=== PATIENT | male | born 1940 | race Caucasian/White ===

== ENCOUNTER 2019-11-23 11:36 | Outpatient (CLI) | payer MEDICARE, SELFPAY ==
--- NOTE | ~2019-11-23 | XR_ITS ---
EXAMINATION: XR shoulder RT min 2V DATE: 11/23/2019 11:51 INDICATION: Right shoulder pain. TECHNIQUE: 4 views of right shoulder were obtained. COMPARISON: Right shoulder radiographs 10/10/2017 FINDINGS: Bone alignment is normal. No fracture. There is mild osteoarthritis of glenohumeral joint a nd severe osteoarthritis of acromioclavicular joint. IMPRESSION: 1. Polyarticular osteoarthritis. Reviewed, dictated and finalized at location A.
--- NOTE | ~2019-11-23 | XR_ITS ---
EXAMINATION: XR shoulder LT min 2V DATE: 11/23/2019 11:51 INDICATION: Left shoulder pain. TECHNIQUE: 4 views of left shoulder were obtained. COMPARISON: Left shoulder radiographs 04/22/2015 FINDINGS: Bone alignment is normal. No fracture. Again seen is a benign bone island in humeral diaphy sis. There is mild osteoarthritis of glenohumeral joint and severe osteoarthritis of acromioclavicula r joint. IMPRESSION: 1. Polyarticular osteoarthritis. Reviewed, dictated and finalized at location A.
== END 2019-11-23 11:37 | disposition home or self-care (01) ==
LOC: ANHIMG 11:44
PROVIDERS: PCP Family Medicine; Referring Provider Orthopaedic Surgery; Visit Provider Family Medicine
DX: M25.519 Pain in unspecified shoulder (principal); M15.9 Polyosteoarthritis, unspecified
CPT/HCPCS: 73030

== ENCOUNTER → 2020-05-29 12:45 | Outpatient (CLI) | payer MEDICARE, SELFPAY ==
--- NOTE | ~2020-05-29 | XR_ITS ---
EXAMINATION: XR foot LT min 3V DATE: 05/29/2020 13:22 INDICATION: Left foot pain at the fourth and fifth toes radiating into the lateral ankle TECHNIQUE: Dorsoplantar, two oblique and lateral views of the left foot were obtained. COMPARISON: None. FINDINGS: Alignment is normal. No fracture. Moderate osteoarthritis at the first metatarsophalangeal joint. Min imal to mild osteoarthritis at many of the remaining joints in the mid and forefoot. No periosteal reaction or cortical erosions. Moderate-sized plantar calcaneal spur with multiple smal l heterotopic ossicles in the proximal to mid plantar aponeurosis suggesting chronic plantar fasciiti s. IMPRESSION: 1. Polyarticular osteoarthritis in the mid and forefoot, moderate severity at the first metatarsophal angeal joint and otherwise minimal to mild . 2. Moderate-sized plantar calcaneal spur with multiple small heterotopic ossicles along the plantar a poneurosis suggestive of chronic plantar fasciitis. Reviewed, dictated and finalized at location B. IMPRESSION: 1. Polyarticular osteoarthritis in the mid and forefoot, moderate severity at t he first metatarsophalangeal joint and otherwise minimal to mild . 2. Moderate-sized plantar calcaneal spur with multiple small heterotopic ossicl es along the plantar aponeurosis suggestive of chronic plantar fasciitis.
== END ==
PROVIDERS: PCP Family Medicine; Visit Provider Physician Assistant
DX: M19.072 Primary osteoarthritis, left ankle and foot (principal); M77.32 Calcaneal spur, left foot
CPT/HCPCS: 73630

== ENCOUNTER 2020-06-28 13:20 | Observation (INO) | payer MEDICARE, SELFPAY ==
[2020-06-28] VITALS (9 sets, daily range): BP systolic 116–152; BP diastolic 50–86; PULSE 52–75; RESP 16–19; TEMP 35.9–36.6; O2SAT 94–99; BMI 35.8
--- NOTE | ~2020-06-28 | CT_ITS ---
EXAMINATION: CTA chest PE protocol DATE: 06/28/2020 14:39 INDICATION: Chest and back pain. TECHNIQUE: Computed tomography angiography (CTA) of the chest was performed with 100 mL Omnipaque-350 intravenous contrast timed to evaluate the pulmonary arteries. Coronal maximum intensity projection 3D-reconstructions were created by the technologist. Automated exposure control and iterative reconst ruction technique were employed. The dose-length product was 914.39 mGy-cm. COMPARISON: Chest CT 09/20/2018 FINDINGS: The lungs demonstrate mild atelectasis. There is chronic mild elevation of left hemidiaphra gm. No pleural effusion. The heart size is normal. There are coronary artery calcifications. No peric ardial effusion. There is no pulmonary embolus. There is mild aortic atherosclerosis. There is cortic al thinning of the kidneys. There is a 2.0 cm cyst in left kidney. There is a 12 mm subcutaneous mass in left posterior superior chest wall, likely a sebaceous cyst. There is 13 mm and 15 mm subcutaneou s masses in right lower posterior chest wall, likely sebaceous cysts. There are bridging endplate ost eophytes at multiple levels in the spine, consistent with diffuse idiopathic skeletal hyperostosis (D LUIS). There are chronic compression fractures of T12 and L1. IMPRESSION: 1. No pulmonary embolus. Reviewed, dictated and finalized at location A. IMPRESSION: 1. No pulmonary embolus.
--- NOTE | 2020-06-28 13:42 | ECG_ITS ---
Measurements Intervals [place] Rate: 66 P: 33 [place]: 187 QRS: 17 QRSD: 150 T: -7 QT: 432 QTc: 455 Interpretive Statements SINUS RHYTHM RIGHT BUNDLE BRANCH BLOCK BASELINE ARTIFACT- II, III, V1 ABNORMAL ECG Electronically Signed On 06-28-2020 14:03:48 CDT by Camden Umaña D.O.
--- NOTE | 2020-06-28 13:48 | ED.CHESTPAIN ---
HPI - Chest Pain General Chief Complaint: Chest Pain Stated Complaint: CHEST PAIN AND BACK PAIN Time Seen by Provider: 06/28/20 13:25 Source: patient, family and RN notes reviewed Mode of arrival: ambulatory Limitations: no limitations History of Present Illness HPI narrative: Patient is 79 years old white male presents to the ED with his daughter from home complaining of sharp stabbing pain between shoulder blades radiating to the front of the chest for the last 4 to 5 days. The pain usually last for few seconds, gets worse with certain position, get better if he sit down and rest. The pain started 1 day after planting a lot of bustos in the garden. Patient is telling me that he have history of lower back pain and arthritis, and usually have trouble to get off the ground without museum assistant. But after planting the floor patient was trying to get up using different muscles in his body to get off the ground. Patient is telling me that he looks like Act[employer] to try to get up. Patient denies any fever, chills, nausea, vomiting, shortness of breath, any complaint at this time. History of hypertension, COPD, deep vein thrombosis and pulmonary embolism on Xarelto for the last 3 years. Patient does not smoke and drinks alcohol daily. Related Data Home Medications Medication Instructions Recorded Confirmed ascorbic acid (vitamin C) 1,000 mg 1 gm PO DAILY 05/08/19 05/29/20 tablet crisaborole 2 % topical ointment 1 applic TOPICAL BID 05/08/19 05/29/20 mecobalamin (vitamin B12) 1,000 1,000 mcg PO DAILY 05/08/19 05/29/20 mcg chewable tablet ycibtfer-hor-jxtok acid 300 1 tablet PO DAILY 05/08/19 05/29/20 mcg-lycopene 600 mcg-lutein 300 mcg tablet omega-3 360 mg-dha 144 mg-epa 216 cap PO 05/08/19 05/29/20 mg-fish oil 1,200 mg capsule,del rel garlic 500 mg tablet 2,000 mg PO DAILY tablet 06/06/19 05/29/20 vitamin E (dl, acetate) 400 unit 400 unit PO DAILY 06/06/19 05/29/20 capsule Allergies Allergy/AdvReac Type Severity Reaction Status Date / Time No Known Allergies Allergy Verified 06/28/20 13:26 Review of Systems Review of Systems: Narrative: CONSTITUTIONAL: Denies fever, chills, or sweats. EYES: Denies visual changes, redness, or discharge. ENT: Denies rhinorrhea, congestion, sore throat, or otalgia. CARDIOVASCULAR: Denies chest pain, palpitations, or edema. RESPIRATORY: Denies cough or dyspnea. GASTROINTESTINAL: Denies abdominal pain, nausea, vomiting, or diarrhea. GENITOURINARY: Denies dysuria or hematuria. SKIN: Denies rash or itching. MUSCULOSKELETAL: Denies back pain, joint pain, or myalgia. NEUROLOGIC: Denies headache, numbness, or weakness. PSYCHIATRIC: Denies anxiety or depression. [facility] Past Medical History Medical History BMI 36.0-36.9,adult Cataract surgery, 2009, Dr. Mukherjee H/O blood clots Hypertension Surgical History Surgical History H/O knee surgery Right, Dr. Resendez 2019 History of prostate surgery 2000, Dr. Victor Family History Family History Mother Family history of congestive heart failure Father Family history of Hodgkin's lymphoma Social History Social History Alcohol intake: current Gender identity (if verbalized by the patient): Male Exam Narrative: Exam Narrative: General appearance: Well-developed, well-nourished Skin: Normal color Head: Normocephalic, nontraumatic Eyes: Clear conjunctiva ENT: Oropharynx normal, ears normal, nose normal Neck: Supple, nontender Chest and respiratory: Airway patent, no respiratory distress, no accessory muscle use Heart: Regular rate/rhythm Abdomen: Soft, nontender, no organomegaly, quiet bowel sounds Vascular: Normal peripheral pulses, normal capillary refill. Musculoskeletal: Normal range of motion, nontender back Neurolog
[2020-06-28 13:50] LABS: Basophils Percent Auto 0.2 % (0.2-1.2); Eosinophils Percent Auto 0.2 % (0-4.4); Hematocrit 46.8 % (42.0-52.0); Hemoglobin 15.8 g/dL (14.0-18.0); Immature Granulocyte Absolute 0.02 K/mm3 (0.00-0.031); Immature Granulocyte Percent A 0.4 % (0-0.5); Lymphocytes Absolute Auto 1.04 K/mm3 (0.9-3.2); Lymphocytes Percent Auto 18.5 % (18.3-44.2); Mean Corpuscular HGB Conc 33.8 g/dl (32-36); Mean Corpuscular Hemoglobin 32.9 pg (26-34); Mean Corpuscular Volume 97.5 fl (80-100); Mean Platelet Volume 10.1 fl (7.4-10.4); Monocytes Percent Auto 16.9 % (2.6-8.5); Neutrophils Absolute Auto 3.6 K/mm3 (1.3-6.7); Neutrophils Percent Auto 63.8 % (45.5-73.1); Platelet Count Result 170 k/mm3 (150-375); White Blood Count 5.6 K/mm3 (4.5-10.0)
[2020-06-28 14:01] LABS: Anion Gap 6 mmol/L (8-16); Blood Urea Nitrogen 15 mg/dL (9-20); Calcium 10.1 mg/dL (8.4-10.2); Carbon Dioxide 31 mmol/L (22-30); Chloride 102 mmol/L (98-107); Estimated CRCL calculation 59 ml/min; Estimated Glomerular Filt Rate > 60; Glucose 98 mg/dL (75-110); Potassium 4.6 mmol/L (3.4-5.0); Sodium 139 mmol/L (137-145)
[2020-06-28 14:16] LABS: Troponin I < 0.012 ng/mL (0.000-0.034)
[2020-06-28 14:29] LABS: Alanine Aminotransferase 51 U/L (4-50); Albumin Level 4.5 g/dL (3.5-5.1); Alkaline Phosphatase 104 U/L (38-126); Aspartate Amino Transferase 60 U/L (17-59); Bilirubin,Total 0.6 mg/dL (0.2-1.3)
[2020-06-28 14:35] LABS: INR 1.5; Prothrombin Time 18.6 Seconds (11.1-14.7)
[2020-06-28 14:36] LABS: Partial Thromboplastin Time 36.7 SECONDS (22.3-36.8)
[2020-06-28] MEDS: ASPIRIN 81 MG CHEWABLE TABLET 324 MG PO (16:10)
--- NOTE | 2020-06-28 17:28 | ADMGEN ---
This patient, Jarrod Padron, was admitted to IMU Room 204-01. Patient/family oriented to hospital policies and general routines including ID bracelet, bed and alarms, visiting hours, pain management, procedures, bathroom and other care routines, personal items, smoking policy, room service/diet, and visiting hours. Information on how to activate the Rapid Response Team has been discussed. Patient/Family are encouraged to report perceived risks to care and to ask questions if they do not understand what they are told or what they should do.
[2020-06-28 17:43] LABS: Troponin I < 0.012 ng/mL (0.000-0.034)
[2020-06-28 20:20] LABS: Troponin I < 0.012 ng/mL (0.000-0.034)
[2020-06-28] MEDS: GABAPENTIN 300 MG CAPSULE PO (21:52)
[2020-06-29] VITALS (7 sets, daily range): BP systolic 121–144; BP diastolic 67–72; PULSE 46–60; RESP 18; TEMP 36.2–36.4; O2SAT 97–98
--- NOTE | 2020-06-29 08:36 | PM.IMHP ---
H&P: HPI History of Present Illness Date/Time: 06/29/20 08:36 CHIEF COMPLAINT IS CHEST PAIN 79 years old gentleman with history of PE DVT, history of hypertension, came to hospital because of chest pain started initially back pain between the shoulder blade and start radiation to the front part of the chest. Start yesterday afternoon was mostly nonexertional. With that he had mild shortness of breath, but no palpitation or dizziness no dizziness or lightheadedness pain improved subsequently cardiac enzymes are negative and his EKG showed stable right bundle branch block but no new changes. Currently he feels well cardiac enzymes so far are negative and EKG showed no acute ST-T changes. He had history of PE in the past and history of DVT SLE was the 1st time when he was on Xarelto for 6 months subsequently had recurrence of that and he is on Xarelto permanently. CT of the chest was done yesterday showed no evidence of PE Chief Complaint: Chest pain Review of Systems Constitutional: Constitutional: Reports difficulty sleeping Cardiovascular: Cardiovascular: Reports as per HPI Respiratory: Respiratory: Reports dyspnea PMFSH Past Medical History Medical History (Updated 06/29/20 @ 08:44 by Abhilash Lui MD) BMI 36.0-36.9,adult Cataract surgery, 2009, Dr. Mukherjee H/O blood clots Hypertension Surgical History Surgical History H/O knee surgery Right, Dr. Resendez 2019 History of prostate surgery 2000, Dr. Victor Family History Family History Mother Family history of congestive heart failure Father Family history of Hodgkin's lymphoma Social History Social History Smoking packs per day: 1.5 Smoking cigarettes per day: 30.0 Years smoked: 60 Smoking pack-years: 90.00 Smoking status: Former smoker Tobacco type: cigarettes Alcohol intake: current Gender identity (if verbalized by the patient): Male Meds Home Medications and Allergies Home Medications Medication Instructions Recorded Confirmed Type ascorbic acid (vitamin C) 1,000 mg 1 gm PO DAILY 05/08/19 06/28/20 History tablet mecobalamin (vitamin B12) 1,000 1,000 mcg PO DAILY 05/08/19 06/28/20 History mcg chewable tablet iimlbfcz-uoc-utoag acid 300 1 tablet PO DAILY 05/08/19 06/28/20 History mcg-lycopene 600 mcg-lutein 300 mcg tablet tramadol 50 mg tablet 50 mg PO Q6H PRN #60 tablet 06/06/19 06/28/20 Rx lisinopril 40 mg tablet 40 mg PO DAILY #90 tablet 10/04/19 06/28/20 Rx metoprolol succinate 100 mg 100 mg PO DAILY #90 tablet 01/09/20 06/28/20 Rx tablet,extended release 24 hr prednisone 5 mg tablet 5 mg PO DAILY #90 tablet 03/18/20 06/28/20 Rx pantoprazole 40 mg tablet,delayed 40 mg PO DAILY #90 tablet 04/28/20 06/28/20 Rx release gabapentin 300 mg capsule 300 mg PO QHS #90 cap 05/29/20 06/28/20 Rx Xarelto 20 mg PO DAILY 06/28/20 06/28/20 History alprazolam [Xanax] 0.5 mg PO BID PRN 06/28/20 06/28/20 History ppvpirmmimx-buabweuhu-lkztrxtn 100 inh INHALATION DAILY 06/28/20 06/28/20 History [Trelegy Ellipta] prednisone 1 mg PO DAILY 06/28/20 06/28/20 History sulfamethoxazole-trimethoprim 1 tablet PO Q12H 06/28/20 06/28/20 History Allergies Allergy/AdvReac Type Severity Reaction Status Date / Time No Known Allergies Allergy Verified 06/28/20 13:26 Vital Signs Vital Signs - 24 hr 06/28/20 13:24 06/28/20 14:14 06/28/20 15:46 Temperature 36.6 C Pulse Rate 66 75 58 L Respiratory Rate 19 18 Blood Pressure 128/50 L 132/86 Pulse Oximetry 99 98 06/28/20 16:53 06/28/20 17:37 06/28/20 19:52 Temperature 35.9 C L 36.3 C L Pulse Rate 53 L 56 L 60 Respiratory Rate 17 18 18 Blood Pressure 138/64 152/77 H 116/64 Pulse Oximetry 97 99 94 06/28/20 20:00 06/28/20 22:00 06/28/20 23:31 Temperature 36.4 C L Pulse Rate 60 53 L 52 L Respiratory
[2020-06-29] MEDS: ASPIRIN 81 MG CHEWABLE TABLET PO (08:52)
--- NOTE | 2020-06-29 09:08 | PM.DS ---
DS: Admitting Diagnosis Admitting Diagnosis Admitting Diagnosis: Atypical chest pain DS: Discharge Diagnosis Discharge Diagnosis (1) Chest pain: Qualifiers: Chest pain type: unspecified Qualified Code(s): R07.9 - Chest pain, unspecified Code(s): R07.9 - Chest pain, unspecified Status: Acute Assessment and Plan: Has atypical chest pain but has significant risk factors for coronary artery disease. Currently cardiac enzymes are negative, EKG showed right bundle branch block but no ischemic changes otherwise. He would need to have a stress test with treadmill or Lexiscan, this could be done as an outpatient. He is stable from cardiac standpoint to be discharged home, he is to follow up in 1 week for outpatient stress test (2) Alcohol dependence: Qualifiers: Substance use status: uncomplicated Qualified Code(s): F10.20 - Alcohol dependence, uncomplicated Code(s): F10.20 - Alcohol dependence, uncomplicated Status: Acute (3) Benign essential HTN: Code(s): I10 - Essential (primary) hypertension Status: Acute (4) PMR (polymyalgia rheumatica): Code(s): M35.3 - Polymyalgia rheumatica Status: Acute (5) Chronic obstructive pulmonary disease, unspecified: Code(s): J44.9 - Chronic obstructive pulmonary disease, unspecified Status: Acute (6) History of pulmonary artery thrombosis: Code(s): Z86.711 - Personal history of pulmonary embolism Status: Acute Assessment and Plan: He is currently is on Xarelto, will continue with that DS: Summary Hospital Course Hospital Course: He was admitted to the hospital for observation, cardiac enzymes are negative, no new EKG changes, he will be discharged home to have an outpatient stress test Time Spent with Patient Time attestation: Total time spent providing and/or coordinating discharge services: Exam Narrative: Exam Narrative: Awake alert oriented x3 not in acute distress Neck is supple no obvious JVD, no carotid bruit Chest: Good air entry bilaterally, lungs are clear to auscultation and percussion bilaterally Cardiovascular: Regular rate and rhythm, 2/6 systolic murmur noted left sternal border Abdomen: Soft nontender bowel sounds positive Extremities: No edema has good pulses distally bilaterally DS: Data Data Completed and Pending Labs on day of discharge: Labs from last 24 hours 06/28/20 06/28/20 06/28/20 19:47 17:15 14:17 WBC RBC Hgb Hct MCV MCH MCHC RDW Plt Count MPV Immature Gran % (Auto) Neut % (Auto) Lymph % (Auto) [place] % (Auto) Eos % (Auto) Baso % (Auto) Lymph # (Auto) [place] # (Auto) Eos # (Auto) Baso # (Auto) Abs Immat Gran (auto) Absolute Neuts (auto) Absolute Nucleated RBC Nucleated RBC % PT 18.6 H INR 1.5 APTT 36.7 Sodium Potassium Chloride Carbon Dioxide Anion Gap BUN Creatinine Estim Creat Clear Calc Estimated GFR Glucose Calcium Total Bilirubin Direct Bilirubin AST ALT Alkaline Phosphatase Troponin I < 0.012 < 0.012 Total Protein Albumin 06/28/20 06/28/20 06/28/20 13:44 13:44 13:44 WBC 5.6 RBC 4.80 Hgb 15.8 Hct 46.8 MCV 97.5 MCH 32.9 MCHC 33.8 RDW 12.0 Plt Count 170 MPV 10.1 Immature Gran % (Auto) 0.4 Neut % (Auto) 63.8 Lymph % (Auto) 18.5 [place] % (Auto) 16.9 H Eos % (Auto) 0.2 Baso % (Auto) 0.2 Lymph # (Auto) 1.04 [place] # (Auto) 1.0 H Eos # (Auto) 0.0 Baso # (Auto) 0.0 Abs Immat Gran (auto) 0.02 Absolute Neuts (auto) 3.6 Absolute Nucleated RBC 0.0 Nucleated RBC % 0.0 PT INR APTT Sodium 139 Potassium 4.6 Chloride 102 Carbon Dioxide 31 H Anion Gap 6 L BUN 15 Creatinine 1.10 Estim Creat Clear Calc 59 Estimated GFR > 60 Glucose 98 Calcium 10.1 Total Bili
== END 2020-06-29 10:45 | disposition home or self-care (01) ==
LOC: ANHED 16:33 → ANHIMU 16:45
PROVIDERS: Admitting Provider Specialist; Emergency Provider Emergency Medicine; PCP Family Medicine; Visit Provider Specialist
DX: R07.89 Other chest pain (principal); F10.20 Alcohol dependence, uncomplicated; I10 Essential (primary) hypertension; M35.3 Polymyalgia rheumatica; J44.9 Chronic obstructive pulmonary disease, unspecified; Z87.891 Personal history of nicotine dependence; Z86.711 Personal history of pulmonary embolism
CPT/HCPCS: 36415; 71275; 80048; 80076; 84484; 85025; 85610; 85730; 93005; 99285; A9270; G0378; Q9967

== ENCOUNTER 2020-10-03 11:42 | Inpatient (IN) | payer MEDICARE, SELFPAY ==
[2020-10-03] VITALS (39 sets, daily range): BP systolic 108–152; BP diastolic 60–93; PULSE 69–88; RESP 16–34; TEMP 36.6–37.9; O2SAT 85–100; BMI 34.6; BMI 35.0
--- NOTE | ~2020-10-03 | XR_ITS ---
XR chest 1V portable DATE: 10/08/2020 16:59 INDICATION: Worsening hypoxia. Covid infection. TECHNIQUE: Portable AP chest on 10/08/2020 at 1622 hours COMPARISON: 10/03/2020 CT pulmonary scan 10/03/2020 portable AP chest FINDINGS: There are patchy bilateral pulmonary infiltrates involving particularly the mid and lower l pieter zones, increased in severity since 10/03/2020. No pleural effusion or pneumothorax is evident. Heart size appears within normal range. Aortic arch calcification, descending thoracic aortic calcification, mild aortic unfolding. Diffuse osteopenia. IMPRESSION: Increased bilateral pulmonary infiltrates since 10/03/2020 Reviewed, dictated and finalized at location A.
--- NOTE | ~2020-10-03 | XR_ITS ---
XR chest 1V portable DATE: 10/03/2020 13:27 INDICATION: Cough, shortness of breath TECHNIQUE: Portable supine AP view on 10/03/2020 at 1321 hours COMPARISON: 06/28/2020 CT pulmonary scan 10/24/2017 two-view chest FINDINGS: Heart size is within normal range. Is aortic calcification and unfolding. There are scattered patchy bilateral pulmonary infiltrates suggesting multifocal bilateral pneumonia. No pleural effusion or pneumothorax. There is mild elevation left leaf of diaphragm, unchanged since 10/24/2017. Degenerative spurring of the thoracic spine. IMPRESSION: Scattered patchy bilateral pulmonary infiltrates suggesting multifocal bilateral pneumoni a Reviewed, dictated and finalized at location A. IMPRESSION: Scattered patchy bilateral pulmonary infiltrates suggesting multifo joe bilateral pneumonia
--- NOTE | ~2020-10-03 | CT_ITS ---
EXAMINATION: CTA chest PE protocol DATE: 10/03/2020 15:16 INDICATION: Elevated d-dimer. Covid-positive. TECHNIQUE: Computed tomography angiography (CTA) of the chest was performed with 100 mL Omnipaque-350 intravenous contrast timed to evaluate the pulmonary arteries. Coronal maximum intensity projection 3D-reconstructions were created by the technologist. Automated exposure control and iterative reconst ruction technique were employed. Exam dose: 833.57 mGy-cm total exam DLP. COMPARISON: 10/03/2020 portable AP chest / CT pulmonary scan. FINDINGS: There is no evidence of pulmonary embolism. No thoracic aortic aneurysm or dissection. Mild hilar and mediastinal lymph node prominence is likely reactive. Heart size is within normal range. Coronary artery calcifications. No pericardial or pleural effusion . There are are extensive bilateral patchy groundglass pulmonary infiltrates consistent with Covid pneu monia. No pleural effusion or pneumothorax. There are chronic anterior wedge compression fracture deformities of T12 and to a greater extent L1. Diffuse osteopenia. Degenerative changes of the thoracic and lumbar spine. IMPRESSION: Extensive bilateral pulmonary infiltrates consistent with Covid pneumonia No evidence of pulmonary embolism Reviewed, dictated and finalized at Location A. Reviewed, dictated and finalized at location A. IMPRESSION: Extensive bilateral pulmonary infiltrates consistent with Covid pn eumonia No evidence of pulmonary embolism
[2020-10-03 13:03] LABS: Alveolar/Arterial O2 Gradient 104.3 mmHg; Base Excess ABG 2.3 mEq/l (+/-2.0); Fractional Inspired Oxygen 28 %; HCO3 ABG 25.2 mEq/l (22.0-26.0); Oxygen Content ABG 18.4 %vol (16.0-22.0); Oxyhemoglobin 88.5 % THb (90.0-100.0); PCO2 ABG 34.2 mmHg (35.0-45.0); PO2 FiO2 Ratio Arterial Blood 1.96 %; Total Hemoglobin 14.8 g/dL (12.0-18.0); pH ABG 7.485 (7.350-7.450)
[2020-10-03 13:04] LABS: Device NASAL CANNULA; Modified Allen's Test Pass; Site Drawn LEFT RADIAL
[2020-10-03 13:42] LABS: Hematocrit 41.8 % (42.0-52.0); Hemoglobin 14.5 g/dL (14.0-18.0); Immature Granulocyte Absolute 0.01 K/mm3 (0.00-0.031); Immature Granulocyte Percent A 0.2 % (0-0.5); Immature Platelet Fraction Pct 5.3 % (0.9-11.2); Lymphocytes Absolute Auto 0.41 K/mm3 (0.9-3.2); Lymphocytes Percent Auto 8.3 % (18.3-44.2); Mean Corpuscular HGB Conc 34.7 g/dl (32-36); Mean Corpuscular Hemoglobin 32.2 pg (26-34); Mean Corpuscular Volume 92.7 fl (80-100); Mean Platelet Volume 10.2 fl (7.4-10.4); Monocytes Absolute Auto 0.2 K/mm3 (0.1-0.6); Neutrophils Absolute Auto 4.3 K/mm3 (1.3-6.7); Neutrophils Percent Auto 87.5 % (45.5-73.1); Platelet Count Result 131 k/mm3 (150-375); Red Blood Count 4.51 M/mm3 (4.6-6.20); White Blood Count 4.9 K/mm3 (4.5-10.0)
[2020-10-03 13:54] LABS: Anion Gap 5 mmol/L (8-16); Blood Urea Nitrogen 12 mg/dL (9-20); Calcium 8.9 mg/dL (8.4-10.2); Carbon Dioxide 29 mmol/L (22-30); Chloride 95 mmol/L (98-107); Estimated CRCL calculation 86 ml/min; Estimated Glomerular Filt Rate > 60; Glucose 114 mg/dL (65-110); Lactate Dehydrogenase 1015 U/L (313-618); Potassium 4.1 mmol/L (3.4-5.0); Sodium 129 mmol/L (137-145)
[2020-10-03 13:57] LABS: D Dimer 0.77 ug/mL (<0.48)
--- NOTE | 2020-10-03 14:13 | ED.SOB ---
HPI - SOB/Dyspnea General Chief Complaint: Shortness of Breath/Dyspnea Stated Complaint: Covid with shortness of breath Time Seen by Provider: 10/03/20 12:26 Source: patient Mode of arrival: ambulatory Limitations: no limitations History of Present Illness HPI Narrative: 80-year-old male History of COPD and hypertension Distant history of a PE Reports he is fully vaccinated with the Pfizer vaccine but does not remember exactly when he got it He started getting sick about a week ago with mild upper respiratory symptoms and on September 27 was tested elsewhere and was positive for Covid Now he has a 2-day history of increased shortness of breath and worsening constitutional symptoms fatigue body aches etc. Related Data Home Medications Medication Instructions Recorded Confirmed ascorbic acid (vitamin C) 1,000 mg 1 gm PO DAILY 05/08/19 09/09/20 tablet mecobalamin (vitamin B12) 1,000 1,000 mcg PO DAILY 05/08/19 09/09/20 mcg chewable tablet jlomlnlm-wdh-jwdak acid 300 1 tablet PO DAILY 05/08/19 09/09/20 mcg-lycopene 600 mcg-lutein 300 mcg tablet Trelegy Ellipta 100 inh INHALATION DAILY 06/28/20 09/09/20 alprazolam [Xanax] 0.5 mg PO BID PRN 06/28/20 09/09/20 sulfamethoxazole-trimethoprim 1 tablet PO Q12H 06/28/20 09/09/20 Allergies Allergy/AdvReac Type Severity Reaction Status Date / Time No Known Allergies Allergy Verified 10/03/20 11:55 Review of Systems Review of Systems: All systems reviewed & are unremarkable except as noted in HPI and below Constitutional: Constitutional: Reports no additional constitutional complaints, Reports chills, Reports fatigue, Reports fever(s), Denies headache(s) and Reports weakness Eyes: Eyes: Reports no additional eye complaints and Denies change in vision ENT: Denies headache(s), Reports nasal congestion and Denies sore throat Cardiovascular: Cardiovascular: Denies chest pain and Denies dyspnea Respiratory: Respiratory: Reports cough and Reports dyspnea Gastrointestinal: Gastrointestinal: Denies abdominal pain, Denies diarrhea and Denies vomiting Genitourinary: Genitourinary: Denies dysuria and Denies urinary frequency Musculoskeletal: Musculoskeletal: Reports myalgias, Denies deformity, Denies arthralgias, Denies joint swelling and Denies numbness Integumentary/Breasts: Skin/Breast: Denies rash and Denies wounds Neurologic: Denies headache(s), Denies focal weakness and Denies numbness Psychiatric: Psychiatric: Reports no additional psychiatric complaints Endocrine: Endocrine: Reports no additional endocrine complaints Hematologic/Lymphatic: Hematologic/Lymphatic: Reports no additional hematologic/lymphatic complaints Allergic/Immunologic: Allergic/Immunologic: Reports no additional allergic/immunologic complaints PMFSH Past Medical History Medical History BMI 36.0-36.9,adult Cataract surgery, 2009, Dr. Mukherjee H/O blood clots Hypertension Surgical History Surgical History H/O knee surgery Right, Dr. Resendez 2019 History of prostate surgery 2000, Dr. Victor Family History Family History Mother Family history of congestive heart failure Father Family history of Hodgkin's lymphoma Social History Social History Smoking packs per day: 1.5 Smoking cigarettes per day: 30.0 Years smoked: 60 Smoking pack-years: 90.00 Tobacco type: cigarettes Alcohol intake: current Gender identity (if verbalized by the patient): Male Exam Const: General: cooperative, no acute distress and alert Nutritional Appearance: obese Orientation/consciousness: patient oriented x3 (alert) HENMT: Head: normal to inspection, normocephalic and atraumatic Ears: external ears normal General nose exam: no epistaxis Eyes: Conjunctivae: conjunc
[2020-10-03] MEDS: ALBUTEROL SULFATE (*SP) AEROSOL 1 PUFF 4 PUFF INHALATION (14:18)
--- NOTE | 2020-10-03 15:14 | PC.NURSE ---
called down to lab to add a hepatic at 14:17 and again at 15:11
[2020-10-03] MEDS: ENOXAPARIN 100 MG/ML SYRINGE SUB-Q (15:55)
--- NOTE | 2020-10-03 16:06 | PC.NURSE ---
Hospitalist at bedside
[2020-10-03 17:15] LABS: Alanine Aminotransferase 36 U/L (4-50); Albumin Level 3.7 g/dL (3.5-5.1); Alkaline Phosphatase 141 U/L (38-126); Aspartate Amino Transferase 84 U/L (17-59); Bilirubin,Total 0.9 mg/dL (0.2-1.3)
--- NOTE | 2020-10-03 18:10 | PM.IMHP ---
H&P: HPI History of Present Illness Date/Time: 10/03/20 16:00 Chief Complaint: Shortness of breath, COVID positive Narrative: 80-year-old male with past medical history of COPD, hypertension, and prostatectomy who presented to the ER due to persistent shortness of breath with worsening weakness in the setting of recent COVID diagnosis. The patient reports that he was exposed to his daughter it was COVID positive on the week of September. He initially started with symptoms of rhinorrhea and fatigue. He started having symptoms on September 27 and had a COVID test that was positive. He was evaluated at urgent care and they sent him home with a prescription for azithromycin. He reports that he has had a variable temperature ranging between 99-103 degrees. He was febrile on presentation to the ER with a temperature of 100.3?. He reports that he started having shortness of breath within a couple of days of symptom onset but his shortness of breath has remained stable since that time. He has had a dry nonproductive cough. He denies any chest pain. He has been using his home Trelegy inhaler and he has a rescue inhaler with albuterol. He has not tried his albuterol to see if it would relieve his symptoms. He reports generalized malaise and myalgias. He has had decreased appetite. He has had a couple of days of 2 or 3 loose stools a day. He denies any abdominal pain. He has not had any loss of sense of taste or smell. He received the [employer] COVID vaccine at least a couple of months ago. He reports that over the last week he has noticed increased urinary urgency and leaking of urine. He denies any dysuria. He has not noticed any hematuria. He has also noticed that he had his thinking has not been is clear since his COVID diagnosis. He does not use oxygen at home. He reports that he suspects he has obstructive sleep apnea. He reports that his used to tell him that he snored. He has a 4 lb dog at home. He reports that his daughter is hospitalized in all found in they have told her that she will be in the hospital for quite some time with COVID. He has a family friend that may be able to help him take care of his dog but he is uncertain. Review of Systems Review of Systems: 12 systems were reviewed with pertinent positives and negatives per HPI. Except as documented in the HPI, all other systems were reviewed and are negative. 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 Resendez Status post cataract extraction of both eyes with insertion of intraocular lens (~2009) Status post prostatectomy (~2000) Dr. Victor Family History Family History (Updated 10/03/20 @ 22:09 by Reyna Moore DO) Mother CHF (congestive heart failure) Father , At 58 years old Hodgkins lymphoma Social History Social History (Updated 10/03/20 @ 22:13 by Reyna Moore DO) Social History: Primary care physician: Dr. Abelardo Torres Code status: Full code Surrogate decision maker: Josefina Payne (daughter) Smoking packs per day: 2 Smoking cigarettes per day: 40.0 Years smoked: 60 Smoking pack-years: 120.00 Smoking status: Former smoker Tobacco type: cigarettes Second hand tobacco smoke exposure: Yes Alcohol intake: current Drinks per week: 21 Al
--- NOTE | 2020-10-03 18:30 | PC.NURSE ---
Pt had taken off nasal cannula. Oxygen reapplied, saturations improving
--- NOTE | 2020-10-03 21:31 | PCDIET ---
This patient, Jarrod Padron, was admitted to [facility] Surg Room 315-01. Patient/family oriented to hospital policies and general routines including ID bracelet, bed and alarms, visiting hours, pain management, procedures, bathroom and other care routines, personal items, smoking policy, room service/diet, and visiting hours. Information on how to activate the Rapid Response Team has been discussed. Patient/Family are encouraged to report perceived risks to care and to ask questions if they do not understand what they are told or what they should do.
[2020-10-03 21:56] LABS: INR 1.9; Prothrombin Time 21.4 Seconds (11.1-14.7)
[2020-10-03] MEDS: GABAPENTIN 300 MG CAPSULE PO (23:41)
[2020-10-04] VITALS (11 sets, daily range): BP systolic 114–146; BP diastolic 60–76; PULSE 67–72; RESP 16–20; TEMP 36.2–37.1; O2SAT 85–96
[2020-10-04 00:08] LABS: Anion Gap 9 mmol/L (8-16); Blood Urea Nitrogen 13 mg/dL (9-20); Calcium 8.5 mg/dL (8.4-10.2); Carbon Dioxide 25 mmol/L (22-30); Chloride 93 mmol/L (98-107); Estimated CRCL calculation 101 ml/min; Estimated Glomerular Filt Rate > 60; Glucose 171 mg/dL (65-110); Sodium 127 mmol/L (137-145)
[2020-10-04] MEDS: REMDESIVIR 200 MG/NS 250 ML 200 MG/250 ML BAG 250 MG IVPB (00:18)
[2020-10-04] MEDS: SODIUM CHLORIDE 0.9% IV 1,000 ML 125 ML IV CONT ×2 (04:05→16:27)
[2020-10-04] MEDS: ENOXAPARIN 100 MG/ML SYRINGE SUB-Q ×2 (05:27→17:51)
[2020-10-04 06:31] LABS: Hematocrit 42.6 % (42.0-52.0); Hemoglobin 14.2 g/dL (14.0-18.0); Mean Corpuscular HGB Conc 33.3 g/dl (32-36); Mean Corpuscular Hemoglobin 32.4 pg (26-34); Mean Corpuscular Volume 97.3 fl (80-100); Mean Platelet Volume 10.8 fl (7.4-10.4); Platelet Count Result 128 k/mm3 (150-375); Red Blood Count 4.38 M/mm3 (4.6-6.20); Red Cell Distribution Width 12.1 % (11.5-14.5); White Blood Count 3.1 K/mm3 (4.5-10.0)
[2020-10-04 06:52] LABS: INR 1.4; Prothrombin Time 16.5 Seconds (11.1-14.7)
[2020-10-04 06:54] LABS: Alanine Aminotransferase 46 U/L (4-50); Albumin Level 3.7 g/dL (3.5-5.1); Alkaline Phosphatase 143 U/L (38-126); Anion Gap 4 mmol/L (8-16); Aspartate Amino Transferase 90 U/L (17-59); Bilirubin,Total 0.6 mg/dL (0.2-1.3); Blood Urea Nitrogen 13 mg/dL (9-20); Calcium 8.8 mg/dL (8.4-10.2); Carbon Dioxide 28 mmol/L (22-30); Chloride 97 mmol/L (98-107); Estimated CRCL calculation 101 ml/min; Estimated Glomerular Filt Rate > 60; Glucose 159 mg/dL (65-110); Potassium 4.2 mmol/L (3.4-5.0); Sodium 129 mmol/L (137-145)
--- NOTE | 2020-10-04 07:07 | PCRCNOTE ---
Window of time for administration has passed. See next scheduled administration.
[2020-10-04] MEDS: CYANOCOBALAMIN 1,000 MCG TABLET 1000 MCG PO (09:40)
[2020-10-04] MEDS: METOPROLOL SUCCINATE EXT REL 100 MG TABCR PO (09:40)
[2020-10-04] MEDS: lisinopriL 20 MG TABLET 40 MG PO (09:40)
[2020-10-04 09:41] LABS: CRP 36.5 mg/dL (<1.0)
[2020-10-04] MEDS: FLUTICASONE/UMECLIDIN/VILANTER 100-62.5-25 MCG ELLIPTA 1 PUFF INHALATION (09:41)
[2020-10-04] MEDS: ALBUTEROL SULFATE (*SP) AEROSOL 1 PUFF 4 PUFF INHALATION ×3 (09:43→21:40)
[2020-10-04] MEDS: PANTOPRAZOLE 40 MG TABLET PO (09:43)
--- NOTE | 2020-10-04 16:58 | P.PNIM_ITS ---
Progress Note: A&P Assessment and Plan (1) Pneumonia due to 2019 novel coronavirus: Code(s): U07.1 - COVID-19; J12.82 - Pneumonia due to coronavirus disease 2019 Status: Acute Assessment and Plan: * acute hypoxic respiratory failure due to COVID-19 pneumonia. * Remdesivir and decadron started (Day 2) * Supplemental oxygen wean to maintain a saturation 90% * Albuterol inhaler scheduled * inflammatory markers elevated ferritin 11 10, alk phos 143, LDH 10 15, AST 90 ALT 46 * incentive spirometer / pep therapy * supportive care * trend labs * could be causing leukocytopenia (2) Hyponatremia: Code(s): E87.1 - Hypo-osmolality and hyponatremia Status: Acute Assessment and Plan: * sodium is 129 today * trend labs * normal saline at 125 an hour (3) COPD (chronic obstructive pulmonary disease): Qualifiers: COPD type: COPD with acute lower respiratory infection Qualified Code(s): J44.0 - Chronic obstructive pulmonary disease with (acute) lower respiratory infection Code(s): J44.9 - Chronic obstructive pulmonary disease, unspecified Status: Acute Assessment and Plan: * continue Trelegy inhaler 1 inhalation per day * Decadron 6 mg IV daily * prednisone 5 mg p.o. after the Decadron is completed * supportive care * supplemental oxygen maintain saturations above 90% (4) Acute respiratory failure with hypoxia: Code(s): J96.01 - Acute respiratory failure with hypoxia Status: Acute Assessment and Plan: * see above (5) Urgency-frequency syndrome: Code(s): N32.81 - Overactive bladder Status: Acute Assessment and Plan: * complaints of new onset urgency and frequency of urine * UA ordered and pending * could possibly be UTI versus BPH * post residual void ordered * strict I&Os * trend output (6) Hypertension: Code(s): I10 - Essential (primary) hypertension Status: Acute Assessment and Plan: * blood pressure 114/60 * continue home metoprolol 100 mg Q day, lisinopril 40 mg q.day * trend blood pressure * adjust medications as needed Subjective Date/time seen: 10/04/20 09:30 Interval history: 80-year-old male with past medical history of COPD, hypertension, and prostatectomy who presented to the ER due to persistent shortness of breath with worsening weakness in the setting of recent COVID diagnosis. Patient is very short of breath this am. Upon examination patient was on 4LNC while I was examining the patient he was in need of a titration up to 6LNC which was successful in bring the patient up to 90%. It was then noted that the patient does have a repaired septum and was changed to a venturi mask at 40%. He did state that he is at baseline driving and mowing the grass. He also stated that he is on Eliquis for DVTs and PEs. He stated that his major symptom is that he keeps getting weaker and weaker. he denies chest pain, sweats, fevers, chills, and abdominal pain. He did admit to still having a taste and smell. Review of Systems Review of Systems: All systems reviewed & are unremarkable except as noted in HPI and below Exam Const: General: cooperative, healthy appearing, no acute distress, well developed, alert and awake Nutritional Appearance: well nourished Orientation/consciousness: patient oriented x3 Limitations: no limitations KOREY
--- NOTE | 2020-10-04 16:58 | PM.IMPN ---
Progress Note: A&P Assessment and Plan (1) Pneumonia due to 2019 novel coronavirus: Code(s): U07.1 - COVID-19; J12.82 - Pneumonia due to coronavirus disease 2019 Status: Acute Assessment and Plan: acute hypoxic respiratory failure due to COVID-19 pneumonia. Remdesivir and decadron started (Day 2) Supplemental oxygen wean to maintain a saturation 90% Albuterol inhaler scheduled inflammatory markers elevated ferritin 11 10, alk phos 143, LDH 10 15, AST 90 ALT 46 incentive spirometer / pep therapy supportive care trend labs could be causing leukocytopenia (2) Hyponatremia: Code(s): E87.1 - Hypo-osmolality and hyponatremia Status: Acute Assessment and Plan: sodium is 129 today trend labs normal saline at 125 an hour (3) COPD (chronic obstructive pulmonary disease): Qualifiers: COPD type: COPD with acute lower respiratory infection Qualified Code(s): J44.0 - Chronic obstructive pulmonary disease with (acute) lower respiratory infection Code(s): J44.9 - Chronic obstructive pulmonary disease, unspecified Status: Acute Assessment and Plan: continue Trelegy inhaler 1 inhalation per day Decadron 6 mg IV daily prednisone 5 mg p.o. after the Decadron is completed supportive care supplemental oxygen maintain saturations above 90% (4) Acute respiratory failure with hypoxia: Code(s): J96.01 - Acute respiratory failure with hypoxia Status: Acute Assessment and Plan: see above (5) Urgency-frequency syndrome: Code(s): N32.81 - Overactive bladder Status: Acute Assessment and Plan: complaints of new onset urgency and frequency of urine UA ordered and pending could possibly be UTI versus BPH post residual void ordered strict I&Os trend output (6) Hypertension: Code(s): I10 - Essential (primary) hypertension Status: Acute Assessment and Plan: blood pressure 114/60 continue home metoprolol 100 mg Q day, lisinopril 40 mg q.day trend blood pressure adjust medications as needed Subjective Date/time seen: 10/04/20 09:30 Interval history: 80-year-old male with past medical history of COPD, hypertension, and prostatectomy who presented to the ER due to persistent shortness of breath with worsening weakness in the setting of recent COVID diagnosis. Patient is very short of breath this am. Upon examination patient was on 4LNC while I was examining the patient he was in need of a titration up to 6LNC which was successful in bring the patient up to 90%. It was then noted that the patient does have a repaired septum and was changed to a venturi mask at 40%. He did state that he is at baseline driving and mowing the grass. He also stated that he is on Eliquis for DVTs and PEs. He stated that his major symptom is that he keeps getting weaker and weaker. he denies chest pain, sweats, fevers, chills, and abdominal pain. He did admit to still having a taste and smell. Review of Systems Review of Systems: All systems reviewed & are unremarkable except as noted in HPI and below Exam Const: General: cooperative, healthy appearing, no acute distress, well developed, alert and awake Nutritional Appearance: well nourished Orientation/consciousness: patient oriented x3 Limitations: no limitations HENMT: Head: normal to inspection Ears: hearing grossly normal bilaterally General nose exam: Normal external nose present Mouth: Yes Normal oral and palatal mucosa present, Yes lip normal and Yes tongue normal Teeth and gingiva: abnormal tooth and associated gingiva and poor dentition Eyes: General: appearance normal, both eyes and all related structures Neck: Neck: normal visual inspection, full ROM, trachea midline and supple Chest: Chest palpation & inspection: normal inspection of the chest Resp: Effort & Inspection
[2020-10-04] MEDS: GABAPENTIN 300 MG CAPSULE PO (20:02)
[2020-10-04] MEDS: REMDESIVIR 100 MG/NS 250 ML 100 MG/250 ML BAG 250 MG IVPB (22:24)
[2020-10-05] VITALS (13 sets, daily range): BP systolic 145–156; BP diastolic 65–82; PULSE 58–76; RESP 12–20; TEMP 36.4–36.9; O2SAT 90–97
[2020-10-05] MEDS: ENOXAPARIN 100 MG/ML SYRINGE SUB-Q ×2 (06:28→17:06)
[2020-10-05 07:42] LABS: Hemoglobin 13.4 g/dL (14.0-18.0); Immature Granulocyte Absolute 0.01 K/mm3 (0.00-0.031); Immature Granulocyte Percent A 0.4 % (0-0.5); Lymphocytes Absolute Auto 0.39 K/mm3 (0.9-3.2); Lymphocytes Percent Auto 14.6 % (18.3-44.2); Mean Corpuscular HGB Conc 33.5 g/dl (32-36); Mean Corpuscular Hemoglobin 32.1 pg (26-34); Mean Corpuscular Volume 95.9 fl (80-100); Monocytes Absolute Auto 0.4 K/mm3 (0.1-0.6); Monocytes Percent Auto 13.4 % (2.6-8.5); Neutrophils Absolute Auto 1.9 K/mm3 (1.3-6.7); Neutrophils Percent Auto 71.6 % (45.5-73.1); Platelet Count Result 160 k/mm3 (150-375); Red Blood Count 4.17 M/mm3 (4.6-6.20); Red Cell Distribution Width 12.1 % (11.5-14.5); White Blood Count 2.7 K/mm3 (4.5-10.0)
[2020-10-05 07:52] LABS: INR 1.1; Prothrombin Time 14.3 Seconds (11.1-14.7)
[2020-10-05 08:22] LABS: Alanine Aminotransferase 72 U/L (4-50); Albumin Level 2.9 g/dL (3.5-5.1); Alkaline Phosphatase 130 U/L (38-126); Anion Gap 3 mmol/L (8-16); Aspartate Amino Transferase 108 U/L (17-59); Bilirubin,Total 0.4 mg/dL (0.2-1.3); Blood Urea Nitrogen 16 mg/dL (9-20); Calcium 8.2 mg/dL (8.4-10.2); Carbon Dioxide 27 mmol/L (22-30); Chloride 101 mmol/L (98-107); Estimated CRCL calculation 101 ml/min; Estimated Glomerular Filt Rate > 60; Glucose 136 mg/dL (65-110); Magnesium 2.1 mg/dL (1.6-2.3); Potassium 3.9 mmol/L (3.4-5.0); Sodium 131 mmol/L (137-145)
[2020-10-05] MEDS: METOPROLOL SUCCINATE EXT REL 100 MG TABCR PO (09:16)
[2020-10-05] MEDS: CYANOCOBALAMIN 1,000 MCG TABLET 1000 MCG PO (09:16)
[2020-10-05] MEDS: PANTOPRAZOLE 40 MG TABLET PO (09:16)
[2020-10-05] MEDS: lisinopriL 20 MG TABLET 40 MG PO (09:18)
--- NOTE | 2020-10-05 09:28 | P.PNIM_ITS ---
Progress Note: A&P Assessment and Plan (1) Pneumonia due to 2019 novel coronavirus: Code(s): U07.1 - COVID-19; J12.82 - Pneumonia due to coronavirus disease 2019 Status: Acute Assessment and Plan: * acute hypoxic respiratory failure due to COVID-19 pneumonia. * Remdesivir and decadron started (Day 2) * Supplemental oxygen wean to maintain a saturation 90% * Albuterol inhaler scheduled * inflammatory markers elevated ferritin 1110, alk phos 143, LDH 10 15, AST 90 ALT 46 * incentive spirometer / pep therapy * supportive care * trend labs * could be causing leukocytopenia (2) Hyponatremia: Code(s): E87.1 - Hypo-osmolality and hyponatremia Status: Acute Assessment and Plan: * sodium is 131 today * trend labs * normal saline at 125 an hour DC at this time since patient is showing signs of overload with 1-2+ pitting edema (3) COPD (chronic obstructive pulmonary disease): Qualifiers: COPD type: COPD with acute lower respiratory infection Qualified Code(s): J44.0 - Chronic obstructive pulmonary disease with (acute) lower respiratory infection Code(s): J44.9 - Chronic obstructive pulmonary disease, unspecified Status: Acute Assessment and Plan: * continue Trelegy inhaler 1 inhalation per day * Decadron 6 mg IV daily * prednisone 5 mg p.o. after the Decadron is completed * supportive care * supplemental oxygen maintain saturations above 90% (4) Acute respiratory failure with hypoxia: Code(s): J96.01 - Acute respiratory failure with hypoxia Status: Acute Assessment and Plan: * see above (5) Urgency-frequency syndrome: Code(s): N32.81 - Overactive bladder Status: Acute Assessment and Plan: * complaints of new onset urgency and frequency of urine * UA ordered and pending * could possibly be UTI versus BPH * post residual void ordered * strict I&Os * trend output (6) Hypertension: Code(s): I10 - Essential (primary) hypertension Status: Acute Assessment and Plan: * blood pressure 114/60 * continue home metoprolol 100 mg Q day, lisinopril 40 mg q.day * trend blood pressure * adjust medications as needed (7) Urinary retention with incomplete bladder emptying: Code(s): R33.9 - Retention of urine, unspecified Status: Acute Assessment and Plan: * Retention noted Post residual void of 326 after voiding 400 * Urology consult * Patient sees Dr. Hopkins/Chely Wilson * Consider urinary catheter * Strict I&Os * Urine culture ordered Subjective Date/time seen: 10/05/20 09:08 Interval history: Mr. Austin is a 80-year-old male who is here for COVID-19. Today patient is doing a lot better he said he has no real symptoms including chest pain, nausea, vomiting, diarrhea, constipation, headache. Patient does get short of breath with walking and he stated that he was 78% on room air whenever they took him to the bathroom this morning. However currently he is on 2 L nasal cannula satting about 90% even when talking. Patient is very concerned and worried his daughter is in the hospital at [facility] he expressed to me concerned that he is not going to make it. At this time I feel like patient is doing well. I also talked to the patient about getting Neurology involved because the patient had quite considerable post residual void.
--- NOTE | 2020-10-05 09:28 | PM.IMPN ---
Progress Note: A&P Assessment and Plan (1) Pneumonia due to 2019 novel coronavirus: Code(s): U07.1 - COVID-19; J12.82 - Pneumonia due to coronavirus disease 2019 Status: Acute Assessment and Plan: acute hypoxic respiratory failure due to COVID-19 pneumonia. Remdesivir and decadron started (Day 2) Supplemental oxygen wean to maintain a saturation 90% Albuterol inhaler scheduled inflammatory markers elevated ferritin 1110, alk phos 143, LDH 10 15, AST 90 ALT 46 incentive spirometer / pep therapy supportive care trend labs could be causing leukocytopenia (2) Hyponatremia: Code(s): E87.1 - Hypo-osmolality and hyponatremia Status: Acute Assessment and Plan: sodium is 131 today trend labs normal saline at 125 an hour DC at this time since patient is showing signs of overload with 1-2+ pitting edema (3) COPD (chronic obstructive pulmonary disease): Qualifiers: COPD type: COPD with acute lower respiratory infection Qualified Code(s): J44.0 - Chronic obstructive pulmonary disease with (acute) lower respiratory infection Code(s): J44.9 - Chronic obstructive pulmonary disease, unspecified Status: Acute Assessment and Plan: continue Trelegy inhaler 1 inhalation per day Decadron 6 mg IV daily prednisone 5 mg p.o. after the Decadron is completed supportive care supplemental oxygen maintain saturations above 90% (4) Acute respiratory failure with hypoxia: Code(s): J96.01 - Acute respiratory failure with hypoxia Status: Acute Assessment and Plan: see above (5) Urgency-frequency syndrome: Code(s): N32.81 - Overactive bladder Status: Acute Assessment and Plan: complaints of new onset urgency and frequency of urine UA ordered and pending could possibly be UTI versus BPH post residual void ordered strict I&Os trend output (6) Hypertension: Code(s): I10 - Essential (primary) hypertension Status: Acute Assessment and Plan: blood pressure 114/60 continue home metoprolol 100 mg Q day, lisinopril 40 mg q.day trend blood pressure adjust medications as needed (7) Urinary retention with incomplete bladder emptying: Code(s): R33.9 - Retention of urine, unspecified Status: Acute Assessment and Plan: Retention noted Post residual void of 326 after voiding 400 U[address] consult Patient sees Dr. Hopkins/Chely Wilson Consider urinary catheter Strict I&Os Urine culture ordered Subjective Date/time seen: 10/05/20 09:08 Interval history: Mr. Austin is a 80-year-old male who is here for COVID-19. Today patient is doing a lot better he said he has no real symptoms including chest pain, nausea, vomiting, diarrhea, constipation, headache. Patient does get short of breath with walking and he stated that he was 78% on room air whenever they took him to the bathroom this morning. However currently he is on 2 L nasal cannula satting about 90% even when talking. Patient is very concerned and worried his daughter is in the hospital at [facility] he expressed to me concerned that he is not going to make it. At this time I feel like patient is doing well. I also talked to the patient about getting Neurology involved because the patient had quite considerable post residual void. I am still trying to get a UA done on him for a possible infection. I also explained to the patient that he could possibly need a Fung which he is not interested at this time. He was also asking about the medications that he is currently on. I reassured him that he is on the medication that he needs to be on at this point. He also stated that he was vaccinated Review of Systems Review of Systems: All systems reviewed & are unremarkable except as noted in HPI and below Exam Const: General: cooperative, h
[2020-10-05] MEDS: SODIUM CHLORIDE 0.9% IV 1,000 ML 125 ML IV CONT ×2 (10:15→18:15)
[2020-10-05] MEDS: FLUTICASONE/UMECLIDIN/VILANTER 100-62.5-25 MCG ELLIPTA 1 PUFF INHALATION (10:45)
[2020-10-05] MEDS: ALBUTEROL SULFATE (*SP) AEROSOL 1 PUFF 4 PUFF INHALATION ×3 (10:45→21:42)
--- NOTE | 2020-10-05 12:06 | WPDURCON ---
Assessment and Plan Assessment and plan (1) Urgency-frequency syndrome: Code(s): N32.81 - Overactive bladder Status: Acute Assessment and Plan: Urine culture has been obtained. Initiated on Flomax even though it does not have a prostate may help with relaxation of bladder neck area. Will recheck residuals. LS residuals continue to increase may simply follow conservatively. If residuals to increase more uncomfortable he may require a straight cath. (2) Urinary retention with incomplete bladder emptying: Code(s): R33.9 - Retention of urine, unspecified Status: Acute Assessment and Plan: See above Urology Consult Note HPI Date Seen: 10/05/20 Requesting Physician: Reyna Moore DO Primary Care Provider: Jamey Torres MD Consult Narrative Reason for consult: Urinary frequency and urgency Narrative: Jarrod Padron is a 80 year old male who has a history of open radical prostatectomy by Dr. Victor back in 2000 and most recently has been seeing Dr Hopkins. Patient is known COVID positive despite having the vaccine recently. He was admitted with some shortness of breath. During his stay he mentioned that he was having increase in her frequency and urgency. Patient states that he normally has nocturia times 2-3. Does have some mild stress incontinence which is not unexpected. Initially a residual revealed a volume of 2-300 cc. Patient is not uncomfortable at all. 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 Resendez Status post cataract extraction of both eyes with insertion of intraocular lens (~2009) Status post prostatectomy (~2000) Dr. Victor Family History Family History Mother CHF (congestive heart failure) Father , At 58 years old Hodgkins lymphoma Social History Social History Social History: Primary care physician: Dr. Abelardo Torres Code status: Full code Surrogate decision maker: Josefina Payne (daughter) Smoking packs per day: 2 Smoking cigarettes per day: 40.0 Years smoked: 60 Smoking pack-years: 120.00 Smoking status: Former smoker Tobacco type: cigarettes Second hand tobacco smoke exposure: Yes Alcohol intake: current Drinks per week: 21 Alcohol use details: He drinks 2-3 beers a day. Substance use: never Additional living arrangements comments: He lives alone. He has been since 2013. He is independent in activities of daily living. He has a toy Yorkie at home that weighs 4 lb. 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 Gender identity (if verbalized by the patient): Male Spiritual care concerns: Yes Meds Home Medications and Allergies Home Medications Medication Instructions Recorded Confirmed Type ascorbic acid (vitamin C) 1,000 mg 1 gm PO DAILY 05/08/19 10/03/20 History tablet mecobalamin (vitamin B12) 1,000 1,000 mcg PO DAILY 05/08/19 10/03/20 History mcg chewable tablet tramadol 50 mg tablet 50 mg PO Q6H PRN #60 tablet 06/05
[2020-10-05] MEDS: TAMSULOSIN HCL 0.4 MG CAPSULE PO (13:00)
[2020-10-05 13:16] LABS: Add Urine Microscopic? YES; Appearance Urine Clear (Clear); Bilirubin Urine Negative (Negative); Blood Urine Negative (Negative); Color Urine Yellow (Yellow); Glucose Urine UA 3+ mg/dL (Negative); Ketones Urine Negative (Negative); Leukocyte Esterase Ur Negative LEU/UL (Negative); Nitrate Urine Negative (Negative); Protein Urine 1+ mg/dL (Negative); Specific Grav Ur 1.017 (1.001-1.035); Urobilinogen Urine Negative mg/dL (<2.0)
[2020-10-05] MEDS: ALBUTEROL SULFATE (*SP) INHALER 1 PUFF (13:33)
[2020-10-05] MEDS: GABAPENTIN 300 MG CAPSULE PO (20:44)
[2020-10-05] MEDS: ALPRAZolam (*CRX) 0.5 MG TABLET PO (20:44)
[2020-10-05] MEDS: REMDESIVIR 100 MG/NS 250 ML 100 MG/250 ML BAG 250 MG IVPB (21:20)
[2020-10-06] VITALS (11 sets, daily range): BP systolic 130–170; BP diastolic 77–84; PULSE 64–78; RESP 14–20; TEMP 36.4–36.7; O2SAT 90–94
[2020-10-06] MEDS: SODIUM CHLORIDE 0.9% IV 1,000 ML 125 ML IV CONT ×2 (03:31→11:39)
[2020-10-06] MEDS: ENOXAPARIN 100 MG/ML SYRINGE SUB-Q (07:41)
[2020-10-06 07:43] LABS: Hematocrit 37.4 % (42.0-52.0); Hemoglobin 12.5 g/dL (14.0-18.0); Immature Granulocyte Absolute 0.03 K/mm3 (0.00-0.031); Immature Granulocyte Percent A 0.7 % (0-0.5); Lymphocytes Absolute Auto 0.47 K/mm3 (0.9-3.2); Lymphocytes Percent Auto 10.2 % (18.3-44.2); Mean Corpuscular HGB Conc 33.4 g/dl (32-36); Mean Corpuscular Hemoglobin 31.8 pg (26-34); Mean Corpuscular Volume 95.2 fl (80-100); Mean Platelet Volume 10.3 fl (7.4-10.4); Monocytes Absolute Auto 0.4 K/mm3 (0.1-0.6); Monocytes Percent Auto 8.3 % (2.6-8.5); Neutrophils Absolute Auto 3.7 K/mm3 (1.3-6.7); Neutrophils Percent Auto 80.8 % (45.5-73.1); Platelet Count Result 171 k/mm3 (150-375); Red Blood Count 3.93 M/mm3 (4.6-6.20); Red Cell Distribution Width 11.9 % (11.5-14.5); White Blood Count 4.6 K/mm3 (4.5-10.0)
[2020-10-06 07:50] LABS: Prothrombin Time 13.5 Seconds (11.1-14.7)
[2020-10-06] MEDS: ALPRAZolam (*CRX) 0.5 MG TABLET PO (08:27)
[2020-10-06] MEDS: METOPROLOL SUCCINATE EXT REL 100 MG TABCR PO (08:28)
[2020-10-06] MEDS: CYANOCOBALAMIN 1,000 MCG TABLET 1000 MCG PO (08:28)
[2020-10-06] MEDS: lisinopriL 20 MG TABLET 40 MG PO (08:28)
[2020-10-06] MEDS: TAMSULOSIN HCL 0.4 MG CAPSULE PO (08:29)
[2020-10-06] MEDS: PANTOPRAZOLE 40 MG TABLET PO (08:29)
[2020-10-06 08:31] LABS: Alanine Aminotransferase 64 U/L (4-50); Albumin Level 2.8 g/dL (3.5-5.1); Alkaline Phosphatase 114 U/L (38-126); Anion Gap 3 mmol/L (8-16); Aspartate Amino Transferase 73 U/L (17-59); Bilirubin,Total 0.6 mg/dL (0.2-1.3); Blood Urea Nitrogen 15 mg/dL (9-20); Calcium 8.2 mg/dL (8.4-10.2); Carbon Dioxide 24 mmol/L (22-30); Chloride 105 mmol/L (98-107); Estimated CRCL calculation 101 ml/min; Estimated Glomerular Filt Rate > 60; Glucose 103 mg/dL (65-110); Magnesium 1.9 mg/dL (1.6-2.3); Potassium 3.6 mmol/L (3.4-5.0); Sodium 132 mmol/L (137-145)
--- NOTE | 2020-10-06 09:28 | WPDUROPN2 ---
Progress Note: A&P Assessment and Plan (1) Urinary retention with incomplete bladder emptying: Code(s): R33.9 - Retention of urine, unspecified Status: Acute Assessment and Plan: Potentially d/t a stricture, his PVR's are considerablly normal even though slightly elevated, he is asymptomatic of this. Improved stream with Flomax. Continue Flomax and follow up in the office for a cystoscope after discharge, when COVID pneumonia resolves. If PVR worsens, will need to consider self catheterization vs. bynum catheter. Otherwise no changes at this time, no further recommendations. Continue to bladder scan q shift. Subjective Subjective Date/Time Seen: 10/06/20 09:28 Patient had previous PVR's upon admission of 200-300cc. He is asymptomatic and not bothered by his frequency, which he reports as q1-2 hours. Nocturia x 2-3. He was started on Flomax yesterday and notes improvement in his stream, although he is s/p prostatectomy in 2000. He has no complaints at this time urologically. Review of Systems Cardiovascular: Cardiovascular: Reports no additional cardiovascular complaints Respiratory: Respiratory: Reports dyspnea on exertion Gastrointestinal: Gastrointestinal: Denies abdominal pain Genitourinary: Genitourinary: Denies genital pain, Denies dysuria, Denies flank pain, Reports nocturia, Reports urinary frequency, Denies urinary hesitancy, Denies urinary incontinence and Denies urinary urgency Exam Resp: Effort & Inspection: normal respiratory effort (on nasal canula 02) Cardio: Rate: regular rate GI: GI Palp: Yes Soft to palpation and No Tenderness to palpation present (GI) : General: Yes no CVA tenderness Extrem: General: no edema Objective Data Vital Signs Vital Signs: Vital Signs - 24 hr 10/05/20 10:07 10/05/20 13:39 10/05/20 14:00 Temperature 98.4 F 98.0 F Pulse Rate 64 71 Respiratory Rate 12 14 Blood Pressure 152/71 H 145/65 H Pulse Oximetry 96 94 90 10/05/20 15:00 10/05/20 18:51 10/05/20 20:00 Temperature 98.2 F 97.6 F Pulse Rate 74 67 Respiratory Rate 12 20 Blood Pressure 147/74 H 156/82 H Pulse Oximetry 93 94 93 10/05/20 21:42 10/05/20 23:33 10/06/20 04:00 Temperature 98.0 F 97.8 F Pulse Rate 76 65 66 Respiratory Rate 20 20 20 Blood Pressure 149/79 H 151/80 H Pulse Oximetry 93 91 91 10/06/20 08:28 10/06/20 09:00 Temperature 97.9 F Pulse Rate 64 71 Respiratory Rate 14 Blood Pressure 166/80 H Pulse Oximetry 90 Intake/Output Intake/Output: Intake & Output 10/03/20 10/04/20 10/05/20 10/06/20 23:59 23:59 23:59 23:59 Intake Total 100 2350 4080 1500 Output Total 1450 1550 300 Balance 692 053 9604 1200 Meds/Results Medications: Active Medications Generic Name Dose Route Start Last Admin Trade Name Freq PRN Reason Stop Dose Admin Acetaminophen 650 mg 10/03/20 16:17 Acetaminophen 325 Mg Tablet PO Q4H PRN Mild Pain (1-3) or Fever Albuterol 4 puff 10/03/20 20:00 10/06/20 07:44 Albuterol Sulfate (*Sp) Aerosol 1 Puff INHALATION Not Given Q6HRT CHUN Alprazolam 0.5 mg 10/03/20 21:50 10/06/20 08:27 Alprazolam (*Crx) 0.5 Mg Tablet PO 0.5 mg BID PRN Administration Anxiety Cyanocobalamin 1,000 mcg 10/04/20 09:00 10/06/20 08:28 Cyanocobalamin 1,000 Mcg Tablet PO 1,000 mcg DAILY CHUN Administration Dexamethasone Sodium Phosphate 6 mg 10/04/20 09:00 10/06/20 08:27 Dexamethasone Sod Phos Inj 10 Mg/Ml 1 Ml Vial IV PUSH 6 mg QAM CHUN Administration Enoxaparin Sodium 100 mg 10/04/20 06:00 10/06/20 07:41 Enoxaparin 100 Mg/Ml Syringe SUB-Q 100 mg Q12H CHUN Administration Fluticasone/Umeclidinium/Vilanterol 1 puff 10/04/20 09:00 10/05/20 10:45 Fluticasone/Umeclidin/Vilanter 100-62.5-25 Mcg Ellipta INHALATION 1 puff DAILY CHUN Administration Gabapentin 300 mg 10/03/20 22:00 10/05/20 20:44 Gabapentin 300 Mg Capsule PO 300 mg HS CHUN Administration Sodium Chlo
--- NOTE | 2020-10-06 12:48 | P.PNIM_ITS ---
Progress Note: A&P Assessment and Plan (1) Pneumonia due to 2019 novel coronavirus: Code(s): U07.1 - COVID-19; J12.82 - Pneumonia due to coronavirus disease 2019 Status: Acute Assessment and Plan: * acute hypoxic respiratory failure due to COVID-19 pneumonia. * Remdesivir and decadron started (Day 2) * Supplemental oxygen wean to maintain a saturation 90% * Albuterol inhaler scheduled * inflammatory markers elevated ferritin 1110, alk phos 143, LDH 10 15, AST 90 ALT 46 * incentive spirometer / pep therapy * supportive care * trend labs * could be causing leukocytopenia * BNP ordered * Lasix 40mg once (2) Hyponatremia: Code(s): E87.1 - Hypo-osmolality and hyponatremia Status: Acute Assessment and Plan: * sodium is 132 today * trend labs * normal saline at 125 an hour DC at this time since patient is showing signs of overload with 1-2+ pitting edema (3) COPD (chronic obstructive pulmonary disease): Qualifiers: COPD type: COPD with acute lower respiratory infection Qualified Code(s): J44.0 - Chronic obstructive pulmonary disease with (acute) lower respiratory infection Code(s): J44.9 - Chronic obstructive pulmonary disease, unspecified Status: Acute Assessment and Plan: * continue Trelegy inhaler 1 inhalation per day * Decadron 6 mg IV daily * prednisone 5 mg p.o. after the Decadron is completed * supportive care * supplemental oxygen maintain saturations above 90% (4) Acute respiratory failure with hypoxia: Code(s): J96.01 - Acute respiratory failure with hypoxia Status: Acute Assessment and Plan: * see above (5) Urgency-frequency syndrome: Code(s): N32.81 - Overactive bladder Status: Acute Assessment and Plan: * complaints of new onset urgency and frequency of urine * UA unremarkable * post residual void 326 * strict I&Os * trend output (6) Hypertension: Code(s): I10 - Essential (primary) hypertension Status: Acute Assessment and Plan: * blood pressure 170/84, one 20mg dose of hydralazine IV * continue home metoprolol 100 mg Q day, lisinopril 40 mg q.day * trend blood pressure * adjust medications as needed (7) Urinary retention with incomplete bladder emptying: Code(s): R33.9 - Retention of urine, unspecified Status: Acute Assessment and Plan: * Patient underwent prostatectomy 2000 * Retention noted Post residual void of 326 after voiding 400, continue bladder scanning q shift * Urology consult * Patient sees Dr. Hopkins/Chely Wilson * Was advised to put patient on tamsulosin 0.4mg PO * patient will need to follow up with urology after discharge Time Spent With Patient Time with patient: Greater than 35 minutes Subjective Date/time seen: 10/06/20 07:45 Interval history: Jarrod is a 80-year-old male who is here for COVID pneumonia. Patient stated that he feels a little worse today. He did complain of productive cough that is brown little blood in it. Was concerned that may be getting another blood clot. However I told him if he found bright red blood that that would be more of a concern. He also had a bowel movement that was regular informed an hour prior to me coming in. He also said that he is just getting weaker and weaker. He does admit to having a taste and smell and good appetite. He d
--- NOTE | 2020-10-06 12:48 | PM.IMPN ---
Progress Note: A&P Assessment and Plan (1) Pneumonia due to 2019 novel coronavirus: Code(s): U07.1 - COVID-19; J12.82 - Pneumonia due to coronavirus disease 2019 Status: Acute Assessment and Plan: acute hypoxic respiratory failure due to COVID-19 pneumonia. Remdesivir and decadron started (Day 2) Supplemental oxygen wean to maintain a saturation 90% Albuterol inhaler scheduled inflammatory markers elevated ferritin 1110, alk phos 143, LDH 10 15, AST 90 ALT 46 incentive spirometer / pep therapy supportive care trend labs could be causing leukocytopenia BNP ordered Lasix 40mg once (2) Hyponatremia: Code(s): E87.1 - Hypo-osmolality and hyponatremia Status: Acute Assessment and Plan: sodium is 132 today trend labs normal saline at 125 an hour DC at this time since patient is showing signs of overload with 1-2+ pitting edema (3) COPD (chronic obstructive pulmonary disease): Qualifiers: COPD type: COPD with acute lower respiratory infection Qualified Code(s): J44.0 - Chronic obstructive pulmonary disease with (acute) lower respiratory infection Code(s): J44.9 - Chronic obstructive pulmonary disease, unspecified Status: Acute Assessment and Plan: continue Trelegy inhaler 1 inhalation per day Decadron 6 mg IV daily prednisone 5 mg p.o. after the Decadron is completed supportive care supplemental oxygen maintain saturations above 90% (4) Acute respiratory failure with hypoxia: Code(s): J96.01 - Acute respiratory failure with hypoxia Status: Acute Assessment and Plan: see above (5) Urgency-frequency syndrome: Code(s): N32.81 - Overactive bladder Status: Acute Assessment and Plan: complaints of new onset urgency and frequency of urine UA unremarkable post residual void 326 strict I&Os trend output (6) Hypertension: Code(s): I10 - Essential (primary) hypertension Status: Acute Assessment and Plan: blood pressure 170/84, one 20mg dose of hydralazine IV continue home metoprolol 100 mg Q day, lisinopril 40 mg q.day trend blood pressure adjust medications as needed (7) Urinary retention with incomplete bladder emptying: Code(s): R33.9 - Retention of urine, unspecified Status: Acute Assessment and Plan: Patient underwent prostatectomy 2000 Retention noted Post residual void of 326 after voiding 400, continue bladder scanning q shift Urology consult Patient sees Dr. Hopkins/Chely Wilson Was advised to put patient on tamsulosin 0.4mg PO patient will need to follow up with urology after discharge Time Spent With Patient Time with patient: Greater than 35 minutes Subjective Date/time seen: 10/06/20 07:45 Interval history: Jarrod is a 80-year-old male who is here for COVID pneumonia. Patient stated that he feels a little worse today. He did complain of productive cough that is brown little blood in it. Was concerned that may be getting another blood clot. However I told him if he found bright red blood that that would be more of a concern. He also had a bowel movement that was regular informed an hour prior to me coming in. He also said that he is just getting weaker and weaker. He does admit to having a taste and smell and good appetite. He denies abdominal pain chest pain, nausea, vomiting, diarrhea, constipation, headaches. Patient did night sweats and chills however he does look like he has been sweating. He is also very anxious and wanted to know when he would be able to get out here. I did let him know that the short course would be 5 days which would be the 19 and long course would be 10 days which would be the 24th however I did let him know that these are alternative they are not guaranteed. I also let him know that he needs to not worry so much sitting
[2020-10-06] MEDS: hydrALAZINE HCL 20 MG/ML VIAL IV PUSH (14:02)
[2020-10-06] MEDS: FUROSEMIDE INJ 40 MG/4 ML VIAL IV PUSH (14:02)
[2020-10-06 15:22] LABS: NT Pro B Type Natriuretic Pept 1250 pg/mL (5-100)
[2020-10-06] MEDS: ALBUTEROL SULFATE (*SP) AEROSOL 1 PUFF 4 PUFF INHALATION ×2 (16:02→20:47)
[2020-10-06] MEDS: ENOXAPARIN 40 MG/0.4 ML SYRINGE SUB-Q (18:17)
[2020-10-06] MEDS: GABAPENTIN 300 MG CAPSULE PO (22:27)
[2020-10-06] MEDS: REMDESIVIR 100 MG/NS 250 ML 100 MG/250 ML BAG 250 MG IVPB (22:28)
[2020-10-07] VITALS (11 sets, daily range): BP systolic 145–185; BP diastolic 79–94; PULSE 65–92; RESP 18–22; TEMP 36.6–37.4; O2SAT 90–94
[2020-10-07] MEDS: ENOXAPARIN 40 MG/0.4 ML SYRINGE SUB-Q ×2 (06:51→17:32)
[2020-10-07 07:07] LABS: Hematocrit 39.7 % (42.0-52.0); Hemoglobin 13.3 g/dL (14.0-18.0); Mean Corpuscular HGB Conc 33.5 g/dl (32-36); Mean Corpuscular Volume 95.4 fl (80-100); Mean Platelet Volume 10.4 fl (7.4-10.4); Platelet Count Result 197 k/mm3 (150-375); Red Blood Count 4.16 M/mm3 (4.6-6.20); Red Cell Distribution Width 11.9 % (11.5-14.5); White Blood Count 4.3 K/mm3 (4.5-10.0)
[2020-10-07 07:25] LABS: Alanine Aminotransferase 60 U/L (4-50); Alkaline Phosphatase 124 U/L (38-126); Anion Gap 6 mmol/L (8-16); Aspartate Amino Transferase 51 U/L (17-59); Bilirubin,Total 0.8 mg/dL (0.2-1.3); Blood Urea Nitrogen 18 mg/dL (9-20); Calcium 8.6 mg/dL (8.4-10.2); Carbon Dioxide 28 mmol/L (22-30); Chloride 102 mmol/L (98-107); Estimated CRCL calculation 101 ml/min; Estimated Glomerular Filt Rate > 60; Glucose 95 mg/dL (65-110); Potassium 3.5 mmol/L (3.4-5.0); Sodium 136 mmol/L (137-145)
[2020-10-07 07:40] LABS: INR 1.1; Prothrombin Time 13.6 Seconds (11.1-14.7)
[2020-10-07] MEDS: ALBUTEROL SULFATE (*SP) AEROSOL 1 PUFF 4 PUFF INHALATION ×3 (09:06→20:27)
[2020-10-07] MEDS: FLUTICASONE/UMECLIDIN/VILANTER 100-62.5-25 MCG ELLIPTA 1 PUFF INHALATION (09:06)
[2020-10-07 09:58] LABS: Lactate Dehydrogenase 905 U/L (313-618)
[2020-10-07 10:10] LABS: CRP 7.9 mg/dL (<1.0)
[2020-10-07] MEDS: METOPROLOL SUCCINATE EXT REL 100 MG TABCR PO (10:21)
[2020-10-07] MEDS: lisinopriL 20 MG TABLET 40 MG PO (10:21)
[2020-10-07] MEDS: CYANOCOBALAMIN 1,000 MCG TABLET 1000 MCG PO (10:22)
[2020-10-07] MEDS: PANTOPRAZOLE 40 MG TABLET PO (10:22)
[2020-10-07] MEDS: TAMSULOSIN HCL 0.4 MG CAPSULE PO (10:22)
[2020-10-07] MEDS: traMADol HCL (*CRX) 50 MG TABLET PO (10:37)
[2020-10-07] MEDS: ALPRAZolam (*CRX) 0.5 MG TABLET PO (10:37)
--- NOTE | 2020-10-07 16:39 | P.PNIM_ITS ---
Progress Note: A&P Assessment and Plan (1) Pneumonia due to 2019 novel coronavirus: Code(s): U07.1 - COVID-19; J12.82 - Pneumonia due to coronavirus disease 2019 Status: Acute Assessment and Plan: * acute hypoxic respiratory failure due to COVID-19 pneumonia. * Remdesivir and decadron started (Day #3) * Supplemental oxygen wean to maintain a saturation 90% * Albuterol inhaler scheduled * inflammatory markers elevated and trending down. * incentive spirometer / pep therapy * supportive care * trend labs (2) Hyponatremia: Code(s): E87.1 - Hypo-osmolality and hyponatremia Status: Acute Assessment and Plan: * sodium is 136 today * trend labs * Fluids were discontinued yesterday and he was given IV Lasix for diuresis. He appears to be euvolemic at this time. No need for more diuresis at this time. (3) COPD (chronic obstructive pulmonary disease): Qualifiers: COPD type: COPD with acute lower respiratory infection Qualified Code (s): J44.0 - Chronic obstructive pulmonary disease with (acute) lower respiratory infection Code(s): J44.9 - Chronic obstructive pulmonary disease, unspecified Status: Acute Assessment and Plan: * continue Trelegy inhaler 1 inhalation per day * Decadron 6 mg IV daily * prednisone 5 mg p.o. (chronically on at home) after the Decadron is completed * supportive care * supplemental oxygen maintain saturations above 90% (4) Acute respiratory failure with hypoxia: Code(s): J96.01 - Acute respiratory failure with hypoxia Status: Acute Assessment and Plan: * see above (5) Urgency-frequency syndrome: Code(s): N32.81 - Overactive bladder Status: Acute Assessment and Plan: * complaints of new onset urgency and frequency of urine * UA unremarkable * post residual void was low today. * strict I&Os * trend output (6) Hypertension: Code(s): I10 - Essential (primary) hypertension Status: Acute Assessment and Plan: * blood pressure 170/84, Will order PRN hydralazine IV * continue home metoprolol 100 mg Q day, lisinopril 40 mg q.day * trend blood pressure * adjust medications as needed (7) Urinary retention with incomplete bladder emptying: Code(s): R33.9 - Retention of urine, unspecified Status: Acute Assessment and Plan: * Patient underwent prostatectomy 2000 * Retention noted Post residual void of 326 after voiding 400, continue bladder scanning q shift * Urology consult * Patient sees Dr. Hopkins/Chely Wilson * Was advised to put patient on tamsulosin 0.4mg PO * patient will need to follow up with urology after discharge Additional Plan Time Spent With Patient Time with patient: 25 - 35 minutes Subjective Date/time seen: 10/07/20 16:39 Interval history: Jarrod is a 80-year-old male who is here for COVID pneumonia. Date of Service 10/07/20: Patient reports feeling very weak and fatigued. He does not have very much energy to even sit up in bed or eat. He does not much of an appetite this time. He does report having poor breathing, currently on 5 L via nasal cannula. Denies any fevers or chills at this time. Having a slight cough, mostly dry. He denies any chest pain, nausea, vomiting, abdominal pain, leg swelling, calf pain, or any other symptoms at this time. Review o
--- NOTE | 2020-10-07 16:39 | PM.IMPN ---
Progress Note: A&P Assessment and Plan (1) Pneumonia due to 2019 novel coronavirus: Code(s): U07.1 - COVID-19; J12.82 - Pneumonia due to coronavirus disease 2019 Status: Acute Assessment and Plan: acute hypoxic respiratory failure due to COVID-19 pneumonia. Remdesivir and decadron started (Day #3) Supplemental oxygen wean to maintain a saturation 90% Albuterol inhaler scheduled inflammatory markers elevated and trending down. incentive spirometer / pep therapy supportive care trend labs (2) Hyponatremia: Code(s): E87.1 - Hypo-osmolality and hyponatremia Status: Acute Assessment and Plan: sodium is 136 today trend labs Fluids were discontinued yesterday and he was given IV Lasix for diuresis. He appears to be euvolemic at this time. No need for more diuresis at this time. (3) COPD (chronic obstructive pulmonary disease): Qualifiers: COPD type: COPD with acute lower respiratory infection Qualified Code(s): J44.0 - Chronic obstructive pulmonary disease with (acute) lower respiratory infection Code(s): J44.9 - Chronic obstructive pulmonary disease, unspecified Status: Acute Assessment and Plan: continue Trelegy inhaler 1 inhalation per day Decadron 6 mg IV daily prednisone 5 mg p.o. (chronically on at home) after the Decadron is completed supportive care supplemental oxygen maintain saturations above 90% (4) Acute respiratory failure with hypoxia: Code(s): J96.01 - Acute respiratory failure with hypoxia Status: Acute Assessment and Plan: see above (5) Urgency-frequency syndrome: Code(s): N32.81 - Overactive bladder Status: Acute Assessment and Plan: complaints of new onset urgency and frequency of urine UA unremarkable post residual void was low today. strict I&Os trend output (6) Hypertension: Code(s): I10 - Essential (primary) hypertension Status: Acute Assessment and Plan: blood pressure 170/84, Will order PRN hydralazine IV continue home metoprolol 100 mg Q day, lisinopril 40 mg q.day trend blood pressure adjust medications as needed (7) Urinary retention with incomplete bladder emptying: Code(s): R33.9 - Retention of urine, unspecified Status: Acute Assessment and Plan: Patient underwent prostatectomy 2000 Retention noted Post residual void of 326 after voiding 400, continue bladder scanning q shift Urology consult Patient sees Dr. Hopkins/Chely Wilson Was advised to put patient on tamsulosin 0.4mg PO patient will need to follow up with urology after discharge Additional Plan Time Spent With Patient Time with patient: 25 - 35 minutes Subjective Date/time seen: 10/07/20 16:39 Interval history: Jarrod is a 80-year-old male who is here for COVID pneumonia. Date of Service 10/07/20: Patient reports feeling very weak and fatigued. He does not have very much energy to even sit up in bed or eat. He does not much of an appetite this time. He does report having poor breathing, currently on 5 L via nasal cannula. Denies any fevers or chills at this time. Having a slight cough, mostly dry. He denies any chest pain, nausea, vomiting, abdominal pain, leg swelling, calf pain, or any other symptoms at this time. Review of Systems Review of Systems: All systems reviewed & are unremarkable except as noted in HPI and below Exam Narrative: General: 80-year-old man laying on his left side in bed. Appears comfortable on 5L via NC. In no acute distress. During my examination, he was able to pull himself up in bed to sit on the side of the bed to eat dinner. Skin: No jaundice or cyanosis. Good skin turgor. Neck: Full range of motion. Supple. Respiratory: Lungs are clear to auscultation bilaterally. No wheezing, rales or rhonchi. No bony ches
[2020-10-07] MEDS: SALINE 0.65% NAS SOLN 44 ML BTL 1 SPRAY NASAL (18:23)
[2020-10-07] MEDS: BENZOCAINE/MENTHOL (*BKC) 18 EA LOZENGE 1 LOZENGE PO (18:23)
[2020-10-07] MEDS: hydrALAZINE HCL 20 MG/ML VIAL 10 MG IV PUSH (18:23)
[2020-10-07] MEDS: ENOXAPARIN 80 MG/0.8 ML SYRINGE 65 MG SUB-Q (18:24)
[2020-10-07] MEDS: REMDESIVIR 100 MG/NS 250 ML 100 MG/250 ML BAG 250 MG IVPB (21:00)
[2020-10-08] VITALS (12 sets, daily range): BP systolic 119–150; BP diastolic 60–89; PULSE 65–85; RESP 18–20; TEMP 36.2–37.8; O2SAT 90–93
[2020-10-08] MEDS: ALBUTEROL SULFATE (*SP) AEROSOL 1 PUFF 4 PUFF INHALATION ×4 (03:31→21:04)
[2020-10-08] MEDS: SODIUM CHLORIDE NASAL GEL 14.1 GM 1 APPLIC NASAL ×2 (06:43→21:30)
[2020-10-08] MEDS: GABAPENTIN 300 MG CAPSULE PO ×2 (06:43→21:31)
[2020-10-08] MEDS: SALINE 0.65% NAS SOLN 44 ML BTL 1 SPRAY NASAL (10:01)
[2020-10-08] MEDS: CYANOCOBALAMIN 1,000 MCG TABLET 1000 MCG PO (10:02)
[2020-10-08] MEDS: PANTOPRAZOLE 40 MG TABLET PO (10:02)
[2020-10-08] MEDS: METOPROLOL SUCCINATE EXT REL 100 MG TABCR PO (10:02)
[2020-10-08] MEDS: lisinopriL 20 MG TABLET 40 MG PO (10:02)
[2020-10-08] MEDS: TAMSULOSIN HCL 0.4 MG CAPSULE PO (10:03)
[2020-10-08] MEDS: RIVAROXABAN 20 MG TABLET PO (10:03)
[2020-10-08] MEDS: FLUTICASONE/UMECLIDIN/VILANTER 100-62.5-25 MCG ELLIPTA 1 PUFF INHALATION (10:28)
--- NOTE | 2020-10-08 15:32 | P.PNIM_ITS ---
Progress Note: A&P Assessment and Plan (1) Pneumonia due to 2019 novel coronavirus: Code(s): U07.1 - COVID-19; J12.82 - Pneumonia due to coronavirus disease 2019 Status: Acute Assessment and Plan: Acute hypoxic respiratory failure due to COVID-19 pneumonia. * Remdesivir and decadron started (Day #5) * Supplemental oxygen wean to maintain a saturation 90% * Albuterol inhaler scheduled * Inflammatory markers elevated and trending down. * Incentive spirometer / pep therapy * supportive care * trend labs (2) Acute respiratory failure with hypoxia: Code(s): J96.01 - Acute respiratory failure with hypoxia Status: Acute Assessment and Plan: See above (3) COPD (chronic obstructive pulmonary disease): Qualifiers: COPD type: COPD with acute lower respiratory infection Qualified Code(s): J44.0 - Chronic obstructive pulmonary disease with (acute) lower respiratory infection Code(s): J44.9 - Chronic obstructive pulmonary disease, unspecified Status: Acute Assessment and Plan: * continue Trelegy inhaler 1 inhalation per day * Decadron 6 mg IV daily * prednisone 5 mg p.o. (chronically on at home) after the Decadron is completed * supportive care * supplemental oxygen maintain saturations above 90% (4) Hyponatremia: Code(s): E87.1 - Hypo-osmolality and hyponatremia Status: Acute Assessment and Plan: * sodium is 136 today * trend labs * Fluids were discontinued yesterday and he was given IV Lasix for diuresis. He appears to be euvolemic at this time. No need for more diuresis at this time. (5) Urgency-frequency syndrome: Code(s): N32.81 - Overactive bladder Status: Acute Assessment and Plan: * complaints of new onset urgency and frequency of urine * UA unremarkable * post residual void was low today. * strict I&Os * trend output (6) Hypertension: Code(s): I10 - Essential (primary) hypertension Status: Acute Assessment and Plan: * blood pressure 150/68, Will order PRN hydralazine IV * continue home metoprolol 100 mg Q day, lisinopril 40 mg q.day * trend blood pressure * adjust medications as needed (7) Urinary retention with incomplete bladder emptying: Code(s): R33.9 - Retention of urine, unspecified Status: Acute Assessment and Plan: * Patient underwent prostatectomy 2000 * Retention noted Post residual void of 326 after voiding 400, continue bladder scanning q shift * Urology consult * Patient sees Dr. Hopkins/Chely Wilson * Was advised to put patient on tamsulosin 0.4mg PO * patient will need to follow up with urology after discharge Additional Plan Time Spent With Patient Time with patient: 25 - 35 minutes Subjective Date/time seen: 10/08/20 15:32 Interval history: Jarrod is a 80-year-old male who is here for COVID pneumonia. Date of Service 10/08/20: Patient reports feeling about the same today. He is having a yellow productive sputum cough. Denies any worsening shortness of breath. Denies chest pain, fever, chills. Continues to feel weak and fatigued. He does not have much of an appetite this time. Currently on 5 L via nasal cannula. He denies any chest pain, nausea, vomiting, abdominal pain, leg swelling, calf pain, or any other symptoms at this time. Review of Systems Review of Systems: All
--- NOTE | 2020-10-08 15:32 | PM.IMPN ---
Progress Note: A&P Assessment and Plan (1) Pneumonia due to 2019 novel coronavirus: Code(s): U07.1 - COVID-19; J12.82 - Pneumonia due to coronavirus disease 2019 Status: Acute Assessment and Plan: Acute hypoxic respiratory failure due to COVID-19 pneumonia. Remdesivir and decadron started (Day #5) Supplemental oxygen wean to maintain a saturation 90% Albuterol inhaler scheduled Inflammatory markers elevated and trending down. Incentive spirometer / pep therapy supportive care trend labs (2) Acute respiratory failure with hypoxia: Code(s): J96.01 - Acute respiratory failure with hypoxia Status: Acute Assessment and Plan: See above (3) COPD (chronic obstructive pulmonary disease): Qualifiers: COPD type: COPD with acute lower respiratory infection Qualified Code(s): J44.0 - Chronic obstructive pulmonary disease with (acute) lower respiratory infection Code(s): J44.9 - Chronic obstructive pulmonary disease, unspecified Status: Acute Assessment and Plan: continue Trelegy inhaler 1 inhalation per day Decadron 6 mg IV daily prednisone 5 mg p.o. (chronically on at home) after the Decadron is completed supportive care supplemental oxygen maintain saturations above 90% (4) Hyponatremia: Code(s): E87.1 - Hypo-osmolality and hyponatremia Status: Acute Assessment and Plan: sodium is 136 today trend labs Fluids were discontinued yesterday and he was given IV Lasix for diuresis. He appears to be euvolemic at this time. No need for more diuresis at this time. (5) Urgency-frequency syndrome: Code(s): N32.81 - Overactive bladder Status: Acute Assessment and Plan: complaints of new onset urgency and frequency of urine UA unremarkable post residual void was low today. strict I&Os trend output (6) Hypertension: Code(s): I10 - Essential (primary) hypertension Status: Acute Assessment and Plan: blood pressure 150/68, Will order PRN hydralazine IV continue home metoprolol 100 mg Q day, lisinopril 40 mg q.day trend blood pressure adjust medications as needed (7) Urinary retention with incomplete bladder emptying: Code(s): R33.9 - Retention of urine, unspecified Status: Acute Assessment and Plan: Patient underwent prostatectomy 2000 Retention noted Post residual void of 326 after voiding 400, continue bladder scanning q shift Urology consult Patient sees Dr. Hopkins/Chely Wilson Was advised to put patient on tamsulosin 0.4mg PO patient will need to follow up with urology after discharge Additional Plan Time Spent With Patient Time with patient: 25 - 35 minutes Subjective Date/time seen: 10/08/20 15:32 Interval history: Jarrod is a 80-year-old male who is here for COVID pneumonia. Date of Service 10/08/20: Patient reports feeling about the same today. He is having a yellow productive sputum cough. Denies any worsening shortness of breath. Denies chest pain, fever, chills. Continues to feel weak and fatigued. He does not have much of an appetite this time. Currently on 5 L via nasal cannula. He denies any chest pain, nausea, vomiting, abdominal pain, leg swelling, calf pain, or any other symptoms at this time. Review of Systems Review of Systems: All systems reviewed & are unremarkable except as noted in HPI and below Exam Narrative: General: 80-year-old man laying on his back with head elevated at 35 degrees. Appears comfortable on 5L via NC. In no acute distress. Skin: No jaundice or cyanosis. Good skin turgor. Neck: Full range of motion. Supple. Respiratory: May have some inspiratory crackles bilaterally. No wheezing. No bony chest wall tenderness. Cardiovascular: The heart has a regular rate and rhythm without murmur. Lower extremities: No lower extrem
[2020-10-08 16:58] LABS: Glucose Point of Care 156 mg/dl (65-105)
[2020-10-08 17:02] LABS: INR 3.3; Prothrombin Time 32.3 Seconds (11.1-14.7)
[2020-10-08 17:08] LABS: Alanine Aminotransferase 48 U/L (4-50); Estimated CRCL calculation 101 ml/min; Estimated Glomerular Filt Rate > 60
[2020-10-08] MEDS: FUROSEMIDE INJ 40 MG/4 ML VIAL IV PUSH (18:27)
[2020-10-08] MEDS: REMDESIVIR 100 MG/NS 250 ML 100 MG/250 ML BAG 250 MG IVPB (21:29)
[2020-10-08] MEDS: ALPRAZolam (*CRX) 0.5 MG TABLET PO (21:42)
[2020-10-09] VITALS (11 sets, daily range): BP systolic 108–141; BP diastolic 57–76; PULSE 60–84; RESP 16–20; TEMP 36.1–36.8; O2SAT 91–96
[2020-10-09] MEDS: ALBUTEROL SULFATE (*SP) AEROSOL 1 PUFF 4 PUFF INHALATION ×3 (03:03→13:47)
[2020-10-09 07:16] LABS: Eosinophils Percent Auto 0.7 % (0-4.4); Hematocrit 40.2 % (42.0-52.0); Hemoglobin 13.7 g/dL (14.0-18.0); Immature Granulocyte Absolute 0.06 K/mm3 (0.00-0.031); Immature Granulocyte Percent A 1.3 % (0-0.5); Lymphocytes Absolute Auto 0.39 K/mm3 (0.9-3.2); Lymphocytes Percent Auto 8.6 % (18.3-44.2); Mean Corpuscular HGB Conc 34.1 g/dl (32-36); Mean Corpuscular Hemoglobin 32.7 pg (26-34); Mean Corpuscular Volume 95.9 fl (80-100); Mean Platelet Volume 10.1 fl (7.4-10.4); Monocytes Absolute Auto 0.4 K/mm3 (0.1-0.6); Monocytes Percent Auto 8.8 % (2.6-8.5); Neutrophils Absolute Auto 3.7 K/mm3 (1.3-6.7); Neutrophils Percent Auto 80.6 % (45.5-73.1); Platelet Count Result 245 k/mm3 (150-375); Red Blood Count 4.19 M/mm3 (4.6-6.20); Red Cell Distribution Width 12.1 % (11.5-14.5); White Blood Count 4.6 K/mm3 (4.5-10.0)
[2020-10-09 07:25] LABS: INR 1.6; Prothrombin Time 19.1 Seconds (11.1-14.7)
[2020-10-09 07:49] LABS: Alanine Aminotransferase 46 U/L (4-50); Albumin Level 3.2 g/dL (3.5-5.1); Alkaline Phosphatase 118 U/L (38-126); Anion Gap 3 mmol/L (8-16); Aspartate Amino Transferase 36 U/L (17-59); Bilirubin,Total 0.7 mg/dL (0.2-1.3); Blood Urea Nitrogen 18 mg/dL (9-20); CRP 13.2 mg/dL (<1.0); Calcium 8.3 mg/dL (8.4-10.2); Carbon Dioxide 29 mmol/L (22-30); Chloride 100 mmol/L (98-107); Estimated CRCL calculation 101 ml/min; Estimated Glomerular Filt Rate > 60; Glucose 132 mg/dL (65-110); Potassium 3.7 mmol/L (3.4-5.0); Sodium 132 mmol/L (137-145)
--- NOTE | 2020-10-09 08:07 | PC.NURSE ---
Patient was loud and belligerent with nursing staff early in the shift. Modifications were made previously to his NC so that it didn't irritate his nose. Then a new canula was placed and he continued to complain and yell at staff that it was uncomfortable. He was more cooperative with his primary nurse and did accept his medications and treatments.
[2020-10-09] MEDS: TAMSULOSIN HCL 0.4 MG CAPSULE PO (09:58)
[2020-10-09] MEDS: RIVAROXABAN 20 MG TABLET PO (09:58)
[2020-10-09] MEDS: lisinopriL 20 MG TABLET 40 MG PO (09:58)
[2020-10-09] MEDS: METOPROLOL SUCCINATE EXT REL 100 MG TABCR PO (09:58)
[2020-10-09] MEDS: CYANOCOBALAMIN 1,000 MCG TABLET 1000 MCG PO (09:58)
[2020-10-09] MEDS: PANTOPRAZOLE 40 MG TABLET PO (09:58)
--- NOTE | 2020-10-09 14:58 | P.PNIM_ITS ---
Progress Note: A&P Assessment and Plan (1) Pneumonia due to 2019 novel coronavirus: Code(s): U07.1 - COVID-19; J12.82 - Pneumonia due to coronavirus disease 2019 Status: Acute Assessment and Plan: Acute hypoxic respiratory failure due to COVID-19 pneumonia. * Remdesivir and decadron started (Day #6) * Supplemental oxygen wean to maintain a saturation 90% * Albuterol inhaler scheduled * Inflammatory markers elevated and trending down. * Incentive spirometer / pep therapy * supportive care * CRP increased to 13.2. * I had given IV Lasix 40 mg 10/08/20, but patient denies much improvement of breathing or change to his urine output. Some crackles on auscultation will give another dose of IV Lasix tonight. * Due to the patients productive cough will start IV Antibiotics, Azithromycin and Rocephin #1. * trend labs (2) Acute respiratory failure with hypoxia: Code(s): J96.01 - Acute respiratory failure with hypoxia Status: Acute Assessment and Plan: See above (3) COPD (chronic obstructive pulmonary disease): Qualifiers: COPD type: COPD with acute lower respiratory infection Qualified Code(s): J44.0 - Chronic obstructive pulmonary disease with (acute) lower respiratory infection Code(s): J44.9 - Chronic obstructive pulmonary disease, unspecified Status: Acute Assessment and Plan: * Continue Trelegy inhaler 1 inhalation per day * Decadron 6 mg IV daily * Prednisone 5 mg p.o. (chronically on at home) after the Decadron is completed * supportive care * supplemental oxygen maintain saturations above 90% (4) Hyponatremia: Code(s): E87.1 - Hypo-osmolality and hyponatremia Status: Acute Assessment and Plan: * sodium is 132 today * trend labs * Fluids were discontinued yesterday and he was given IV Lasix for diuresis. He appears to be euvolemic at this time. No need for more diuresis at this time. (5) Urgency-frequency syndrome: Code(s): N32.81 - Overactive bladder Status: Acute Assessment and Plan: * complaints of new onset urgency and frequency of urine * UA unremarkable * post residual void was low today. * strict I&Os * trend output (6) Hypertension: Code(s): I10 - Essential (primary) hypertension Status: Acute Assessment and Plan: * blood pressure 141/72, Will order PRN hydralazine IV * continue home metoprolol 100 mg Q day, lisinopril 40 mg q.day * trend blood pressure * adjust medications as needed (7) Urinary retention with incomplete bladder emptying: Code(s): R33.9 - Retention of urine, unspecified Status: Acute Assessment and Plan: * Patient underwent prostatectomy 2000 * Retention noted Post residual void of 326 after voiding 400, continue bladder scanning q shift * Urology consult * Patient sees Dr. Hopkins/Chely Wilson * Was advised to put patient on tamsulosin 0.4mg PO * patient will need to follow up with urology after discharge Additional Plan Time Spent With Patient Time with patient: 25 - 35 minutes Subjective Date/time seen: 10/09/20 14:58 Interval history: Jarrod is a 80-year-old male who is here for COVID pneumonia. Date of Service 10/09/20: Patient reports feeling about the same today. But he did eat a big breakfast which is improved. Still feels weak and fatigued. Denies any wors
--- NOTE | 2020-10-09 14:58 | PM.IMPN ---
Progress Note: A&P Assessment and Plan (1) Pneumonia due to 2019 novel coronavirus: Code(s): U07.1 - COVID-19; J12.82 - Pneumonia due to coronavirus disease 2019 Status: Acute Assessment and Plan: Acute hypoxic respiratory failure due to COVID-19 pneumonia. Remdesivir and decadron started (Day #6) Supplemental oxygen wean to maintain a saturation 90% Albuterol inhaler scheduled Inflammatory markers elevated and trending down. Incentive spirometer / pep therapy supportive care CRP increased to 13.2. I had given IV Lasix 40 mg 10/08/20, but patient denies much improvement of breathing or change to his urine output. Some crackles on auscultation will give another dose of IV Lasix tonight. Due to the patients productive cough will start IV Antibiotics, Azithromycin and Rocephin #1. trend labs (2) Acute respiratory failure with hypoxia: Code(s): J96.01 - Acute respiratory failure with hypoxia Status: Acute Assessment and Plan: See above (3) COPD (chronic obstructive pulmonary disease): Qualifiers: COPD type: COPD with acute lower respiratory infection Qualified Code(s): J44.0 - Chronic obstructive pulmonary disease with (acute) lower respiratory infection Code(s): J44.9 - Chronic obstructive pulmonary disease, unspecified Status: Acute Assessment and Plan: Continue Trelegy inhaler 1 inhalation per day Decadron 6 mg IV daily Prednisone 5 mg p.o. (chronically on at home) after the Decadron is completed supportive care supplemental oxygen maintain saturations above 90% (4) Hyponatremia: Code(s): E87.1 - Hypo-osmolality and hyponatremia Status: Acute Assessment and Plan: sodium is 132 today trend labs Fluids were discontinued yesterday and he was given IV Lasix for diuresis. He appears to be euvolemic at this time. No need for more diuresis at this time. (5) Urgency-frequency syndrome: Code(s): N32.81 - Overactive bladder Status: Acute Assessment and Plan: complaints of new onset urgency and frequency of urine UA unremarkable post residual void was low today. strict I&Os trend output (6) Hypertension: Code(s): I10 - Essential (primary) hypertension Status: Acute Assessment and Plan: blood pressure 141/72, Will order PRN hydralazine IV continue home metoprolol 100 mg Q day, lisinopril 40 mg q.day trend blood pressure adjust medications as needed (7) Urinary retention with incomplete bladder emptying: Code(s): R33.9 - Retention of urine, unspecified Status: Acute Assessment and Plan: Patient underwent prostatectomy 2000 Retention noted Post residual void of 326 after voiding 400, continue bladder scanning q shift Urology consult Patient sees Dr. Hopkins/Chely Wilson Was advised to put patient on tamsulosin 0.4mg PO patient will need to follow up with urology after discharge Additional Plan Time Spent With Patient Time with patient: 25 - 35 minutes Subjective Date/time seen: 10/09/20 14:58 Interval history: Jarrod is a 80-year-old male who is here for COVID pneumonia. Date of Service 10/09/20: Patient reports feeling about the same today. But he did eat a big breakfast which is improved. Still feels weak and fatigued. Denies any worsening changes to his cough. States it is white and clear. Denies chest pain, fever, chills. Currently on 5 L via nasal cannula. He denies any chest pain, nausea, vomiting, abdominal pain, leg swelling, calf pain, or any other symptoms at this time. Review of Systems Review of Systems: All systems reviewed & are unremarkable except as noted in HPI and below Exam Narrative: General: 80-year-old man laying on his back with head elevated at 45 degrees. Appears comfortable on 5L via NC. In no acute distress. Skin: No
[2020-10-09] MEDS: FUROSEMIDE INJ 40 MG/4 ML VIAL IV PUSH (19:00)
[2020-10-09] MEDS: SODIUM CHLORIDE NASAL GEL 14.1 GM 1 APPLIC NASAL (20:13)
[2020-10-09] MEDS: GABAPENTIN 300 MG CAPSULE PO (20:13)
[2020-10-09] MEDS: ALPRAZolam (*CRX) 0.5 MG TABLET PO (20:13)
[2020-10-09] MEDS: REMDESIVIR 100 MG/NS 250 ML 100 MG/250 ML BAG 250 MG IVPB (22:16)
[2020-10-10] VITALS (14 sets, daily range): BP systolic 115–138; BP diastolic 54–77; PULSE 58–81; RESP 12–20; TEMP 36.4–36.7; O2SAT 89–94
[2020-10-10] MEDS: ALBUTEROL SULFATE (*SP) AEROSOL 1 PUFF 4 PUFF INHALATION ×3 (03:11→21:57)
[2020-10-10 07:08] LABS: INR 1.6; Prothrombin Time 18.9 Seconds (11.1-14.7)
[2020-10-10] MEDS: FLUTICASONE/UMECLIDIN/VILANTER 100-62.5-25 MCG ELLIPTA 1 PUFF INHALATION (09:06)
[2020-10-10] MEDS: lisinopriL 20 MG TABLET 40 MG PO (10:11)
[2020-10-10] MEDS: CYANOCOBALAMIN 1,000 MCG TABLET 1000 MCG PO (10:11)
[2020-10-10] MEDS: PANTOPRAZOLE 40 MG TABLET PO (10:12)
[2020-10-10] MEDS: TAMSULOSIN HCL 0.4 MG CAPSULE PO (10:12)
[2020-10-10] MEDS: METOPROLOL SUCCINATE EXT REL 100 MG TABCR PO (10:12)
[2020-10-10] MEDS: RIVAROXABAN 20 MG TABLET PO (10:12)
[2020-10-10 10:27] LABS: Alanine Aminotransferase 61 U/L (4-50); Estimated CRCL calculation 101 ml/min; Estimated Glomerular Filt Rate > 60
--- NOTE | 2020-10-10 11:18 | PCNWS ---
Weekly nutritional screen. Patient is tolerating current diet with adequate intake. No nutritional needs at this time.
--- NOTE | 2020-10-10 14:10 | P.PNIM_ITS ---
Progress Note: A&P Assessment and Plan (1) Pneumonia due to 2019 novel coronavirus: Code(s): U07.1 - COVID-19; J12.82 - Pneumonia due to coronavirus disease 2019 Status: Acute Assessment and Plan: Acute hypoxic respiratory failure due to COVID-19 pneumonia. * Supplemental oxygen wean to maintain a saturation 90% * Albuterol inhaler scheduled * Inflammatory markers elevated and trending down. * Incentive spirometer / pep therapy * supportive care * CRP to be checked tomorrow * Remdesivir and decadron started (Day #7) * I had given IV Lasix 40 mg 10/08/20 and 10/09/20, but patient denies much improvement of breathing or change to his urine output. Will not give further diuretics at this time. * Due to the patients productive cough will start IV Antibiotics, Azithromycin and Rocephin #2 * trend labs (2) Acute respiratory failure with hypoxia: Code(s): J96.01 - Acute respiratory failure with hypoxia Status: Acute Assessment and Plan: See above (3) COPD (chronic obstructive pulmonary disease): Qualifiers: COPD type: COPD with acute lower respiratory infection Qualified Code(s): J44.0 - Chronic obstructive pulmonary disease with (acute) lower respiratory infection Code(s): J44.9 - Chronic obstructive pulmonary disease, unspecified Status: Acute Assessment and Plan: * Continue Trelegy inhaler 1 inhalation per day * Decadron 6 mg IV daily * Prednisone 5 mg p.o. (chronically on at home) after the Decadron is completed * supportive care * supplemental oxygen maintain saturations above 90% (4) Hyponatremia: Code(s): E87.1 - Hypo-osmolality and hyponatremia Status: Acute Assessment and Plan: * sodium to be checked tomorrow * trend labs * Fluids were discontinued and he was given IV Lasix for diuresis. He appears to be euvolemic at this time. No need for more diuresis at this time. (5) Urgency-frequency syndrome: Code(s): N32.81 - Overactive bladder Status: Acute Assessment and Plan: * complaints of new onset urgency and frequency of urine * UA unremarkable * post residual void was low today. * strict I&Os * RESOLVED (6) Hypertension: Code(s): I10 - Essential (primary) hypertension Status: Acute Assessment and Plan: * blood pressure 130/77. Stable * Will order PRN hydralazine IV * continue home metoprolol 100 mg Q day, lisinopril 40 mg q.day * trend blood pressure * adjust medications as needed (7) Urinary retention with incomplete bladder emptying: Code(s): R33.9 - Retention of urine, unspecified Status: Acute Assessment and Plan: * Patient underwent prostatectomy 2000 * Retention noted Post residual void of 326 after voiding 400, continue bladder scanning q shift * Urology consult * Patient sees Dr. Hopkins/Chely Wilson * Was advised to put patient on tamsulosin 0.4mg PO * patient will need to follow up with urology after discharge Additional Plan Time Spent With Patient Time with patient: 25 - 35 minutes Subjective Date/time seen: 10/10/20 14:10 Interval history: Jarrod is a 80-year-old male who is here for COVID pneumonia. Date of Service 10/10/20: Patient reports feeling about the same today. His appetite is still improving. He did walk to the door of his room and back today with therapy tw
--- NOTE | 2020-10-10 14:10 | PM.IMPN ---
Progress Note: A&P Assessment and Plan (1) Pneumonia due to 2019 novel coronavirus: Code(s): U07.1 - COVID-19; J12.82 - Pneumonia due to coronavirus disease 2019 Status: Acute Assessment and Plan: Acute hypoxic respiratory failure due to COVID-19 pneumonia. Supplemental oxygen wean to maintain a saturation 90% Albuterol inhaler scheduled Inflammatory markers elevated and trending down. Incentive spirometer / pep therapy supportive care CRP to be checked tomorrow Remdesivir and decadron started (Day #7) I had given IV Lasix 40 mg 10/08/20 and 10/09/20, but patient denies much improvement of breathing or change to his urine output. Will not give further diuretics at this time. Due to the patients productive cough will start IV Antibiotics, Azithromycin and Rocephin #2 trend labs (2) Acute respiratory failure with hypoxia: Code(s): J96.01 - Acute respiratory failure with hypoxia Status: Acute Assessment and Plan: See above (3) COPD (chronic obstructive pulmonary disease): Qualifiers: COPD type: COPD with acute lower respiratory infection Qualified Code(s): J44.0 - Chronic obstructive pulmonary disease with (acute) lower respiratory infection Code(s): J44.9 - Chronic obstructive pulmonary disease, unspecified Status: Acute Assessment and Plan: Continue Trelegy inhaler 1 inhalation per day Decadron 6 mg IV daily Prednisone 5 mg p.o. (chronically on at home) after the Decadron is completed supportive care supplemental oxygen maintain saturations above 90% (4) Hyponatremia: Code(s): E87.1 - Hypo-osmolality and hyponatremia Status: Acute Assessment and Plan: sodium to be checked tomorrow trend labs Fluids were discontinued and he was given IV Lasix for diuresis. He appears to be euvolemic at this time. No need for more diuresis at this time. (5) Urgency-frequency syndrome: Code(s): N32.81 - Overactive bladder Status: Acute Assessment and Plan: complaints of new onset urgency and frequency of urine UA unremarkable post residual void was low today. strict I&Os RESOLVED (6) Hypertension: Code(s): I10 - Essential (primary) hypertension Status: Acute Assessment and Plan: blood pressure 130/77. Stable Will order PRN hydralazine IV continue home metoprolol 100 mg Q day, lisinopril 40 mg q.day trend blood pressure adjust medications as needed (7) Urinary retention with incomplete bladder emptying: Code(s): R33.9 - Retention of urine, unspecified Status: Acute Assessment and Plan: Patient underwent prostatectomy 2000 Retention noted Post residual void of 326 after voiding 400, continue bladder scanning q shift Urology consult Patient sees Dr. Hopkins/Chely Wilson Was advised to put patient on tamsulosin 0.4mg PO patient will need to follow up with urology after discharge Additional Plan Time Spent With Patient Time with patient: 25 - 35 minutes Subjective Date/time seen: 10/10/20 14:10 Interval history: Jarrod is a 80-year-old male who is here for COVID pneumonia. Date of Service 10/10/20: Patient reports feeling about the same today. His appetite is still improving. He did walk to the door of his room and back today with therapy twice, without much change to his breathing. Some improvement of his weakness and fatigue. Denies any worsening changes to his cough. States it is white and clear. Denies chest pain, fever, chills. Currently on 5 L via nasal cannula. He denies any chest pain, nausea, vomiting, abdominal pain, leg swelling, calf pain, or any other symptoms at this time. Review of Systems Review of Systems: All systems reviewed & are unremarkable except as noted in HPI and below Exam Narrative: General: 80-year-old man laying on his back w
--- NOTE | 2020-10-10 15:40 | HOMEO2EVAL ---
Evaluation was performed at [facility] Home Oxygen Evaluation RC: Home Oxygen (O2) Evaluation Start: 10/10/20 14:15 Freq: ONCE Status: Active Protocol: RPE Activity Type Activity Date Activity User E-Sign Co-Sign Detail Recorded Client Recorded Date Recorded By Document 10/10/20 15:10 TAJ [email or web address] 10/10/20 15:40 TAJ Document 10/10/20 15:15 TAJ [email or web address] 10/10/20 15:40 TAJ Document 10/10/20 15:25 TAJ [email or web address] 10/10/20 15:40 TAJ 10/10/20 10/10/20 10/10/20 15:10 15:15 15:25 Home O2 Evaluation Test Phase Resting Exercise Resting Oxygen Delivery Room Air Room Air Room Air Pulse Oximetry (90-100 %) 93 89 L 92 Pulse Rate (60-100 beats/min) 61 81 64 Activity Tolerance Good Treatment Charges O2 Evaluation - Inpatient
--- NOTE | 2020-10-10 15:41 | PCRCNOTE ---
HOME O2 EVAL COMPLETE, NO REQUIREMENTS
[2020-10-10] MEDS: GABAPENTIN 300 MG CAPSULE PO (21:15)
[2020-10-10] MEDS: ALPRAZolam (*CRX) 0.5 MG TABLET PO (21:15)
[2020-10-10] MEDS: REMDESIVIR 100 MG/NS 250 ML 100 MG/250 ML BAG 250 MG IVPB (21:16)
[2020-10-10] MEDS: SODIUM CHLORIDE NASAL GEL 14.1 GM 1 APPLIC NASAL (21:17)
[2020-10-11] MEDS: ALBUTEROL SULFATE (*SP) AEROSOL 1 PUFF 4 PUFF INHALATION ×3 (02:26→15:05)
[2020-10-11 02:27] VITALS: PULSE 67; RESP 14
[2020-10-11 05:46] VITALS: BP 134/75; PULSE 59; RESP 18; TEMP 36.8; O2SAT 93
[2020-10-11 06:58] LABS: Basophils Percent Auto 0.3 % (0.2-1.2); Eosinophils Percent Auto 0.3 % (0-4.4); Hematocrit 39.2 % (42.0-52.0); Hemoglobin 13.2 g/dL (14.0-18.0); Immature Granulocyte Absolute 0.05 K/mm3 (0.00-0.031); Immature Granulocyte Percent A 1.3 % (0-0.5); Lymphocytes Percent Auto 12.7 % (18.3-44.2); Mean Corpuscular HGB Conc 33.7 g/dl (32-36); Mean Corpuscular Hemoglobin 31.7 pg (26-34); Mean Platelet Volume 9.9 fl (7.4-10.4); Monocytes Absolute Auto 0.7 K/mm3 (0.1-0.6); Monocytes Percent Auto 18.6 % (2.6-8.5); Neutrophils Absolute Auto 2.6 K/mm3 (1.3-6.7); Neutrophils Percent Auto 66.8 % (45.5-73.1); Platelet Count Result 289 k/mm3 (150-375); Red Blood Count 4.17 M/mm3 (4.6-6.20); Red Cell Distribution Width 11.8 % (11.5-14.5); White Blood Count 3.9 K/mm3 (4.5-10.0)
[2020-10-11 07:19] LABS: Alanine Aminotransferase 63 U/L (4-50); Alkaline Phosphatase 99 U/L (38-126); Anion Gap 2 mmol/L (8-16); Aspartate Amino Transferase 41 U/L (17-59); Bilirubin,Total 0.7 mg/dL (0.2-1.3); Blood Urea Nitrogen 20 mg/dL (9-20); CRP 3.7 mg/dL (<1.0); Calcium 8.3 mg/dL (8.4-10.2); Carbon Dioxide 32 mmol/L (22-30); Chloride 101 mmol/L (98-107); Estimated CRCL calculation 88 ml/min; Estimated Glomerular Filt Rate > 60; Glucose 110 mg/dL (65-110); Potassium 3.8 mmol/L (3.4-5.0); Sodium 135 mmol/L (137-145)
[2020-10-11 07:40] LABS: INR 1.5; Prothrombin Time 18.2 Seconds (11.1-14.7)
[2020-10-11 08:00] VITALS: O2SAT 93
[2020-10-11] MEDS: TAMSULOSIN HCL 0.4 MG CAPSULE PO (09:52)
[2020-10-11] MEDS: lisinopriL 20 MG TABLET 40 MG PO (09:52)
[2020-10-11] MEDS: RIVAROXABAN 20 MG TABLET PO (09:52)
[2020-10-11] MEDS: CYANOCOBALAMIN 1,000 MCG TABLET 1000 MCG PO (09:52)
[2020-10-11 09:53] VITALS: PULSE 63
[2020-10-11] MEDS: METOPROLOL SUCCINATE EXT REL 100 MG TABCR PO (09:53)
[2020-10-11] MEDS: PANTOPRAZOLE 40 MG TABLET PO (09:53)
[2020-10-11 10:09] VITALS: O2SAT 93
[2020-10-11] MEDS: FLUTICASONE/UMECLIDIN/VILANTER 100-62.5-25 MCG ELLIPTA 1 PUFF INHALATION (10:16)
--- NOTE | 2020-10-11 11:24 | PM.DS ---
DS: Admitting Diagnosis Admitting Diagnosis SOB DS: Discharge Diagnosis Discharge Diagnosis (1) Pneumonia due to 2019 novel coronavirus: Code(s): U07.1 - COVID-19; J12.82 - Pneumonia due to coronavirus disease 2019 Status: Acute Assessment and Plan: Acute hypoxic respiratory failure due to COVID-19 pneumonia. Albuterol inhaler scheduled Inflammatory markers trending down. Remdesivir and decadron started (Day #8) Home Oxygen Evaluation showed the patient did not require any oxygen at discharge with rest or exertion. The patient will be discharged home on a few more days of PO Decadron and PO antibiotics for post covid pneumonia. Follow up with PCP. The patient understands and agrees with the plan. He feels comfortable going home at this time. All questions answered. (2) Pneumonia: Code(s): J18.9 - Pneumonia, unspecified organism Status: Acute Assessment and Plan: Due to the patients productive cough and possibility of post viral pneumonia, he was started on IV Antibiotics, Azithromycin and Rocephin #3. He did have improvement of his symptoms and productive cough prior to discharge. Will continue on PO abx at discharge. The patient understands and agrees with the plan. All questions answered. (3) Acute respiratory failure with hypoxia: Code(s): J96.01 - Acute respiratory failure with hypoxia Status: Acute Assessment and Plan: From COVID and Post Covid Pneumonia and Fluid overload from IV fluids that he was given upon arrival to the hosptial. Now not requiring any oxygen with rest or exertion. Improved with symptomatic care for COVID, IV antibiotics for post COVID pneumonia and some IV Lasix intermittently Patient doing well this time. (4) COPD (chronic obstructive pulmonary disease): Qualifiers: COPD type: COPD with acute lower respiratory infection Qualified Code(s): J44.0 - Chronic obstructive pulmonary disease with (acute) lower respiratory infection Code(s): J44.9 - Chronic obstructive pulmonary disease, unspecified Status: Acute Assessment and Plan: Continue Trelegy inhaler 1 inhalation per day Prednisone 5 mg p.o. (chronically on at home) after the Decadron is completed (5) Hyponatremia: Code(s): E87.1 - Hypo-osmolality and hyponatremia Status: Acute Assessment and Plan: Sodium stable at 135. Could have trended down due to the Lasix therapy intermittently. (6) Urgency-frequency syndrome: Code(s): N32.81 - Overactive bladder Status: Acute Assessment and Plan: complaints of new onset urgency and frequency of urine UA unremarkable post residual void was low today. Urology evaluated the patient on 10/05/2020 and recommended starting Flomax. He did have any more symptoms after starting this medication. He can follow-up in the urology office for further evaluation monitoring after discharge. (7) Hypertension: Code(s): I10 - Essential (primary) hypertension Status: Acute Assessment and Plan: blood pressure has been stable during hospitalization. Continue home medications. (8) Urinary retention with incomplete bladder emptying: Code(s): R33.9 - Retention of urine, unspecified Status: Acute Assessment and Plan: Patient underwent prostatectomy 2001 Continue Flomax. patient will need to follow up with urology after discharge DS: Summary Hospital Course Hospital Course: See above Status at Discharge Cognitive/behavioral status at discharge: Stable, improved. Time Spent with Patient Time attestation: Total time spent providing and/or coordinating discharge services: 43 Time spent: Greater than 30 minutes Exam Narrative: General: 80-year-old man laying on his back with head elevated at 45 degrees, talking with therapy. Appears comfortable on room air. In no acute distre
== END 2020-10-11 15:15 | disposition home health service (06) | DRG 177 ==
LOC: ANHED 16:30 → ANH3MEDSUR 10-04 13:09
PROVIDERS: Nurse Practitioner; Admitting Provider Internal Medicine; Emergency Provider Emergency Medicine; PCP Family Medicine; Visit Provider Physician Assistant
DX: U07.1 COVID-19 (principal); J12.82 Pneumonia due to coronavirus disease 2019; J96.01 Acute respiratory failure with hypoxia; J44.0 Chronic obstructive pulmonary disease with (acute) lower respiratory infection; E87.1 Hypo-osmolality and hyponatremia; I50.32 Chronic diastolic (congestive) heart failure; N32.81 Overactive bladder; R33.9 Retention of urine, unspecified; I10 Essential (primary) hypertension; K57.30 Diverticulosis of large intestine without perforation or abscess without bleeding; I11.0 Hypertensive heart disease with heart failure; F41.1 Generalized anxiety disorder; K44.9 Diaphragmatic hernia without obstruction or gangrene; E66.9 Obesity, unspecified; M35.3 Polymyalgia rheumatica; Z96.651 Presence of right artificial knee joint; Z68.35 Body mass index [BMI] 35.0-35.9, adult; Z98.42 Cataract extraction status, left eye; Z98.41 Cataract extraction status, right eye; Z86.711 Personal history of pulmonary embolism; Z87.891 Personal history of nicotine dependence
CPT/HCPCS: 36415; 36600; 71045; 71275; 80048; 80053; 80076; 81001; 82565; 82728; 82805; 82948; 83615; 83735; 83880; 84145; 84460; 85025; 85027; 85055; 85380; 85610; 86140; 87040; 94618; 94640; 94667; 96365; 96372; 96375; 97110; 97116; 97161; 97165; 99285; A9270; J0360; J0456; J0696; J1100; J1650; J1940; J7030; Q9967

== ENCOUNTER → 2020-10-29 11:55 | Outpatient (CLI) | payer MEDICARE, SELFPAY ==
--- NOTE | ~2020-10-29 | XR_ITS ---
EXAMINATION: XR chest 2V DATE: 10/29/2020 13:01 INDICATION: Pneumonia, unspecified organism TECHNIQUE: PA and lateral views of the chest are obtained. COMPARISON: 10/08/2020 FINDINGS: There are minimal airspace opacities of the lung bases. The previously described diffuse op acities have largely resolved. There is no pleural effusion or pneumothorax. The cardiomediastinal si lhouette is normal. There is moderate thoracic spondylosis. IMPRESSION: 1. Near complete resolution of previously described airspace opacities with likely sequela of COVID 1 9 pneumonia in the lung bases. Reviewed, dictated and finalized at location B. IMPRESSION: 1. Near complete resolution of previously described airspace opacities with lik phill sequela of COVID 19 pneumonia in the lung bases.
== END ==
PROVIDERS: PCP Family Medicine; Visit Provider Family Medicine
DX: J18.9 Pneumonia, unspecified organism (principal); M47.814 Spondylosis without myelopathy or radiculopathy, thoracic region
CPT/HCPCS: 71046

== ENCOUNTER → 2021-01-29 12:00 | Outpatient (CLI) | payer MEDICARE, SELFPAY ==
--- NOTE | ~2021-01-29 | XR_ITS ---
EXAMINATION: XR chest 2V DATE: 01/29/2021 13:58 INDICATION: Pleurisy TECHNIQUE: PA and lateral views of the chest are obtained. COMPARISON: 10/29/2020 FINDINGS: Bibasilar airspace opacities persist with continued improvement. There is no pleural effusi on or pneumothorax. The cardiomediastinal silhouette is normal. There is moderate thoracic spondylosi s. IMPRESSION: 1. Continued improvement of bibasilar airspace opacities, consistent with sequela of COVID 19 pneumon ia. No new or acute airspace opacity identified. Reviewed, dictated and finalized at location F. INED RAIL OPERATOR IMPRESSION: 1. Continued improvement of bibasilar airspace opacities, consistent with seque la of COVID 19 pneumonia. No new or acute airspace opacity identified.
--- NOTE | ~2021-01-29 | XR_ITS ---
EXAMINATION: XR thoracic spine 3V DATE: 01/29/2021 13:58 INDICATION: Dorsalgia, unspecified TECHNIQUE: AP, lateral and lateral swimmer's views of the thoracic spine were obtained. COMPARISON: CT, 10/03/2020 FINDINGS: There is mild anterior wedging in the lower thoracic spine, unchanged from the recent CT ex amination. An old compression fracture is present at L1. No acute fracture is identified. Bone alignm ent is normal. There is mild loss of intervertebral disc space height at multiple levels in the thora cic spine. IMPRESSION: 1. Chronic anterior wedging of the lower thoracic spine and mild thoracic spondylosis without acute f indings. Reviewed, dictated and finalized at location F. SERVICES DEVELOPER IMPRESSION: 1. Chronic anterior wedging of the lower thoracic spine and mild thoracic spond ylosis without acute findings.
--- NOTE | ~2021-01-29 | XR_ITS ---
EXAMINATION: XR lumbar spine 2-3V DATE: 01/29/2021 13:58 INDICATION: Dorsalgia unspecified TECHNIQUE: Anteroposterior and lateral views of the lumbar spine, and cone-down lateral view of the l umbosacral junction were obtained. COMPARISON: 09/20/2018 FINDINGS: There is a chronic and unchanged compression fracture of L1. The vertebral body heights are otherwise normal. Vertebral body alignment is maintained. There is severe loss of intervertebral dis c space height at L5-S1. There is moderate loss of intervertebral disc space height from L2-3 through L4-5. Degenerative osteophytes project from the anterior endplates of multiple vertebral bodies. Elijah cified atherosclerosis is noted. There is no acute fracture. Surgical clips are noted in the pelvis. There is mild osteoarthritis of the hips. IMPRESSION: 1. Chronic compression fracture of L1 without significant change. Moderate to severe lumbar spondylos is, stable. Reviewed, dictated and finalized at location F. EHOLD APPLIANCE INSTALLER IMPRESSION: 1. Chronic compression fracture of L1 without significant change. Moderate to s evere lumbar spondylosis, stable.
== END ==
PROVIDERS: PCP Family Medicine; Visit Provider Physician Assistant
DX: R09.1 Pleurisy (principal); S32.010A Wedge compression fracture of first lumbar vertebra, initial encounter for closed fracture; X58.XXXA Exposure to other specified factors, initial encounter; M47.896 Other spondylosis, lumbar region; M47.894 Other spondylosis, thoracic region
CPT/HCPCS: 71046; 72072; 72100

== ENCOUNTER → 2021-07-23 12:10 | Outpatient (CLI) | payer MEDICARE, SELFPAY ==
--- NOTE | ~2021-07-23 | XR_ITS ---
EXAMINATION: XR shoulder RT min 2V DATE: 07/23/2021 12:31 INDICATION: Right shoulder pain TECHNIQUE: AP internally and externally rotated, AP oblique externally rotated and axillary views of the right shoulder were obtained. COMPARISON: 11/23/2019 FINDINGS: Normal alignment. No fracture.Unchanged mild right glenohumeral osteoarthritis. Severe acromioclavic ular osteoarthritis. Visualized portion of the right lung is clear. Soft tissues are unremarkable. IMPRESSION: Mild right glenohumeral and severe acromioclavicular osteoarthritis. Reviewed, dictated and finalized at location B.
== END ==
PROVIDERS: PCP Family Medicine; Visit Provider Physician Assistant
DX: M19.011 Primary osteoarthritis, right shoulder (principal)
CPT/HCPCS: 73030

== ENCOUNTER 2021-10-23 12:25 | Outpatient (CLI) | payer MEDICARE, SELFPAY ==
--- NOTE | ~2021-10-23 | MR_ITS ---
EXAMINATION: MR lumbar spine wo con DATE: 10/23/2021 13:15 INDICATION: Back pain and weakness TECHNIQUE: Magnetic resonance imaging (MRI) of the lumbar spine was performed without intravenous con trast. Sequences included sagittal T2-weighted FSE, sagittal T2-weighted FS FSE, sagittal T1-weighted FSE, and axial T2-weighted FSE. COMPARISON: Lumbar spine MR dated 12/27/2011 FINDINGS: Transitional S1 segment with rudimentary S1-S2 disc space. 2 mm retrolisthesis L1 on L2 and L5 on S1. No interval change in chronic T12 and L1 compression fractures with 20% vertebral body height loss a t the former and 40% anterior vertebral body height at the latter. Remaining vertebral body heights a re normal. Severe disc height loss with posterior endplate osteophytes and fibrovascular degenerative endplate changes at L5-S1. Moderate disc height loss at T10-T11 and L4-L5 and mild disc height loss at T11-T12, L2-L3 and L3-L4. Additional fibrovascular degenerative endplate changes at L2-L3 through L4-L5 and at the anterior inferior endplate of T10. Marrow signal is otherwise unremarkable. Prominen t anterior endplate osteophytes throughout the lumbar and lower thoracic spine consistent with diffus e idiopathic skeletal hyperostosis (DISH). The conus medullaris terminates at L2. There is normal sig nal in the caudal spinal cord. Diffuse epidural lipomatosis. Partially visualized 1.8 cm T2 hyperinte nse left renal cyst. Paravertebral soft tissues are otherwise unremarkable. The following disc levels are specifically discussed: T12-L1: The disc does not extend beyond the endplate margin. There is mild bilateral facet joint oste oarthritis. There is no neural foraminal stenosis. There is mild central canal stenosis resulting fro m epidural lipomatosis at the lateral recesses. L1-L2: Disc is mildly bulging. Additional epidural lipomatosis at the left and right lateral recesses . There is moderate left and severe right facet joint osteoarthritis. There is mild bilateral neural foraminal stenosis. There is mild central canal stenosis. L2-L3: Disc is bulging. Epidural lipomatosis most prominent at the left lateral recess. There is hype rtrophy of the ligamentum flavum. There is moderate bilateral facet joint osteoarthritis. There is m ild bilateral neural foraminal stenosis. There is moderate central canal stenosis. L3-L4: Disc is bulging. There is hypertrophy of the ligamentum flavum. There is severe bilateral fac et joint osteoarthritis. There is moderate bilateral neural foraminal stenosis. There is moderate nina tral canal stenosis. L4-L5: Disc is bulging with annular fissure. There is hypertrophy of the ligamentum flavum. There is severe right and moderate left facet joint osteoarthritis. There is moderate bilateral neural foramin al stenosis. There is severe central canal stenosis. L5-S1: Posterior disc osteophyte complex. There is severe bilateral facet joint osteoarthritis. There is moderate to severe bilateral neural foraminal stenosis. There is mild central canal stenosis. IMPRESSION: 1. Minimal progression of severe lumbar spondylosis along with epidural lipomatosis. 4. Severe central canal stenosis at L4-L5. 2. Chronic T12 and L1 compression fractures. No acute osseous abnormalities. Reviewed, dictated and finalized at location A. IMPRESSION: 1. Minimal progression of severe lumbar spondylosis along with epidural lipomat osis. 4. Severe central canal stenosis at L4-L5. 2. Chronic T12 and L1 compression fractures. No acute osseous abnormalities.
== END 2021-10-23 12:26 | disposition home or self-care (01) ==
LOC: ANHIMG 12:31
PROVIDERS: PCP Family Medicine; Visit Provider Nurse Practitioner Family
DX: M47.896 Other spondylosis, lumbar region (principal); R29.898 Other symptoms and signs involving the musculoskeletal system
CPT/HCPCS: 72148

== ENCOUNTER → 2021-11-26 12:27 | Outpatient (CLI) | payer MEDICARE, SELFPAY ==
--- NOTE | ~2021-11-26 | MR_ITS ---
EXAMINATION: MR shoulder RT wo con DATE: 11/26/2021 13:21 INDICATION: Right shoulder arthritis and decreased range of motion TECHNIQUE: Magnetic resonance imaging (MRI) of the right shoulder was performed without intravenous c ontrast. Sequences included axial PD-weighted FS FSE, coronal oblique PD-weighted FS FSE, coronal obl ique T2-weighted FS FSE, sagittal PD-weighted FS FSE, and sagittal T1-weighted SE. COMPARISON: None. FINDINGS: Coracoacromial arch: The acromion undersurface is curved in morphology (type II). The coracoacromial ligament is normal. M oderate to severe acromioclavicular osteoarthritis. Rotator cuff: Moderate supraspinatus and mild infraspinatus tendinopathy without discrete tear. [Subscapularis tend inopathy with longitudinal split tear between the bursal portions of the tendon contiguous with the i ntact transverse humeral ligament and the more central fibers which are attached to the lesser tubero sity footplate. In addition there is a small partial-thickness tear involving approximately 5 x 7 mm region of the superolateral lesser tuberosity footplate. The teres minor tendon is normal. Normal rot ator cuff muscle bulk and signal. Biceps tendon, glenoid labrum and glenohumeral cartilage: There is mild tendinopathy without discrete tear at the junction of the intra-articular and extra art icular portions of the long head biceps tendon which is subluxed across the medial rim of the intertu bercular groove and the superolateral lesser tuberosity tear defect of the subscapularis tendon. The anterosuperior labrum appears normal extending across a normal sublabral foramen. There is diffuse de generative tearing of the remainder of the glenoid labrum. 10 x 8 x 4 mm para labral cyst arising fro m the 6:00 position of the glenoid labrum. Mild partial-thickness cartilage loss with smooth chondral surface along the anterior glenoid and inferomedial aspect of the humeral head. Remaining cartilage in the glenohumeral joint appears relatively preserved. Fluid: Physiologic amount fluid in the glenohumeral joint consistent with mild bicipital tenosynovitis. No l oose osteochondral bodies. Synovitis and small amount of fluid in the subacromial/subdeltoid bursa co nsistent with moderate bursitis. Bones: Normal marrow signal with no edema, fracture or abnormal marrow replacing process. Mild cystic change along the greater tuberosity likely related to chronic rotator cuff disease. IMPRESSION: 1. Moderate supraspinatus and mild subscapularis and infraspinatus tendinopathy with small partial-th ickness tear at the superolateral lesser tuberosity footplate of the subscapularis tendon. 2. Mild bicipital tenosynovitis with mild tendinopathy without discrete tear of the long head biceps tendon where it is subluxed across the rim of the intertubercular groove and subscapularis tear defec t at the lesser tuberosity. 3. Mild glenohumeral osteoarthritis with diffuse tearing of the glenoid labrum. 4. Moderate to severe acromioclavicular osteoarthritis. 5. Moderate subacromial/subdeltoid bursitis. Reviewed, dictated and finalized at location A. IMPRESSION: 1. Moderate supraspinatus and mild subscapularis and infraspinatus tendinopathy with small partial-thickness tear at the superolateral lesser tuberosity footp late of the subscapularis tendon. 2. Mild bicipital tenosynovitis with mild tendinopathy without discrete tear of the long head biceps tendon where it is subluxed across the rim of the intertu bercular groove and subscapularis tear defect at the lesser tuberosity. 3. Mild glenohumeral osteoarthritis with diffuse tearing of the glenoid labrum. 4. Moderate to severe acromioclavicular osteoarthritis. 5. Moderate subacromial/subdeltoid bursiti
== END ==
PROVIDERS: PCP Family Medicine; Visit Provider Family Medicine
DX: M19.011 Primary osteoarthritis, right shoulder (principal); M75.51 Bursitis of right shoulder; M75.21 Bicipital tendinitis, right shoulder
CPT/HCPCS: 73221

== ENCOUNTER 2021-12-10 09:28 | Outpatient (CLI) | payer MEDICARE, SELFPAY ==
--- NOTE | 2021-12-10 11:30 | NEURO_ITS ---
Impression: # Complains of low back pain. # Normal nerve conduction except sensory nerve responses absent. # Normal needle/EMG exam. # Clinical correlation recommended # Possibility of higher involvement cannot be ruled out. Nerve Conduction Studies Anti Sensory Summary Table Stim Site NR Peak (ms) P-T Amp (?V) Site1 Site2 Delta-P (ms) Dist (cm) Enzo (m/s) Left Sup Fibular Anti Sensory (Ant Lat Mall) NO RESPONSE 14 cm NR 14 cm Ant Lat Mall 16.0 Right Sup Fibular Anti Sensory (Ant Lat Mall) NO RESPONSE 14 cm NR 14 cm Ant Lat Mall 16.0 Left Sural Anti Sensory (Lat Mall) NO RESPONSE Calf NR Calf Lat Mall 16.0 Right Sural Anti Sensory (Lat Mall) Calf 4.3 10.1 Calf Lat Mall 4.3 16.0 37 Motor Summary Table Stim Site NR Onset (ms) O-P Amp (mV) Site1 Site2 Delta-0 (ms) Dist (cm) Enzo (m/s) Left Peroneal Motor (Vastus Med) Ankle 4.3 0.9 Popit Ankle 9.5 41.0 43 Popit 13.8 0.7 Right Peroneal Motor (Vastus Med) Ankle 4.5 1.5 Popit Ankle 8.6 38.0 44 Popit 13.1 1.1 Left Tibial Motor (Abd Zaman Brev) Ankle 4.5 1.9 Knee Ankle 9.6 41.0 43 Knee 14.1 1.5 Right Tibial Motor (Abd Zaman Brev) Ankle 4.5 1.2 Knee Ankle 10.0 43.0 43 Knee 14.5 2.0 F Wave Studies NR F-Lat (ms) L-R F-Lat (ms) Left Peroneal (Mrkrs) (EDB) 54.03 0.09 Right Peroneal (Mrkrs) (EDB) 54.12 0.09 Left Tibial (Mrkrs) (Abd Hallucis) 55.32 0.20 Right Tibial (Mrkrs) (Abd Hallucis) 55.12 0.20 EMG Side Muscle Nerve Root Ins Act Fibs Amp Dur Recrt Comment Right AntTibialis Dp Br Fibular L4-5 Nml Nml Nml Nml Nml Right Gastroc Tibial S1-2 Nml Nml Nml Nml Nml Right Fibularis Long Sup Br Fibular L5-S1 Nml Nml Nml Nml Nml Right Flex Dig Long Tibial L5-S2 Nml Nml Nml Nml Nml Right Ext Dig Brev Dp Br Fibular L5, S1 Nml Nml Nml Nml Nml Left AntTibialis Dp Br Fibular L4-5 Nml Nml Nml Nml Nml Left Gastroc Tibial S1-2 Nml Nml Nml Nml Nml Left Fibularis Long Sup Br Fibular L5-S1 Nml Nml Nml Nml Nml Left Flex Dig Long Tibial L5-S2 Nml Nml Nml Nml Nml Left Ext Dig Brev Dp Br Fibular L5, S1 Nml Nml Nml Nml Nml MTDD
== END 2021-12-10 09:29 | disposition home or self-care (01) ==
PROVIDERS: PCP Family Medicine; Visit Provider Nurse Practitioner Family
DX: M54.9 Dorsalgia, unspecified (principal)
CPT/HCPCS: 95886; 95910

== ENCOUNTER 2022-03-09 14:13 | Emergency (ER) | payer MEDICARE, SELFPAY ==
--- NOTE | ~2022-03-09 | XR_ITS ---
EXAMINATION: XR chest 2V DATE: 03/09/2022 15:09 INDICATION: Left chest pain. TECHNIQUE: Frontal and lateral views of the chest were obtained. COMPARISON: Chest 2 views 01/29/2021, chest CT 10/03/2020 FINDINGS: There is mild elevation of left hemidiaphragm. There is no pneumonia, pleural effusion, or pneumothorax. The heart size is normal. There is chronic anterior wedging of 2 lower thoracic vertebr al bodies. IMPRESSION: 1. No acute cardiopulmonary disease. Reviewed, dictated and finalized at location A. PENDENT PRODUCER
--- NOTE | ~2022-03-09 | US_ITS ---
EXAMINATION: US arterial duplex LE DATE: 03/09/2022 17:16 INDICATION: Peripheral arterial disease. TECHNIQUE: Multiple grayscale and Doppler ultrasound images of the bilateral lower limb arteries were obtained. COMPARISON: None FINDINGS: Peak systolic velocity is 105 cm/s in right common femoral artery, 109 cm/s in superficial femoral artery, 38 cm/s in profunda femoral artery, 48 cm/s in popliteal artery, 46 cm/s in posterior tibial artery, and 52 cm/s in peroneal artery. Peak systolic velocity is 61 cm/s in left common femoral artery, 103 cm/s in superficial femoral chencho ry, 71 cm/s in profunda femoral artery, 40 cm/s popliteal artery, 70 cm/s in posterior tibial artery, and 40 cm/s in peroneal artery. IMPRESSION: 1. Increased velocity gradients in proximal right profunda femoral artery and between right superfici al femoral artery and popliteal artery, consistent with at least moderate stenosis. 2. Increased velocity gradient between left superficial femoral artery and popliteal artery, consiste nt with at least moderate stenosis. Reviewed, dictated and finalized at location A. ETING BUSINESS ANALYST IMPRESSION: 1. Increased velocity gradients in proximal right profunda femoral artery and b etween right superficial femoral artery and popliteal artery, consistent with a t least moderate stenosis. 2. Increased velocity gradient between left superficial femoral artery and popl iteal artery, consistent with at least moderate stenosis.
--- NOTE | ~2022-03-09 | XR_ITS ---
EXAMINATION: XR shoulder LT min 2V DATE: 03/09/2022 17:41 INDICATION: Left shoulder pain. TECHNIQUE: 4 views of left shoulder were obtained. COMPARISON: Left shoulder radiographs 11/23/2019 FINDINGS: Bone alignment is normal. No fracture. There is mild osteoarthritis of glenohumeral joint a nd moderate osteoarthritis of acromioclavicular joint. IMPRESSION: 1. Polyarticular osteoarthritis. Reviewed, dictated and finalized at location A. AVER
--- NOTE | ~2022-03-09 | US_ITS ---
US venous doppler [facility] DATE: 03/09/2022 16:32 INDICATION: Pain and swelling of the lower extremities. Patient is on blood thinners. TECHNIQUE: Real-time and color flow imaging and Doppler analysis of the veins of both lower extremiti es COMPARISON: 06/24/2018 venous duplex examination of the lower extremities FINDINGS: The greater saphenous veins are patent. There is spontaneous and phasic flow and normal aug mentation and color flow signal and normal compression of the deep veins of both lower extremities. Small left popliteal cyst again noted. IMPRESSION: No evidence of deep venous thrombosis of the lower extremities Small left popliteal cyst Reviewed, dictated and finalized at Location A. Reviewed, dictated and finalized at location L. SERVICE SUPERVISOR
--- NOTE | 2022-03-09 14:15 | ECG_ITS ---
Measurements Intervals [place] Rate: 63 P: 24 NE: 186 QRS: 32 QRSD: 163 T: -5 QT: 433 QTc: 443 Interpretive Statements SINUS RHYTHM RIGHT BUNDLE BRANCH BLOCK BASELINE ARTIFACT- I, III, AVL ABNORMAL ECG COMPARED TO ECG 06/28/2020 13:29:17 NO SIGNIFICANT CHANGES Electronically Signed On 03-09-2022 14:22:50 FIRE TECHNOLOGY INSTRUCTOR by Camden Umaña D.O.
[2022-03-09 14:25] VITALS: BP 186/94; PULSE 66; RESP 14; TEMP 36.3; O2SAT 96
[2022-03-09 14:30] LABS: Basophils Percent Auto 0.4 % (0.2-1.2); Hematocrit 44.8 % (42.0-52.0); Hemoglobin 14.9 g/dL (14.0-18.0); Immature Granulocyte Absolute 0.03 K/mm3 (0.00-0.031); Immature Granulocyte Percent A 0.6 % (0-0.5); Lymphocytes Absolute Auto 0.57 K/mm3 (0.9-3.2); Lymphocytes Percent Auto 10.6 % (18.3-44.2); Mean Corpuscular HGB Conc 33.3 g/dl (32-36); Mean Corpuscular Volume 96.3 fl (80-100); Mean Platelet Volume 9.9 fl (7.4-10.4); Monocytes Absolute Auto 0.4 K/mm3 (0.1-0.6); Monocytes Percent Auto 8.2 % (2.6-8.5); Neutrophils Absolute Auto 4.3 K/mm3 (1.3-6.7); Neutrophils Percent Auto 80.2 % (45.5-73.1); Platelet Count Result 162 k/mm3 (150-375); Red Blood Count 4.65 M/mm3 (4.6-6.20); Red Cell Distribution Width 13.1 % (11.5-14.5); White Blood Count 5.4 K/mm3 (4.5-10.0)
--- NOTE | 2022-03-09 14:41 | ED.CHESTPAIN ---
HPI - Chest Pain General Chief Complaint: Chest Pain Stated Complaint: left chest pain radiating to left arm Time Seen by Provider: 03/09/22 14:39 Source: patient Mode of arrival: ambulatory Limitations: no limitations History of Present Illness HPI narrative: This is a 81 year old male that presents to the ER for chest pain ongoing today. Reports an intermittent shooting left sided chest pain. He did take a Tramadol this morning for some left shoulder pain he has been having over the last couple of weeks. Denies fever, cough, vomiting, or shortness of breath. Related Data Home Medications Medication Instructions Recorded Confirmed ascorbic acid (vitamin C) 1,000 mg 1 gm PO DAILY 05/08/19 03/07/22 tablet mecobalamin (vitamin B12) 1,000 1,000 mcg PO DAILY 05/08/19 03/07/22 mcg chewable tablet clobetasol 0.05 % topical cream See Rx Instructions .Route 10/03/20 03/07/22 .COMPLEX PRN Rash rivaroxaban 20 mg tablet (Xarelto) 20 mg PO 1700 10/05/20 03/07/22 acetaminophen 325 mg capsule 325 mg PO Q6H PRN Pain 06/09/21 03/07/22 (Tylenol) atorvastatin 10 mg tablet 10 mg PO DAILY 06/09/21 03/07/22 cholecalciferol (vitamin D3) 25 25 mcg PO DAILY 06/09/21 03/07/22 mcg (1,000 unit) capsule xnglryag-rfx-monxv acid 0.4 1 tablet PO DAILY 06/09/21 03/07/22 mg-lycopene 300 mcg-lutein 250 mcg tablet (Centrum Silver) vitamin E (dl, acetate) 180 mg 180 mg PO DAILY 06/09/21 03/07/22 (400 unit) capsule metoprolol succinate 200 mg 100 mg PO QAM 11/20/21 03/07/22 tablet,extended release 24 hr cyanocobalamin (vitamin B-12) 1,000 mcg PO DAILY 12/10/21 03/07/22 1,000 mcg tablet Allergies Allergy/AdvReac Type Severity Reaction Status Date / Time amoxicillin AdvReac Severe Diarrhea Verified 03/09/22 14:14 Review of Systems Review of Systems: CONSTITUTIONAL: Denies fever CARDIOVASCULAR: Reports chest pain. Denies edema. RESPIRATORY: Denies cough or dyspnea. GASTROINTESTINAL: Denies abdominal pain, nausea, vomiting MUSCULOSKELETAL: Reports joint pain, and myalgia. 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 Basal cell carcinoma of neck Bloody diarrhea BMI 34.0-34.9,adult BMI over 35 Capillary refill time greater than 2 seconds Chronic back pain COPD (chronic obstructive pulmonary disease) COPD exacerbation Diastolic heart failure, NYHA class 1 Diverticulosis of large intestine without hemorrhage Epiploic appendagitis Essential hypertension Generalized anxiety disorder Hiatal hernia with GERD without esophagitis Hypertension Ichthyosis Neurogenic claudication Nocturia Obesity (BMI 30.0-34.9) Pleurisy PMR (polymyalgia rheumatica) Pneumonia due to 2019 novel coronavirus Polymyalgia rheumatica Primary osteoarthritis, right hand Pulmonary embolism Poorly documented Sebaceous cyst Shoulder impingement Skin nodule Tinea corporis Surgical History Surgical History History of colonoscopy History of esophagogastroduodenoscopy (EGD) (~2017) History of total right knee replacement (~2018) Dr. Resendez Status post cataract extraction of both eyes with insertion of intraocular lens (~2009) Status post prostatectomy (~2000) Dr. Victor Family History Family History Mother CHF (congestive heart failure) Hypoglycemia Father , At 58 years old Hodgkins lymphoma Sibling No problems noted. Social History Social History Social History: Primary care physician: Dr. Abelardo Torres Code status: Full code Surrogat
[2022-03-09 14:42] LABS: Prothrombin Time 22.2 Seconds (11.1-14.7)
[2022-03-09 14:43] LABS: Alanine Aminotransferase 67 U/L (6-50); Albumin Level 4.5 g/dL (3.5-5.1); Alkaline Phosphatase 97 U/L (38-126); Anion Gap 4 mmol/L (8-16); Aspartate Amino Transferase 82 U/L (17-59); Bilirubin,Total 1.1 mg/dL (0.2-1.3); Blood Urea Nitrogen 15 mg/dL (9-20); Calcium 9.3 mg/dL (8.4-10.2); Carbon Dioxide 32 mmol/L (22-30); Chloride 98 mmol/L (98-107); Estimated CRCL calculation 78 ml/min; Estimated Glomerular Filt Rate > 60; Glucose 117 mg/dL (65-110); Lipase 43 U/L (23-300); Partial Thromboplastin Time 50.6 SECONDS (22.3-36.8); Potassium 4.1 mmol/L (3.4-5.0); Sodium 134 mmol/L (137-145)
[2022-03-09 15:01] LABS: Troponin I < 0.012 ng/mL (0.000-0.034)
[2022-03-09 16:24] LABS: NT Pro B Type Natriuretic Pept 1060 pg/mL (19.9-100)
[2022-03-09 17:04] LABS: D Dimer 0.36 ug/mL (<0.48)
[2022-03-09 17:24] VITALS: PULSE 64; RESP 16; O2SAT 98
[2022-03-09 17:41] VITALS: BP 189/82; PULSE 60; RESP 18; O2SAT 99
[2022-03-09 17:58] LABS: Troponin I < 0.012 ng/mL (0.000-0.034)
[2022-03-09] MEDS: diazePAM INJ (*CRX) 10 MG/2 ML SYRINGE 2.5 MG IV PUSH (18:04)
[2022-03-09] MEDS: ACETAMINOPHEN 500 MG TABLET 1000 MG PO (18:05)
[2022-03-09] MEDS: hydrALAZINE HCL 20 MG/ML VIAL 10 MG IV PUSH (18:31)
[2022-03-09 18:38] VITALS: BP 187/92; PULSE 61; RESP 18; O2SAT 97
[2022-03-09 19:00] VITALS: BP 161/75; PULSE 63; RESP 16; O2SAT 98
== END 2022-03-09 19:54 | disposition home or self-care (01) ==
PROVIDERS: Emergency Medicine; Emergency Provider Physician Assistant; PCP Family Medicine
DX: I73.9 Peripheral vascular disease, unspecified (principal); R07.89 Other chest pain; I11.0 Hypertensive heart disease with heart failure; J44.9 Chronic obstructive pulmonary disease, unspecified; I77.9 Disorder of arteries and arterioles, unspecified; I50.30 Unspecified diastolic (congestive) heart failure; E66.9 Obesity, unspecified; Z68.36 Body mass index [BMI] 36.0-36.9, adult; M35.3 Polymyalgia rheumatica; M17.12 Unilateral primary osteoarthritis, left knee; M19.041 Primary osteoarthritis, right hand; Z85.828 Personal history of other malignant neoplasm of skin; Z87.01 Personal history of pneumonia (recurrent); Z86.16 Personal history of COVID-19; Z86.711 Personal history of pulmonary embolism; Z79.01 Long term (current) use of anticoagulants; Z96.651 Presence of right artificial knee joint; Z98.42 Cataract extraction status, left eye; Z98.41 Cataract extraction status, right eye; Z96.1 Presence of intraocular lens; Z90.79 Acquired absence of other genital organ(s); Z87.891 Personal history of nicotine dependence; M71.22 Synovial cyst of popliteal space [Baker], left knee; I45.10 Unspecified right bundle-branch block; M19.012 Primary osteoarthritis, left shoulder
CPT/HCPCS: 36415; 71046; 73030; 80053; 83690; 83880; 84484; 85025; 85380; 85610; 85730; 93005; 93925; 93970; 96374; 96375; 99284; A9270; J0360; J3360

== ENCOUNTER → 2022-03-11 17:14 | Outpatient (CLI) | payer MEDICARE, SELFPAY ==
--- NOTE | ~2022-03-11 | XR_ITS ---
EXAMINATION: XR cervical spine min 6V DATE: 03/11/2022 17:39 INDICATION: Neck pain. TECHNIQUE: 9 views of cervical spine including flexion and extension views were obtained. COMPARISON: CTA neck 03/26/2017 FINDINGS: There is 2 mm retrolisthesis of C3 on C4 that reduces with flexion. There is 16 degrees lev oscoliosis of cervicothoracic spine. Vertebral body heights are normal. There is severely decreased d isc height at C3-C4 and C5-C6. There is mildly decreased disc height at C6-C7. There is multilevel mi ld to moderate facet joint osteoarthritis. On the right, there is mild neural foraminal stenosis at C 3-C4, C4-C5, and C5-C6. On the left, there is mild neural foraminal stenosis at C3-C4 and C5-C6. Ther e is mild central canal stenosis at C3-C4 and C5-C6. IMPRESSION: 1. Severe cervical spondylosis. 2. Cervicothoracic levoscoliosis. Reviewed, dictated and finalized at location A. L ELECTRIFICATION ENGINEER
== END ==
PROVIDERS: PCP Family Medicine; Visit Provider Nurse Practitioner Family
DX: M47.892 Other spondylosis, cervical region (principal)
CPT/HCPCS: 72052

== ENCOUNTER 2022-03-27 09:29 | Outpatient (CLI) | payer MEDICARE, SELFPAY ==
--- NOTE | ~2022-03-27 | MR_ITS ---
MRI of the cervical spine Clinical History: Pain Technique: Axial T2-weighted and gradient images, and sagittal T1-weighted, T2-weighted, and STIR sami ges were acquired. Findings: No fracture identified. Minimal grade 1 retrolisthesis of C5 over C6 noted. No suspicious b one marrow signal reality seen. At C2-C3, there is no disc bulge or herniation. No spinal canal stenosis, cord compression, or neural foraminal narrowing. At C3-C4, there is no significant disc bulge or herniation. No spinal canal stenosis or cord compress ion. There is bilateral neural foraminal narrowing with degenerative disc narrowing as well. At C4-C5, there is minimal disc osteophyte complex which minimally flattens the ventral spinal cord, especially on the left side. Neural foramina are probably mildly narrowed. At C5-C6, there is no significant disc bulge or herniation. There is probable minimal canal stenosis but no kodi cord compression. There is mild bilateral neural foraminal narrowing. At C6-C7, there is minimal disc osteophyte complex. No spinal canal stenosis or cord compression. The re is left neural foraminal narrowing. Right neural foramen preserved. No abnormal signal seen in the spinal cord. Paravertebral soft tissues are unremarkable. Impression: Mild degenerative spondylosis, as detailed above. Reviewed, dictated and finalized at location . ECHNICAL INTERN Impression: Mild degenerative spondylosis, as detailed above.
== END 2022-03-27 09:30 | disposition home or self-care (01) ==
PROVIDERS: PCP Family Medicine; Visit Provider Nurse Practitioner Family
DX: M75.40 Impingement syndrome of unspecified shoulder (principal); M50.30 Other cervical disc degeneration, unspecified cervical region
CPT/HCPCS: 72141

== ENCOUNTER 2022-04-10 13:23 | Outpatient (CLI) | payer MEDICARE, SELFPAY ==
--- NOTE | ~2022-04-10 | MR_ITS ---
MRI of the left shoulder Technique: Axial proton-density fat-sat images, coronal proton density fat-sat and T2 fat-sat images, and sagittal T1-weighted and T2 fat-sat images were acquired. Clinical History: Pain Findings: There is moderate AC joint degenerative change, with bony productive change at the distal c lavicle. Coracoclavicular, coracoacromial, and coracohumeral ligaments appear intact. Supraspinatus and infraspinatus tendons are intact, without partial or full-thickness tear. There is mild tendinosis. Subscapularis tendon demonstrates moderate tendinosis with possible partial-thicknes s articular surface tearing distally. Tendon of the long head of the biceps is intact. There is probable degenerative tearing/attenuation of the anterosuperior labrum and anterior labrum a t the greater. Inferior glenohumeral ligament is intact. Minimal spurring noted at the inferomedial humeral head. No significant joint effusion. No fluid distention of the subacromial/subdeltoid bursa. No muscle atrop hy or edema. Impression: Probable degenerative tearing/attenuation of the anterior and anterosuperior portions of the labrum. Moderate subscapularis tendinosis with possible partial-thickness articular surface tearing distally. Moderate AC joint degenerative change. Reviewed, dictated and finalized at location . [employer] Impression: Probable degenerative tearing/attenuation of the anterior and anterosuperior po rtions of the labrum. Moderate subscapularis tendinosis with possible partial-thickness articular jason face tearing distally. Moderate AC joint degenerative change.
== END 2022-04-10 13:24 | disposition home or self-care (01) ==
PROVIDERS: PCP Family Medicine; Visit Provider Nurse Practitioner Family
DX: M35.3 Polymyalgia rheumatica (principal); M19.012 Primary osteoarthritis, left shoulder
CPT/HCPCS: 73221

== ENCOUNTER → 2022-07-12 13:19 | Outpatient (CLI) | payer MEDICARE, SELFPAY ==
--- NOTE | ~2022-07-12 | XR_ITS ---
EXAMINATION: XR hip LT 2V w AP pelvis DATE: 07/12/2022 13:57 INDICATION: Left hip pain. TECHNIQUE: An anteroposterior view of the pelvis and 2 views of left hip on a total of 4 radiographs were obtained. COMPARISON: None. FINDINGS: Bone alignment is normal. No fracture. There is severe lumbar spondylosis. There is mild os teoarthritis of the hips. Surgical clips overlie the pelvis. IMPRESSION: 1. Mild osteoarthritis of the hips. Reviewed, dictated and finalized at location A.
--- NOTE | ~2022-07-12 | XR_ITS ---
EXAMINATION: XR lumbar spine 2-3V DATE: 07/12/2022 13:57 INDICATION: Left hip pain. TECHNIQUE: 3 views of lumbar spine were obtained. COMPARISON: Lumbar spine MRI 10/23/2021 FINDINGS: Bone alignment is normal. There is chronic anterior wedging of T12 and L1 vertebral bodies. S1 is a transitional segment. There are endplate osteophytes at all levels. There is mildly decrease d disc height at L2-L3, moderately decreased disc height at L3-L4, and severely decreased disc height at L4-L5 and L5-S1. There is multilevel severe facet joint osteoarthritis. IMPRESSION: 1. Severe lumbar spondylosis. Reviewed, dictated and finalized at location A.
== END ==
PROVIDERS: PCP Family Medicine; Visit Provider Physician Assistant Medical
DX: M47.896 Other spondylosis, lumbar region (principal); M16.12 Unilateral primary osteoarthritis, left hip
CPT/HCPCS: 72100; 73502

== ENCOUNTER 2022-07-30 14:30 | Outpatient (CLI) | payer MEDICARE, SELFPAY ==
--- NOTE | ~2022-07-30 | MR_ITS ---
. EXAMINATION: MR lumbar spine wo con DATE: 07/30/2022 15:28 INDICATION: Lumbar spondylosis. Back pain. TECHNIQUE: Magnetic resonance imaging (MRI) of the lumbar spine was performed without intravenous con trast. Sequences included sagittal T2-weighted FSE, sagittal T2-weighted FS FSE, sagittal T1-weighted FSE, and axial T2-weighted FSE. COMPARISON: Lumbar spine radiographs 07/12/2022, MRI 10/23/2021 FINDINGS: There are chronic compression fractures of T12 and L1. S1 is a transitional segment. There is mildly decreased disc height at L2-L3, moderately decreased disc height at L3-L4, and severely dec reased disc height at L4-L5 and L5-S1. The distal spinal cord signal intensity is normal. The conus m edullaris is at L2. The following disc levels are specifically discussed: L1-L2: The disc is bulging. There is severe bilateral facet joint osteoarthritis. There is mild bilat eral neural foraminal stenosis. There is no central canal stenosis. L2-L3: The disc is bulging. There is moderate bilateral facet joint osteoarthritis. There is mild karon ateral neural foraminal stenosis. There is mild central canal stenosis. L3-L4: The disc is bulging. There is severe bilateral facet joint osteoarthritis. There is mild bilat eral neural foraminal stenosis. There is mild central canal stenosis. L4-L5: The disc is bulging and has an annular fissure. There is severe bilateral facet joint osteoart hritis. There is moderate bilateral neural foraminal stenosis. There is moderate central canal stenos is. L5-S1: The disc is bulging and has an annular fissure. There is severe bilateral facet joint osteoart hritis. There is moderate bilateral neural foraminal stenosis. There is mild central canal stenosis. IMPRESSION: 1. Severe lumbar spondylosis, stable from 10/23/2021. Reviewed, dictated and finalized at location A.
--- NOTE | ~2022-07-30 | CT_ITS ---
EXAMINATION: CT abdomen pelvis w con DATE: 07/30/2022 15:50 INDICATION: Left lower quadrant abdominal pain TECHNIQUE: Computed tomography (CT) of the abdomen and pelvis was performed with 100 CC Omnipaque 350 intravenous contrast. Automated exposure control and iterative reconstruction technique were employe d. Exam dose: 1425.82 mGy-cm total exam DLP. COMPARISON: 09/06/2017 CT abdomen pelvis FINDINGS: There is mild atelectasis at the lung bases. There are prominent coronary artery calcificat ion. Heart size is within normal range. No pericardial or pleural effusion. Diffuse hepatic steatosis. No hepatic space-occupying mass lesion is evident. The gallbladder appears unremarkable. No bile duct or pancreatic duct dilatation. No pancreatic mass lesion or calcification . Normal splenic size. Possible small adenoma right adrenal gland. 3 cm exophytic lower pole right renal cyst. There is several left renal cysts, the largest 3 cm, with minimal wall calcification. Status post prostatectomy. The urinary bladder appears unremarkable. There is calcification but normal caliber of the abdominal aorta. There is prominent calcification at the origin the celiac trunk and prominent calcification of the origin and proximal stomach as well a s more distal superior mesenteric artery. Prominent bilateral proximal renal artery calcified plaques . Prominent calcification of the iliac and femoral arteries. No intraperitoneal or retroperitoneal or pelvic mass lesion or adenopathy or ascites. There are innumerable diverticula of the sigmoid and descending colon and to a lesser extent right co josefina; no CT evidence of diverticulitis. No evidence of appendicitis. No bowel obstruction or intraperi toneal free air. Chronic mild to moderate anterior wedge compression fracture deformity of T12 and L1 and extensive de generative change of the thoracic and lumbar spine. IMPRESSION: Diverticulosis of left and right colon; no CT evidence of diverticulitis Hepatic steatosis Bilateral renal cysts Small right adrenal adenoma Status post prostatectomy Extensive atherosclerosis including coronary arteries, abdominal aorta, superior mesenteric artery, r enal arteries Reviewed, dictated and finalized at Location A. Reviewed, dictated and finalized at location [] IMPRESSION: Diverticulosis of left and right colon; no CT evidence of divertic ulitis Hepatic steatosis Bilateral renal cysts Small right adrenal adenoma Status post prostatectomy Extensive atherosclerosis including coronary arteries, abdominal aorta, superio r mesenteric artery, renal arteries
[2022-07-30 15:21] LABS: Estimated Glomerular Filt Rate > 60
== END 2022-07-30 14:31 | disposition home or self-care (01) ==
PROVIDERS: PCP Family Medicine; Visit Provider Nurse Practitioner Family
DX: K76.0 Fatty (change of) liver, not elsewhere classified (principal); K57.30 Diverticulosis of large intestine without perforation or abscess without bleeding; D35.01 Benign neoplasm of right adrenal gland; N28.1 Cyst of kidney, acquired; I25.10 Atherosclerotic heart disease of native coronary artery without angina pectoris; M47.896 Other spondylosis, lumbar region
CPT/HCPCS: 72148; 74177; Q9967

== ENCOUNTER 2023-01-15 15:43 | Emergency (ER) | payer MEDICARE, SELFPAY ==
--- NOTE | 2023-01-15 15:50 | ED.SKABFB ---
HPI - Skin/Abscess/Foreign Bdy General Chief complaint: Skin/Abscess/Foreign Body Stated complaint: skin prob Time Seen by Provider: 01/15/23 15:57 Source: patient, RN notes reviewed and old records reviewed Mode of arrival: ambulatory Limitations: no limitations History of Present Illness HPI narrative: 82-year-old male presents to the [facility] with complaints of a lesion that is not healing to the right upper back. States that he had a skin biopsy done a couple months ago, A skin scraping done about 10 days ago. States he has been applying Vaseline and keeping it covered. Was concerned because it is still uncomfortable Treatments prior to arrival: bandages and other (Vaseline) Related Data Home Medications Medication Instructions Recorded Confirmed ascorbic acid (vitamin C) 1,000 mg 1 gm PO DAILY 05/08/19 01/15/23 tablet rivaroxaban 20 mg tablet (Xarelto) 20 mg PO 1700 10/05/20 01/15/23 atorvastatin 10 mg tablet 10 mg PO DAILY 06/09/21 01/15/23 cholecalciferol (vitamin D3) 25 25 mcg PO DAILY 06/09/21 01/15/23 mcg (1,000 unit) capsule pjhrzigm-npu-shrqv acid 0.4 1 tablet PO DAILY 06/09/21 01/15/23 mg-lycopene 300 mcg-lutein 250 mcg tablet (Centrum Silver) vitamin E (dl, acetate) 180 mg 180 mg PO DAILY 06/09/21 01/15/23 (400 unit) capsule metoprolol succinate 200 mg 100 mg PO QAM 11/20/21 01/15/23 tablet,extended release 24 hr cyanocobalamin (vitamin B-12) 1,000 mcg PO DAILY 12/10/21 01/15/23 1,000 mcg tablet acetaminophen 650 mg/20.3 mL oral 650 mg PO Q6H 01/10/23 01/15/23 solution Allergies Allergy/AdvReac Type Severity Reaction Status Date / Time azithromycin AdvReac Severe Diarrhea Verified 01/10/23 10:06 hydrochlorothiazide AdvReac Intermediate throat Verified 01/10/23 10:06 irritation Review of Systems Review of Systems: All systems reviewed & are unremarkable except as noted in HPI and below Constitutional: Constitutional: Reports no additional constitutional complaints Eyes: Eyes: Reports no additional eye complaints ENT: Reports system reviewed and no additional complaints, except as documented Cardiovascular: Cardiovascular: Reports no additional cardiovascular complaints, Denies chest pain and Denies dyspnea Respiratory: Respiratory: Reports no additional respiratory complaints, Denies chest congestion, Denies cough and Denies dyspnea Gastrointestinal: Gastrointestinal: Reports no additional gastrointestinal complaints, Denies abdominal pain, Denies nausea and Denies vomiting Musculoskeletal: Musculoskeletal: Reports no additional musculoskeletal complaints Integumentary/Breasts: Skin/Breast: Reports as per HPI Neurologic: Reports system reviewed and no additional complaints, except as documented Psychiatric: Psychiatric: Reports no additional psychiatric complaints Allergic/Immunologic: Allergic/Immunologic: Reports no additional allergic/immunologic complaints [facility] Past Medical History Medical History Abdominal bloating Acute respiratory failure with hypoxia ANDRES positive Anticoagulated by anticoagulation treatment Arterial disease Arthritis of left knee 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 Basal cell carcinoma of neck Bloody diarrhea BMI 34.0-34.9,adult BMI over 35 Calcification of artery Capillary refill time greater than 2 seconds Cervical spondylosis with radiculopathy Chronic back pain COPD (chronic obstructive pulmonary disease) COPD exacerbation Diastolic heart failure, NYHA class 1 Diverticulosis of large intestine without hemorrhage Epiploic appendagitis Essential hypertension Generalized anxiety disorder Hiatal hernia with GERD without esophagitis Hypertension Ichthyosis Leg muscle spasm Lumbar spondylosis Neurogenic claudication Nocturia Obesity (BMI 30.0-34.9) Pleurisy PMR (polymyalgia rheumatica) Pneumonia due to 2019 novel coronavirus Polymyalgia rheumatica Primary osteoart
[2023-01-15 15:52] VITALS: BP 133/74; PULSE 80; RESP 16; TEMP 37.2; O2SAT 98
== END 2023-01-15 16:13 | disposition home or self-care (01) ==
PROVIDERS: Emergency Provider Nurse Practitioner; PCP Family Medicine
DX: L98.9 Disorder of the skin and subcutaneous tissue, unspecified (principal); I11.0 Hypertensive heart disease with heart failure; I50.30 Unspecified diastolic (congestive) heart failure; J44.9 Chronic obstructive pulmonary disease, unspecified; Z87.891 Personal history of nicotine dependence; Z79.899 Other long term (current) drug therapy; Z79.01 Long term (current) use of anticoagulants
CPT/HCPCS: 99213; G0463

== ENCOUNTER 2023-03-30 11:53 | Outpatient (CLI) | payer MEDICARE, SELFPAY ==
--- NOTE | 2023-03-30 13:03 | ECG_ITS ---
Measurements Intervals [place] Rate: 60 P: 70 VT: 197 QRS: -10 QRSD: 145 T: -9 QT: 452 QTc: 452 Interpretive Statements SINUS RHYTHM RIGHT BUNDLE BRANCH BLOCK [120+ ms QRS DURATION, UPRIGHT V1, 40+ ms S IN I/aVL/V4/V5/V6] COMPARED TO ECG 03/09/2022 14:20:18 NO SIGNIFICANT CHANGES Electronically Signed On 03-30-2023 15:38:38 [employer] by Levi Palma M.D.
[2023-03-30 14:07] LABS: Basophils Percent Auto 0.3 % (0.2-1.2); Eosinophils Percent Auto 0.3 % (0-4.4); Immature Granulocyte Absolute 0.05 K/mm3 (0.00-0.031); Immature Granulocyte Percent A 0.8 % (0-0.5); Lymphocytes Absolute Auto 0.76 K/mm3 (0.9-3.2); Lymphocytes Percent Auto 11.5 % (18.3-44.2); Mean Corpuscular HGB Conc 34.1 g/dl (32-36); Mean Corpuscular Hemoglobin 31.8 pg (26-34); Mean Corpuscular Volume 93.2 fl (80-100); Monocytes Absolute Auto 0.9 K/mm3 (0.1-0.6); Monocytes Percent Auto 13.5 % (2.6-8.5); Neutrophils Absolute Auto 4.9 K/mm3 (1.3-6.7); Neutrophils Percent Auto 73.6 % (45.5-73.1); Platelet Count Result 166 k/mm3 (150-375); Red Blood Count 4.72 M/mm3 (4.6-6.20); Red Cell Distribution Width 12.5 % (11.5-14.5); White Blood Count 6.6 K/mm3 (4.5-10.0)
[2023-03-30 14:15] LABS: Albumin Level 3.9 g/dL (3.5-5.1); Estimated Glomerular Filt Rate > 60; Glucose 92 mg/dL (65-110)
[2023-03-30 14:23] LABS: Urine Cotinine NEGATIVE
[2023-03-30 15:15] LABS: MRSA (PCR) NOT DETECTED (NOT DETECTE)
== END 2023-03-30 11:54 | disposition home or self-care (01) ==
LOC: ANHSURGERY 11:58
PROVIDERS: PCP Family Medicine; Visit Provider Orthopaedic Surgery
DX: M17.12 Unilateral primary osteoarthritis, left knee (principal); Z01.818 Encounter for other preprocedural examination; I45.10 Unspecified right bundle-branch block
CPT/HCPCS: 80307; 82040; 82565; 82947; 83036; 85025; 86850; 86900; 86901; 87641; 93005

== ENCOUNTER 2023-04-13 15:07 | Inpatient (IN) | payer MEDICARE, SELFPAY ==
[2023-03-30 12:04] VITALS: BMI 37.8
--- NOTE | 2023-03-30 12:43 | PC.NURSE ---
Report to the Outpatient Waiting Room, entrance under the green pavilion located off [facility], at time _0830 on date __04/12/23 . Planned Procedure Time: _1030 . Time changes happen often and if your time is changed the preop area will call you the afternoon before. - You and your visitor will be asked to self-screen and do not enter if you have any COVID symptoms. - A mask is optional within the hospital at this time. Patients may have clear liquids (water, carbonated beverages, clear teas, apple juice) until 3 hours prior to surgery(0730)with a maximum of 20 ounces. - No food from midnight until time of surgery - Infants may have breast milk until 4 hours before surgery, infant formula 6 hours prior to surgery. - Children will be allowed to drink immediately following surgery. If applicable, please bring a bottle or sippy cup to assist with drinking. Juice, water, soda, and popsicles are readily available. For infants on formula, please bring formula the day of surgery. Pacifiers are allowed. Take the following medications with a SIP of water the morning of surgery: _INHALER IF NEEDED,AMLODIPINE,GABAPENTIN,METOPROLOL DO NOT STOP ANY OF YOUR OTHER PRESCRIPTION MEDICATIONS PRIOR TO SURGERY ?EXCEPT THE FOLLOWING Medications to discontinue per physician ___HOLD ALL VITAMINS AND SUPPLEMENTS 3 DAYS PRE OP.LAST DOSE 04/08/[address] GONZALEZ MAY TAKE TYLENOL IF NEEDED FOR PAIN Please no make-up, nail ukrainian, hairspray, perfume, deodorant, or body powder the day of surgery. No jewelry (including any body piercings) or valuables the day of surgery, leave them at home. Please take a shower or bath the night before, or the morning of, surgery with an antibacterial soap. Wear comfortable, loose fitting clothing. Children are encouraged to wear pajamas. - Jewelry must be removed prior to entering the operating room. Rings and piercings that are not removed may be cut off. - The hospital will not accept responsibility for valuables. - Please leave all valuables, including medications, at home the day of surgery. If you are going home after surgery, a licensed seasonal driver must drive you home. - NO public transportation without another adult if you receive anesthesia. - We recommend that an adult stay with you for 24 hours following discharge. - We also recommend that you do not drive, make important decision, drink alcoholic beverages, or take any drugs that were not prescribed by your health care provider for at least 24 hours after your discharge time. Follow any additional instructions given to you from your surgeon. If you or anyone in your household have experienced Covid symptoms in the past week, please notify your surgeon or the nurse liaison at the phone number below for possible testing. VERBAL AND WRITTEN instructions given to _PATIENT AND DAUGHTER ROSIO and asked if any additional questions and then verbalized understanding. Patient advised to call surgeon office or pre surgery nurse liaison [phone] if any additional questions.
[2023-03-30 13:02] VITALS: BP 133/69; PULSE 65; RESP 18; TEMP 36.9; O2SAT 96
[2023-04-12] VITALS (14 sets, daily range): BP systolic 124–182; BP diastolic 66–102; PULSE 65–80; RESP 14–18; TEMP 36.2–37; O2SAT 92–100
[2023-04-12] MEDS: TRANEXAMIC ACID 1,000MG/ISO100 1,000 MG/100 ML BAG 200 MG IVPB (09:46)
--- NOTE | 2023-04-12 09:58 | WPDHPUPDATE1 ---
History and Physical Update Update Date/Time: 04/12/23 09:58 History and Physical has been reviewed, including an updated exam of the patient. There are NO changes in the patient's condition. Risks, benefits, and alternatives have been discussed and questions answered. Patient agrees to proceed with procedure.
[2023-04-12] MEDS: LACTATED RINGERS 1,000 ML 30 ML IV CONT ×2 (10:00→12:34)
--- NOTE | 2023-04-12 10:06 | WPDANESEPPF ---
Anes - Initial Pre Proc Eval Procedure: Operation Date: 04/12/23 10:30 Proposed Procedures p Total Left Knee Arthroplasty - Abrahan Gomez MD Date/Time: 04/12/23 10:06 Surgeon: Abrahan Gomez MD Pre Op Diagnosis: Prim Karmen.Alondra Lt Knee Patient Data Age: 82 Gender: M Height: 1.73 m Weight: 112.2 kg Last Vital Signs Temp 36.2 C L 04/12/23 09:43 Pulse 67 04/12/23 09:43 Resp 16 04/12/23 09:43 BP 132/77 04/12/23 09:43 Pulse Ox 93 04/12/23 09:43 O2 Del Method Room Air 04/12/23 09:43 Allergies Allergy/AdvReac Type Severity Reaction Status Date / Time azithromycin AdvReac Severe Diarrhea Verified 04/12/23 09:09 hydrochlorothiazide AdvReac Intermediate throat Verified 04/12/23 09:09 irritation Home Medications Medication Instructions Recorded Confirmed Type ascorbic acid (vitamin C) 1,000 mg 1 gm PO DAILY 05/08/19 04/12/23 History tablet rivaroxaban 20 mg tablet (Xarelto) 20 mg PO DAILY 10/05/20 04/12/23 History triamcinolone acetonide 0.1 % 1 applic topical BID #453.6 grams 05/04/21 03/30/23 Rx topical cream atorvastatin 10 mg tablet 10 mg PO HS 06/09/21 04/12/23 History cholecalciferol (vitamin D3) 25 25 mcg PO DAILY 06/09/21 04/12/23 History mcg (1,000 unit) capsule vxvekiwt-jad-pqaut acid 0.4 1 tablet PO DAILY 06/09/21 04/12/23 History mg-lycopene 300 mcg-lutein 250 mcg tablet (Centrum Silver) vitamin E (dl, acetate) 180 mg 180 mg PO DAILY 06/09/21 04/12/23 History (400 unit) capsule metoprolol succinate 200 mg 100 mg PO QAM 11/20/21 04/12/23 History tablet,extended release 24 hr cyanocobalamin (vitamin B-12) 1,000 mcg PO DAILY 12/10/21 04/12/23 History 1,000 mcg tablet ketoconazole 2 % topical cream 1 applic topical BID #60 grams 12/16/21 03/30/23 Rx pantoprazole 40 mg tablet,delayed See Rx Instructions .Route 05/10/22 04/12/23 Rx release .COMPLEX #90 tabs albuterol sulfate 90 mcg/actuation 1 inh inhalation Q4H PRN shortness 06/07/22 04/12/23 Rx aerosol inhaler (ProAir HFA) of breath or wheezing #6.7 grams fluticasone fur. 100 mcg-umeclid See Rx Instructions .Route 08/16/22 04/12/23 Rx 62.5 mcg-vilant 25 mcg .COMPLEX #180 ea inhalat.powder (Trelegy Ellipta) gabapentin 300 mg capsule See Rx Instructions .Route 08/31/22 04/12/23 Rx .COMPLEX #360 caps lisinopril 40 mg tablet See Rx Instructions .Route 10/21/22 04/12/23 Rx .COMPLEX #90 tabs mupirocin 2 % topical ointment 1 applic topical BID #15 grams 01/15/23 03/30/23 Rx tramadol 50 mg tablet 50 mg PO Q6H PRN pain #30 tabs 01/19/23 04/12/23 Rx alprazolam 0.5 mg tablet (Xanax) 0.5 mg PO BID PRN Anxiety #60 tabs 02/20/23 04/12/23 Rx amlodipine 2.5 mg tablet See Rx Instructions .Route 02/20/23 04/12/23 Rx .COMPLEX #90 tabs amoxicillin 500 mg capsule 2,000 mg PO ONCE #4 caps 03/17/23 03/30/23 Rx acetaminophen 650 mg 1,300 mg PO Q12H PRN Pain 03/30/23 04/12/23 History tablet,extended release (Tylenol Arthritis Pain) oxycodone-acetaminophen 5 mg-325 1 - 2 tablet PO Q4-6H PRN pain #30 04/12/23 Rx mg tablet tabs rivaroxaban 10 mg tablet (Xarelto) 10 mg PO DAILY 1 week #7 tabs 04/12/23 Rx Patient hx anesthesia problems: none Family hx anesthesia problems: none Results Review: All pre-operative results and documents have been reviewed as part of the pre-operative evaluation. [facility] Past Medical History Medical History Abdominal bloating Acute respiratory failure with hypoxia ANDRES positive Anticoagulated by anticoagulation treatment Arterial disease Arthritis of left knee 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 Basal cell carcinoma of neck Bloody diarrhea BMI 34.0-34.9,adult BMI over 35 Calcification of artery Capillary refill time greater than 2 seconds Cervical spondylosis with radiculopathy Chronic back pain COPD (chronic obstructive pulmonary disease) COPD exacerbation Diastolic heart failure, NYHA
[2023-04-12] MEDS: ceFAZolin 2 GM/D5W 50 ML 2 GM/50 ML BAG IVPB ×2 (10:22→17:22)
[2023-04-12] MEDS: GENTAMICIN BONE CEMENT REFOBACIN 1 EACH TOPICAL (10:55)
[2023-04-12] MEDS: SODIUM CHLORIDE 0.9% IV 37.7 ML, MORPHINE SULFATE INJ (*CRX) 2 MG, ROPivacaine HCL 1% 2... INFILTRATE (10:55)
--- NOTE | 2023-04-12 12:14 | WPDANESPNB ---
Anes - Peripheral Nerve Block Date/Time: 04/12/23 12:14 I have discussed with the patient/family/POA the placement of a peripheral nerve block for post-operative pain management, including associated risks, benefits, complications, and side effects. Alternative methods of post-operative analgesia were detailed. Questions were solicited and answers provided to the satisfaction of the patient/family/POA. Time-Out: A pre-procedural Time-Out was completed immediately before starting the procedure and confirmed: Patient Identification, Site, Procedure, Patient Position and the Availability of Requisite Equipment. Clinical Indications: Acute post-operative pain management requested by the operative surgeon. Nerve Block Insertion Note Anes-nerve block: adductor canal left Patient position: supine Skin prep: chlorhexidine Needle: 22 gauge, stimulating, insulated echogenic needle. Needle length: 80 mm Technique: ultrasound Technique comment: mid 1mg Injectate: bupivacaine 0.5% with epi 5 mcg/ml (30ml no epi) and dexamethasone (mg) (4) Observations: tolerated well Complications: none Procedure start time:: 1009 Procedure end time:: 1016
--- NOTE | 2023-04-12 12:51 | P.OP_ITS ---
Procedure Note - Detailed Date of Procedure 04/12/23 Pre-op Diagnosis Prim O.A. Lt Knee Post-op Diagnosis Same Procedure Performed Total knee arthroplasty, left. Surgeon Abrahan Gomez MD Heating Plant Superintendent Ellen Babb PA-C Anesthesia General and Regional (subsartorial block) Findings Poor bone quality. Varus deformity treated with larger medial release. Description of Procedure The patient was brought to the operating room. A general anesthetic was administered. The leg was prepped and draped in the usual sterile fashion. The limb was elevated and the tourniquet inflated to 300 mmHg during initial exposure, and cementation. A longitudinal incision was created along the medial border of the patella and patellar tendon, and a trivector approach to the knee was performed. A large medial release was taken. The knee was then flexed. The osteophytes were carefully removed. The intramedullary guide was placed in the femoral canal. The distal femoral resection was then taken with the oscillating saw. The collateral ligaments were carefully protected. The tibia was carefully exposed. The jig was applied, and the proximal tibia was resected according to preoperative plan. The knee was balanced in extension. Appropriate releases were taken where needed. The anterior cruciate ligament and meniscal remnants were removed. The posterior cruciate ligament was excised. The patella was measured. Patellar resection was carried out with the oscillating saw. The lug holes drilled. The femur was sized and rotation assessed using a combination of gap balancing, posterior referencing, and the AP axis. The 4 in 1 cutting block, and box cut were used to finish the femoral cuts after equal gaps were assured. The osteophytes were carefully removed from the back of the knee. The knee was copiously irrigated with antibiotic solution periodically throughout the procedure. The meniscal remnants were removed. The spacer block was used to confirm equal flexion and extension gaps. Slight increase MCL release performed. The tibia was sized and broached. The bony surfaces were prepared for cementing with pulsatile lavage. The real tibial and femoral and patellar components were cemented into position. Excess cement was carefully removed. Patellar tracking was carefully assessed. No additional releases were required. Dilute sterile Betadine soak performed for three minutes. Copious irrigation then performed. The wound was closed with #1 Vicryl suture, #2, 2-0, and 3-0 barbed suture, followed by Steri-Strips. A sterile bulky dressing was applied. Meticulous hemostasis was maintained throughout the procedure. The bipolar cautery device was used. The pain relieving mixture was injected into the periarticular tissues during the procedure. There were no complications. The patient was extubated and brought to the recovery room in stable condition after the application of sterile dressing with Juve bandage. Implants [employer] Triathlon knee system, universal base plate cemented tibia size 5, cemented PS femoral component size 5 ,and an 10 mm X3, PS polyethylene insert. 35mm asymmetric all polyethylene patella component. Estimated Blood Loss 50 Drains No Pathology None sent Complications No immediate complications Condition Stable Disposition PACU [facility] Billing Surgery - Charge Forward: Surgery Billing
[2023-04-12] MEDS: LABETALOL HCL INJ 100 MG/20 ML VIAL IV PUSH (13:16)
[2023-04-12] MEDS: fentaNYL CITRATE INJ (*CRX) 100 MCG/2 ML VIAL 25 MCG IV PUSH ×4 (13:18→13:32)
[2023-04-12] MEDS: oxyCODONE HCL (*CRX) 5 MG TAB IR PO ×2 (15:06→20:38)
[2023-04-12] MEDS: SODIUM CHLORIDE 0.9% IV 1,000 ML 125 ML IV CONT (15:06)
[2023-04-12] MEDS: ACETAMINOPHEN 500 MG TABLET 1000 MG PO ×2 (15:07→20:37)
--- NOTE | 2023-04-12 15:16 | ADMGEN ---
This patient, Jarrod Padron, was admitted to [facility] Surg Room 312-01 at 1405. Patient/family oriented to hospital policies and general routines including ID bracelet, bed and alarms, visiting hours, pain management, procedures, bathroom and other care routines, personal items, smoking policy, room service/diet, and visiting hours. Information on how to activate the Rapid Response Team has been discussed. Patient/Family are encouraged to report perceived risks to care and to ask questions if they do not understand what they are told or what they should do.
[2023-04-12] MEDS: GABAPENTIN 300 MG CAPSULE PO (17:20)
[2023-04-12] MEDS: SENNA/DOCUSATE SODIUM TABLET 2 TAB PO (17:20)
--- NOTE | 2023-04-12 18:42 | WPDCN ---
Assessment and Plan Assessment and plan (1) Primary osteoarthritis of left knee: Code(s): M17.12 - Unilateral primary osteoarthritis, left knee Status: Acute Assessment and Plan: Postoperative day 0 status post left total knee arthroplasty. Wound care, pain control, and DVT prophylaxis deferred to Dr. Gomez. Check baseline labs in a.m. (2) Chronic anticoagulation: Code(s): Z79.01 - intermediate (current) use of anticoagulants Status: Acute Assessment and Plan: Recommend resuming the patient's usual dose of Xarelto tomorrow given history of recurrent DVT/PE. (3) Essential hypertension: Code(s): I10 - Essential (primary) hypertension Status: Acute Assessment and Plan: Blood pressures were reviewed and they have been running a bit high postoperatively, likely due to pain. Continue antihypertensives and monitor closely. (4) Diastolic dysfunction: Code(s): I51.89 - Other ill-defined heart diseases Status: Acute Assessment and Plan: He has 1 to 2+ lower extremity edema bilaterally which he states is chronic. Avoid over-hydration and monitor daily weights and I/O. (5) Chronic obstructive pulmonary disease: Code(s): J44.9 - Chronic obstructive pulmonary disease, unspecified Status: Acute Assessment and Plan: No evidence to suggest acute exacerbation. Continue maintenance inhalers as prescribed. Plan Thank you for allowing us to participate in this patient's care. Please do not hesitate to contact us with any questions. 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 He has had longstanding pain in his left knee which has not been amenable to conservative outpatient treatment and he elected for replacement today. His surgery was performed under general and regional anesthesia with no immediate complications documented an estimated blood loss of 50 mL. Postoperatively he has done quite well and has been getting up to the chair and ambulating to the bathroom with a walker without any problems. His block is starting to wear off and he is having some discomfort in the left upper leg at this time. He denies fever, chills, sweats, chest pain, shortness of breath, nausea, and vomiting. He also denies paresthesias, skin color, and temperature changes distal to the surgical site. Regarding his chronic medical conditions: He has been on Xarelto for many years and has been told that he will need to be on that lifelong given recurrent venous thromboembolisms. His Xarelto was held 2 days prior to surgery and should be able to be resumed tomorrow. He believes his hypertension and hyperlipidemia are well controlled on home medication. Review of Systems Review of Systems: Twelve systems were reviewed and are negative except for as per HPI. 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
[2023-04-12] MEDS: GABAPENTIN 300 MG CAPSULE 600 MG PO (20:38)
[2023-04-12] MEDS: ATORVASTATIN 10 MG TABLET PO (20:38)
[2023-04-13] VITALS (7 sets, daily range): BP systolic 102–135; BP diastolic 56–81; PULSE 74–83; RESP 12–20; TEMP 36.4–36.8; O2SAT 91–96
--- NOTE | ~2023-04-13 | XR_ITS ---
EXAMINATION: [id number] DATE: 04/12/2023 12:47 INDICATION: Postoperative evaluation following left total knee arthroplasty. TECHNIQUE: Anteroposterior and lateral views of the left knee were obtained. COMPARISON: None. FINDINGS: Left total knee arthroplasty with patellar resurfacing appears well seated and in near anatomic align ment. No fractures identified. Expected postoperative subcutaneous and intra-articular gas. IMPRESSION: 1. Left total knee arthroplasty, negative for postoperative purposes. Reviewed, dictated and finalized at location A. ING FOREMAN
--- NOTE | ~2023-04-13 | US_ITS ---
EXAMINATION: US venous doppler [facility] DATE: 04/15/2023 09:39 INDICATION: Left lower limb and swelling TECHNIQUE: Story scale images without and with compression and Doppler images of the left lower extrem ity veins were obtained. COMPARISON: 03/09/2022 FINDINGS: The left common femoral vein, profunda femoral vein, femoral vein, popliteal vein, peroneal trunk, posterior tibial veins, and greater saphenous vein are patent. IMPRESSION: 1. Patent left lower extremity veins. No evidence of deep venous thrombosis. Reviewed, dictated and finalized at location B. LE ROOM SUPERVISOR
--- NOTE | ~2023-04-13 | XR_ITS ---
EXAMINATION: XR chest 1V portable Exam Date/Time: 04/16/2023 14:46 MASON LINER HISTORY: Shortness of breath Comparison: 04/15/2023. RESULT: Lines, tubes, and devices: None. Lungs and pleura: Left hemidiaphragm elevation. Streaky bibasilar opacities. Cardiomediastinal silhouette: Stable. Other: No acute osseous or upper abdominal finding. IMPRESSION: Left hemidiaphragm elevation. Bibasilar scar/atelectasis. Infection is not excluded. Reviewed, dictated and finalized at location K. N LINER IMPRESSION: Left hemidiaphragm elevation. Bibasilar scar/atelectasis. Infection is not excl uded.
--- NOTE | ~2023-04-13 | XR_ITS ---
Portable chest x-ray Comparison: 03/09/2022 Clinical History: Cough Findings: There is left basilar airspace disease. Right lung clear. Cardiomediastinal silhouette is stable. Bones and soft tissues are unremarkable. Impression: Left basilar atelectasis versus pneumonia. Correlate clinically. Reviewed, dictated and finalized at [facility]. PHONE SUPERVISOR Impression: Left basilar atelectasis versus pneumonia. Correlate clinically.
--- NOTE | ~2023-04-13 | CT_ITS ---
Non-contrast Head CT History: Confusion Technique: Axial non-contrast imaging of the brain was performed. Dose reduction technique was used on this scan by utilizing automated exposure control and iterative reconstruction technique. The dose -length product (DLP) was 681.00 mGy-cm. Findings: There is no evidence of intracranial hemorrhage, mass lesion, or acute infarct. Brain par enchyma appears normal. The ventricles and subarachnoid spaces are normal in size. The calvarium ap pears normal. The visualized paranasal sinuses and mastoid air cells are clear. Impression: No significant abnormality seen. Reviewed, dictated and finalized at location . KNITTER Impression: No significant abnormality seen.
[2023-04-13] MEDS: ceFAZolin 2 GM/D5W 50 ML 2 GM/50 ML BAG IVPB ×2 (01:10→09:13)
[2023-04-13 05:59] LABS: Basophils Percent Auto 0.1 % (0.2-1.2); Immature Granulocyte Absolute 0.04 K/mm3 (0.00-0.031); Immature Granulocyte Percent A 0.6 % (0-0.5); Lymphocytes Absolute Auto 0.51 K/mm3 (0.9-3.2); Lymphocytes Percent Auto 7.3 % (18.3-44.2); Mean Corpuscular HGB Conc 31.4 g/dl (32-36); Mean Corpuscular Hemoglobin 31.3 pg (26-34); Mean Corpuscular Volume 99.7 fl (80-100); Mean Platelet Volume 9.9 fl (7.4-10.4); Monocytes Absolute Auto 1.1 K/mm3 (0.1-0.6); Monocytes Percent Auto 15.2 % (2.6-8.5); Neutrophils Absolute Auto 5.4 K/mm3 (1.3-6.7); Neutrophils Percent Auto 76.8 % (45.5-73.1); Platelet Count Result 132 k/mm3 (150-375); Red Blood Count 3.51 M/mm3 (4.6-6.20); Red Cell Distribution Width 13.1 % (11.5-14.5)
[2023-04-13 06:34] LABS: Anion Gap 1 mmol/L (8-16); Blood Urea Nitrogen 15 mg/dL (9-20); Calcium 8.3 mg/dL (8.4-10.2); Carbon Dioxide 35 mmol/L (22-30); Chloride 97 mmol/L (98-107); Estimated CRCL calculation 88 ml/min; Estimated Glomerular Filt Rate > 60; Glucose 151 mg/dL (65-110); Sodium 133 mmol/L (137-145)
[2023-04-13 06:45] LABS: Potassium 4.6 mmol/L (3.4-5.0)
[2023-04-13] MEDS: FLUTICASONE/UMECLIDIN/VILANTER 100-62.5-25 MCG ELLIPTA 1 PUFF INHALATION (07:14)
[2023-04-13] MEDS: METOPROLOL SUCCINATE EXT REL 100 MG TABCR PO (08:58)
[2023-04-13] MEDS: oxyCODONE HCL (*CRX) 5 MG TAB IR 10 MG PO ×3 (08:58→17:45)
[2023-04-13] MEDS: GABAPENTIN 300 MG CAPSULE PO ×2 (09:00→16:50)
[2023-04-13] MEDS: SENNA/DOCUSATE SODIUM TABLET 2 TAB PO ×2 (09:00→16:50)
[2023-04-13] MEDS: ACETAMINOPHEN 500 MG TABLET 1000 MG PO ×3 (09:00→20:08)
[2023-04-13] MEDS: lisinopriL 20 MG TABLET PO (09:00)
[2023-04-13] MEDS: PANTOPRAZOLE 40 MG TABLET PO (09:01)
[2023-04-13] MEDS: polyethylene glycoL 3350 17 GM POWD.PACK PO (09:01)
[2023-04-13] MEDS: RIVAROXABAN 10 MG TABLET PO (09:01)
[2023-04-13] MEDS: amLODIPine BESYLATE 2.5 MG TABLET PO (09:01)
[2023-04-13] MEDS: CYCLOBENZAPRINE HCL 10 MG TABLET PO (11:18)
--- NOTE | 2023-04-13 12:02 | PM.IMCN ---
Assessment and Plan Assessment and plan (1) Primary osteoarthritis of left knee: Code(s): M17.12 - Unilateral primary osteoarthritis, left knee Status: Acute Assessment and Plan: Postoperative day 1 Sp L knee arthroplasty Wound care, pain control, and DVT prophylaxis PT/ OT DC teresa (2) Chronic anticoagulation: Code(s): Z79.01 - snf (current) use of anticoagulants Status: Acute Assessment and Plan: xarelto 10 mg po x7 days then increase to 20 mg daily (3) Essential hypertension: Code(s): I10 - Essential (primary) hypertension Status: Acute Assessment and Plan: Bp is stable at 110/58 (4) Diastolic dysfunction: Code(s): I51.89 - Other ill-defined heart diseases Status: Acute Assessment and Plan: He has 1 to 2+ lower extremity edema bilaterally which he states is chronic. PT/ OT (5) Chronic obstructive pulmonary disease: Code(s): J44.9 - Chronic obstructive pulmonary disease, unspecified Status: Acute Assessment and Plan: No evidence to suggest acute exacerbation. Continue maintenance inhalers as prescribed. 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 Basal cell carcinoma of neck Cervical spondylosis with radiculopathy Chronic anticoagulation Chronic back pain Chronic obstructive pulmonary disease Diastolic dysfunction Diastolic heart failure, NYHA class 1 Diverticulosis of large intestine without hemorrhage Epiploic appendagitis Essential hypertension Generalized anxiety disorder Hiatal hernia with GERD without esophagitis Hypertension Lumbar spondylosis Pneumonia due to 2019 novel coronavirus Polymyalgia rheumatica Primary osteoarthritis, right hand Psoriasis Pulmonary embolism Tinea corporis Surgical History Surgical History History of colonoscopy History of esophagogastroduodenoscopy (EGD) (~2018) History of total right knee replacement (~2018) Dr. Resendez Status post cataract extraction of both eyes with insertion of intraocular lens (~2009) Status post prostatectomy (~2000) Dr. Victor Family History Family History Mother CHF (congestive heart failure) Hypoglycemia Father , At 58 years old Hodgkins lymphoma Sibling No problems noted. Social History Social History Social History: Code status: Full code Surrogate decision maker: Josefina Payne (daughter) Smoking packs per day: 2 Smoking cigarettes per day: 40.0 Years smoked: 60 Smoking pack-years: 120.00 Smoking status: Former smoker Second hand tobacco smoke exposure: Yes Alcohol intake: current Drinks per week: 21 Alcohol use details: Three beers most days of the week. Substance use: never Substance use type: does not use Do You Feel Safe in your Home?: Yes Lack of Transportation: No Lack of Food: Never True Current Housing: I Have Housing Concerned About Future Housing: No Difficulty Paying Gas/Electric Bills: No Difficulty Paying for Meds: No Currently Unemployed: No Education: Trade/Vocational Certificate Difficulty w/ Childcare or Family Care: No Living
--- NOTE | 2023-04-13 14:39 | P.PNAN_ITS ---
Anes - Prog Note Post-Op Date/Time: 04/13/23 14:39 Cardiovascular status: normal Respiratory status: normal Airway patency: baseline Mental status: baseline Post-Op hydration status: normal Vital Signs: Last Vital Signs Temp 97.6 F 04/13/23 11:33 Pulse 74 04/13/23 11:33 Resp 12 04/13/23 11:33 BP 110/58 L 04/13/23 11:33 Pulse Ox 91 04/13/23 11:33 O2 Del Method Room Air 04/13/23 10:40 O2 Flow Rate 3 04/12/23 13:45 Pain Score (VAS): 0/10 I/O: Intake & Output 04/12/23 04/13/23 04/13/23 23:59 07:59 15:59 Intake Total 50 1244 480 Balance 50 1244 480 Laboratory Tests 04/13/23 05:29 04/13/23 05:29 04/13/23 05:29 WBC 7.0 RBC 3.51 L Hgb 11.0 L D Hct 35.0 L MCV 99.7 MCH 31.3 MCHC 31.4 L RDW 13.1 Plt Count 132 L MPV 9.9 Immature Gran % (Auto) 0.6 H Neut % (Auto) 76.8 H Lymph % (Auto) 7.3 L [place] % (Auto) 15.2 H Eos % (Auto) 0.0 Baso % (Auto) 0.1 L Lymph # (Auto) 0.51 L [place] # (Auto) 1.1 H Eos # (Auto) 0.0 Baso # (Auto) 0.0 Abs Immat Gran (auto) 0.04 H Absolute Neuts (auto) 5.4 Absolute Nucleated RBC 0.0 Nucleated RBC % 0.0 Sodium 133 L Potassium 4.6 Chloride 97 L Carbon Dioxide 35 H Anion Gap 1 L BUN 15 Creatinine 0.70 Estim Creat Clear Calc 88 Estimated GFR > 60 Glucose 151 H Calcium 8.3 L Magnesium 2.0 Post-procedural complaints: none Patient Feedback: Patient satisfied with anesthetic care.
--- NOTE | 2023-04-13 14:44 | PM.PNORT ---
Progress Note: A&P Assessment and Plan (1) Status post total left knee replacement: Code(s): Z96.652 - Presence of left artificial knee joint Status: Acute (2) Chronic anticoagulation: Code(s): Z79.01 - detention (current) use of anticoagulants Status: Acute Plan Postop day 1: left total knee arthroplasty. Patient tolerated procedure well. Increased pain. Taking oral pain medications. No numbness or tingling. Dr. Gomez and I have seen the patient on separate occasions today. Patient is at a high risk for bleeding. He does have a large bruise and some bleeding through the incision today. His nurse has had to change his dressing already today. He is on chronic anticoagulation. We discussed the risks of bleeding vs clotting. Patient has a history of DVT and PE. He is typically on 20mg Xarelto. Dr. Gomez would like him to take 10mg Xarelto for one week then increase his dose back up to 20mg due to his risk of bleeding. Patient had agreed to this prior to surgery. Patient is high risk for clotting. I recommend he continue to stay. Will re-evaluate tomorrow. Continue compression socks and leg pumps. Patient may need inpatient rehab or home health at discharge. Subjective Subjective Date/Time Seen: 04/13/23 14:44 Interval history: Patient resting comfortably in bed. Complains of thigh pain and increased pain in the knee since the block has worn off. No other complaints. No shortness of breath, N/V, chest pain, ABD pain. Review of Systems Review of Systems: All systems reviewed & are unremarkable except as noted in HPI and below Exam Narrative: 82-year-old overweight male. Resting comfortably in bed. Alert and oriented x3. No acute distress. Wearing compression socks bilaterally. Dressing intact. Moderate bloody drainage. Moderate swelling. Moderate ecchymosis. No erythema. Possible hematoma. No warmth. Range of motion limited due to pain. Calf nontender. Neurologic status intact. No varicosities. Distal pulses palpable. Light touch sensation intact. Fires quad. Good capillary refill. Objective Data Vital Signs Vital Signs: Vital Signs - 24 hr 04/12/23 15:35 04/12/23 15:33 04/12/23 20:35 Temperature 98.6 F 98.2 F Pulse Rate 71 78 Respiratory Rate 16 16 Blood Pressure 150/71 H 124/72 Pulse Oximetry 96 94 Oxygen Delivery Room Air 04/12/23 23:33 04/13/23 04:20 04/13/23 07:15 Temperature 98.3 F Pulse Rate 71 78 77 Respiratory Rate 18 16 18 Blood Pressure 126/66 102/81 Pulse Oximetry 94 95 92 Oxygen Delivery Room Air 04/13/23 07:15 04/13/23 07:33 04/13/23 08:58 Temperature 97.7 F Pulse Rate 77 77 83 Respiratory Rate 18 20 Blood Pressure 129/56 L Pulse Oximetry 96 Oxygen Delivery 04/13/23 09:42 04/13/23 09:17 04/13/23 10:40 Temperature Pulse Rate Respiratory Rate Blood Pressure 102/58 L Pulse Oximetry Oxygen Delivery Room Air Room Air 04/13/23 11:33 Temperature 97.6 F Pulse Rate 74 Respiratory Rate 12 Blood Pressure 110/58 L Pulse Oximetry 91 Oxygen Delivery Intake/Output Intake/Output: Intake & Output 04/10/23 04/11/23 04/12/23 04/13/23 23:59 23:59 23:59 23:59 Intake Total 600 1724 Balance 600 1724 Meds/Results Medications: Active Medications Generic Name Dose Route Start Last Admin Trade Name Freq PRN Reason Stop Dose Admin Acetaminophen 1,000 mg 04/12/23 14:00 04/13/23 13:42 Acetaminophen 500 Mg Tablet PO 1,000 mg Q6H CHUN Administration Albuterol 1 puff 04/12/23 13:48 Albuterol Sulfate (*Sp) Aerosol 1 Puff INHALATION Q4HRT PRN shortness of breath or wheezing Alprazolam 0.5 mg 04/12/23 13:48 Alprazolam (*Crx) 0.5 Mg Tablet PO BID PRN Anxiety Amlodipine Besylate 2.5 mg 04/13/23 09:00 04/13/23 09:01 Amlodipine Besylate 2.5 Mg Tablet PO 2.5 mg DAILY CHUN Administration Atorvastatin Calcium 10 mg 04/12/23 21:00 04/12/23 20
--- NOTE | 2023-04-13 16:53 | PM.PNORT ---
Progress Note: A&P Assessment and Plan (1) Orthopedic aftercare for joint replacement: Code(s): Z47.1 - Aftercare following joint replacement surgery Status: Acute (2) Status post total left knee replacement: Code(s): Z96.652 - Presence of left artificial knee joint Status: Acute Plan Pod#1 s/p tka. Moderate pain. wound with echymossis and mild sanguinous drainage. Calf non tender. NVI. Post op radiographs show intact tka. Patient noted to have significant synovitis due to history of inflammatory arthritis. Will continue anticoagulation 10mg xarelto, due to history of VTE.Plan to increase to 20mg one week post op. Bleeding risk discussed. History of postop readmission and short rehab stay after the contralateral knee replacement. Will likely need inpatient status and may need rehab at discharge. Daily dressing changes as needed if persistent sanguinous wound drainage. Subjective Subjective Date/Time Seen: 04/13/23 16:53 Objective Data Vital Signs Vital Signs: Vital Signs - 24 hr 04/12/23 20:35 04/12/23 23:33 04/13/23 04:20 Temperature 36.8 C 36.8 C Pulse Rate 78 71 78 Respiratory Rate 16 18 16 Blood Pressure 124/72 126/66 102/81 Pulse Oximetry 94 94 95 Oxygen Delivery 04/13/23 07:15 04/13/23 07:15 04/13/23 07:33 Temperature 36.5 C Pulse Rate 77 77 77 Respiratory Rate 18 18 20 Blood Pressure 129/56 L Pulse Oximetry 92 96 Oxygen Delivery Room Air 04/13/23 08:58 04/13/23 09:42 04/13/23 09:17 Temperature Pulse Rate 83 Respiratory Rate Blood Pressure 102/58 L Pulse Oximetry Oxygen Delivery Room Air 04/13/23 10:40 04/13/23 11:33 04/13/23 14:40 Temperature 36.4 C Pulse Rate 74 Respiratory Rate 12 Blood Pressure 110/58 L Pulse Oximetry 91 Oxygen Delivery Room Air Room Air Intake/Output Intake/Output: Intake & Output 04/10/23 04/11/23 04/12/23 04/13/23 23:59 23:59 23:59 23:59 Intake Total 600 1724 Balance 600 1724 Meds/Results Medications: Active Medications Generic Name Dose Route Start Last Admin Trade Name Freq PRN Reason Stop Dose Admin Acetaminophen 1,000 mg 04/12/23 14:00 04/13/23 13:42 Acetaminophen 500 Mg Tablet PO 1,000 mg Q6H CHUN Administration Albuterol 1 puff 04/12/23 13:48 Albuterol Sulfate (*Sp) Aerosol 1 Puff INHALATION Q4HRT PRN shortness of breath or wheezing Alprazolam 0.5 mg 04/12/23 13:48 Alprazolam (*Crx) 0.5 Mg Tablet PO BID PRN Anxiety Amlodipine Besylate 2.5 mg 04/13/23 09:00 04/13/23 09:01 Amlodipine Besylate 2.5 Mg Tablet PO 2.5 mg DAILY CHUN Administration Atorvastatin Calcium 10 mg 04/12/23 21:00 04/12/23 20:38 Atorvastatin 10 Mg Tablet PO 10 mg HS CHUN Administration Cyclobenzaprine HCl 10 mg 04/12/23 13:48 04/13/23 11:18 Cyclobenzaprine Hcl 10 Mg Tablet PO 10 mg Q8H PRN Administration Spasms Diphenhydramine HCl 25 mg 04/12/23 13:48 Diphenhydramine Hcl Inj 50 Mg/Ml Vial IV PUSH Q6H PRN Itching Fluticasone/Umeclidinium/Vilanterol 1 puff 04/13/23 09:00 04/13/23 07:14 Fluticasone/Umeclidin/Vilanter 100-62.5-25 Mcg Ellipta INHALATION 1 puff DAILY CHUN Administration Gabapentin 300 mg 04/12/23 17:00 04/13/23 16:50 Gabapentin 300 Mg Capsule PO 300 mg BID CHUN Administration Gabapentin 600 mg 04/12/23 21:00 04/12/23 20:38 Gabapentin 300 Mg Capsule PO 600 mg HS CHUN Administration Lisinopril 20 mg 04/13/23 09:00 04/13/23 09:00 Lisinopril 20 Mg Tablet PO 20 mg DAILY CHUN Administration Metoprolol Succinate 100 mg 04/13/23 09:00 04/13/23 08:58 Metoprolol Succinate Ext Rel 100 Mg Tabcr PO 100 mg QAM CHUN Administration Naloxone HCl 0.1 mg 04/12/23 13:48 Naloxone Hcl 0.4 Mg/Ml Vial IV PUSH Q2M PRN Opiate Reversal Ondansetron HCl 4 mg 04/12/23 13:48 Ondansetron Inj 4 Mg/2 Ml Vial IV PUSH Q4H PRN Na
[2023-04-13] MEDS: GABAPENTIN 300 MG CAPSULE 600 MG PO (20:23)
[2023-04-13] MEDS: ATORVASTATIN 10 MG TABLET PO (20:24)
[2023-04-13] MEDS: diazePAM INJ (*CRX) 10 MG/2 ML SYRINGE 5 MG IV PUSH (20:24)
[2023-04-14] MEDS: oxyCODONE HCL (*CRX) 5 MG TAB IR PO (02:23)
[2023-04-14] MEDS: ACETAMINOPHEN 500 MG TABLET 1000 MG PO ×4 (02:23→20:30)
[2023-04-14 05:10] VITALS: BP 135/51; PULSE 80; RESP 20; TEMP 36.2; O2SAT 91
[2023-04-14 08:29] VITALS: PULSE 80
[2023-04-14] MEDS: SENNA/DOCUSATE SODIUM TABLET 2 TAB PO ×2 (08:29→16:41)
[2023-04-14] MEDS: PANTOPRAZOLE 40 MG TABLET PO (08:29)
[2023-04-14] MEDS: METOPROLOL SUCCINATE EXT REL 100 MG TABCR PO (08:29)
[2023-04-14] MEDS: RIVAROXABAN 10 MG TABLET PO (08:29)
[2023-04-14] MEDS: lisinopriL 20 MG TABLET PO (08:30)
[2023-04-14] MEDS: polyethylene glycoL 3350 17 GM POWD.PACK PO (08:30)
[2023-04-14] MEDS: amLODIPine BESYLATE 2.5 MG TABLET PO (08:30)
[2023-04-14] MEDS: GABAPENTIN 300 MG CAPSULE PO ×2 (08:30→16:42)
[2023-04-14] MEDS: oxyCODONE HCL (*CRX) 5 MG TAB IR 10 MG PO ×3 (08:36→17:08)
[2023-04-14] MEDS: FLUTICASONE/UMECLIDIN/VILANTER 100-62.5-25 MCG ELLIPTA 1 PUFF INHALATION (09:15)
[2023-04-14 09:18] VITALS: O2SAT 92
--- NOTE | 2023-04-14 09:18 | PM.DS ---
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 PT/ OT (5) Chronic obstructive pulmonary disease: Code(s): J44.9 - Chronic obstructive pulmonary disease, unspecified Status: Acute Assessment and Plan: No evidence to suggest acute exacerbation. Continue maintenance inhalers as prescribed. Plan DS: Summary Time Spent with Patient Time attestation: Total time spent providing and/or coordinating discharge services: Exam Narrative: General: Well-developed, nontoxic-appearing male sitting up in bed in no acute distress. Weight: 112.2 kg. BMI: 37.6. HEENT: PERRL, EOMI. Sclera anicteric. Oral mucosa moist. Neck: Supple. Respiratory: Lungs are clear to auscultation bilaterally. Cardiovascular: Regular rate and rhythm with S1-S2. Soft systolic murmur at the right upper sternal border. Gastrointestinal: Abdomen is soft, protuberant, nontender, and nondistended with positive bowel sounds. Skin: Warm and dry. No rash or lesions on limited exam. Extremities: No cyanosis or clubbing. Reportedly chronic 1 to 2+ lower extremity edema, left greater than right. Peripheral pulses intact. Musculoskeletal: Left knee dressing is clean, dry, and intact. Neurological: Alert. Cranial nerves 2-12 grossly intact. No gross focal deficits to casual conversation. Psychiatric: Pleasant and cooperative with normal mood and affect. Judgment and insight intact. Discharge Plan Discharge Attending physician on discharge: Delmis Sinha Consulting providers: Tonya Gerard Discharging Clinician: Grandhi,Delmis R. Anticipated Discharge Date/Time: 04/14/23 09:17 Activity: as tolerated Diet: heart healthy Discharge Instructions: See green instruction sheets Care Coordination: Patient to have [facility] for PT/OT eval and treat, and chcf. They will call you to schedule their first visit. Their phone number is [phone] if you have any questions. Patient Instructions: Antibiotic Form, Rivaroxaban (By mouth) Stand Alone Forms: General Discharge Information, General Discharge Instructions Follow-up/Referrals: Ellen Babb PA [Physician Divinity Professor] - Discharge Medications: New oxycodone-acetaminophen 5-325 mg tablet 1 - 2 tablet PO Q4-6H MDD 6 PRN (Reason: pain) Qty: 30 0RF Xarelto 10 mg tablet 10 mg PO DAILY 7 Days Qty: 7 0RF Rx Instructions: Take 10 mg daily for one week after surgery then resume normal 20mg dose. Continued mupirocin 2 % ointment 1 applic topical BID Qty: 15 0RF triamcinolone acetonide 0.1 % cream 1 applic topical BID Qty: 453.6 1RF atorvastatin 10 mg tablet 10 mg PO HS Centrum Silver 0.4 mg-300 mcg- 250 mcg tablet 1 tablet PO DAILY cholecalciferol (vitamin D3) 25 mcg (1,000 unit) capsule 25 mcg PO DAILY vitamin E (dl, acetate) 180 mg (400 unit) capsule 180 mg PO DAILY metoprolol succinate 200 mg tablet extended release 24 hr 100 mg PO QAM Patient Comments: 100 MG gabapentin 300 mg capsule See Rx Instructions .ROUTE .COMPL
--- NOTE | 2023-04-14 09:39 | PCOTNOTE ---
Attempted to see Patient at this time. Patient had just returned to bed, states he is hurting so bad. Patient seems very anxious and unable to answer questions. Patient asked to try to calm down and relax, MD stated she was going to give medication to assist with anxiety. Will try back at a later time.
[2023-04-14] MEDS: ALPRAZolam (*CRX) 0.5 MG TABLET PO (10:06)
--- NOTE | 2023-04-14 11:13 | PM.PNORT ---
Progress Note: A&P Assessment and Plan (1) Status post total left knee replacement: Code(s): Z96.652 - Presence of left artificial knee joint Status: Acute (2) Chronic anticoagulation: Code(s): Z79.01 - [facility] (current) use of anticoagulants Status: Acute Plan Postop day 2: left total knee arthroplasty. He continues to have increased pain. More bleeding today. Dressing saturated. I recommend daily dressing changes with gauze and tape. Continue compressions socks, frequent walks, and leg pumps. High risk due to chronic anticoagulation and history of DVT and PE. He is on Xeralto 10mg for 7 days. Will then increase back to 20 mg dose. Patient will benefit from impatient rehab at discharge. Discharge planning in progress. Subjective Subjective Date/Time Seen: 04/14/23 11:13 Interval history: Patient resting comfortably in bed. Sleeping at the time of my visit. He notes he was having worsening pain. He is eager to get up and get moving. No CP, SOB, ABD pain, N/V. Review of Systems Review of Systems: All systems reviewed & are unremarkable except as noted in HPI and below Exam Narrative: 82-year-old overweight male. Resting comfortably in bed. Alert and oriented x3. No acute distress. Wearing compression socks bilaterally. Dressing saturated. Moderate bloody drainage. Moderate swelling. Large ecchymosis. No erythema. Moderate hematoma. No warmth. Range of motion limited due to pain. Calf nontender. Neurologic status intact. No varicosities. Distal pulses palpable. Light touch sensation intact. Fires quad. Good capillary refill. Objective Data Vital Signs Vital Signs: Vital Signs - 24 hr 04/13/23 11:33 04/13/23 14:40 04/13/23 16:00 Temperature 97.6 F 97.9 F Pulse Rate 74 79 Respiratory Rate 12 14 Blood Pressure 110/58 L 135/67 Pulse Oximetry 91 93 Oxygen Delivery Room Air Fraction of Inspired Oxygen 04/14/23 05:10 04/14/23 08:29 04/14/23 09:18 Temperature 97.2 F L Pulse Rate 80 80 Respiratory Rate 20 Blood Pressure 135/51 L Pulse Oximetry 91 92 Oxygen Delivery Room Air Fraction of Inspired Oxygen 04/14/23 08:25 Temperature Pulse Rate Respiratory Rate Blood Pressure Pulse Oximetry Oxygen Delivery Room Air Fraction of Inspired Oxygen Intake/Output Intake/Output: Intake & Output 04/11/23 04/12/23 04/13/23 04/14/23 23:59 23:59 23:59 23:59 Intake Total 600 2514 350 Balance 600 2514 350 Meds/Results Medications: Active Medications Generic Name Dose Route Start Last Admin Trade Name Freq PRN Reason Stop Dose Admin Acetaminophen 1,000 mg 04/12/23 14:00 04/14/23 08:30 Acetaminophen 500 Mg Tablet PO 1,000 mg Q6H CHUN Administration Albuterol 1 puff 04/12/23 13:48 Albuterol Sulfate (*Sp) Aerosol 1 Puff INHALATION Q4HRT PRN shortness of breath or wheezing Alprazolam 0.5 mg 04/12/23 13:48 04/14/23 10:06 Alprazolam (*Crx) 0.5 Mg Tablet PO 0.5 mg BID PRN Administration Anxiety Amlodipine Besylate 2.5 mg 04/13/23 09:00 04/14/23 08:30 Amlodipine Besylate 2.5 Mg Tablet PO 2.5 mg DAILY CHUN Administration Atorvastatin Calcium 10 mg 04/12/23 21:00 04/13/23 20:24 Atorvastatin 10 Mg Tablet PO 10 mg HS CHUN Administration Cyclobenzaprine HCl 10 mg 04/12/23 13:48 04/13/23 11:18 Cyclobenzaprine Hcl 10 Mg Tablet PO 10 mg Q8H PRN Administration Spasms Diphenhydramine HCl 25 mg 04/12/23 13:48 Diphenhydramine Hcl Inj 50 Mg/Ml Vial IV PUSH Q6H PRN Itching Fluticasone/Umeclidinium/Vilanterol 1 puff 04/13/23 09:00 04/14/23 09:15 Fluticasone/Umeclidin/Vilanter 100-62.5-25 Mcg Ellipta INHALATION 1 puff DAILY CHUN Administration Gabapentin 300 mg 04/12/23 17:00 04/14/23 08:30 Gabapentin 300 Mg Capsule PO 300 mg BID CHUN Administration Gabapentin 600 mg 04/12/23 21:00 04/13/23 20:23 Gabapentin 300 Mg Capsule PO
--- NOTE | 2023-04-14 13:13 | PM.IMPN ---
Progress Note: A&P Assessment and Plan (1) Primary osteoarthritis of left knee: Code(s): M17.12 - Unilateral primary osteoarthritis, left knee Status: Acute Assessment and Plan: Postoperative day 2 Sp L knee arthroplasty Wound care, pain control, and DVT prophylaxis PT/ OT pt will benefit from rehab placement (2) Chronic anticoagulation: Code(s): Z79.01 - [facility]-way (current) use of anticoagulants Status: Acute (3) Essential hypertension: Code(s): I10 - Essential (primary) hypertension Status: Acute (4) Diastolic dysfunction: Code(s): I51.89 - Other ill-defined heart diseases Status: Acute (5) Chronic obstructive pulmonary disease: Code(s): J44.9 - Chronic obstructive pulmonary disease, unspecified Status: Acute Subjective Date/time seen: 04/14/23 13:13 Interval history: Jarrod Padron is a 82 year old male sp Total knee arthroplasty, left POD day 2 Pt had some dizziness when standing Continue hospital care PT/ OT and pain control Pt has history of HTN and recurrent PEs Pt is needing more PT/ OT assistance slow to progress Will benefit from Rehab placement appears very anxious today Review of Systems Review of Systems: anxiety +L knee pain Objective Data Vital Signs Vital Signs: Vital Signs - 24 hr 04/13/23 14:40 04/13/23 16:00 04/14/23 05:10 Temperature 36.6 C 36.2 C L Pulse Rate 79 80 Respiratory Rate 14 20 Blood Pressure 135/67 135/51 L Pulse Oximetry 93 91 Oxygen Delivery Room Air Fraction of Inspired Oxygen 04/14/23 08:29 04/14/23 09:18 04/14/23 08:25 Temperature Pulse Rate 80 Respiratory Rate Blood Pressure Pulse Oximetry 92 Oxygen Delivery Room Air Room Air Fraction of Inspired Oxygen 21 Intake/Output Intake/Output: Intake & Output 04/11/23 04/12/23 04/13/23 04/14/23 23:59 23:59 23:59 23:59 Intake Total 600 2514 350 Balance 600 2514 350 Meds/Results Medications: Active Medications Generic Name Dose Route Start Last Admin Trade Name Freq PRN Reason Stop Dose Admin Acetaminophen 1,000 mg 04/12/23 14:00 04/14/23 13:02 Acetaminophen 500 Mg Tablet PO 1,000 mg Q6H CHUN Administration Albuterol 1 puff 04/12/23 13:48 Albuterol Sulfate (*Sp) Aerosol 1 Puff INHALATION Q4HRT PRN shortness of breath or wheezing Alprazolam 0.5 mg 04/12/23 13:48 04/14/23 10:06 Alprazolam (*Crx) 0.5 Mg Tablet PO 0.5 mg BID PRN Administration Anxiety Amlodipine Besylate 2.5 mg 04/13/23 09:00 04/14/23 08:30 Amlodipine Besylate 2.5 Mg Tablet PO 2.5 mg DAILY CHUN Administration Atorvastatin Calcium 10 mg 04/12/23 21:00 04/13/23 20:24 Atorvastatin 10 Mg Tablet PO 10 mg HS CHUN Administration Cyclobenzaprine HCl 10 mg 04/12/23 13:48 04/13/23 11:18 Cyclobenzaprine Hcl 10 Mg Tablet PO 10 mg Q8H PRN Administration Spasms Diphenhydramine HCl 25 mg 04/12/23 13:48 Diphenhydramine Hcl Inj 50 Mg/Ml Vial IV PUSH Q6H PRN Itching Fluticasone/Umeclidinium/Vilanterol 1 puff 04/13/23 09:00 04/14/23 09:15 Fluticasone/Umeclidin/Vilanter 100-62.5-25 Mcg Ellipta INHALATION 1 puff DAILY CHUN Administration Gabapentin 300 mg 04/12/23 17:00 04/14/23 08:30 Gabapentin 300 Mg Capsule PO 300 mg BID CHUN Administration Gabapentin 600 mg 04/12/23 21:00 04/13/23 20:23 Gabapentin 300 Mg Capsule PO 600 mg HS CHUN Administration Lisinopril 20 mg 04/13/23 09:00 04/14/23 08:30 Lisinopril 20 Mg Tablet PO 20 mg DAILY CHUN Administration Metoprolol Succinate 100 mg 04/13/23 09:00 04/14/23 08:29 Metoprolol Succinate Ext Rel 100 Mg Tabcr PO 100 mg QAM CHUN Administration Naloxone HCl 0.1 mg 04/12/23 13:48 Naloxone Hcl 0.4 Mg/Ml Vial IV PUSH Q2M PRN Opiate Reversal Ondansetron HCl 4 mg 04/12/23 13:48 Ondansetron Inj 4 Mg/2 Ml Vial IV PUSH Q4H PRN N
[2023-04-14 14:00] VITALS: BP 114/65; PULSE 83; RESP 20; TEMP 36.8; O2SAT 95
--- NOTE | 2023-04-14 15:20 | PCOTNOTE ---
Attempted an afternoon OT treatment session. Patient refused jonny participate, he is hurting, not going home and needs rest. Per RN, Patient has been difficult with activity tasks all day and is anxious about everything.
[2023-04-14] MEDS: GABAPENTIN 300 MG CAPSULE 600 MG PO (20:30)
[2023-04-14] MEDS: ATORVASTATIN 10 MG TABLET PO (20:30)
[2023-04-14 21:05] VITALS: BP 134/73; PULSE 86; RESP 24; TEMP 36.6
[2023-04-15] VITALS (7 sets, daily range): BP systolic 102–134; BP diastolic 58–65; PULSE 66–72; RESP 18–21; TEMP 36.2–37.2; O2SAT 92–99
[2023-04-15] MEDS: oxyCODONE HCL (*CRX) 5 MG TAB IR 10 MG PO ×2 (00:07→08:42)
[2023-04-15] MEDS: CYCLOBENZAPRINE HCL 10 MG TABLET PO ×2 (00:07→08:42)
[2023-04-15] MEDS: ACETAMINOPHEN 500 MG TABLET 1000 MG PO ×4 (02:10→22:32)
[2023-04-15] MEDS: FLUTICASONE/UMECLIDIN/VILANTER 100-62.5-25 MCG ELLIPTA 1 PUFF INHALATION (08:02)
[2023-04-15] MEDS: PANTOPRAZOLE 40 MG TABLET PO (08:22)
[2023-04-15] MEDS: amLODIPine BESYLATE 2.5 MG TABLET PO (08:22)
[2023-04-15] MEDS: RIVAROXABAN 10 MG TABLET PO (08:22)
[2023-04-15] MEDS: SENNA/DOCUSATE SODIUM TABLET 2 TAB PO ×2 (08:22→16:49)
[2023-04-15] MEDS: lisinopriL 20 MG TABLET PO (08:22)
[2023-04-15] MEDS: polyethylene glycoL 3350 17 GM POWD.PACK PO (08:22)
[2023-04-15] MEDS: METOPROLOL SUCCINATE EXT REL 100 MG TABCR PO (08:22)
[2023-04-15] MEDS: GABAPENTIN 300 MG CAPSULE PO (08:23)
--- NOTE | 2023-04-15 08:47 | PM.IMPN ---
Progress Note: A&P Assessment and Plan (1) Primary osteoarthritis of left knee: Code(s): M17.12 - Unilateral primary osteoarthritis, left knee Status: Acute Assessment and Plan: Postoperative day 2 Sp L knee arthroplasty Wound care, pain control, and DVT prophylaxis PT/ OT pt will benefit from rehab placement (2) Chronic anticoagulation: Code(s): Z79.01 - [facility] (current) use of anticoagulants Status: Acute (3) Essential hypertension: Code(s): I10 - Essential (primary) hypertension Status: Acute (4) Diastolic dysfunction: Code(s): I51.89 - Other ill-defined heart diseases Status: Acute (5) Chronic obstructive pulmonary disease: Code(s): J44.9 - Chronic obstructive pulmonary disease, unspecified Status: Acute Plan Jarrod Padron is a 82 year old male sp Total knee arthroplasty, left performed on 04/12/2023. Medical team consulted for medical management. 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 Continued on PT OT postoperative bleeding currently on DVT prophylactic dose of Xarelto which is acceptable with ongoing bleeding issue Plan for inpatient rehab at discharge Repeat labs with worsening Postoperative blood loss anemia Confusion ongoing and new could be related to medication. Check CT without contrast. 10 mg oxycodone. Will check ABG chest x-ray as well out hypercapnia. DVT prophylaxis on Xarelto Subjective Date/time seen: 04/15/23 08:47 Interval history: Jarrod Padron is a 82 year old male sp Total knee arthroplasty, left performed on 04/12/2023. Medical team consulted for medical management. 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 Continued on PT OT postoperative bleeding currently on DVT prophylactic dose of Xarelto which is acceptable with ongoing bleeding issue Plan for inpatient rehab at discharge Noted to be confused. He did receive oxycodone 10 and it Flexeril this a.m.. Also on gabapentin. Labs reviewed Review of Systems Review of Systems: All systems reviewed & are unremarkable except as noted in HPI and below Exam Narrative: General:?Well-developed, nontoxic-appearing male sitting up in bed confused HEENT:? PERRL, EOMI. Sclera anicteric.? Oral mucosa moist.? Neck:??Supple.? Respiratory:?Lungs are clear to auscultation bilaterally. Cardiovascular:??Regular rate and rhythm with S1-S2. Soft systolic murmur at the right upper sternal border. Gastrointestinal:? Abdomen is soft, protuberant, nontender, and nondistended with positive bowel sounds. Skin:? Warm and dry.? No rash or lesions on limited exam. Extremities:? No cyanosis or clubbing. Reportedly chronic 1 to 2+ lower extremity edema, left greater than right. Peripheral pulses intact. Musculoskeletal:?Left knee dressing is clean, dry, and intact. Neurological:? Somnolent and confused oriented to place and person not to time moves all extremities except for left leg due to recent surgery Psychiatric:??Pleasant and cooperative with normal mood and affect.? Judgment and insight intact. Objective Data Vital Signs Vital Signs: Vital Signs - 24 hr 04/14/23 09:18 04/14/23 14:00 04/14/23 21:05 Temperature 98.2 F 98 F Pulse Rate 83 86 Respiratory Rate 20 24 H Blood Pressure 114/65 134/73 Pulse Oximetry 92 95 Oxygen Delivery Room Air Fraction of Inspired Oxygen 04/15/23 05:45 04/15/23 08:03 Temperature 97.1 F L Pulse Rate 66 Respiratory Rate 20 Blood Pressure 102/64 Pulse Oximetry 92 93 Oxygen Delivery Room Air Fraction of Inspired Oxygen Intake/Output Intake/Output: Intake & Output 04/12/23 04/13/23 04/14/23 04/15/23 23:59 23:59 23:59 23:59 Intake Total 600 2514 1989 590 Balance 600 2514 1989 590 Meds/Results Medications: Active Medications
--- NOTE | 2023-04-15 08:52 | PM.PNORT ---
Progress Note: A&P Assessment and Plan (1) Orthopedic aftercare for joint replacement: Code(s): Z47.1 - Aftercare following joint replacement surgery Status: Acute Plan Pain control adequate. He is working with occupational therapy to get out of bed safely. Significant hemorrhage at the wound. Mild fracture blisters and drainage. Most of the blood is in the soft tissues of the leg. Calf soft. Wiggles toes. The ecchymosis will resolve uneventfully. Small fracture blisters can be treated topically. We will use compressive wraps as able. Will check a lower extremity ultrasound prior to discharge to rehab. Subjective Subjective Date/Time Seen: 04/15/23 08:52 Objective Data Vital Signs Vital Signs: Vital Signs - 24 hr 04/14/23 09:18 04/14/23 14:00 04/14/23 21:05 Temperature 36.8 C 36.6 C Pulse Rate 83 86 Respiratory Rate 20 24 H Blood Pressure 114/65 134/73 Pulse Oximetry 92 95 Oxygen Delivery Room Air Fraction of Inspired Oxygen 21 04/15/23 05:45 04/15/23 08:03 Temperature 36.2 C L Pulse Rate 66 Respiratory Rate 20 Blood Pressure 102/64 Pulse Oximetry 92 93 Oxygen Delivery Room Air Fraction of Inspired Oxygen Intake/Output Intake/Output: Intake & Output 04/12/23 04/13/23 04/14/23 04/15/23 23:59 23:59 23:59 23:59 Intake Total 600 2514 1989 590 Balance 600 2514 1989 590 Meds/Results Medications: Active Medications Generic Name Dose Route Start Last Admin Trade Name Freq PRN Reason Stop Dose Admin Acetaminophen 1,000 mg 04/12/23 14:00 04/15/23 08:22 Acetaminophen 500 Mg Tablet PO 1,000 mg Q6H CHUN Administration Albuterol 1 puff 04/12/23 13:48 Albuterol Sulfate (*Sp) Aerosol 1 Puff INHALATION Q4HRT PRN shortness of breath or wheezing Alprazolam 0.5 mg 04/12/23 13:48 04/14/23 10:06 Alprazolam (*Crx) 0.5 Mg Tablet PO 0.5 mg BID PRN Administration Anxiety Amlodipine Besylate 2.5 mg 04/13/23 09:00 04/15/23 08:22 Amlodipine Besylate 2.5 Mg Tablet PO 2.5 mg DAILY HCUN Administration Atorvastatin Calcium 10 mg 04/12/23 21:00 04/14/23 20:30 Atorvastatin 10 Mg Tablet PO 10 mg HS CHUN Administration Cyclobenzaprine HCl 10 mg 04/12/23 13:48 04/15/23 08:42 Cyclobenzaprine Hcl 10 Mg Tablet PO 10 mg Q8H PRN Administration Spasms Diphenhydramine HCl 25 mg 04/12/23 13:48 Diphenhydramine Hcl Inj 50 Mg/Ml Vial IV PUSH Q6H PRN Itching Fluticasone/Umeclidinium/Vilanterol 1 puff 04/13/23 09:00 04/15/23 08:02 Fluticasone/Umeclidin/Vilanter 100-62.5-25 Mcg Ellipta INHALATION 1 puff DAILY CHUN Administration Gabapentin 300 mg 04/12/23 17:00 04/15/23 08:23 Gabapentin 300 Mg Capsule PO 300 mg BID CHUN Administration Gabapentin 600 mg 04/12/23 21:00 04/14/23 20:30 Gabapentin 300 Mg Capsule PO 600 mg HS CHUN Administration Lisinopril 20 mg 04/13/23 09:00 04/15/23 08:22 Lisinopril 20 Mg Tablet PO 20 mg DAILY CHUN Administration Metoprolol Succinate 100 mg 04/13/23 09:00 04/15/23 08:22 Metoprolol Succinate Ext Rel 100 Mg Tabcr PO 100 mg QAM CHUN Administration Naloxone HCl 0.1 mg 04/12/23 13:48 Naloxone Hcl 0.4 Mg/Ml Vial IV PUSH Q2M PRN Opiate Reversal Ondansetron HCl 4 mg 04/12/23 13:48 Ondansetron Inj 4 Mg/2 Ml Vial IV PUSH Q4H PRN Nausea And Vomiting Oxycodone HCl 5 mg 04/12/23 13:48 04/14/23 02:23 Oxycodone Hcl (*Crx) 5 Mg Tab Ir PO 5 mg Q4H PRN Administration Pain Rated 4-6 Oxycodone HCl 10 mg 04/12/23 13:48 04/15/23 08:42 Oxycodone Hcl (*Crx) 5 Mg Tab Ir PO 10 mg Q4H PRN Administration Pain Rated 7-10 Pantoprazole Sodium 40 mg 04/13/23 09:00 04/15/23 08:22 Pantoprazole 40 Mg Tablet PO 40 mg DAILY CHUN Administration Polyethylene Glycol 17 gm 04/13/23 09:00 04/15/23 08:22 Polyethylene Glycol 3350 17 Gm Powd.Pack PO 17 gm QAM CHUN Adminis
[2023-04-15 10:12] LABS: Basophils Percent Auto 0.2 % (0.2-1.2); Eosinophils Percent Auto 0.7 % (0-4.4); Hematocrit 27.8 % (42.0-52.0); Hemoglobin 9.3 g/dL (14.0-18.0); Immature Granulocyte Absolute 0.04 K/mm3 (0.00-0.031); Immature Granulocyte Percent A 0.7 % (0-0.5); Immature Platelet Fraction Pct 4.4 % (0.9-11.2); Lymphocytes Absolute Auto 0.64 K/mm3 (0.9-3.2); Lymphocytes Percent Auto 10.8 % (18.3-44.2); Mean Corpuscular HGB Conc 33.5 g/dl (32-36); Mean Corpuscular Volume 95.5 fl (80-100); Monocytes Percent Auto 17.6 % (2.6-8.5); Neutrophils Absolute Auto 4.1 K/mm3 (1.3-6.7); Platelet Count Result 155 k/mm3 (150-375); Red Blood Count 2.91 M/mm3 (4.6-6.20); Red Cell Distribution Width 12.9 % (11.5-14.5); White Blood Count 5.9 K/mm3 (4.5-10.0)
[2023-04-15 10:23] LABS: Alanine Aminotransferase 19 U/L (6-50); Albumin Level 3.2 g/dL (3.5-5.1); Alkaline Phosphatase 73 U/L (38-126); Anion Gap 3 mmol/L (8-16); Aspartate Amino Transferase 41 U/L (17-59); Blood Urea Nitrogen 27 mg/dL (9-20); Calcium 8.7 mg/dL (8.4-10.2); Carbon Dioxide 31 mmol/L (22-30); Chloride 93 mmol/L (98-107); Estimated CRCL calculation 75 ml/min; Estimated Glomerular Filt Rate > 60; Glucose 114 mg/dL (65-110); Potassium 4.7 mmol/L (3.4-5.0); Sodium 127 mmol/L (137-145)
[2023-04-15 12:03] LABS: Alveolar/Arterial O2 Gradient 43.7 mmHg; Base Excess ABG 5.3 mEq/l (+/-2.0); Fractional Inspired Oxygen 21 %; HCO3 ABG 30.8 mEq/l (22.0-26.0); Oxygen Content ABG 11.3 %vol (16.0-22.0); PCO2 ABG 49.9 mmHg (35.0-45.0); pH ABG 7.408 (7.350-7.450)
[2023-04-15 12:07] LABS: Oxyhemoglobin 80.1 % THb (90.0-100.0); PO2 ABG 46.3 mmHg (80.0-100.0)
[2023-04-15 12:08] LABS: Device ROOM AIR; Modified Allen's Test Pass; Site Drawn RIGHT RADIAL
[2023-04-15] MEDS: NALOXONE HCL 0.4 MG/ML VIAL 0.1 MG IV PUSH (12:36)
[2023-04-15] MEDS: ALPRAZolam (*CRX) 0.5 MG TABLET PO (18:13)
[2023-04-15 19:26] LABS: Appearance Urine Clear (Clear); Bacteria Urine None Seen /hpf; Bilirubin Urine 1+ (Negative); Blood Urine Negative (Negative); Color Urine Dark Yellow (Yellow); Glucose Urine UA Negative (Negative); Ketones Urine Negative (Negative); Leukocyte Esterase Ur Negative LEU/UL (NEGATIVE); Nitrate Urine Negative (Negative); Protein Urine 1+ mg/dL (Negative); RBC Urine 0-2 /hpf (0-2); Specific Grav Ur 1.024 (1.001-1.035); Squamous Epithelial Cell Urine None seen /hpf (Few); WBC Urine 0-5 /hpf (0-3); pH Urine 5.5 (5.0-9.0)
[2023-04-15 19:29] LABS: Add Urine Microscopic? YES
[2023-04-15] MEDS: GABAPENTIN 300 MG CAPSULE 600 MG PO (22:30)
[2023-04-15] MEDS: ATORVASTATIN 10 MG TABLET PO (22:30)
[2023-04-16] MEDS: ACETAMINOPHEN 500 MG TABLET 1000 MG PO ×4 (03:07→21:27)
[2023-04-16 06:00] VITALS: BP 120/68; PULSE 72; RESP 18; TEMP 37; O2SAT 96
[2023-04-16 06:11] LABS: Basophils Percent Auto 0.4 % (0.2-1.2); Eosinophils Percent Auto 0.6 % (0-4.4); Hematocrit 27.3 % (42.0-52.0); Hemoglobin 8.8 g/dL (14.0-18.0); Immature Granulocyte Absolute 0.01 K/mm3 (0.00-0.031); Immature Granulocyte Percent A 0.2 % (0-0.5); Lymphocytes Absolute Auto 0.47 K/mm3 (0.9-3.2); Lymphocytes Percent Auto 9.9 % (18.3-44.2); Mean Corpuscular HGB Conc 32.2 g/dl (32-36); Mean Corpuscular Hemoglobin 31.3 pg (26-34); Mean Corpuscular Volume 97.2 fl (80-100); Mean Platelet Volume 9.8 fl (7.4-10.4); Monocytes Absolute Auto 0.8 K/mm3 (0.1-0.6); Monocytes Percent Auto 16.1 % (2.6-8.5); Neutrophils Absolute Auto 3.4 K/mm3 (1.3-6.7); Neutrophils Percent Auto 72.8 % (45.5-73.1); Platelet Count Result 148 k/mm3 (150-375); Red Blood Count 2.81 M/mm3 (4.6-6.20); Red Cell Distribution Width 12.9 % (11.5-14.5); White Blood Count 4.7 K/mm3 (4.5-10.0)
[2023-04-16 06:20] LABS: Alanine Aminotransferase 69 U/L (6-50); Albumin Level 3.1 g/dL (3.5-5.1); Alkaline Phosphatase 132 U/L (38-126); Anion Gap 4 mmol/L (8-16); Aspartate Amino Transferase 127 U/L (17-59); Bilirubin,Total 1.2 mg/dL (0.2-1.3); Blood Urea Nitrogen 23 mg/dL (9-20); Calcium 8.7 mg/dL (8.4-10.2); Carbon Dioxide 33 mmol/L (22-30); Chloride 93 mmol/L (98-107); Estimated CRCL calculation 84 ml/min; Estimated Glomerular Filt Rate > 60; Glucose 134 mg/dL (65-110); Magnesium 2.2 mg/dL (1.6-2.3); Potassium 4.3 mmol/L (3.4-5.0); Sodium 130 mmol/L (137-145)
[2023-04-16] MEDS: FLUTICASONE/UMECLIDIN/VILANTER 100-62.5-25 MCG ELLIPTA 1 PUFF INHALATION (07:20)
[2023-04-16 08:00] VITALS: O2SAT 93
[2023-04-16 08:32] VITALS: O2SAT 93
[2023-04-16] MEDS: METOPROLOL SUCCINATE EXT REL 100 MG TABCR PO (09:13)
[2023-04-16] MEDS: RIVAROXABAN 10 MG TABLET PO (09:14)
[2023-04-16] MEDS: polyethylene glycoL 3350 17 GM POWD.PACK PO (09:14)
[2023-04-16] MEDS: GABAPENTIN 300 MG CAPSULE PO (09:14)
[2023-04-16] MEDS: amLODIPine BESYLATE 2.5 MG TABLET PO (09:14)
[2023-04-16] MEDS: SENNA/DOCUSATE SODIUM TABLET 2 TAB PO (09:14)
[2023-04-16] MEDS: PANTOPRAZOLE 40 MG TABLET PO (09:14)
[2023-04-16] MEDS: lisinopriL 20 MG TABLET PO (09:14)
[2023-04-16] MEDS: ALPRAZolam (*CRX) 0.5 MG TABLET PO ×2 (09:21→21:36)
--- NOTE | 2023-04-16 12:27 | PM.PNORT ---
Progress Note: A&P Assessment and Plan (1) Status post total left knee replacement: Code(s): Z96.652 - Presence of left artificial knee joint Status: Acute Plan Somnolent but responsive and more appropriate today. Pain controlled with Tylenol. avss. workup for DVT negative. Head CT negative. Hypoxia improved. Ecchymosis beginning to relove. Mild persistent drainage. No erythema. Mild edema. Calves soft, non tender. Anterior tibialis and EHL normal. Post op delirium. Limit narcotics. Mobilize as able. Discussed condition and care plan with the patient, family, and Hospitalist. Subjective Subjective Date/Time Seen: 04/16/23 12:27 Objective Data Vital Signs Vital Signs: Vital Signs - 24 hr 04/15/23 12:28 04/15/23 13:43 04/15/23 14:27 Temperature 36.6 C Pulse Rate 71 Respiratory Rate 21 H Blood Pressure 111/58 L Pulse Oximetry 92 96 93 Oxygen Delivery Nasal Cannula Nasal Cannula Oxygen Flow Rate 3 2 Fraction of Inspired Oxygen 04/15/23 21:33 04/15/23 20:00 04/16/23 06:00 Temperature 37.2 C 37.0 C Pulse Rate 72 72 72 Respiratory Rate 18 18 18 Blood Pressure 134/65 120/68 Pulse Oximetry 99 99 96 Oxygen Delivery Nasal Cannula Oxygen Flow Rate 3 Fraction of Inspired Oxygen 04/16/23 08:32 Temperature Pulse Rate Respiratory Rate Blood Pressure Pulse Oximetry 93 Oxygen Delivery Nasal Cannula Oxygen Flow Rate 3 Fraction of Inspired Oxygen Intake/Output Intake/Output: Intake & Output 04/13/23 04/14/23 04/15/23 04/16/23 23:59 23:59 23:59 23:59 Intake Total 2514 1989 1870 760 Output Total 600 7531 Balance 2514 1989 1270 -8105 Meds/Results Medications: Active Medications Generic Name Dose Route Start Last Admin Trade Name Freq PRN Reason Stop Dose Admin Acetaminophen 1,000 mg 04/12/23 14:00 04/16/23 09:13 Acetaminophen 500 Mg Tablet PO 1,000 mg Q6H CHUN Administration Albuterol 1 puff 04/12/23 13:48 Albuterol Sulfate (*Sp) Aerosol 1 Puff INHALATION Q4HRT PRN shortness of breath or wheezing Alprazolam 0.5 mg 04/12/23 13:48 04/16/23 09:21 Alprazolam (*Crx) 0.5 Mg Tablet PO 0.5 mg BID PRN Administration Anxiety Amlodipine Besylate 2.5 mg 04/13/23 09:00 04/16/23 09:14 Amlodipine Besylate 2.5 Mg Tablet PO 2.5 mg DAILY CHUN Administration Atorvastatin Calcium 10 mg 04/12/23 21:00 04/15/23 22:30 Atorvastatin 10 Mg Tablet PO 10 mg HS CHUN Administration Cyclobenzaprine HCl 10 mg 04/12/23 13:48 04/15/23 08:42 Cyclobenzaprine Hcl 10 Mg Tablet PO 10 mg Q8H PRN Administration Spasms Diphenhydramine HCl 25 mg 04/12/23 13:48 Diphenhydramine Hcl Inj 50 Mg/Ml Vial IV PUSH Q6H PRN Itching Fluticasone/Umeclidinium/Vilanterol 1 puff 04/13/23 09:00 04/16/23 07:20 Fluticasone/Umeclidin/Vilanter 100-62.5-25 Mcg Ellipta INHALATION 1 puff DAILY CHUN Administration Gabapentin 300 mg 04/12/23 17:00 04/16/23 09:14 Gabapentin 300 Mg Capsule PO 300 mg BID CHUN Administration Gabapentin 600 mg 04/12/23 21:00 04/15/23 22:30 Gabapentin 300 Mg Capsule PO 600 mg HS CHUN Administration Lisinopril 20 mg 04/13/23 09:00 04/16/23 09:14 Lisinopril 20 Mg Tablet PO 20 mg DAILY CHUN Administration Metoprolol Succinate 100 mg 04/13/23 09:00 04/16/23 09:13 Metoprolol Succinate Ext Rel 100 Mg Tabcr PO 100 mg QAM CHUN Administration Naloxone HCl 0.1 mg 04/12/23 13:48 04/15/23 12:36 Naloxone Hcl 0.4 Mg/Ml Vial IV PUSH 0.1 mg Q2M PRN Administration Opiate Reversal Ondansetron HCl 4 mg 04/12/23 13:48 Ondansetron Inj 4 Mg/2 Ml Vial IV PUSH Q4H PRN Nausea And Vomiting Oxycodone HCl 5 mg 04/12/23 13:48 04/14/23 02:23 Oxycodone Hcl (*Crx) 5 Mg Tab Ir PO 5 mg Q4H PRN Administration Pain Rated 4-6 Oxycodone HCl 10 mg 04/12/23 13:48 04/15/23 08:42 Oxycodone Hcl (*Crx) 5 Mg Tab Ir PO 1
[2023-04-16 14:00] VITALS: BP 118/66; PULSE 74; RESP 18; TEMP 36.2; O2SAT 94
--- NOTE | 2023-04-16 14:41 | PM.IMPN ---
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 Medical team consulted for medical management. 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 Continued on PT OT postoperative bleeding currently on DVT prophylactic dose of Xarelto which is acceptable with ongoing bleeding issue Plan for inpatient rehab at discharge Repeat labs with worsening Postoperative blood loss anemia Confusion ongoing and new could be related to medication. CT head is negative stopped narcotics Flexeril. Will also stop gabapentin today. ABG okay. Chest x-ray with mild atelectasis. Will repeat 1 today. Hypoxia noted on ABG and placed on oxygen supplementation hypoxia likely related to hypoventilation. Chest x-ray with left basilar atelectasis versus pneumonia. Repeat x-ray today DVT prophylaxis on Xarelto Subjective Date/time seen: 04/16/23 14:41 Interval history: Jarrod Padron is a 82 year old male sp Total knee arthroplasty, left performed on 04/12/2023. Medical team consulted for medical management. 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 Continued on PT OT postoperative bleeding currently on DVT prophylactic dose of Xarelto which is acceptable with ongoing bleeding issue Plan for inpatient rehab at discharge Noted to be confused. He did receive oxycodone 10 and it Flexeril this a.m.. Also on gabapentin. Labs reviewed 04/16/2023: No overnight events remains confused however more awake and responsive than yesterday. Hypoxia remains stable. Review of Systems Review of Systems: All systems reviewed & are unremarkable except as noted in HPI and below Exam Narrative: General:?Well-developed, nontoxic-appearing male sitting up in bed confused better more awake and responsive today HEENT:? PERRL, EOMI. Sclera anicteric.? Oral mucosa moist.? Neck:??Supple.? Respiratory:?Lungs coarse diminished breath sound bilaterally mild wheezes and expiratory Cardiovascular:??Regular rate and rhythm with S1-S2. Soft systolic murmur at the right upper sternal border. Gastrointestinal:? Abdomen is soft, protuberant, nontender, and nondistended with positive bowel sounds. Skin:? Warm and dry.? No rash or lesions on limited exam. Extremities:? No cyanosis or clubbing. Reportedly chronic 1 to 2+ lower extremity edema, left greater than right. Peripheral pulses intact. Musculoskeletal:?Left knee dressing is clean, dry, and intact. Neurological:? Somnolent and confused oriented to place and person not to time moves all extremities except for left leg due to recent surgery Psychiatric:??Pleasant and cooperative with normal mood and affect.? Judgment and insight intact. Objective Data Vital Signs Vital Signs: Vital Signs - 24 hr 04/15/23 21:33 04/15/23 20:00 04/16/23 06:00 Temperature 99.0 F 98.6 F Pulse Rate 72 72 72 Respiratory Rate 18 18 18 Blood Pressure 134/65 120/68 Pulse Oximetry 99 99 96 Oxygen Delivery Nasal Cannula Oxygen Flow Rate 3 Fraction of Inspired Oxygen 21 04/16/23 08:32 04/16/23 08:00 04/16/23 14:00 Temperature 97.2 F L Pulse Rate 74 Respiratory Rate 18 Blood Pressur
[2023-04-16 20:00] VITALS: O2SAT 94
[2023-04-16 21:15] VITALS: BP 128/65; PULSE 85; RESP 22; TEMP 37.1; O2SAT 93
[2023-04-16] MEDS: ATORVASTATIN 10 MG TABLET PO (21:27)
[2023-04-16] MEDS: oxyCODONE HCL (*CRX) 5 MG TAB IR PO (23:41)
[2023-04-17 06:00] VITALS: BP 158/80; PULSE 83; RESP 20; TEMP 36.6; O2SAT 91
[2023-04-17 06:39] LABS: Basophils Percent Auto 0.5 % (0.2-1.2); Hematocrit 28.3 % (42.0-52.0); Hemoglobin 8.9 g/dL (14.0-18.0); Immature Granulocyte Absolute 0.02 K/mm3 (0.00-0.031); Immature Granulocyte Percent A 0.5 % (0-0.5); Lymphocytes Absolute Auto 0.51 K/mm3 (0.9-3.2); Lymphocytes Percent Auto 12.6 % (18.3-44.2); Mean Corpuscular HGB Conc 31.4 g/dl (32-36); Mean Corpuscular Hemoglobin 30.6 pg (26-34); Mean Corpuscular Volume 97.3 fl (80-100); Mean Platelet Volume 9.9 fl (7.4-10.4); Monocytes Absolute Auto 0.5 K/mm3 (0.1-0.6); Monocytes Percent Auto 12.8 % (2.6-8.5); Neutrophils Absolute Auto 2.9 K/mm3 (1.3-6.7); Neutrophils Percent Auto 72.6 % (45.5-73.1); Platelet Count Result 182 k/mm3 (150-375); Red Blood Count 2.91 M/mm3 (4.6-6.20); Red Cell Distribution Width 13.1 % (11.5-14.5); White Blood Count 4.1 K/mm3 (4.5-10.0)
[2023-04-17 06:57] LABS: Alanine Aminotransferase 77 U/L (6-50); Albumin Level 3.2 g/dL (3.5-5.1); Alkaline Phosphatase 170 U/L (38-126); Anion Gap 4 mmol/L (8-16); Aspartate Amino Transferase 112 U/L (17-59); Bilirubin,Total 1.7 mg/dL (0.2-1.3); Blood Urea Nitrogen 17 mg/dL (9-20); Calcium 9.1 mg/dL (8.4-10.2); Carbon Dioxide 33 mmol/L (22-30); Chloride 97 mmol/L (98-107); Estimated CRCL calculation 109 ml/min; Estimated Glomerular Filt Rate > 60; Glucose 175 mg/dL (65-110); Magnesium 2.1 mg/dL (1.6-2.3); Sodium 134 mmol/L (137-145)
[2023-04-17] MEDS: FLUTICASONE/UMECLIDIN/VILANTER 100-62.5-25 MCG ELLIPTA 1 PUFF INHALATION (09:07)
[2023-04-17 09:08] VITALS: PULSE 82; RESP 20; O2SAT 100
[2023-04-17 09:19] VITALS: BP 180/89; PULSE 82; O2SAT 100
[2023-04-17 09:40] VITALS: PULSE 82; O2SAT 100
[2023-04-17] MEDS: lisinopriL 20 MG TABLET PO (09:40)
[2023-04-17] MEDS: METOPROLOL SUCCINATE EXT REL 100 MG TABCR PO (09:40)
[2023-04-17] MEDS: SENNA/DOCUSATE SODIUM TABLET 2 TAB PO ×2 (09:40→17:20)
[2023-04-17] MEDS: RIVAROXABAN 10 MG TABLET PO (09:40)
[2023-04-17] MEDS: PANTOPRAZOLE 40 MG TABLET PO (09:41)
[2023-04-17] MEDS: ACETAMINOPHEN 500 MG TABLET 1000 MG PO ×3 (09:41→20:34)
[2023-04-17] MEDS: oxyCODONE HCL (*CRX) 5 MG TAB IR PO (09:41)
[2023-04-17] MEDS: amLODIPine BESYLATE 2.5 MG TABLET PO (09:41)
--- NOTE | 2023-04-17 10:52 | PCOTNOTE ---
Attempted to see pt for Occupational Therapy treatment. Pt expresses increase fatigue due to recent PT session and just layed back down in bed. Pt request to have therapist return later today.
--- NOTE | 2023-04-17 11:43 | PM.PNORT ---
Progress Note: A&P Assessment and Plan (1) Status post total left knee replacement: Code(s): Z96.652 - Presence of left artificial knee joint Status: Acute Plan Postop day 5: left total knee arthroplasty, Patient stabilizing. Hemoglobin has stabilized at 8.9 today. No bleeding from wound. Ecchymosis looks better today. Patient received another dose of Oxycodone today prior to formal physical therapy. He became more somnolent again. He is overall more appropriate today. Will continue Tylenol for pain control. Hold Oxycodone and Flexeril. Plan for discharge tomorrow. He has placement at an inpatient rehab. Patient has been refusing his compression socks and leg pumps. Discussed the importance of wearing them to decrease risk of DVT given his previous history. Advised he keep them on. Discussed condition and care plan with the patient, family, nurse, and Hospitalist. Subjective Subjective Date/Time Seen: 04/17/23 11:43 Interval history: Patient resting comfortably in bed. Sleepy but appropriate. Complains of issues with wearing nasal canula and compression socks. Notes doing better with formal physical therapy today. No other complaints. Review of Systems Review of Systems: All systems reviewed & are unremarkable except as noted in HPI and below Exam Narrative: 82-year-old overweight male. Resting in bed. Alert and oriented x3. No acute distress. Wearing compression socks bilaterally. Dressing dry and intact. Mild blistering at the inferior wound. Significant swelling in the entire leg. Ecchymosis improving. No erythema. No warmth. Range of motion limited due to pain. Calf nontender. Neurologic status intact. No varicosities. Distal pulses palpable. Light touch sensation intact. Fires quad. Good capillary refill. Objective Data Vital Signs Vital Signs: Vital Signs - 24 hr 04/16/23 14:00 04/16/23 21:15 04/16/23 20:00 Temperature 97.2 F L 98.7 F Pulse Rate 74 85 Respiratory Rate 18 22 H Blood Pressure 118/66 128/65 Pulse Oximetry 94 93 94 Oxygen Delivery Nasal Cannula Oxygen Flow Rate 20 04/17/23 06:00 04/17/23 09:08 04/17/23 09:08 Temperature 97.9 F Pulse Rate 83 82 Respiratory Rate 20 20 Blood Pressure 158/80 H Pulse Oximetry 91 100 Oxygen Delivery Nasal Cannula Oxygen Flow Rate 3 04/17/23 09:19 04/17/23 09:40 04/17/23 09:40 Temperature Pulse Rate 82 82 Respiratory Rate Blood Pressure 180/89 H Pulse Oximetry 100 100 Oxygen Delivery Nasal Cannula Oxygen Flow Rate 1 Intake/Output Intake/Output: Intake & Output 04/14/23 04/15/23 04/16/23 04/17/23 23:59 23:59 23:59 23:59 Intake Total 1989 3932 1740 900 Output Total 926 6425 1025 Balance 1989 6258 -8225 -125 Meds/Results Medications: Active Medications Generic Name Dose Route Start Last Admin Trade Name Freq PRN Reason Stop Dose Admin Acetaminophen 1,000 mg 04/12/23 14:00 04/17/23 09:41 Acetaminophen 500 Mg Tablet PO 1,000 mg Q6H CHUN Administration Albuterol 1 puff 04/12/23 13:48 Albuterol Sulfate (*Sp) Aerosol 1 Puff INHALATION Q4HRT PRN shortness of breath or wheezing Alprazolam 0.5 mg 04/12/23 13:48 04/16/23 21:36 Alprazolam (*Crx) 0.5 Mg Tablet PO 0.5 mg BID PRN Administration Anxiety Amlodipine Besylate 2.5 mg 04/13/23 09:00 04/17/23 09:41 Amlodipine Besylate 2.5 Mg Tablet PO 2.5 mg DAILY CHUN Administration Atorvastatin Calcium 10 mg 04/12/23 21:00 04/16/23 21:27 Atorvastatin 10 Mg Tablet PO 10 mg HS CHUN Administration Cyclobenzaprine HCl 10 mg 04/12/23 13:48 04/15/23 08:42 Cyclobenzaprine Hcl 10 Mg Tablet PO 10 mg Q8H PRN Administration Spasms Diphenhydramine HCl 25 mg 04/12/23 13:48 Diphenhydramine Hcl Inj 50 Mg/Ml Vial IV PUSH Q6H PRN Itching Fluticasone/Umeclidinium/Vilanterol 1 puff 04/13/23 09:00 04/17/23 09:07 Fluticasone/Umeclidin/Vilanter 100-62.5-25 Mcg E
--- NOTE | 2023-04-17 12:10 | PM.IMPN ---
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 Medical team consulted for medical management. 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 Continued on PT OT postoperative bleeding currently on DVT prophylactic dose of Xarelto which is acceptable with ongoing bleeding issue Plan for inpatient rehab at discharge Repeat labs with worsening sodium level Postoperative blood loss anemia Confusion ongoing and new could be related to medication. CT head is negative stopped narcotics Flexeril. Will also stop gabapentin today. ABG okay. Chest x-ray with mild atelectasis. Repeat stable. Hypoxia noted on ABG and placed on oxygen supplementation hypoxia likely related to hypoventilation. Oxygen requirement has improved to none. Chest x-ray with left basilar atelectasis versus pneumonia. Repeat x-ray today DVT prophylaxis on Xarelto Minimize narcotics also stop gabapentin Subjective Date/time seen: 04/17/23 12:10 Interval history: Jarrod Padron is a 82 year old male sp Total knee arthroplasty, left performed on 04/12/2023. Medical team consulted for medical management. 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 Continued on PT OT postoperative bleeding currently on DVT prophylactic dose of Xarelto which is acceptable with ongoing bleeding issue Plan for inpatient rehab at discharge Noted to be confused. He did receive oxycodone 10 and it Flexeril this a.m.. Also on gabapentin. Labs reviewed 04/16/2023: No overnight events remains confused however more awake and responsive than yesterday. Hypoxia remains stable. 04/17/2023: No overnight events. Oxygen has been taken off. More coherent. Walked with therapy in the hallways today. His left knee pain. Discussed with family at bedside. Review of Systems Review of Systems: All systems reviewed & are unremarkable except as noted in HPI and below Exam Narrative: General:?Well-developed, nontoxic-appearing male sitting up in bed more coherent today HEENT:? PERRL, EOMI. Sclera anicteric.? Oral mucosa moist.? Neck:??Supple.? Respiratory:?Lungs coarse diminished breath sound bilaterally mild wheezes end expiratory Cardiovascular:??Regular rate and rhythm with S1-S2. Soft systolic murmur at the right upper sternal border. Gastrointestinal:? Abdomen is soft, protuberant, nontender, and nondistended with positive bowel sounds. Skin:? Warm and dry.? No rash or lesions on limited exam. Extremities:? No cyanosis or clubbing. Reportedly chronic 1 to 2+ lower extremity edema, left greater than right. Peripheral pulses intact. Musculoskeletal:?Left knee dressing is clean, dry, and intact. Neurological:? More awake oriented to time place and person moves all extremities except for left leg due to recent surgery Psychiatric:??Pleasant and cooperative with normal mood and affect.? Judgment and insight intact. Objective Data Vital Signs Vital Signs: Vital Signs - 24 hr 04/16/23 14:00 04/16/23 21:15 04/16/23 20:00 Temperature 97.2 F L 98.7 F Pulse Rate 74 85 Respiratory Rate 18 22 H Blood Pressure 118/66 128/65 Pulse Oximetry 94 9
[2023-04-17 14:00] VITALS: BP 139/69; PULSE 78; RESP 18; TEMP 36.5; O2SAT 94
[2023-04-17] MEDS: ATORVASTATIN 10 MG TABLET PO (20:34)
[2023-04-17 20:48] VITALS: BP 127/64; PULSE 81; RESP 16; TEMP 36.6; O2SAT 95
[2023-04-17] MEDS: ALPRAZolam (*CRX) 0.5 MG TABLET PO (21:16)
[2023-04-18] MEDS: ACETAMINOPHEN 500 MG TABLET 1000 MG PO ×3 (02:33→15:31)
[2023-04-18 05:18] VITALS: BP 184/90; PULSE 76; RESP 18; TEMP 36.4; O2SAT 93
[2023-04-18 06:35] LABS: Basophils Percent Auto 0.5 % (0.2-1.2); Eosinophils Absolute Auto 0.1 K/mm3 (0-0.3); Eosinophils Percent Auto 1.6 % (0-4.4); Hematocrit 29.5 % (42.0-52.0); Hemoglobin 9.4 g/dL (14.0-18.0); Immature Granulocyte Absolute 0.02 K/mm3 (0.00-0.031); Immature Granulocyte Percent A 0.5 % (0-0.5); Lymphocytes Absolute Auto 0.67 K/mm3 (0.9-3.2); Lymphocytes Percent Auto 17.4 % (18.3-44.2); Mean Corpuscular HGB Conc 31.9 g/dl (32-36); Mean Corpuscular Hemoglobin 30.9 pg (26-34); Mean Platelet Volume 9.5 fl (7.4-10.4); Monocytes Absolute Auto 0.7 K/mm3 (0.1-0.6); Monocytes Percent Auto 18.1 % (2.6-8.5); Neutrophils Absolute Auto 2.4 K/mm3 (1.3-6.7); Neutrophils Percent Auto 61.9 % (45.5-73.1); Platelet Count Result 202 k/mm3 (150-375); Red Blood Count 3.04 M/mm3 (4.6-6.20); Red Cell Distribution Width 13.1 % (11.5-14.5); White Blood Count 3.9 K/mm3 (4.5-10.0)
[2023-04-18 06:44] LABS: Alanine Aminotransferase 91 U/L (6-50); Albumin Level 3.2 g/dL (3.5-5.1); Alkaline Phosphatase 199 U/L (38-126); Anion Gap 3 mmol/L (8-16); Aspartate Amino Transferase 108 U/L (17-59); Blood Urea Nitrogen 14 mg/dL (9-20); Calcium 9.2 mg/dL (8.4-10.2); Carbon Dioxide 33 mmol/L (22-30); Chloride 99 mmol/L (98-107); Estimated CRCL calculation 109 ml/min; Estimated Glomerular Filt Rate > 60; Glucose 121 mg/dL (65-110); Sodium 135 mmol/L (137-145)
[2023-04-18] MEDS: traMADol HCL (*CRX) 50 MG TABLET PO ×2 (06:44→15:31)
[2023-04-18 08:24] VITALS: O2SAT 95
[2023-04-18] MEDS: FLUTICASONE/UMECLIDIN/VILANTER 100-62.5-25 MCG ELLIPTA 1 PUFF INHALATION (08:24)
[2023-04-18 08:43] VITALS: BP 198/98; PULSE 76; O2SAT 95
[2023-04-18] MEDS: SENNA/DOCUSATE SODIUM TABLET 2 TAB PO (08:44)
[2023-04-18] MEDS: amLODIPine BESYLATE 2.5 MG TABLET PO (08:45)
[2023-04-18 08:46] VITALS: PULSE 76
[2023-04-18] MEDS: RIVAROXABAN 10 MG TABLET PO (08:46)
[2023-04-18] MEDS: METOPROLOL SUCCINATE EXT REL 100 MG TABCR PO (08:46)
[2023-04-18] MEDS: lisinopriL 20 MG TABLET PO (08:46)
[2023-04-18] MEDS: PANTOPRAZOLE 40 MG TABLET PO (08:46)
[2023-04-18 10:54] VITALS: BP 148/77; PULSE 82; O2SAT 97
[2023-04-18] MEDS: OLOPATADINE 0.1% OPHTH SOLN 5 ML BTL 1 DROP EACH EYE (11:59)
[2023-04-18] MEDS: ALPRAZolam (*CRX) 0.5 MG TABLET PO (12:02)
--- NOTE | 2023-04-18 12:32 | PM.IMPN ---
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 Medical team consulted for medical management. 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 Continued on PT OT postoperative bleeding currently on DVT prophylactic dose of Xarelto which is acceptable with ongoing bleeding issue Plan for inpatient rehab at discharge Repeat labs with worsening sodium level Postoperative blood loss anemia Confusion ongoing and new could be related to medication. CT head is negative stopped narcotics Flexeril. Stopped all narcotics and Flexeril also gabapentin with improvement. Chest x-ray with mild atelectasis. Repeat stable. Hypoxia noted on ABG and placed on oxygen supplementation hypoxia likely related to hypoventilation. Oxygen requirement has improved to none since yesterday. Chest x-ray with left basilar atelectasis versus pneumonia. Monitored chest x-ray DVT prophylaxis on Xarelto Tramadol p.r.n. for pain which he tolerating well. Continue with PT OT Okay to discharge from medical standpoint to rehabilitation center today. Medication reconciliations were adjusted as needed. Discharge order has also been placed from my standpoint. Subjective Date/time seen: 04/18/23 12:32 Interval history: Jarrod Padron is a 82 year old male sp Total knee arthroplasty, left performed on 04/12/2023. Medical team consulted for medical management. 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 Continued on PT OT postoperative bleeding currently on DVT prophylactic dose of Xarelto which is acceptable with ongoing bleeding issue Plan for inpatient rehab at discharge Noted to be confused. He did receive oxycodone 10 and it Flexeril this a.m.. Also on gabapentin. Labs reviewed 04/16/2023: No overnight events remains confused however more awake and responsive than yesterday. Hypoxia remains stable. 04/17/2023: No overnight events. Oxygen has been taken off. More coherent. Walked with therapy in the hallways today. His left knee pain. Discussed with family at bedside. 04/18/2023: No overnight events. Patient more alert. Complains of left knee hurting he work with therapy. Complains of swelling in legs. Review of Systems Review of Systems: All systems reviewed & are unremarkable except as noted in HPI and below Exam Narrative: General:?Well-developed, nontoxic-appearing male sitting up in bed more coherent HEENT:? PERRL, EOMI. Sclera anicteric.? Oral mucosa moist.? Neck:??Supple.? Respiratory:?Lungs coarse diminished breath sound bilaterally Cardiovascular:??Regular rate and rhythm with S1-S2. Soft systolic murmur at the right upper sternal border. Gastrointestinal:? Abdomen is soft, protuberant, nontender, and nondistended with positive bowel sounds. Skin:? Warm and dry.? No rash or lesions on limited exam. Extremities:? No cyanosis or clubbing. Reportedly chronic 1 to 2+ lower extremity edema, left greater than right. Peripheral pulses intact. Musculoskeletal:?Left knee dressing is clean, dry, and intact. Neurological:? More awake oriented to time place and person moves all extremities except for left l
[2023-04-18 13:49] LABS: SARS-CoV-2 RNA PCR Negative (Negative)
[2023-04-18 14:00] VITALS: BP 172/82; PULSE 78; RESP 20; TEMP 35.7; O2SAT 94
--- NOTE | 2023-04-18 14:22 | PM.PNORT ---
Progress Note: A&P Assessment and Plan (1) Status post total left knee replacement: Code(s): Z96.652 - Presence of left artificial knee joint Status: Acute Plan Postop day 6: left total knee arthroplasty, Patient doing better today. Plan to discharge to SNF. Hemoglobin improving today. No bleeding from wound. Ecchymosis and swelling look better today. Will continue Tylenol for pain control. Limit narcotics. Discussed condition and care plan with the patient, family, and nurse. Ortho instructions: D/C to SNF/rehab Keep next apt. Wound Care: Remove Mepilex dressing 04/24/23. Remove steristrips 04/26/23. May shower. No soaking. Weight bearing as tolerated with a walker. DVT prophylaxis: continue Xeralto 10 mg for 2 more days. May resume 20 mg dose on 04/20/23. Limit narcotic pain medication. Continue Tylenol. Subjective Subjective Date/Time Seen: 04/18/23 14:22 Interval history: Patient resting comfortably at the time of my visit. Ambulating well. Swelling improving. Review of Systems Review of Systems: All systems reviewed & are unremarkable except as noted in HPI and below Exam Narrative: 82-year-old overweight male. Resting in bed. Alert and oriented x3. No acute distress. Wearing compression socks bilaterally. Dressing dry and intact. Mild blistering at the inferior wound. Swelling improving. Ecchymosis improving. No erythema. No warmth. Range of motion limited due to pain. Calf nontender. Neurologic status intact. No varicosities. Distal pulses palpable. Light touch sensation intact. Fires quad. Good capillary refill. Objective Data Vital Signs Vital Signs: Vital Signs - 24 hr 04/17/23 20:00 04/17/23 20:48 04/18/23 05:18 Temperature 97.8 F 97.6 F Pulse Rate 81 76 Respiratory Rate 16 18 Blood Pressure 127/64 184/90 H Pulse Oximetry 95 93 Oxygen Delivery Room Air 04/18/23 08:24 04/18/23 08:43 04/18/23 08:46 Temperature Pulse Rate 76 76 Respiratory Rate Blood Pressure 198/98 H Pulse Oximetry 95 95 Oxygen Delivery Room Air 04/18/23 08:46 04/18/23 10:54 04/18/23 14:00 Temperature 96.3 F L Pulse Rate 82 78 Respiratory Rate 20 Blood Pressure 148/77 H 172/82 H Pulse Oximetry 97 94 Oxygen Delivery Room Air Intake/Output Intake/Output: Intake & Output 04/15/23 04/16/23 04/17/23 04/18/23 23:59 23:59 23:59 23:59 Intake Total 1870 1740 3050 840 Output Total 600 6454 1025 Balance 1270 -7238 2025 840 Meds/Results Medications: Active Medications Generic Name Dose Route Start Last Admin Trade Name Freq PRN Reason Stop Dose Admin Acetaminophen 1,000 mg 04/12/23 14:00 04/18/23 08:46 Acetaminophen 500 Mg Tablet PO 1,000 mg Q6H CHUN Administration Albuterol 1 puff 04/12/23 13:48 Albuterol Sulfate (*Sp) Aerosol 1 Puff INHALATION Q4HRT PRN shortness of breath or wheezing Alprazolam 0.5 mg 04/12/23 13:48 04/18/23 12:02 Alprazolam (*Crx) 0.5 Mg Tablet PO 0.5 mg BID PRN Administration Anxiety Amlodipine Besylate 2.5 mg 04/13/23 09:00 04/18/23 08:45 Amlodipine Besylate 2.5 Mg Tablet PO 2.5 mg DAILY CHUN Administration Atorvastatin Calcium 10 mg 04/12/23 21:00 04/17/23 20:34 Atorvastatin 10 Mg Tablet PO 10 mg HS CHUN Administration Cyclobenzaprine HCl 10 mg 04/12/23 13:48 04/15/23 08:42 Cyclobenzaprine Hcl 10 Mg Tablet PO 10 mg Q8H PRN Administration Spasms Diphenhydramine HCl 25 mg 04/12/23 13:48 Diphenhydramine Hcl Inj 50 Mg/Ml Vial IV PUSH Q6H PRN Itching Fluticasone/Umeclidinium/Vilanterol 1 puff 04/13/23 09:00 04/18/23 08:24 Fluticasone/Umeclidin/Vilanter 100-62.5-25 Mcg Ellipta INHALATION 1 puff DAILY CHUN Administration Gabapentin 300 mg 04/12/23 17:00 04/16/23 09:14 Gabapentin 300 Mg Capsule PO 300 mg BID CHUN Administration Gabapentin 600 mg 04/12/23 21:00 04/15/23 22:30 Gabapentin 300 Mg Capsule
--- NOTE | 2023-04-25 09:58 | PM.DS ---
DS: Admitting Diagnosis Discharge Date 04/18/23 Admitting Diagnosis Knee arthritis. DS: Discharge Diagnosis Discharge Diagnosis (1) Status post total left knee replacement: Code(s): Z96.652 - Presence of left artificial knee joint Status: Acute Assessment and Plan: POD #6 Left total knee arthroplasty. Patient had post op confusion due to the narcotic pain medications. 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 Increased risk for DVT or PE given his past medical history. Patient very deconditioned and will need discharge to inpatient SNF or rehab. We had a lengthy discussion regarding postoperative wound care, limitations, expectations, and exercises. Patient shows good understanding. He has had initial physical therapy and is tolerating it well. Ortho instructions: See green instruction sheets. D/C to SNF/rehab Keep next apt at 3 weeks post op. Wound Care: Remove Mepilex dressing 04/24/23. Remove steristrips 04/26/23. May shower. No soaking. Weight bearing as tolerated with a walker. DVT prophylaxis: continue Xarelto 10 mg for 2 more days. May resume 20 mg dose on 04/20/23. Limit narcotic pain medication. Continue Tylenol. DS: Summary Hospital Course Hospital Course: Patient had total knee arthroplasty. Complicated by post op confusion likely from the narcotic pain medications. Discharge planned for SNF/ inpt rehab. Time Spent with Patient Time attestation: Total time spent providing and/or coordinating discharge services: Exam Narrative: 82-year-old overweight male. Resting in bed. Alert and oriented x3. No acute distress. Wearing compression socks bilaterally. Dressing dry and intact. Mild blistering at the inferior wound. Swelling improving. Ecchymosis improving. No erythema. No warmth. Range of motion limited due to pain. Calf nontender. Neurologic status intact. No varicosities. Distal pulses palpable. Light touch sensation intact. Fires quad. Good capillary refill. Discharge Plan Discharge Attending physician on discharge: Delmis Sinha Consulting providers: Casandra Rubin; Miko Metz; Zane Pond; Yifan Phelan; Delmis Sinha; Erasmo Madrigal; Ellen Babb; Chaparro Castillo; Jem Rodriguez Discharging Clinician: Delmis Sinha Anticipated Discharge Date/Time: 04/18/23 12:27 Patient Disposition: SNF Activity: as tolerated Diet: heart healthy Discharge Instructions: Ortho instructions: See green instruction sheets. D/C to SNF/rehab Keep next apt. Wound Care: Remove Mepilex dressing 04/24/23. Remove steristrips 04/26/23. May shower. No soaking. Weight bearing as tolerated with a walker. DVT prophylaxis: continue Xeralto 10 mg for 2 more days. May resume 20 mg dose on 04/20/23. Limit narcotic pain medication. Continue Tylenol. Continue PT OT to evaluate and treat Incentive spirometry as needed Patient Instructions: Antibiotic Form, Rivaroxaban (By mouth), Pain Management (DC), Total Knee Replacement (DC) Stand Alone Forms: General Discharge Information, General Discharge Instructions, Shelter Discharge Follow-up/Referrals: Ellen Babb PA [Physician [employer]] - Florin Mesa MD [Primary Care Provider] - 1 Week Discharge Medications: New Xarelto 10 mg tablet 10 mg PO DAILY 7 Days Qty: 7 0RF Rx Instructions: Take 10 mg daily for one week after surgery then resume normal 20mg dose. sennosides-docusate sodium [Senokot-S] 8.6-50 mg Tablet 1 tab-cap PO BID PRN (Reason: constipation) Qty: 60 0RF polyethylene glycol 3350 [Miralax] 17 gram Powder In Packet 17 g PO QAM PRN (Reason: constipation) Qty: 30 0RF Continued mupirocin 2 % ointment 1 applic topical BID Qty: 15 0RF triamcinolone acetonide 0.1 % cream 1 applic topical BID Qty: 453.6 1RF atorvastatin 10 mg tablet 10 mg PO HS Centrum Silver
== END 2023-04-18 16:00 | DRG 470 ==
LOC: ANHSURGERY 15:16 → ANH3MEDSUR 15:16
PROVIDERS: Physician Assistant Surgical; Admitting Provider Orthopaedic Surgery; PCP Family Medicine; Visit Provider Internal Medicine
PROC: 0SRD0J9 Replacement of Left Knee Joint with Synthetic Substitute, Cemented, Open Approach (ICD-10-PCS; CPT 27447; principal; 2023-04-12 10:30)
DX: M17.12 Unilateral primary osteoarthritis, left knee (principal); I50.32 Chronic diastolic (congestive) heart failure; M96.840 Postprocedural hematoma of a musculoskeletal structure following a musculoskeletal system procedure; D62 Acute posthemorrhagic anemia; M96.830 Postprocedural hemorrhage of a musculoskeletal structure following a musculoskeletal system procedure; G89.18 Other acute postprocedural pain; I11.0 Hypertensive heart disease with heart failure; J44.9 Chronic obstructive pulmonary disease, unspecified; R09.02 Hypoxemia; R41.0 Disorientation, unspecified; R23.8 Other skin changes; Z79.01 Long term (current) use of anticoagulants; Z85.828 Personal history of other malignant neoplasm of skin; Z96.651 Presence of right artificial knee joint; Z98.41 Cataract extraction status, right eye; Z98.42 Cataract extraction status, left eye; Z96.1 Presence of intraocular lens; Z90.79 Acquired absence of other genital organ(s); Z87.891 Personal history of nicotine dependence; Z86.711 Personal history of pulmonary embolism; Z86.718 Personal history of other venous thrombosis and embolism
CPT/HCPCS: 36415; 36600; 70450; 71045; 73560; 80048; 80053; 81001; 82805; 83735; 85025; 85055; 87635; 93971; 94640; 97110; 97116; 97161; 97166; 97530; 97535; A9270; C1713; C1776; G0378; J0171; J0690; J1100; J1885; J2250; J2270; J2310; J2405; J2704; J2795; J3010; J3360; J7030; J7120

== ENCOUNTER 2023-05-04 10:45 | Outpatient (CLI) | payer MEDICARE, SELFPAY ==
--- NOTE | ~2023-05-04 | XR_ITS ---
Left Knee Technique: AP, lateral, and sunrise views were obtained. Clinical History: Arthroplasty COMPARISON: 01/10/2023 Findings: No fracture or dislocation is seen. Left knee arthroplasty in place, without evidence of roberts rdware complication.. Soft tissues are unremarkable. No joint effusion is seen. Impression: No acute abnormality. Left knee arthroplasty in place. Reviewed, dictated and finalized at location M. Impression: No acute abnormality. Left knee arthroplasty in place.
== END 2023-05-04 10:46 | disposition home or self-care (01) ==
PROVIDERS: PCP Family Medicine; Visit Provider Orthopaedic Surgery
DX: Z96.652 Presence of left artificial knee joint (principal)
CPT/HCPCS: 73562

== ENCOUNTER 2023-05-25 12:29 | Outpatient (CLI) | payer MEDICARE, SELFPAY ==
--- NOTE | 2023-05-25 12:33 | ECHO_ITS ---
Patient Info Name: Jarrod Padron Age: 82 years : 1940 Gender: Male Ht: 68 in Wt: 240 lbs BSA: 2.33 m2 HR: 65 bpm BP: 172 / 96 mmHg Heart Rhythm: Sinus Rhythm Technical Quality: Fair Exam Date: 05/25/2023 12:43 PM Exam Location: Echo Lab Patient Status: Outpatient Admit Date: 05/25/2023 Staff Ordering Physician: Chely Wilson APRN [place] Worker: Lucina Murguia RDCS Attending Provider: Chely Wilson APRN Referring Physician: Steve ALVARADO; Exam Type: CA echo doppler color flow Study Info Indications R07.9 - Chest pain, unspecified Complete two-dimensional, color flow and Doppler transthoracic echocardiogram is performed. Summary 1. Complete two-dimensional, color flow and Doppler transthoracic echocardiogram is performed. 2. Left ventricular chamber dimension is normal. 3. Left ventricular systolic function is normal, estimated at 65-70%. 4. There is mildly increased left ventricular wall thickness. 5. The left ventricular diastolic function is grade I diastolic dysfunction. 6. Right ventricular systolic function is normal. 7. There is mild aortic valve calcification. Left Ventricle Left ventricular chamber dimension is normal. Left ventricular systolic function is normal, estimated at 65-70%. There is mildly increased left ventricular wall thickness. The left ventricular diastolic function is grade I diastolic dysfunction. Right Ventricle Right ventricular chamber dimension is normal. Right ventricular systolic function is normal. Left Atria Left atrial chamber dimension is normal. Right Atria Right atrial chamber dimension is normal. Atrial Septum Intact interatrial septum visualized by color flow imaging. Aortic Valve The aortic valve is probable trileaflet. There is no aortic valve stenosis. There is trace aortic valve regurgitation. There is mild aortic valve calcification. Pulmonic Valve The pulmonic valve is not well visualized. There is trace pulmonic regurgitation. Mitral Valve There is trace mitral valve regurgitation. Tricuspid Valve There is trace tricuspid valve regurgitation. Pericardium/Pleural There is no pericardial effusion. Inferior Vena Cava Normal inferior vena cava with >50% collapse upon inspiration consistent with normal right atrial pressure, 3 mmHg. Aorta The aortic root size at the sinus of Valsalva is normal. Left Ventricular Outflow Tract Name Value Normal LVOT 2D LVOT Diameter 2.0 cm LVOT Doppler LVOT Peak Gradient 4 mmHg LVOT Mean Gradient 2 mmHg LVOT VTI 21 cm LVOT VTI/AV VTI Ratio 0.5 LVOT Stroke Volume 66 ml LVOT CO 4.5 l/min LVOT CI 1.9 l/min/m2 Pulmonic Valve Name Value Normal RVOT Doppler RVOT Peak Gradient 2 mmHg PV
== END 2023-05-25 12:30 | disposition home or self-care (01) ==
LOC: ANHCARD 12:31
PROVIDERS: PCP Family Medicine; Visit Provider Nurse Practitioner Adult Health
DX: R07.89 Other chest pain (principal)
CPT/HCPCS: 93306

== ENCOUNTER 2023-06-08 13:54 | Outpatient (CLI) | payer MEDICARE, SELFPAY ==
--- NOTE | ~2023-06-08 | XR_ITS ---
EXAMINATION: XR shoulder LT min 2V DATE: 06/08/2023 14:27 INDICATION: Left shoulder pain. TECHNIQUE: 4 views of left shoulder were obtained. COMPARISON: None. FINDINGS: Bone alignment is normal. No fracture. There is mild osteoarthritis of glenohumeral joint a nd severe osteoarthritis of acromioclavicular joint. IMPRESSION: 1. Polyarticular osteoarthritis. Reviewed, dictated and finalized at location E.
--- NOTE | ~2023-06-08 | XR_ITS ---
EXAMINATION: [id number] DATE: 06/08/2023 14:27 INDICATION: Other spondylosis with radiculopathy, cervical region. Left neck pain. TECHNIQUE: 4 views of cervical spine were obtained. COMPARISON: None. FINDINGS: There is 9 degrees levocurvature of cervicothoracic spine. Vertebral body heights are jostin l. There is moderately decreased disc height at C3-C4 and C5-C6 and mildly decreased disc height at C 6-C7. There is multilevel uncovertebral joint osteoarthritis, severe bilaterally at C3-C4 and C5-C6. There is multilevel mild to moderate facet joint osteoarthritis. There is mild central canal stenosis at C3-C4 and C4-5-C6. No prevertebral soft tissue swelling. IMPRESSION: 1. Moderate cervical spondylosis. Reviewed, dictated and finalized at location E.
== END 2023-06-08 13:55 ==
LOC: MICIMG 13:55
PROVIDERS: PCP Nurse Practitioner Adult Health; Visit Provider Nurse Practitioner Adult Health
DX: M47.22 Other spondylosis with radiculopathy, cervical region (principal); M19.012 Primary osteoarthritis, left shoulder
CPT/HCPCS: 72040; 73030

== ENCOUNTER 2023-06-18 07:48 | Emergency (ER) | payer MEDICARE, OTHER, SELFPAY ==
[2023-06-18] VITALS (8 sets, daily range): BP systolic 110–172; BP diastolic 70–81; PULSE 58–72; RESP 14–20; TEMP 36.7; O2SAT 91–100
--- NOTE | ~2023-06-18 | XR_ITS ---
XR shoulder LT min 2V DATE: 06/18/2023 09:20 INDICATION: Left shoulder pain. No known injury. TECHNIQUE: 4 views COMPARISON: June 08, 2023 left shoulder FINDINGS: There is osteopenia. There is degenerative joint space narrowing and mild spurring of the left acromioclavicular joint. Th ere is mild osteoarthritis of the left glenohumeral joint. No fracture, dislocation, periosteal reaction or bone destruction of the left shoulder is detected. IMPRESSION: Osteopenia Mild degenerative change Reviewed, dictated and finalized at location A.
--- NOTE | ~2023-06-18 | XR_ITS ---
XR chest 2V DATE: 06/18/2023 08:22 INDICATION: Left arm pain. No known injury. TECHNIQUE: PA and lateral views COMPARISON: April 16, 2023 portable AP chest One slice 2 view chest FINDINGS: There is chronic mild to moderate elevation left diaphragm and mild atelectasis at the left lung base. The lungs otherwise appear clear. Heart size is within normal range is aortic calcification and unfolding. No hilar or mediastinal enla rgement. No pleural effusion or pulmonary vascular congestion or pneumothorax is detected. Diffuse osteopenia. Degenerative change of the thoracic spine. IMPRESSION: Chronic mild to moderate elevation of left diaphragm and mild atelectasis at left lung ba se Aortic atherosclerosis Reviewed, dictated and finalized at location A. IMPRESSION: Chronic mild to moderate elevation of left diaphragm and mild atele ctasis at left lung base Aortic atherosclerosis
--- NOTE | ~2023-06-18 | CT_ITS ---
EXAMINATION: CT cervical spine wo con DATE: 06/18/2023 09:15 INDICATION: Neck pain, left shoulder pain TECHNIQUE: Computed tomography (CT) of the cervical spine was performed without intravenous contrast. Automated exposure control and iterative reconstruction technique were employed. Exam dose: 623.76 mGy-cm total exam DLP. COMPARISON: None FINDINGS: Incidentally noted is opacification of multiple lower left mastoid air cells. The majority of the left mastoid air cells and all of the right mastoid air cells are normally aerated. There is straightening of the cervical spine which may be due to positioning or muscle spasm. There is severe degenerative disease of C3-4 and C5-6 and moderate degenerative disease at C4-5 and C 6-7. There is prominent degenerative change of the apophyseal joints on the right at C3-4 and on the left at C2-3. Normal alignment of the atlantoaxial joints. There is degenerative change. Malalignment at the articu lation of the anterior arch of C1 and odontoid process of C2. No fracture or dislocation or locked facet. No prevertebral soft tissue swelling is evident. IMPRESSION: Straightening of cervical spine which may be due to muscle spasm Prominent cervical spondylosis No fracture or dislocation or wall facet Reviewed, dictated and finalized at Location A. Reviewed, dictated and finalized at location A.
--- NOTE | 2023-06-18 08:03 | ECG_ITS ---
SEE SCANNED COPY FOR CONFIRMED REPORT MTDD
[2023-06-18 08:16] LABS: Basophils Percent Auto 0.4 % (0.2-1.2); Eosinophils Absolute Auto 0.1 K/mm3 (0-0.3); Eosinophils Percent Auto 1.4 % (0-4.4); Hematocrit 41.7 % (42.0-52.0); Immature Granulocyte Absolute 0.03 K/mm3 (0.00-0.031); Immature Granulocyte Percent A 0.6 % (0-0.5); Lymphocytes Absolute Auto 0.83 K/mm3 (0.9-3.2); Lymphocytes Percent Auto 17.1 % (18.3-44.2); Mean Corpuscular HGB Conc 31.2 g/dl (32-36); Mean Corpuscular Volume 96.3 fl (80-100); Mean Platelet Volume 9.9 fl (7.4-10.4); Monocytes Absolute Auto 0.6 K/mm3 (0.1-0.6); Monocytes Percent Auto 12.8 % (2.6-8.5); Neutrophils Absolute Auto 3.3 K/mm3 (1.3-6.7); Neutrophils Percent Auto 67.7 % (45.5-73.1); Platelet Count Result 189 k/mm3 (150-375); Red Blood Count 4.33 M/mm3 (4.6-6.20); Red Cell Distribution Width 13.9 % (11.5-14.5); White Blood Count 4.8 K/mm3 (4.5-10.0)
[2023-06-18 08:28] LABS: Alanine Aminotransferase 23 U/L (6-50); Albumin Level 3.8 g/dL (3.5-5.1); Alkaline Phosphatase 87 U/L (38-126); Anion Gap 2 mmol/L (4-12); Aspartate Amino Transferase 27 U/L (17-59); Bilirubin,Total 0.7 mg/dL (0.2-1.3); Blood Urea Nitrogen 13 mg/dL (9-20); Calcium 8.7 mg/dL (8.4-10.2); Carbon Dioxide 34 mmol/L (22-30); Chloride 99 mmol/L (98-107); Estimated CRCL calculation 91 ml/min; Estimated Glomerular Filt Rate > 60; Glucose 132 mg/dL (65-110); Lipase 35 U/L (23-300); Potassium 4.7 mmol/L (3.4-5.0); Sodium 135 mmol/L (137-145)
[2023-06-18 08:31] LABS: INR 1.7
[2023-06-18 08:32] LABS: Partial Thromboplastin Time 49.3 Seconds (22.3-36.8)
[2023-06-18 08:40] LABS: Troponin I < 0.012 ng/mL (0.000-0.034)
--- NOTE | 2023-06-18 08:44 | ED.CHESTPAIN ---
HPI - Chest Pain General Chief Complaint: Chest Pain Stated Complaint: Chest pain, SOB Time Seen by Provider: 06/18/23 08:04 History of Present Illness HPI narrative: 82-year-old male present to the emergency department for evaluation of left shoulder pain. Patient states he has had shoulder pain for the last month. Patient did have a cardiac workup and was evaluated by Dr. Gardiner. Patient states this morning he was lying in bed and had onset posterior left shoulder pain. Patient states he is able to reproduce this pain by hyper extending his neck. Patient states he has had imaging and physical therapy for the left posterior shoulder pain. Patient states his pain is reproducible with hyperextension of the neck. Related Data Home Medications Medication Instructions Recorded Confirmed ascorbic acid (vitamin C) 1,000 mg 1 gm PO DAILY 05/08/19 06/08/23 tablet rivaroxaban 20 mg tablet (Xarelto) 20 mg PO DAILY 10/05/20 06/08/23 atorvastatin 10 mg tablet 10 mg PO HS 06/09/21 06/08/23 cholecalciferol (vitamin D3) 25 25 mcg PO DAILY 06/09/21 06/08/23 mcg (1,000 unit) capsule agqqxplm-rxw-lwsoo acid 0.4 1 tablet PO DAILY 06/09/21 06/08/23 mg-lycopene 300 mcg-lutein 250 mcg tablet (Centrum Silver) vitamin E (dl, acetate) 180 mg 180 mg PO DAILY 06/09/21 06/08/23 (400 unit) capsule metoprolol succinate 200 mg 100 mg PO QAM 11/20/21 06/08/23 tablet,extended release 24 hr cyanocobalamin (vitamin B-12) 1,000 mcg PO DAILY 12/10/21 06/08/23 1,000 mcg tablet acetaminophen 650 mg 1,300 mg PO Q12H PRN Pain 03/30/23 06/08/23 tablet,extended release (Tylenol Arthritis Pain) sennosides 8.6 mg-docusate sodium 1 tab-cap PO BID PRN constipation 06/08/23 06/08/23 50 mg tablet (Senokot-S) Allergies Allergy/AdvReac Type Severity Reaction Status Date / Time azithromycin AdvReac Severe Diarrhea Verified 06/08/23 13:12 hydrochlorothiazide AdvReac Intermediate throat Verified 06/08/23 13:12 irritation Review of Systems Review of Systems: All systems reviewed & are unremarkable except as noted in HPI and below [facility] Past Medical History Medical History (Updated 06/18/23 @ 12:15 by Refugio King MD) ANDRES positive Anemia Anxiety Arterial disease Arthritis of left knee 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 Basal cell carcinoma of neck BMI 37.0-37.9, adult BMI 38.0-38.9,adult Cervical spondylosis with radiculopathy Chronic anticoagulation Chronic back pain Chronic obstructive pulmonary disease Degenerative superior labral lputjpfv-ug-sexscvtqm (SLAP) tear of left shoulder Diastolic dysfunction Diastolic heart failure, NYHA class 1 Diverticulosis of large intestine without hemorrhage Elevated LFTs Epiploic appendagitis Essential hypertension Generalized anxiety disorder Hiatal hernia with GERD without esophagitis Hypertension Hypokalemia Hypotension Intermittent left-sided chest pain Left shoulder pain Lumbar spondylosis Pneumonia due to 2019 novel coronavirus Polymyalgia rheumatica Primary osteoarthritis, right hand Psoriasis Pulmonary embolism Tinea corporis Surgical History Surgical History History of colonoscopy History of esophagogastroduodenoscopy (EGD) (~2017) History of total right knee replacement (~2018) Dr. Resendez Status post cataract extraction of both eyes with insertion of intraocular lens (~2009) Status post prostatectomy (~2000) Dr. Victor Status post total left knee replacement (~04/12/23) Family History Family History Mother CHF (congestive heart failure) Hypoglycemia Father , At 58 years old Hodgkins lymphoma Sibling No problems noted. Social History Social History Social History: Code status: Full code Surrogate decision maker: Josefina Payne (daughter)
--- NOTE | 2023-06-18 11:02 | ECG_ITS ---
SEE SCANNED COPY FOR CONFIRMED REPORT MTDD
--- NOTE | 2023-06-18 11:05 | PC.NURSE ---
report taken from lilliana barrios. she reports patient was not in any pain and did not administer pain medications.
--- NOTE | 2023-06-18 11:25 | PC.NURSE ---
Pt ambulated to bathroom without assist. Denies dizziness, c/o slight SOB. Pt hooked back up to residential monitor. Pt oxygen saturation dropped to 85% on room air. Pt encouraged to take deep breaths and sit up. Oxygen increased to 93& on room air. made aware.
[2023-06-18] MEDS: ALBUTEROL SULFATE NEB 2.5 MG/3 ML INH INHALATION (11:31)
[2023-06-18 11:59] LABS: Troponin I < 0.012 ng/mL (0.000-0.034)
== END 2023-06-18 12:34 | disposition home or self-care (01) ==
PROVIDERS: Emergency Provider Emergency Medicine; PCP Nurse Practitioner Adult Health
DX: M54.12 Radiculopathy, cervical region (principal); I50.30 Unspecified diastolic (congestive) heart failure; I11.0 Hypertensive heart disease with heart failure; J44.9 Chronic obstructive pulmonary disease, unspecified; D64.9 Anemia, unspecified; M19.041 Primary osteoarthritis, right hand; M17.12 Unilateral primary osteoarthritis, left knee; L40.9 Psoriasis, unspecified; K22.70 Barrett's esophagus without dysplasia; K21.9 Gastro-esophageal reflux disease without esophagitis; K44.9 Diaphragmatic hernia without obstruction or gangrene; Z96.653 Presence of artificial knee joint, bilateral; Z85.828 Personal history of other malignant neoplasm of skin; Z86.16 Personal history of COVID-19; Z87.01 Personal history of pneumonia (recurrent); Z86.711 Personal history of pulmonary embolism; Z98.42 Cataract extraction status, left eye; Z87.891 Personal history of nicotine dependence; Z98.41 Cataract extraction status, right eye; Z96.1 Presence of intraocular lens; Z90.79 Acquired absence of other genital organ(s); Z79.01 Long term (current) use of anticoagulants; I45.10 Unspecified right bundle-branch block; M85.812 Other specified disorders of bone density and structure, left shoulder
CPT/HCPCS: 36415; 71046; 72125; 73030; 80053; 83690; 84484; 85025; 85610; 85730; 93005; 94640; 99284

== ENCOUNTER 2023-07-08 16:29 | Outpatient (CLI) | payer MEDICARE, SELFPAY ==
--- NOTE | ~2023-07-08 | MR_ITS ---
EXAMINATION: MR cervical spine wo con DATE: 07/08/2023 17:32 INDICATION: Pain in left shoulder. TECHNIQUE: Magnetic resonance imaging (MRI) of the cervical spine was performed without intravenous c ontrast. COMPARISON: Cervical spine MRI 03/27/2022 FINDINGS: There is 3 degrees levocurvature of the cervicothoracic spine. There is 2 mm retrolisthesis of C3 on C4 and C5 on C6. Vertebral body heights are normal. There is severely decreased disc height at C3-C4 and C5-C6 and mildly decreased disc height at C6-C7. The spinal cord signal intensity is no rmal. The following disc levels are specifically discussed: C2-C3: The disc does not extend beyond the endplate margin. There is no uncovertebral joint osteoarth ritis. There is mild right and severe left facet joint osteoarthritis. There is mild left neural fora kelly stenosis. There is no central canal stenosis. C3-C4: The disc is bulging. There is severe bilateral uncovertebral joint osteoarthritis. There is se vi right and mild left facet joint osteoarthritis. There is moderate bilateral neural foraminal antonio nosis. There is mild central canal stenosis. C4-C5: There is a left central extrusion. There is mild bilateral uncovertebral joint osteoarthritis. There is mild bilateral facet joint osteoarthritis. There is mild right neural foraminal stenosis. T here is mild central canal stenosis. C5-C6: The disc does not extend beyond the endplate margin. There is severe bilateral uncovertebral j oint osteoarthritis. There is moderate bilateral facet joint osteoarthritis. There is moderate bilate ral neural foraminal stenosis. There is mild central canal stenosis. C6-C7: The disc is bulging. There is moderate bilateral uncovertebral joint osteoarthritis. There is moderate right and mild left facet joint osteoarthritis. There is mild bilateral neural foraminal antonio nosis. There is mild central canal stenosis. C7-T1: The disc does not extend beyond the endplate margin. There is no uncovertebral joint osteoarth ritis. There is severe bilateral facet joint osteoarthritis. There is mild bilateral neural foraminal stenosis. There is no central canal stenosis. IMPRESSION: 1. Severe cervical spondylosis, stable from 03/27/2022. Reviewed, dictated and finalized at location E.
== END 2023-07-08 16:30 | disposition home or self-care (01) ==
PROVIDERS: PCP Family Medicine; Visit Provider Orthopaedic Surgery
DX: M25.512 Pain in left shoulder (principal); M43.02 Spondylolysis, cervical region
CPT/HCPCS: 72141

== ENCOUNTER 2023-07-12 13:41 | Outpatient (CLI) | payer MEDICARE, SELFPAY ==
--- NOTE | ~2023-07-12 | XR_ITS ---
EXAMINATION: XR knee LT 3V DATE: 07/12/2023 13:58 INDICATION: Presence of left artificial knee joint. TECHNIQUE: 3 views of left knee including standing views were obtained. COMPARISON: Left knee radiographs 05/04/2023 FINDINGS: There is a total left knee arthroplasty without patellar resurfacing in near-anatomic align ment. No fracture. No periprosthetic lucency to suggest loosening or infection. There is a small knee joint effusion. IMPRESSION: 1. Total left knee arthroplasty in near-anatomic alignment. 2. Small left knee joint effusion. Reviewed, dictated and finalized at location A.
== END 2023-07-12 13:42 | disposition home or self-care (01) ==
PROVIDERS: PCP Family Medicine; Visit Provider Orthopaedic Surgery
DX: Z96.652 Presence of left artificial knee joint (principal); M25.462 Effusion, left knee
CPT/HCPCS: 73562

== ENCOUNTER 2023-08-08 13:00 | Outpatient (CLI) | payer MEDICARE, SELFPAY ==
--- NOTE | ~2023-08-08 | DEXA_ITS ---
Bone Density Report Name: ÁLVARO HILL Age: 82 Sex: Male Ethnicity: White Date of : 1940 Indication: screening for osteoporosis; height loss; inflammatory bowel disease; cancer; Referring Provider: MARISA HUTTON Study: Bone densitometry was performed. Exam Date: August 08, 2023 Accession number: [id number] Bone Density: Region BMD T-score Z-score Classification AP Spine(L1-L4) 1.225 1.2 2.4 Normal Femoral Neck (Left) 0.618 -2.3 -0.7 Osteopenia Total Hip (Left) 0.907 -0.8 0.3 Normal Femoral Neck (Right) 0.803 -0.9 0.6 Normal Total Hip (Right) 0.957 -0.5 0.6 Normal Total Hip Mean 0.932 -0.7 0.5 Normal World Health Organization criteria for BMD impression classify patients as: Normal (T-score at or above -1.0), Osteopenia (T-score between -1.0 and -2.5), or Osteoporosis (T-score at or below -2.5). 10-year Fracture Risk(1): Major Osteoporotic Fracture 12% Hip Fracture 5.5% Reported Risk Factors: [place] (), Neck BMD=0.618, BMI=39.6, alcohol use (1) FRAX(R) Version 3.08. Fracture probability calculated for an untreated patient. Fracture probability may be lower if the patient has received treatment. Clinical Information Provided by Patient: Has 3 or more alcoholic drinks per day Has used the following medications: Vitamin D Has the following medical conditions: Cancer, Inflammatory bowel diseases Patient maximum height was 70 No regular weight bearing exercise Drinks caffeinated beverages Impression: The patient has low bone mass, based on the Left Femoral Neck T-score. The patient has an estimated ten-year risk of hip fracture of 5.5% and an estimated ten-year risk of major fracture of 12%, based on the WHO FRAX algorithm. The patient has risk factors, including: excessive alcohol use. Discussion: BONE DENSITY IS LOW AT ONE OR MORE SKELETAL SITES. THE PATIENT'S BMD AND CLINICAL RISK FACTORS CONTRIBUTE TO THIS PATIENT'S INCREASED RISK OF FRACTURE. This patient's lowest T-score is low at one or more skeletal sites. It meets the World Health Organization's (WHO) criteria for ?low bone mass? (T-score between -1.0 and -2.5). The patient's 10-year risk of hip fracture as calculated by FRAX exceeds the threshold where pharmacological therapy is recommended by the National Osteoporosis Foundation (NOF). However, all treatment decisions require clinical judgment and consideration of individual patient factors, including patient preferences, comorbidities, previous drug use, risk factors not captured in the FRAX model (e.g., frailty, falls, vitamin D deficiency, increased bone turnover, interval significant decline in bone density) and possible under or overestimation of fracture risk by FRAX. The patient should follow a healthful lifestyle (good nutrition with adequate
--- NOTE | ~2023-08-08 | CT_ITS ---
EXAMINATION: CT abdomen pelvis wo con DATE: 08/08/2023 13:32 INDICATION: Other specified disorders of adrenal gland. TECHNIQUE: Computed tomography (CT) of the abdomen and pelvis was performed without intravenous contr ast. Automated exposure control and iterative reconstruction technique were employed. The dose-length product was 1369.36 mGy-cm. COMPARISON: CT abdomen and pelvis 07/30/2022 FINDINGS: The visualized portions of the lung bases demonstrate mild atelectasis. There are chronic s ubpleural bands in the lower lobes. No pleural effusion. The heart size is normal. There are coronary artery calcifications. No pericardial effusion. The liver, gallbladder, spleen, pancreas, and left a drenal gland are normal. There is a 13 mm mass in right adrenal gland with attenuation of 3 HU, consi stent with an adenoma. There are cysts in the kidneys measuring up to 4.0 cm on the right. There is c alcified atherosclerosis of the aorta and many of the other arteries. There are changes of prostatect [place] and pelvic lymph node dissection. There is diverticulosis of the colon without evidence of divert iculitis. The appendix is normal. There are no pathologically enlarged lymph nodes. There is no free intraperitoneal fluid. There is a lipoma in right gluteus mar muscle. There is severe lumbar spon dylosis. There is chronic anterior wedging of multiple vertebral bodies. There are bridging endplate osteophytes at multiple levels in the spine, consistent with diffuse idiopathic skeletal hyperostosis (DISH). IMPRESSION: 1. Stable 13 mm right adrenal adenoma. Reviewed, dictated and finalized at location E.
--- NOTE | ~2023-08-08 | NM_ITS ---
EXAMINATION: NM thyroid scan w uptake DATE: 08/09/2023 14:11 INDICATION: Thyrotoxicosis, unspecified without thyrotoxic crisis. COMPARISON: None. TECHNIQUE: 0.370 mCi I-123 was administered orally. Scintigraphic images of the thyroid gland were o btained at 24 hours. Thyroid uptake was calculated by the technologist. FINDINGS: The thyroid uptake is 14% (normal 10-30%), with the right lobe measuring 8% uptake and the left 7%. T here is no focal area of decreased or increased activity to suggest hypofunctioning or hyperfunctioni ng nodule. IMPRESSION: 1. Normal thyroid scintigraphy and 24-hour iodine uptake. Reviewed, dictated and finalized at location E.
== END 2023-08-08 13:01 | disposition home or self-care (01) ==
PROVIDERS: PCP Family Medicine; Visit Provider Internal Medicine
DX: E27.8 Other specified disorders of adrenal gland (principal); E05.90 Thyrotoxicosis, unspecified without thyrotoxic crisis or storm; R79.89 Other specified abnormal findings of blood chemistry; M81.0 Age-related osteoporosis without current pathological fracture; Z13.820 Encounter for screening for osteoporosis; D35.01 Benign neoplasm of right adrenal gland; M85.852 Other specified disorders of bone density and structure, left thigh
CPT/HCPCS: 74176; 77080; 78014; A9516

== ENCOUNTER 2023-08-15 12:07 | Outpatient (CLI) | payer MEDICARE, SELFPAY ==
--- NOTE | ~2023-08-15 | XR_ITS ---
EXAMINATION: XR chest 2V DATE: 08/15/2023 12:22 INDICATION: Bronchitis. Cough. TECHNIQUE: Frontal and lateral views of the chest were obtained. COMPARISON: Chest 2 views 06/18/2023 FINDINGS: There is chronic mild elevation of left hemidiaphragm. There is mild atelectasis at the matthew g bases. No pleural effusion or pneumothorax. The heart size is normal. IMPRESSION: 1. Mild atelectasis at the lung bases. Reviewed, dictated and finalized at location A.
== END 2023-08-15 12:08 | disposition home or self-care (01) ==
LOC: ANHIMG 12:09
PROVIDERS: PCP Family Medicine; Visit Provider Physician Assistant Medical
DX: J40 Bronchitis, not specified as acute or chronic (principal)
CPT/HCPCS: 71046

== ENCOUNTER 2023-08-20 11:09 | Inpatient (IN) | payer MEDICARE, OTHER, SELFPAY ==
[2023-08-20] VITALS (17 sets, daily range): BP systolic 133–187; BP diastolic 65–93; PULSE 51–63; RESP 11–21; TEMP 36.4–37.1; O2SAT 86–99; BMI 24.5
--- NOTE | ~2023-08-20 | US_ITS ---
EXAMINATION: US venous doppler [facility] DATE: 08/21/2023 08:29 INDICATION: Bilateral lower limb swelling TECHNIQUE: Grayscale ultrasound images without and with compression and Doppler ultrasound images of the bilateral lower extremity veins were obtained. COMPARISON: None. FINDINGS: The visualized portions of right common femoral vein, profunda (deep) femoral vein, femoral vein, pop liteal vein, posterior tibial veins, peroneal veins, gastrocnemius vein and greater saphenous vein ou tflow are patent. The visualized portions of left common femoral vein, profunda femoral vein, femoral vein, popliteal v ein, posterior tibial veins, peroneal veins, gastrocnemius vein and greater saphenous vein outflow ar e patent. IMPRESSION: 1. No deep venous thrombosis in either lower limb. Reviewed, dictated and finalized at location A.
--- NOTE | ~2023-08-20 | XR_ITS ---
EXAMINATION: XR chest 1V portable DATE: 08/20/2023 11:32 INDICATION: Shortness of breath and fatigue TECHNIQUE: frontal view of the chest was obtained. COMPARISON: Chest radiograph dated 08/15/2023 FINDINGS: Chronic elevation the left hemidiaphragm. Mild streaky bibasilar atelectasis. No pleural effusion or pneumothorax. The cardiomediastinal silhouette is within normal limits for AP technique. IMPRESSION: 1. Mild bibasilar atelectasis with chronic elevation of the left hemidiaphragm. Reviewed, dictated and finalized at location A.
--- NOTE | 2023-08-20 11:23 | ED.GENADULT ---
HPI - General Adult General Chief complaint: Weakness Stated complaint: weakness Time Seen by Provider: 08/20/23 11:10 History of Present Illness HPI narrative: 83-year-old male presenting to the emergency department for evaluation of 5 days worsening fatigue and tiredness. Patient reports he has had headache, nausea, exhaustion, leg edema and exertional shortness of breath. Patient does have history of COPD, is not on oxygen and quit smoking approximately 5 years ago. Patient does follow-up with Cardiology, patient denies any prior history congestive heart failure. Patient states he does not take a water pill but has had lower extremity edema for the last few years. Patient does wear compressive stockings. Related Data Home Medications Medication Instructions Recorded Confirmed ascorbic acid (vitamin C) 1,000 mg 1 gm PO DAILY 05/08/19 08/09/23 tablet rivaroxaban 20 mg tablet (Xarelto) 20 mg PO DAILY 10/05/20 08/09/23 atorvastatin 10 mg tablet 10 mg PO HS 06/09/21 08/09/23 cholecalciferol (vitamin D3) 25 25 mcg PO DAILY 06/09/21 08/09/23 mcg (1,000 unit) capsule lylpwuvx-tyj-dsddx acid 0.4 1 tablet PO DAILY 06/09/21 08/09/23 mg-lycopene 300 mcg-lutein 250 mcg tablet (Centrum Silver) vitamin E (dl, acetate) 180 mg 180 mg PO DAILY 06/09/21 08/09/23 (400 unit) capsule cyanocobalamin (vitamin B-12) 1,000 mcg PO DAILY 12/10/21 08/09/23 1,000 mcg tablet acetaminophen 650 mg 1,300 mg PO Q12H PRN Pain 03/30/23 08/09/23 tablet,extended release (Tylenol Arthritis Pain) Allergies Allergy/AdvReac Type Severity Reaction Status Date / Time azithromycin AdvReac Severe Diarrhea Verified 08/09/23 16:19 hydrochlorothiazide AdvReac Intermediate throat Verified 08/09/23 16:19 irritation Review of Systems Review of Systems: All systems reviewed & are unremarkable except as noted in HPI and below PMFSH Past Medical History Medical History (Updated 08/20/23 @ 13:59 by Casandra Rubin PA-C) ANDRES positive Anemia Anxiety Arterial disease 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 Basal cell carcinoma of neck Cervical spondylosis with radiculopathy Chronic anticoagulation Chronic back pain Chronic obstructive pulmonary disease COVID-19 Diastolic dysfunction Diverticulosis of large intestine without hemorrhage Essential hypertension Generalized anxiety disorder Hiatal hernia with GERD without esophagitis Hypertension Lumbar spondylosis Pneumonia due to 2019 novel coronavirus Polymyalgia rheumatica Psoriasis Pulmonary embolism Subclinical hyperthyroidism Surgical History Surgical History History of colonoscopy History of esophagogastroduodenoscopy (EGD) (2018) History of total right knee replacement (2019) Dr. Resendez Status post cataract extraction of both eyes with insertion of intraocular lens (2009) Status post prostatectomy (2000) Dr. Victor Status post total left knee replacement (04/12/23) Family History Family History Mother CHF (congestive heart failure) Hypoglycemia Father , At 58 years old Hodgkins lymphoma Sibling No problems noted. Social History Social History (Updated 08/20/23 @ 13:53 by Casandra Rubin PA-C) Social History: Surrogate decision maker: Josefina Payne (daughter). Code status: Full code. Smoking packs per day: 2 Smoking cigarettes per day: 40.0 Years smoked: 60 Smoking pack-years: 120.00 Smoking status: Former smoker Second hand tobacco smoke exposure: Yes Alcohol intake: current Drinks per week: 21 Alcohol use details: Three beers most days of the week. Substance use: never Substance use type: does not use Do You Feel Safe in your Home?: Yes Lack of Transportation: No Lack of Food: Never True Current Housing: I Have Housing Concerned About Future Housing: No Difficulty Payi
--- NOTE | 2023-08-20 11:25 | ECG_ITS ---
Test Date: 2023-08-20 11:25:48 Measurements Intervals [place] Rate: 56 P: 22 VA: 221 QRS: 30 QRSD: 153 T: -27 QT: 498 QTc: 481 Interpretive Statements SINUS BRADYCARDIA WITH FIRST DEGREE AV BLOCK RIGHT BUNDLE BRANCH BLOCK [120+ ms QRS DURATION, UPRIGHT V1, 40+ ms S IN I/aVL/V4/V5/V6] MODERATE T-WAVE ABNORMALITY, CONSIDER ANTEROLATERAL ISCHEMIA [-0.1+ mV T WAVE IN V3-V6] No previous ECG available for comparison Electronically Signed On 08-21-2023 16:09:13 CDT by Will Pedro M.D.
[2023-08-20 11:33] LABS: Basophils Percent Auto 0.6 % (0.2-1.2); Eosinophils Percent Auto 0.8 % (0-4.4); Hematocrit 37.7 % (42.0-52.0); Immature Granulocyte Absolute 0.02 K/mm3 (0.00-0.031); Immature Granulocyte Percent A 0.4 % (0-0.5); Lymphocytes Absolute Auto 0.59 K/mm3 (0.9-3.2); Lymphocytes Percent Auto 11.3 % (18.3-44.2); Mean Corpuscular HGB Conc 31.8 g/dl (32-36); Mean Corpuscular Volume 88.1 fl (80-100); Mean Platelet Volume 9.5 fl (7.4-10.4); Monocytes Absolute Auto 0.8 K/mm3 (0.1-0.6); Monocytes Percent Auto 14.8 % (2.6-8.5); Neutrophils Absolute Auto 3.8 K/mm3 (1.3-6.7); Neutrophils Percent Auto 72.1 % (45.5-73.1); Platelet Count Result 192 k/mm3 (150-375); Red Blood Count 4.28 M/mm3 (4.6-6.20); Red Cell Distribution Width 13.6 % (11.5-14.5); White Blood Count 5.2 K/mm3 (4.5-10.0)
[2023-08-20 11:47] LABS: Partial Thromboplastin Time 51.9 Seconds (22.3-36.8)
[2023-08-20 11:48] LABS: Alanine Aminotransferase 20 U/L (6-50); Albumin Level 3.9 g/dL (3.5-5.1); Alkaline Phosphatase 147 U/L (38-126); Anion Gap 3 mmol/L (4-12); Aspartate Amino Transferase 25 U/L (17-59); Blood Urea Nitrogen 9 mg/dL (9-20); Calcium 8.7 mg/dL (8.4-10.2); Carbon Dioxide 37 mmol/L (22-30); Chloride 88 mmol/L (98-107); Estimated CRCL calculation 69 ml/min; Estimated Glomerular Filt Rate > 60; Glucose 99 mg/dL (65-110); Potassium 4.6 mmol/L (3.4-5.0); Sodium 128 mmol/L (137-145)
[2023-08-20 12:09] LABS: Influenza A QL RT-PCR Negative (Negative); Influenza B QL RT-PCR Negative (Negative); RSV RNA, RT-PCR Negative (Negative); SARS-CoV-2 RNA PCR Negative (Negative)
[2023-08-20 12:11] LABS: NT Pro B Type Natriuretic Pept 2620 pg/mL (19.9-100); Troponin I < 0.012 ng/mL (0.000-0.034)
[2023-08-20 12:28] LABS: Appearance Urine Clear (Clear); Bilirubin Urine Negative (Negative); Blood Urine Negative (Negative); Color Urine Yellow (Yellow); Glucose Urine UA Negative (Negative); Ketones Urine Negative (Negative); Leukocyte Esterase Ur Negative LEU/UL (Negative); Nitrate Urine Negative (Negative); Protein Urine Negative (Negative); Specific Grav Ur 1.007 (1.001-1.035); Urobilinogen Urine 0.2 mg/dL (<2.0); pH Urine 8.5 (5.0-9.0)
[2023-08-20 12:30] LABS: Add Urine Microscopic? NO
[2023-08-20] MEDS: FUROSEMIDE INJ 40 MG/4 ML VIAL IV PUSH ×2 (13:02→21:14)
--- NOTE | 2023-08-20 13:21 | PM.IMHP ---
H&P: HPI History of Present Illness Date/Time: 08/20/23 13:30 Chief Complaint: Multiple complaints. 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 The patient provides the following history. He has not been feeling well since the beginning of the month and he was seen by his primary care provider on 08/09/2023 with complaints of sore throat, chest congestion, and sinus pain. He was diagnosed with bronchitis and was prescribed Augmentin and Mucinex. Unfortunately he has felt increasingly worse over the last 5 days with multiple symptoms including nausea, headache, fatigue, and shortness of breath on exertion. His chronic lower extremity edema is worse, his abdomen is more distended, and he has gained 10 lb in the last week. He stopped taking the Augmentin as he thought it was causing his nausea and he also stopped taking methimazole (which was prescribed very recently) as he was concerned that was worsening his symptoms. The last several days he has essentially been sleeping a majority of the time. When he gets up he feels quite weak. He goes on to say that his lower extremities have been weak for 6 months or more and he has frequent deep, aching pain in his hips radiating down the legs. He denies fever, chills, sweats, headache, vision changes, jaw claudication, shoulder pain, chest pain, pleuritic pain, palpitations, cough, vomiting, diarrhea, dysuria, back pain, urinary retention, bowel incontinence, and saddle anesthesia. He has not had any recent falls or injuries. In the ED: He was afebrile on arrival with blood pressures in the 170s over 80s systolic and a pulse in the low to mid 50s. Labs were significant for a WBC count of 5.2, hemoglobin 12.0, INR 2.0, sodium 128, chloride 188, potassium 4.6, carbon dioxide 37, BUN 9, creatinine 0.70, proBNP 2620. UA was unremarkable. Viral panel was negative. Chest x-ray showed mild bibasilar atelectasis with chronic elevation of left hemidiaphragm. He was given 40 mg IV furosemide given his increasing edema, weight gain, elevated BNP, and shortness of breath. He is being admitted in this setting for further treatment and evaluation. 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 Review of Systems Review of Systems: 12 systems were reviewed and are negative except for as per HPI. 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 Basal cell carcinoma of neck Cervical spondylosis with radiculopathy Chronic anticoagulation Chronic back pain Chronic obstructive pulmonary disease COVID-19 Diastolic dysfunction Diverticulosis of large intestine without hemorrhage Essential hypertension Generalized anxiety disorder Hiatal hernia with GERD without esophagitis Hypertension Lumbar spondylosis Pneumonia due to 2019 novel coronavirus Polymyalgia rheumatica Psoriasis Pulmonary embolism Subclinical hyperthyroidism Surgical History Surgical History History of colonoscopy History of esophagogastroduodenoscopy (EGD) (2018) History of total right knee replacement (2018) Dr. Resendez Status post cataract extraction of both eyes with insertion of intraocular lens (2009) Status post prostatectomy (2000) Dr. Victor Status post total left knee replacement (04/12/23) Family History Family History Mother CHF (congestive heart failure) Hypoglycemia Fa
--- NOTE | 2023-08-20 13:53 | ADMGEN ---
This patient, Jarrod Padrno, was admitted to 3 [facility] Surg Room 320-01 @ 1353. Patient/family oriented to hospital policies and general routines including ID bracelet, bed and alarms, visiting hours, pain management, procedures, bathroom and other care routines, personal items, smoking policy, room service/diet, and visiting hours. Information on how to activate the Rapid Response Team has been discussed. Patient/Family are encouraged to report perceived risks to care and to ask questions if they do not understand what they are told or what they should do.
--- NOTE | 2023-08-20 13:56 | ECHO_ITS ---
Patient Info Name: Jarrod Padron Age: 83 years : 1940 Gender: Male Ht: 68 in Wt: 160 lbs BSA: 1.87 m2 HR: 56 bpm BP: 136 / 70 mmHg Technical Quality: Poor Exam Date: 08/20/2023 2:50 PM Exam Location: Echo Lab Patient Status: Outpatient Admit Date: 08/20/2023 Staff Ordering Physician: Casandra Rubin PA-C Document Examiner: Jose De Jesus Sanchez RDCS Attending Provider: Liliam Josue MD Referring Physician: Caryn COLON; Exam Type: CA echo dop color flow w con Study Info Indications - fatigue - HTN - diastolic dysfunction Complete two-dimensional, color flow and Doppler transthoracic echocardiogram is performed with contrast to opacify the left ventricle and to improve the deliniation of the left ventricle endocardial borders. Contrast/Agitated Saline Contrast/Ag. Saline: Definity Amount: 6.00 ml Existing IV Access: Yes Reason for Poor Study: patient body habitus Summary 1. Left atrial chamber dimension is mildly enlarged. 2. Left ventricular chamber dimension is normal. 3. Left ventricular systolic function is normal, estimated at 65-70%. 4. Left ventricular septal wall motion is normal. 5. Right ventricle is not well visualized. 6. There is mild aortic valve stenosis. 7. Technically difficult study with limited views. Left Ventricle Left ventricular chamber dimension is normal. Left ventricular systolic function is normal, estimated at 65-70%. There is no increased left ventricular wall thickness. Left ventricular septal wall motion is normal. The left ventricular diastolic function is grade I diastolic dysfunction. Right Ventricle Right ventricle is not well visualized. Left Atria Left atrial chamber dimension is mildly enlarged. Right Atria Right atrium was not well visualized. Aortic Valve The aortic valve is not well visualized. There is mild aortic valve stenosis. There is no aortic valve regurgitation. Pulmonic Valve The pulmonic valve is not well visualized. Mitral Valve The mitral valve has normal leaflets. There is no mitral valve stenosis. There is no mitral valve regurgitation. Tricuspid Valve The tricuspid valve leaflets are not well visualized. Pericardium/Pleural The pericardium appears normal. There is no pericardial effusion. Inferior Vena Cava Inferior vena cava is not well visualized. Aorta The aortic root is not well visualized. Left Ventricular Outflow Tract Name Value Normal LVOT 2D LVOT Diameter 2.15 cm LVOT Doppler LVOT Peak Gradient 5 mmHg LVOT Mean Gradient 2 mmHg LVOT VTI 25.08 cm LVOT VTI/AV VTI Ratio 0.41 LVOT Stroke Volume 91.30 ml LVOT CO 5.00 l/min LVOT CI 2.67 L/min/m2 Pulmonic Valve Name Value Normal PV Doppler
[2023-08-20 15:20] LABS: Transferrin 300 mg/dL (206-381)
[2023-08-20] MEDS: PERFLUTREN LIPID MICROSPHERES 1.5 ML VIAL DILUTED TO 10 ML TOTAL VOLUME IV PUSH (15:22)
--- NOTE | 2023-08-20 15:22 | IVDEFINITY ---
Prior to administration of IV Definity the patient was educated on the risks and benefits of the imaging enhancing agent including potential adverse side effects. The patient verbalized understanding. Allergies were verified. No exclusion criteria were identified and at least one of the following inclusion criteria were met: 1) physician request, 2) patient technically difficult to image (per the [place] [employer] guidelines of two or more segments not discernable within the apical view), or 3) questionable left ventricular function. ?
[2023-08-20 15:24] LABS: Troponin I < 0.012 ng/mL (0.000-0.034)
[2023-08-20 15:28] LABS: Iron 37 ug/dL (49-181)
[2023-08-20 15:37] LABS: Percent Iron Saturation 9 % (20-50)
[2023-08-20 16:01] LABS: Thyroid Stimulating Hormone Reflex 0.302 uIU/mL (0.465-4.68)
[2023-08-20 16:15] LABS: Creatinine Urine 7.8 mg/dL
[2023-08-20 16:17] LABS: Sodium Urine Random 92 meq/L
[2023-08-20 16:19] LABS: Folic Acid > 20.0 ng/mL (2.76->20); Vitamin B12 > 1000.0 pg/mL (239-931)
[2023-08-20 16:46] LABS: Urea Random Urine < 67 MG/DL
[2023-08-20] MEDS: GABAPENTIN 300 MG CAPSULE BY MOUTH (18:55)
[2023-08-20 19:59] LABS: Free T4 Free Thyroxine Reflex 1.02 ng/dL (0.78-2.19)
[2023-08-20 20:48] LABS: Total Triiodothyronine (T3) 0.98 NG/ML (0.97-1.69)
[2023-08-20] MEDS: ATORVASTATIN 10 MG TABLET PO (21:14)
[2023-08-20] MEDS: GABAPENTIN 300 MG CAPSULE 600 MG BY MOUTH (21:14)
[2023-08-20 22:21] LABS: Anion Gap 5 mmol/L (4-12); Blood Urea Nitrogen 11 mg/dL (9-20); Calcium 8.6 mg/dL (8.4-10.2); Carbon Dioxide 39 mmol/L (22-30); Chloride 87 mmol/L (98-107); Estimated CRCL calculation 78 ml/min; Estimated Glomerular Filt Rate > 60; Glucose 114 mg/dL (65-110); Potassium 3.9 mmol/L (3.4-5.0); Sodium 131 mmol/L (137-145)
[2023-08-20 22:30] LABS: Erythrocyte Sedimentation Rate 22 mm/hr (0-20)
[2023-08-21] VITALS (11 sets, daily range): BP systolic 131–162; BP diastolic 62–86; PULSE 54–64; RESP 16–20; TEMP 36.6–37.3; O2SAT 93–100
[2023-08-21 06:14] LABS: Hematocrit 37.5 % (42.0-52.0); Hemoglobin 11.6 g/dL (14.0-18.0); Mean Corpuscular HGB Conc 30.9 g/dl (32-36); Mean Corpuscular Hemoglobin 28.1 pg (26-34); Mean Corpuscular Volume 90.8 fl (80-100); Platelet Count Result 194 k/mm3 (150-375); Red Blood Count 4.13 M/mm3 (4.6-6.20); Red Cell Distribution Width 13.4 % (11.5-14.5); White Blood Count 4.6 K/mm3 (4.5-10.0)
[2023-08-21 06:22] LABS: INR 1.3; Prothrombin Time 16.3 Seconds (11.1-14.7)
[2023-08-21 06:30] LABS: Blood Urea Nitrogen 10 mg/dL (9-20); Calcium 8.2 mg/dL (8.4-10.2); Carbon Dioxide > 40 mmol/L (22-30); Chloride 87 mmol/L (98-107); Estimated CRCL calculation 78 ml/min; Estimated Glomerular Filt Rate > 60; Glucose 114 mg/dL (65-110); Sodium 130 mmol/L (137-145)
[2023-08-21] MEDS: METOPROLOL SUCCINATE EXT REL 100 MG TABCR PO (07:58)
[2023-08-21] MEDS: VITAMIN E 400 UNIT CAPSULE PO (07:58)
[2023-08-21] MEDS: CHOLECALCIFEROL 1,000 UNITS TABLET 1000 UNITS PO (07:58)
[2023-08-21] MEDS: lisinopriL 20 MG TABLET 40 MG PO (07:58)
[2023-08-21] MEDS: FUROSEMIDE INJ 40 MG/4 ML VIAL IV PUSH ×2 (07:59→21:25)
[2023-08-21] MEDS: TRIAMCINOLONE ACET 0.1% CREAM 15 GM TUBE 1 APPLIC TOPICAL ×2 (07:59→16:17)
[2023-08-21] MEDS: ASCORBIC ACID 500 MG TABLET 1000 MG PO (07:59)
[2023-08-21] MEDS: GABAPENTIN 300 MG CAPSULE BY MOUTH ×2 (07:59→16:13)
[2023-08-21] MEDS: CYANOCOBALAMIN 1,000 MCG TABLET 1000 MCG PO (07:59)
[2023-08-21] MEDS: MULTIVITAMINS /C LUTEIN (CENTRUM SILVER) TABLET *BKC 1 TAB PO (07:59)
[2023-08-21] MEDS: PANTOPRAZOLE 40 MG TABLET PO (07:59)
[2023-08-21] MEDS: FLUTICASONE/UMECLIDIN/VILANTER 100-62.5-25 MCG ELLIPTA 1 PUFF INHALATION (08:00)
--- NOTE | 2023-08-21 14:32 | PM.IMPN ---
Progress Note: A&P Assessment and Plan (1) Acute on chronic diastolic congestive heart failure: Code(s): I50.33 - Acute on chronic diastolic (congestive) heart failure Status: Acute Assessment and Plan: -chest x-ray reveals mild bibasilar atelectasis with chronic elevation of left hemidiaphragm -continue gentle diuresis 40 mg IV furosemide b.i.d. (2) Chronic obstructive pulmonary disease: Code(s): J44.9 - Chronic obstructive pulmonary disease, unspecified Status: Acute Assessment and Plan: -not in exacerbation -oxygen titration keep SpO2 above 92% -may use DuoNeb/bronchodilators in the setting of wheezing or SOB p.r.n. q.6 hours -Mucinex p.o. p.r.n. 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 (5) Bilateral hip pain: Code(s): M25.551 - Pain in right hip; M25.552 - Pain in left hip Status: Acute Assessment and Plan: -chronic denies any recent trauma Plan Continue home medications: DC lisinopril VTE Prophylaxis: Xarelto p.o. DIET: Heart healthy Anticipated hospital stay: > 2 days Code Status: Full code -discussed long-time use of lisinopril -concern for trace edema, frequent chronic ongoing cough >3 months -DC the lisinopril, add losartan 50 mg p.o. daily, pt reports he will update PCP -continue monitor vitals q.4 hours, assess for ongoing HTN may need to titrate medication Time Spent With Patient Time with patient: 15 - 25 minutes Subjective Date/time seen: 08/21/23 14:32 Interval history: 83-year-old male with PMHx: Of HTN, hyperlipidemia diastolic dysfunction recurrent DVTs and PEs COPD not on home oxygen presented to the emergency room with multiple complaints, to include ongoing bilateral lower extremity edema as well as increasing abdominal distension citing he gained 10 lb in the last week prior to arrival. Patient seen this morning he is resting in bed, easily arouses, daughter is by the bedside. He denies any overnight events denies any chest pain nausea vomiting fever chills at this time. Complains he continues with abdominal distension, he admits since his Lasix administration both his legs have decreased in size. Review of Systems Review of Systems: All systems reviewed & are unremarkable except as noted in HPI and below Exam Narrative: General: A morbid obese male, lying in bed. In no acute distress, daughter is by the bedside HEENT: PERRL, EOMI. Oral mucosa moist. Neck: Supple. No midline cervical tenderness. Respiratory: Respirations are non- labored and lung wheezes bilateral bases to auscultation bilaterally. Cardiovascular: Regular rate and rhythm with S1-S2. Gastrointestinal: Abdomen is large round distended with positive bowel sounds. Skin: Warm and dry. No rash or lesions on limited exam. Extremities: No cyanosis, clubbing, or edema. Radial and pedal pulses intact. Neurological: Alert and oriented. Cranial nerves 2-12 are grossly intact. No gross focal deficits to casual conversation. Psychiatric: Pleasant and cooperative with normal mood and affect. Judgment and insight intact. Objective Data Vital Signs Vital Signs: Vital Signs - 24 hr 08/20/23 14:49 08/20/23 16:00 08/20/23 19:51 Temperature Pulse Rate 54 L Respiratory Rate 20 Blood Pressure Pulse Oximetry 97 97 Oxygen Delivery Nasal Cannula Nasal Cannula Oxygen Flow Rate 2 2 Fraction of Inspired Oxygen 08/20/23 19:30 08/20/23 20:35 08/20/23 20:40 Temperature 98.8 F Pulse R
[2023-08-21] MEDS: RIVAROXABAN 20 MG TABLET PO (16:13)
[2023-08-21] MEDS: ATORVASTATIN 10 MG TABLET PO (21:25)
[2023-08-21] MEDS: GABAPENTIN 300 MG CAPSULE 600 MG BY MOUTH (21:25)
[2023-08-22] VITALS (14 sets, daily range): BP systolic 100–155; BP diastolic 57–73; PULSE 55–68; RESP 18–20; TEMP 35.9–36.9; O2SAT 93–99
[2023-08-22 05:52] LABS: Basophils Percent Auto 0.6 % (0.2-1.2); Eosinophils Absolute Auto 0.1 K/mm3 (0-0.3); Eosinophils Percent Auto 1.5 % (0-4.4); Hematocrit 40.6 % (42.0-52.0); Hemoglobin 12.2 g/dL (14.0-18.0); Immature Granulocyte Absolute 0.01 K/mm3 (0.00-0.031); Immature Granulocyte Percent A 0.2 % (0-0.5); Mean Corpuscular Hemoglobin 27.5 pg (26-34); Mean Corpuscular Volume 91.4 fl (80-100); Mean Platelet Volume 9.4 fl (7.4-10.4); Monocytes Absolute Auto 1.1 K/mm3 (0.1-0.6); Monocytes Percent Auto 20.4 % (2.6-8.5); Neutrophils Absolute Auto 3.3 K/mm3 (1.3-6.7); Neutrophils Percent Auto 62.3 % (45.5-73.1); Platelet Count Result 201 k/mm3 (150-375); Red Blood Count 4.44 M/mm3 (4.6-6.20); Red Cell Distribution Width 13.4 % (11.5-14.5); White Blood Count 5.4 K/mm3 (4.5-10.0)
[2023-08-22 06:07] LABS: Alanine Aminotransferase 18 U/L (6-50); Albumin Level 3.8 g/dL (3.5-5.1); Alkaline Phosphatase 119 U/L (38-126); Aspartate Amino Transferase 24 U/L (17-59); Bilirubin,Total 0.6 mg/dL (0.2-1.3); Blood Urea Nitrogen 10 mg/dL (9-20); Calcium 8.6 mg/dL (8.4-10.2); Carbon Dioxide > 40 mmol/L (22-30); Chloride 87 mmol/L (98-107); Estimated CRCL calculation 87 ml/min; Estimated Glomerular Filt Rate > 60; Glucose 108 mg/dL (65-110); Potassium 3.8 mmol/L (3.4-5.0); Sodium 131 mmol/L (137-145)
[2023-08-22] MEDS: FLUTICASONE/UMECLIDIN/VILANTER 100-62.5-25 MCG ELLIPTA 1 PUFF INHALATION (07:55)
--- NOTE | 2023-08-22 08:16 | PM.IMPN ---
Progress Note: A&P Assessment and Plan (1) Acute on chronic diastolic congestive heart failure: Code(s): I50.33 - Acute on chronic diastolic (congestive) heart failure Status: Acute Assessment and Plan: Acute exacerbation likely related to patient not having lasix as a home medication - Symptoms: increased edema, 10 lb weight gain, shortness of breath with exertion - BNP: 2620 - EKG: sinus bradycardia with first degree block - Chest XR: Mild bibasilar atelectasis with chronic elevation of the left hemidiaphragm. - Venous dopplers: Negative - Echo: LVEF 65-70% with grade I diastolic dysfunction, unchanged from 05/25/23 - Lasix 40 mg IV BID, patient will need to be transitioned to PO prior to DC - Monitor vital signs, I&Os, BUN/creatinine, daily weights, neuro status and patient is a fall risk - Monitor serum electrolytes, Keep serum Potassium>4 and serum Magnesium>2 and CBC (2) Hyponatremia: Code(s): E87.1 - Hypo-osmolality and hyponatremia Status: Acute Assessment and Plan: Likely related to patients volume overload secondary to his acute heart failure exacerbation. - Na 131 on am labs - Lasix 40 mg IV BID - urine osmol pending - serum osmol pending - TSH 0.302 and T4 1.02 - urine sodium 92 - urea < 67 - Continue to monitor with am labs - No neurological deficits noted on exam (3) Iron deficiency anemia: Code(s): D50.9 - Iron deficiency anemia, unspecified Status: Acute Assessment and Plan: H/H appears at baseline. Iron panel and TIBC shows iron deficiency anemia. Will start patient on iron supplement. - Continue to monitor (4) Benign essential HTN: Code(s): I10 - Essential (primary) hypertension Status: Acute Assessment and Plan: Chronic, continue home medications. - metoprolol 100 mg daily - lisinopril 40 mg daily - monitor (5) Chronic obstructive pulmonary disease: Code(s): J44.9 - Chronic obstructive pulmonary disease, unspecified Status: Acute Assessment and Plan: Chronic, not in acute exacerbation. 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 His chronic lower extremity edema is worse, his abdomen is more distended, and he has gained 10 lb in the last week. Patient is pleasant lying comfortably in bed. He continues to endorse shortness of breath especially with ambulation and remains on 1L NC at this time. He had an apnealink last night which was negative for GEETHA on the 1L. Will obtain an apnealink tonight for nocturnal O2 requirement as patient was noted to drop below 88% for >5 min on the 1L. Patient was started on iron supplement today for iron deficiency anemia. He denies chest pain, palpitations, nausea/vomiting and changes in bowel. Review of Systems Review of Systems: All systems reviewed & are unremarkable except as noted in HPI and below Exam Narrative: AF HR 61 RR 20 SpO2 96 BP 150/73 General: male in no acute respiratory distress who is nontoxic appearing, lying semi recumbent in bed. HEENT: No facial asymmetry. Chest: Lungs are diminished to auscultation bilaterally. No wheezes or crackles. CV: Heart was regular rate and rhythm. S1/S2. No murmurs, gallops, or rubs. Abd: Abdomen was soft. Nontender. Nondistended. Positive bowel sounds. No organomegaly or masses. Ext: 1+ edema to the bilateral lower extremities extending to the knees. No clubbing, cyanosis. 2+ D
[2023-08-22] MEDS: MULTIVITAMINS /C LUTEIN (CENTRUM SILVER) TABLET *BKC 1 TAB PO (09:18)
[2023-08-22] MEDS: ASCORBIC ACID 500 MG TABLET 1000 MG PO (09:19)
[2023-08-22] MEDS: CHOLECALCIFEROL 1,000 UNITS TABLET 1000 UNITS PO (09:19)
[2023-08-22] MEDS: CYANOCOBALAMIN 1,000 MCG TABLET 1000 MCG PO (09:19)
[2023-08-22] MEDS: FERROUS SULFATE 325 MG TABLET DR PO (09:19)
[2023-08-22] MEDS: GABAPENTIN 300 MG CAPSULE BY MOUTH ×2 (09:19→17:44)
[2023-08-22] MEDS: VITAMIN E 400 UNIT CAPSULE PO (09:19)
[2023-08-22] MEDS: METOPROLOL SUCCINATE EXT REL 100 MG TABCR PO (09:19)
[2023-08-22] MEDS: PANTOPRAZOLE 40 MG TABLET PO (09:19)
[2023-08-22] MEDS: TRIAMCINOLONE ACET 0.1% CREAM 15 GM TUBE 1 APPLIC TOPICAL ×2 (09:20→17:44)
[2023-08-22] MEDS: RIVAROXABAN 20 MG TABLET PO (17:44)
[2023-08-22] MEDS: ATORVASTATIN 10 MG TABLET PO (20:07)
[2023-08-22] MEDS: GABAPENTIN 300 MG CAPSULE 600 MG BY MOUTH (20:07)
[2023-08-22] MEDS: FUROSEMIDE INJ 40 MG/4 ML VIAL IV PUSH (20:08)
[2023-08-23] VITALS (13 sets, daily range): BP systolic 116–152; BP diastolic 58–77; PULSE 54–87; RESP 16–20; TEMP 36.3–36.6; O2SAT 87–100
[2023-08-23 06:47] LABS: Basophils Percent Auto 0.4 % (0.2-1.2); Eosinophils Absolute Auto 0.1 K/mm3 (0-0.3); Eosinophils Percent Auto 1.4 % (0-4.4); Hematocrit 42.7 % (42.0-52.0); Hemoglobin 12.8 g/dL (14.0-18.0); Immature Granulocyte Absolute 0.01 K/mm3 (0.00-0.031); Immature Granulocyte Percent A 0.2 % (0-0.5); Lymphocytes Absolute Auto 0.81 K/mm3 (0.9-3.2); Lymphocytes Percent Auto 14.5 % (18.3-44.2); Mean Corpuscular Hemoglobin 27.8 pg (26-34); Mean Corpuscular Volume 92.8 fl (80-100); Mean Platelet Volume 9.5 fl (7.4-10.4); Monocytes Absolute Auto 1.1 K/mm3 (0.1-0.6); Neutrophils Absolute Auto 3.6 K/mm3 (1.3-6.7); Neutrophils Percent Auto 64.5 % (45.5-73.1); Platelet Count Result 205 k/mm3 (150-375); Red Cell Distribution Width 13.5 % (11.5-14.5); White Blood Count 5.6 K/mm3 (4.5-10.0)
[2023-08-23 07:06] LABS: Alanine Aminotransferase 19 U/L (6-50); Alkaline Phosphatase 119 U/L (38-126); Aspartate Amino Transferase 27 U/L (17-59); Bilirubin,Total 0.7 mg/dL (0.2-1.3); Blood Urea Nitrogen 10 mg/dL (9-20); Calcium 8.7 mg/dL (8.4-10.2); Carbon Dioxide > 40 mmol/L (22-30); Chloride 89 mmol/L (98-107); Estimated CRCL calculation 88 ml/min; Estimated Glomerular Filt Rate > 60; Glucose 109 mg/dL (65-110); Magnesium 2.1 mg/dL (1.6-2.3); Potassium 3.8 mmol/L (3.4-5.0); Sodium 131 mmol/L (137-145)
[2023-08-23] MEDS: VITAMIN E 400 UNIT CAPSULE PO (08:00)
[2023-08-23] MEDS: ASCORBIC ACID 500 MG TABLET 1000 MG PO (08:01)
[2023-08-23] MEDS: MULTIVITAMINS /C LUTEIN (CENTRUM SILVER) TABLET *BKC 1 TAB PO (08:01)
[2023-08-23] MEDS: GABAPENTIN 300 MG CAPSULE BY MOUTH ×2 (08:01→16:42)
[2023-08-23] MEDS: FERROUS SULFATE 325 MG TABLET DR PO (08:01)
[2023-08-23] MEDS: CHOLECALCIFEROL 1,000 UNITS TABLET 1000 UNITS PO (08:01)
[2023-08-23] MEDS: PANTOPRAZOLE 40 MG TABLET PO (08:01)
[2023-08-23] MEDS: CYANOCOBALAMIN 1,000 MCG TABLET 1000 MCG PO (08:02)
[2023-08-23] MEDS: METOPROLOL SUCCINATE EXT REL 100 MG TABCR PO (08:02)
[2023-08-23] MEDS: FUROSEMIDE INJ 40 MG/4 ML VIAL IV PUSH (08:02)
[2023-08-23] MEDS: TRIAMCINOLONE ACET 0.1% CREAM 15 GM TUBE 1 APPLIC TOPICAL (08:03)
[2023-08-23] MEDS: LOSARTAN POTASSIUM 50 MG TABLET PO (08:05)
[2023-08-23] MEDS: polyethylene glycoL 3350 17 GM POWD.PACK PO (08:10)
[2023-08-23] MEDS: FLUTICASONE/UMECLIDIN/VILANTER 100-62.5-25 MCG ELLIPTA 1 PUFF INHALATION (08:42)
[2023-08-23] MEDS: SODIUM CHLORIDE NASAL GEL 14.1 GM 1 APPLIC NASAL (15:02)
[2023-08-23] MEDS: SALINE 0.65% NAS SOLN 44 ML BTL 1 SPRAY NASAL (15:02)
[2023-08-23 15:38] LABS: Osmolality, Urine 215 mOsm/kg (50-1200)
--- NOTE | 2023-08-23 16:02 | PM.DS ---
DS: Admitting Diagnosis Discharge Date 08/23/23 Admitting Diagnosis Acute on chronic diastolic congestive heart failure Hyponatremia Iron deficiency anemia HTN COPD DS: Discharge Diagnosis Discharge Diagnosis (1) Acute on chronic diastolic congestive heart failure: Code(s): I50.33 - Acute on chronic diastolic (congestive) heart failure Status: Acute (2) Hyponatremia: Code(s): E87.1 - Hypo-osmolality and hyponatremia Status: Acute (3) Iron deficiency anemia: Code(s): D50.9 - Iron deficiency anemia, unspecified Status: Acute (4) Benign essential HTN: Code(s): I10 - Essential (primary) hypertension Status: Acute (5) Chronic obstructive pulmonary disease: Code(s): J44.9 - Chronic obstructive pulmonary disease, unspecified Status: Acute DS: Summary Hospital Course Reason for hospitalization: Acute on chronic diastolic congestive heart failure Hyponatremia Iron deficiency anemia HTN COPD Hospital Course: 83-year-old male with hypertension, hyperlipidemia, diastolic dysfunction, 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 His chronic lower extremity edema is worse, his abdomen is more distended, and he has gained 10 lb in the last week. Patient noted to be in an acute exacerbation of his CHF as he had an elevated BNP and bilateral lower extremity edema. Patient had hyponatremia on labs likely related to volume overload. This improved as his edema improved. Patient had iron deficiency anemia on labs and was started on an iron supplement. Chest XR showed mild bibasilar atelectasis with chronic elevation of the left hemidiaphragm. Venous Doppler negative. Patient was started on IV lasix. Echo was unchanged from prior and showed LVEF 65-70% and grade I diastolic dysfunction. Patients edema and shortness of breath continued to improve throughout admission while on the lasix. He was transitioned to PO and is to remain on 40 mg lasix PO daily. Patient had an apnealink performed for concern of GEETHA. This test was done on 1L and though patient did not have any apnea events he was noted to be < 88% for > 5 min. Another apnealink was obtained to assess nocturnal O2 need. Patient requires 2L supplemental O2 overnight. He will continue this until he is able to undergo an official outpatient sleep study. Discussed this with patient and he states understanding. Prior to discharge patient had a home O2 eval performed by respiratory. Patient does not require oxygen at rest, but will need 2L with ambulation/activity. Patient would occasionally notice mild dizziness with quick position change. Orthostatic blood pressures negative. Educated patient that he should make position changes slow and ensure that he is not dizzy before moving to the next position. He states understanding. Prior to discharge patient denied chest pain, shortness of breath, nausea/vomiting nad changes in bowel/bladder. He states he is feeling much better and notes that his lower extremity edema has improved. Patient discharged home in stable condition. He is to follow up with his PCP in 1-2 weeks. Status at Discharge Functional status at discharge: independent ambulation Time Spent with Patient Time attestation: Total time spent providing and/or coordinating discharge services: Time spent: Greater than 30 minutes Exam Narrative: AF HR 63 RR 16 SpO2 92 BP 125/65 General: male in no acute respiratory distress who is nontoxic appearing, lying semi recumbent in bed. Chest: Lungs are clear to auscultation bilaterally. No wheezes or crackles. CV: Heart was regular rate and rhythm. S1/S2. No murmurs, gallops, or rubs. Abd: Abdomen was soft. Nontender. Nondisten
--- NOTE | 2023-08-23 16:05 | HOMEO2EVAL ---
Evaluation was performed at [facility] Home Oxygen Evaluation RC: Home Oxygen (O2) Evaluation Start: 08/23/23 08:17 Freq: ONCE Status: Active Protocol: RPE Activity Type Activity Date Activity User E-sign Co-sign Detail Recorded Client Recorded Date Recorded By Document 08/23/23 15:30 TAJ [email or web address] 08/23/23 16:04 TAJ Document 08/23/23 15:33 [email or web address] [email or web address] 08/23/23 16:04 TAJ Document 08/23/23 15:33 [email or web address] [email or web address] 08/23/23 16:04 TAJ Document 08/23/23 15:40 [email or web address] [email or web address] 08/23/23 16:04 TAJ 08/23/23 08/23/23 08/23/23 15:30 15:33 15:33 Home O2 Evaluation [Oxygen] -Test Phase Resting Exercise Exercise -Oxygen Delivery Room Air Room Air Nasal Cannula -Oxygen Flow Rate (L/min) 2 [Pulse Oximetry] -Pulse Oximetry (90-100 %) 93 87 L 92 [Pulse Rate] -Pulse Rate (60-100 beats/min) 72 87 [Comments] -Home Oxygen Evaluation Comments PT REQUIRES 2 L WITH ACTIVITY [Charges] -Evaluation Charges O2 Evaluation by Pulmonary 08/23/23 15:40 Home O2 Evaluation [Oxygen] -Test Phase Resting -Oxygen Delivery Room Air -Oxygen Flow Rate (L/min) [Pulse Oximetry] -Pulse Oximetry (90-100 %) 92 [Pulse Rate] -Pulse Rate (60-100 beats/min) 78 [Comments] -Home Oxygen Evaluation Comments [Charges] -Evaluation Charges
--- NOTE | 2023-08-23 16:23 | PCRCNOTE ---
HOME O2 EVAL DONE, PT REQUIRES 2 L NOCTURNAL AND WITH ACTIVITY. SET UP WITH [facility]. PT REFUSING TRANSPORT TANK AND WILL MEET DME ONCE HE IS HOME WITH ACTUAL EQUIPMENT. REQUESTING A POC FOR ACTIVITY. RN NOTIFIED.
[2023-08-23] MEDS: RIVAROXABAN 20 MG TABLET PO (16:42)
[2023-08-23] MEDS: FUROSEMIDE 40 MG TABLET PO (16:42)
== END 2023-08-23 18:00 | disposition home or self-care (01) | DRG 291 ==
LOC: ANHED 11:35 → ANH3MEDSUR 12:58
PROVIDERS: Nurse Practitioner; Physician Assistant; Admitting Provider General Practice; Emergency Provider Emergency Medicine; PCP Family Medicine; Visit Provider Internal Medicine
DX: I11.0 Hypertensive heart disease with heart failure (principal); I50.33 Acute on chronic diastolic (congestive) heart failure; E87.1 Hypo-osmolality and hyponatremia; D50.9 Iron deficiency anemia, unspecified; E78.5 Hyperlipidemia, unspecified; E05.90 Thyrotoxicosis, unspecified without thyrotoxic crisis or storm; F41.9 Anxiety disorder, unspecified; J44.9 Chronic obstructive pulmonary disease, unspecified; K22.70 Barrett's esophagus without dysplasia; Z86.718 Personal history of other venous thrombosis and embolism; Z86.711 Personal history of pulmonary embolism; Z79.01 Long term (current) use of anticoagulants; Z86.16 Personal history of COVID-19; Z85.828 Personal history of other malignant neoplasm of skin; Z96.653 Presence of artificial knee joint, bilateral; Z98.41 Cataract extraction status, right eye; Z98.42 Cataract extraction status, left eye; Z96.1 Presence of intraocular lens; Z90.79 Acquired absence of other genital organ(s); Z87.891 Personal history of nicotine dependence; Z20.822 Contact with and (suspected) exposure to COVID-19
CPT/HCPCS: 36415; 71045; 80048; 80053; 81003; 82570; 82607; 82728; 82746; 83540; 83550; 83735; 83880; 83930; 83935; 84300; 84439; 84443; 84466; 84480; 84484; 84540; 85025; 85027; 85610; 85652; 85730; 86140; 87637; 93005; 93970; 94618; 94640; 94762; 96374; 96375; 96376; 97161; 97165; 99285; A9270; C8929; G0378; J1940; Q9957

== ENCOUNTER 2024-01-10 09:39 | Outpatient (CLI) | payer MEDICARE, SELFPAY ==
--- NOTE | 2024-01-10 11:00 | NEURO_ITS ---
Impression: # Complains of left hand weakness and all extremity numbness. Non- diabetic. 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 # Mildly abnormal Needle/EMG exam. Nerve Conduction Studies Anti Sensory Summary Table Stim Site NR Peak (ms) P-T Amp (?V) Site1 Site2 Delta-P (ms) Dist (cm) Enzo (m/s) Left Median Anti Sensory (2-3nd Digit) Wrist 3.9 33.7 Wrist 2-3nd Digit 3.9 14.0 36 Wrist 4.1 20.7 Wrist 2-3nd Digit 3.9 14.0 36 Right Median Anti Sensory (2-3nd Digit) Wrist 3.0 20.3 Wrist 2-3nd Digit 3.0 14.0 47 Wrist 3.0 25.6 Wrist 2-3nd Digit 3.0 14.0 47 Left Radial Anti Sensory (Base 1st Digit) Wrist 2.1 23.6 Wrist Base 1st Digit 2.1 0.0 Right Radial Anti Sensory (Base 1st Digit) Wrist 2.7 25.1 Wrist Base 1st Digit 2.7 0.0 Left Sup Fibular Anti Sensory (Ant Lat Mall) NO RESPONSE 14 cm NR 14 cm Ant Lat Mall 16.0 Right Sup Fibular Anti Sensory (Ant Lat Mall) 14 cm 3.8 5.7 14 cm Ant Lat Mall 3.8 16.0 42 Left Sural Anti Sensory (Lat Mall) NO RESPONSE Calf NR Calf Lat Mall 16.0 Right Sural Anti Sensory (Lat Mall) NO RESPONSE Calf NR Calf Lat Mall 16.0 Left Ulnar Anti Sensory (5th Digit) Wrist 2.4 11.6 Wrist 5th Digit 2.4 14.0 58 Right Ulnar Anti Sensory (5th Digit) Wrist 2.7 19.9 Wrist 5th Digit 2.7 14.0 52 Motor Summary Table Stim Site NR Onset (ms) O-P Amp (mV) Site1 Site2 Delta-0 (ms) Dist (cm) Enzo (m/s) Left Median Motor (Abd Poll Brev) Wrist 4.4 2.5 Elbow Wrist 5.1 30.0 59 Elbow 9.5 2.5 Right Median Motor (Abd Poll Brev) Wrist 3.2 2.1 Elbow Wrist 5.3 30.0 57 Elbow 8.5 4.1 Left Peroneal Motor (Vastus Med) Ankle 4.5 0.5 Popit Ankle 10.2 42.0 41 Popit 14.7 0.7 Right Peroneal Motor (Vastus Med) Ankle 4.3 3.9 Popit Ankle 8.9 40.0 45 Popit 13.2 2.2 Left Tibial Motor (Abd Zaman Brev) Ankle 4.6 1.6 Knee Ankle 10.2 45.0 44 Knee 14.8 4.1 Right Tibial Motor (Abd Zaman Brev) Ankle 4.5 1.3 Knee Ankle 10.0 42.0 42 Knee 14.5 2.5 Left Ulnar Motor (Abd Dig Minimi) Wrist 2.7 4.1 A Elbow Wrist 6.3 31.0 49 A Elbow 9.0 3.1 B Elbow Wrist 3.8 22.0 58 B Elbow 6.5 1.7 Right Ulnar Motor (Abd Dig Minimi) Wrist 2.5 4.1 A Elbow Wrist 5.6 32.0 57 A Elbow 8.1 1.7 F Wave Studies NR F-Lat (ms) L-R F-Lat (ms) Left Median (Mrkrs) (Abd Poll Brev) 30.18 0.41 Right Median (Mrkrs) (Abd Poll Brev) 29.77 0.41 Left Peroneal (Mrkrs) (EDB) 57.34 0.67 Right Peroneal (Mrkrs) (EDB) 58.01 0.67 Left Tibial (Mrkrs) (Abd Hallucis) 58.80 0.82 Right Tibial (Mrkrs) (Abd Hallucis) 57.98 0.82 Left Ulnar (Mrkrs) (Abd Dig Min) 30.66 1.32 Right Ulnar (Mrkrs) (Abd Dig Min) 29.34 1.32 EMG Side Muscle Nerve Root Ins Act Fibs Amp Dur Recrt Comment Right 1stDorInt Ulnar C8-T1 Nml Nml Nml Nml Nml Right Ext Indicis Radial (Post Int) C7-8 Nml Nml Nml Nml Nml Right Ext Digitorum Radial (Post Int) C7-8 Nml Nml Nml Nml Nml Right BrachioRad Radial C5-6 Nml Nml Nml Nml Nml Right PronatorTeres Median C6-7 Nml Nml Nml Nml Nml Right Abd Poll Brev Median C8-T1 Nml Nml Nml Nml Nml Right ABD Dig Min Ulnar C8-T1 Nml Nml Nml Nml Nml Right AntTibialis Dp Br Fibular L4-5 Nml Nml Nml Nml Nml Right Gastroc Tibial S1-2 Nml Nml Nml Nml Nml Right Fibularis Long Sup Br Fibular L5-S1 Nml Nml Nml Nml Nml Right Flex Dig Long Tibial L5-S2 Nml Nml Nml Nml Nml Right Ext Dig Brev Dp Br Fibular L5, S1 Nml Nml Nml Nml Nml Right QuadratusFem QuadFemoris L4-5, S1 Nml Nml Nml Nml Nml Left AntTibialis Dp Br Fibular L4-5 Nml Nml Nml Nml Nml Left Gastroc Tibial S1-2 Nml Nml Nml Nml Nml Left Fibularis Long Sup Br Fibular L5-S1 Nml Nml Nml Nml Nml Left Flex Dig Long Tibial L5-S2 Nml Nml Nml Nml Nml Left Ext Dig Brev Dp Br Fibular L5, S1 Nml Nml Nml Nml Nml Left QuadratusFem QuadFemoris L4-5, S1 Nml Nml Nml Nml Nml Left 1stDorInt Ulnar C8-T1 Nml Nml Nml >12ms +1 Left Ext Indicis Radial (Post Int) C7-8 Nml Nml Nml Nml Nml Left Ext Digitorum Radial (Post Int) C7-8 Nml Nml Nml Nml Nml Left BrachioRad Radial C5-6 Nml Nml Nml Nml Nml Left PronatorTeres Median C6-7 Nml Nml Nml Nml Nml Left Abd Poll Brev Median C8-T1 Nml Nml Nml Nml Nml Left ABD Dig Min Ulnar C8-T1 Nml Nml Nml >12ms +1 MTDD
== END 2024-01-10 09:40 | disposition home or self-care (01) ==
LOC: ANHNEURO 09:42
PROVIDERS: PCP Family Medicine; Visit Provider Anesthesiology Pain Medicine
DX: G62.9 Polyneuropathy, unspecified (principal); M48.02 Spinal stenosis, cervical region; R20.0 Anesthesia of skin; G56.22 Lesion of ulnar nerve, left upper limb; R94.131 Abnormal electromyogram [EMG]
CPT/HCPCS: 95886; 95913

== ENCOUNTER 2024-01-30 20:59 | Emergency (ER) | payer MEDICARE, SELFPAY ==
--- NOTE | ~2024-01-30 | XR_ITS ---
EXAMINATION: XR ribs RT 2V w CXR 2V Exam Date/Time: 01/30/2024 21:30 CONTRACT PROJECT MANAGER HISTORY: fall this evening; right posterior rib pain Comparison: 08/20/2023, 08/15/2023. RESULT: Lines, tubes, and devices: None. Lungs and pleura: Senescent change. Bibasilar scar/atelectasis. Chronic left hemidiaphragm elevation . Cardiothymic silhouette: Stable. Other: No acute osseous or upper abdominal finding. IMPRESSION: No acute cardiopulmonary process. No acute finding in the right ribs. Reviewed, dictated and finalized at location K. RACT PROJECT MANAGER
[2024-01-30 21:17] VITALS: BP 144/64; PULSE 65; RESP 14; TEMP 36.5; O2SAT 93
--- NOTE | 2024-01-31 00:51 | PC.NURSE ---
pt to intake desk - i think i am going to leave and go see my pcp in the morning.
== END 2024-01-31 00:51 | disposition left against medical advice (07) ==
PROVIDERS: Emergency Provider Student in an Organized Health Care Education/Training Program; PCP Family Medicine
DX: R07.89 Other chest pain (principal); W19.XXXA Unspecified fall, initial encounter
CPT/HCPCS: 71046; 71100; 99199

== ENCOUNTER 2024-02-07 08:59 | Outpatient (CLI) | payer MEDICARE, SELFPAY ==
--- NOTE | ~2024-02-07 | US_ITS ---
US renal BI 02/07/2024 10:11 Procedure: Realtime transabdominal ultrasound of the kidneys and bladder. Indication: Injury to the right kidney. Recent fall. Comparison: CT dated 08/08/2023 Findings: Renal echotexture is normal bilaterally without hydronephrosis, contour deforming mass or r enal calculus. There are bilateral renal cysts measuring 4.9 cm at the lower pole of the right kidney in largest on the left measuring 3.1 cm inferiorly. The right kidney measures 12 cm and left kidney measures 12.8 cm. Bladder within normal limits. Impression: 1: Bilateral renal cysts. Otherwise, unremarkable renal ultrasound. Reviewed, dictated and finalized at location B. TRICAL FOREMAN Impression: 1: Bilateral renal cysts. Otherwise, unremarkable renal ultrasound.
== END 2024-02-07 09:00 | disposition home or self-care (01) ==
PROVIDERS: PCP Family Medicine; Visit Provider Physician Assistant Medical
DX: S37.001A Unspecified injury of right kidney, initial encounter (principal); X58.XXXA Exposure to other specified factors, initial encounter; N28.1 Cyst of kidney, acquired
CPT/HCPCS: 76775

== ENCOUNTER 2024-03-28 14:29 | Outpatient (CLI) | payer MEDICARE, SELFPAY ==
--- NOTE | ~2024-03-28 | MR_ITS ---
EXAMINATION: MR lumbar spine wo con DATE: 03/28/2024 15:05 INDICATION: Radiculopathy, lumbosacral region. TECHNIQUE: Magnetic resonance imaging (MRI) of the lumbar spine was performed without intravenous con trast. Sequences included sagittal T2-weighted FSE, sagittal T2-weighted FS FSE, sagittal T1-weighted FSE, and axial T2-weighted FSE. COMPARISON: Lumbar spine MRI 07/30/2022 FINDINGS: There is 3 degrees levocurvature of lumbar spine. S1 is a transitional segment. There are c hronic compression fractures of T12 and L1. There is mildly decreased disc height at L2-L3, moderately decreased disc height at L3-L4, and severely dec reased disc height at L4-L5 and L5-S1. The distal spinal cord signal intensity is normal. The conus m edullaris is at L2. The following disc levels are specifically discussed: L1-L2: The disc is bulging. There is severe bilateral facet joint osteoarthritis. There is mild bilat eral neural foraminal stenosis. There is no central canal stenosis. L2-L3: The disc is bulging. There is moderate bilateral facet joint osteoarthritis. There is mild karon ateral neural foraminal stenosis. There is mild central canal stenosis. L3-L4: The disc is bulging. There is severe bilateral facet joint osteoarthritis. There is mild bilat eral neural foraminal stenosis. There is mild central canal stenosis. L4-L5: The disc is bulging and has an annular fissure. There is severe bilateral facet joint osteoart hritis. There is moderate bilateral neural foraminal stenosis. There is moderate central canal stenos is. L5-S1: The disc is bulging and has an annular fissure. There is severe bilateral facet joint osteoart hritis. There is moderate bilateral neural foraminal stenosis. There is mild central canal stenosis. IMPRESSION: 1. Severe lumbar spondylosis, stable from 07/30/2022. Reviewed, dictated and finalized at location A. ORDER CLERK
== END 2024-03-28 14:30 | disposition home or self-care (01) ==
LOC: GOSHIMG 14:29
PROVIDERS: PCP Family Medicine; Visit Provider Anesthesiology Pain Medicine
DX: M47.27 Other spondylosis with radiculopathy, lumbosacral region (principal)
CPT/HCPCS: 72148

== ENCOUNTER 2024-05-01 14:20 | Outpatient (CLI) | payer MEDICARE, SELFPAY ==
--- NOTE | ~2024-05-01 | CT_ITS ---
CT abdomen pelvis wo con Ordering provider: Chely Wilson APRN History: 83 years Male with . R10.12 - Left upper quadrant pain . Comparison: August 08, 2023 Technique: CT abdomen and pelvis without IV and without oral contrast. Automated exposure control and iterative reconstruction technique were employed. The dose-length product was 1392.06 mGy-cm. Findings: VISUALIZED LOWER CHEST: Dependent atelectatic changes. Left basilar atelectasis versus pneumonia.. UPPER ABDOMINAL ORGANS: Liver: Normal. Gallbladder: Normal. Spleen: Normal. Stomach/duodenum: Normal. Pancreas: Atrophic pancreas Adrenals: Prominent medial wall of both adrenal glands. Kidneys: Small cyst in the left kidney upper pole measuring 1.8 cm. Cyst with calcification seen in t he left kidney lower pole measuring 2.9 cm. Right kidney lower pole cyst measuring 4.1 cm is seen. PELVIC ORGANS: The bladder is underfilled with thickened wall. BOWEL AND MESENTERY: Colon: No evidence of diverticulitis. Normal appendix. Small Bowel: Normal. No obstruction. Peritoneum/mesentery: No free air or free fluid. No mesenteric lymphadenopathy. RETROPERITONEUM: Mild atheromatous disease of the abdominal aorta. No retroperitoneal lymphadenopat hy. MUSCULOSKELETAL: Superficial soft tissues: The superficial soft tissues are normal. Bones: Loss of volume of L1 most likely chronic. Age appropriate degenerative changes of the spine. B ilateral sacroiliitis. Pubic symphysitis. IMPRESSION: 1. Bilateral renal cysts with calcification in the left lower pole cyst. 2. Left basilar atelectasis versus pneumonia. 3. Slightly prominent adrenal glands. Reviewed, dictated and finalized at location A.
[2024-05-01 15:45] LABS: Basophils Percent Auto 0.4 % (0.2-1.2); Eosinophils Percent Auto 0.4 % (0-4.4); Hematocrit 41.8 % (42.0-52.0); Hemoglobin 14.4 g/dL (14.0-18.0); Immature Granulocyte Absolute 0.01 K/mm3 (0.00-0.031); Immature Granulocyte Percent A 0.2 % (0-0.5); Lymphocytes Absolute Auto 0.89 K/mm3 (0.9-3.2); Lymphocytes Percent Auto 18.9 % (18.3-44.2); Mean Corpuscular HGB Conc 34.4 g/dl (32-36); Mean Corpuscular Hemoglobin 32.6 pg (26-34); Mean Corpuscular Volume 94.6 fl (80-100); Monocytes Absolute Auto 0.8 K/mm3 (0.1-0.6); Monocytes Percent Auto 16.9 % (2.6-8.5); Neutrophils Percent Auto 63.2 % (45.5-73.1); Platelet Count Result 179 k/mm3 (150-375); Red Blood Count 4.42 M/mm3 (4.6-6.20); Red Cell Distribution Width 13.1 % (11.5-14.5); White Blood Count 4.7 K/mm3 (4.5-10.0)
[2024-05-01 15:59] LABS: Alanine Aminotransferase 26 U/L (6-50); Albumin Level 4.4 g/dL (3.5-5.1); Alkaline Phosphatase 106 U/L (38-126); Amylase 56 U/L (30-110); Anion Gap 9 mmol/L (4-12); Aspartate Amino Transferase 42 U/L (17-59); Bilirubin,Total 1.3 mg/dL (0.2-1.3); Blood Urea Nitrogen 11 mg/dL (9-20); CRP 1.7 mg/dL (<1.0); Calcium 9.2 mg/dL (8.4-10.2); Carbon Dioxide 35 mmol/L (22-30); Chloride 91 mmol/L (98-107); Estimated Glomerular Filt Rate > 60; Glucose 92 mg/dL (65-110); Lipase 44 U/L (23-300); Potassium 3.6 mmol/L (3.4-5.0); Sodium 135 mmol/L (137-145)
--- OUTSIDE RECORDS SUMMARY | 2024-05-01 16:17 | XMS_ITS | Clinical Summary ---
Author Organization [facility] Address [address] [place] [address] Care Team Providers Care Brokerage Branch Manager Name Role Phone Unavailable Primary Care Provider Unavailabl e Source Comments [facility],non-owned Affiliates and Associated Physician Practices is amultiple site organization consisting of ambulatory clinics and hospital sitesin [place], [place], [place]. This disclosure is being madepursuant to the Care Everywhere program and may not contain all information available regarding this patient. Last updated 17.[facility] [employer] Social History Tobacco Use Types Packs/Day Years Used Date Smoking Tobacco: Never Assessed Sex and Gender Information Value Date Recorded Sex Assigned at Not on file Gender Identity Not on file Sexual Orientation Not on file Plan of Treatment Health Maintenance Due Date Last Done Comments DTAP/TDAP/TD VACCINES (1 - Tdap) 1961 PNEUMOCOCCAL VACCINE 50+ (1 of 1 - PCV) 1992 ZOSTER VACCINE (1 of 2) 1992 Respiratory Syncytial Virus (RSV) Vaccine Pt: or over 60 yrs (1 - 1-dose 75+ series) 2017 COVID-19 VACCINE (2023-2 5 season) 2023 INFLUENZA VACCINE (#1) 2023 DEPRESSION SCREENING 02/22/2024 MEDICARE AWV CALENDAR YEAR 2024 HEPATITIS B VACCINE Aged Out No longe r eligible based on patient's age to complete this topic HIB VACCINE Aged Out No longer eligi ble based on patient's age to complete this topic HPV VACCINE Aged Out No longer eligi ble based on patient's age to complete this topic MENINGOCOCCAL (Group B) VACCINE Aged Out No longer eligible based on patient's age to complete this topic MENINGOCOCCAL VACCINE Aged Out No josefina maria luisa eligible based on patient's age to complete this topic
--- OUTSIDE RECORDS SUMMARY | 2024-05-01 16:17 | XMS_ITS | Encounter Summary ---
Author Organization [facility] Address Formerly [facility] [place] [address] Care Team Providers Care Finance Accounting Internship Name Role Phone Jamey Torres MD Primary Care Provider [phone] Encounter Details Date Type Department Care Team (Late st Contact Info) Description 08/27/2014 Abstract [facility] CON[facility] [address] [place] [address] , Generic Conversion, Social History Tobacco Use Types Packs/Day Years Used Date Smoking Tobacco: Smoker, Current Status Unknown Sex and Gender Information Value Date Recorded Sex Assigned at Not on file Legal Sex Male 1:06 AM CDT Gender Identity Not on file Sexual Orientation Not on file documented as of this encounter Plan of Treatment Not on file documented as of this encounter Visit Diagnoses Not on filedocumented in this encounter Care Teams Finance Accounting Internship Relationship Specialty Start Date End Date Jamey Torres MD [address] [place] [address] PCP - General FAMILY PRACTICE 09/20/18 documented as of this encounter
--- OUTSIDE RECORDS SUMMARY | 2024-05-01 16:17 | XMS_ITS | Encounter Summary ---
Author Organization [facility] Address [address] [place] [address] Care Team Providers Care Art Educator Name Role Phone Luis Tomlin MD Unavailable [phone] Florin Mesa MD Primary Care Provider [phone] Encounter Details Date Type Department Care Team (Late st Contact Info) Description 08/21/2023 Orders Only [facility] [place] [address] [place] [id number] Scanning, Provider Social History Tobacco Use Types Packs/Day Years Used Date Smoking Tobacco: Former Smokeless Tobacco: Never Alcohol Use Standard Drinks/Week Comments Yes 0 (1 standard drink = 0.6 oz pur e alcohol) 3-4 beers daily Sex and Gender Information Value Date Recorded Sex Assigned at Not on file Legal Sex Male 8:26 PM FIREWORKS ASSEMBLY SUPERVISOR Gender Identity Not on file Sexual Orientation Not on file Occupation Industry Job Start Date Job End Date retired Not on file Not on file Not on file documented as of this encounter Plan of Treatment Not on file documented as of this encounter Procedures Procedure Name Priority Date/Time Associated Diagnosis Comments SCAN - RADIOLOGY/IMAGING 08/20/2023 documented in this encounter Results * SCAN - RADIOLOGY/IMAGING (08/20/2023) Anatomical Region Laterality Modality Other us Provider Scanning Edited Result - Final documented in this encounter Visit Diagnoses Not on filedocumented in this encounter Care Teams Art Educator Relationship Specialty Start Date End Date Florin Mesa MD [address] [place] [address] PCP - General Family Medicine 04/09/24 Luis Tomlin MD [facility] [place] [address] [address] Surgeon Vascular Surgery 04/08/22 documented as of this encounter
--- OUTSIDE RECORDS SUMMARY | 2024-05-01 16:17 | XMS_ITS | Clinical Summary ---
Author Organization [facility] [place] [address] Address [address] [place] [address] Care Team Providers Care Child Welfare Director Name Role Phone Luis Tomlin MD Unavailable [phone] Florin Mesa MD Primary Care Provider [phone] Allergies No known active allergies Medications ALPRAZolam (XANAX) 0.5 mg tablet Take 1 tablet (0.5 mg total) by mouth 2 (two) times a day 5 8 Active XARELTO 20 mg tablet Take 1 tablet (20 mg total) by mouth daily 8 Active metoprolol XL (TOPROL-XL) 100 mg 24 hr tablet Take 1 tablet (100 mg total) by mouth daily Active pantoprazole DR (PROTONIX) 40 mg EC tablet Take 1 tablet (40 mg total) by mouth daily Active fluticasone/umec lidin/vilanter (TRELEGY ELLIPTA INHAL) Inhale Active cyanocobalamin (Vitamin B-12) 100 mcg tabletIndication s:Prevention of Vitamin B12 Deficiency Take 1 tablet (100 mcg total) by mouth daily Active multivitamin capsule Take 1 capsule by mouth daily Active cholecalciferol (VITAMIN D-3) 25 mcg (1,000 unit) tablet Take 1 tablet (1,000 Units total) by mouth daily Active ascorbic acid (VITAMIN C) 1,000 mg tablet Take 1 tablet (1,000 mg total) by mouth daily Active gabapentin (NEURONTIN) 300 mg capsule Take 1 capsule (300 mg total) by mouth daily Active vitamin E (AQUASOL E) 400 unit capsule 1 capsule (400 Units total) Active ferrous sulfate 325 mg (65 mg of elemental iron) tablet Take 1 tablet (325 mg total) by mouth daily 4 Active losartan (COZAAR) 50 mg tablet Take 1 tablet (50 mg total) by mouth daily 4 Active atorvastatin (LIPITOR) 20 mg tablet Take 1 tablet (20 mg total) by mouth daily 5 Active furosemide (LASIX) 40 mg tabletIndication s:Diastolic dysfunction without heart failure Take 1.5 tablets (60 mg total) by mouth daily 135 tablet 3 5 Active atorvastatin (LIPITOR) 10 mg tablet Take 1 tablet (10 mg total) by mouth daily 04/05/19 Discontinu ed(Alterna te therapy) furosemide (LASIX) 40 mg tablet Take 1 tablet (40 mg total) by mouth daily 4 04/05/19 Discontinu ed(Reorder ) Active Problems Problem Noted Date Diagnosed Date 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 Exam and noninvasive studies are normal. Recommend further workup in regards to his known lumbar disc disease. Follow up with me on a p.r.n. basis. Nonrheumatic aortic valve stenosis 07/15/2022 Atherosclerosis of [place] artery of extremity Assessment & Plan (04/27/2022 2:16 PM LABOR AND DELIVERY NURSE): Patient's exercise study is normal. Lower extremity discomfort likely neurogenic and or musculoskeletal in nature. No further vascular workup needed. Follow-up on a p.r.n. basis. Assessment & Plan (04/14/2022 1:27 PM LABOR AND DELIVERY NURSE): Patient has symptoms consistent with inflow disease causing bilateral lower extremity claudication. Will obtain baseline arterial Doppler studies with exercise. Follow-up 2 weeks. Disorder of lower extremity 03/29/2022 Knee pain 03/29/2022 Osteoarthritis of knee 03/29/2022 Aortic aneurysm 10/20/2017 Skin lesion of right arm 10/04/2014 Closed head injury with concussion 08/06/2014 Atypical chest pain 06/26/2014 Diverticulosis of colon 02/23/2013 Nicotine dependence 02/23/2013 Fatty liver 06/01/2012 Hyperlipidemia 05/09/2012 Assessment & Plan (11/24/2022 8:55 AM CDT): Hyperlipidemia chronic and controlled. Continue Lipitor. Assessment & Plan (04/27/2022 2:16 PM LABOR AND DELIVERY NURSE): Hyperlipidemia chronic and controlled. Continue current medical therapy Assessment & Plan (04/14/2022 1:26 PM LABOR AND DELIVERY NURSE): Hyperlipidemia chronic and controlled. Continue current therapy. 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 Continue current medical management. Assessment & Plan (04/27/2022 2:17 PM LABOR AND DELIVERY NURSE): Hypertension chronic and controlled. Continue current medical therapy Assessment & Plan (04/14/2022 1:26 PM LABOR AND DELIVERY NURSE): Hypertension chronic and controlled. Continue current medical therapy Resolved Problems Problem Noted Date Diagnosed Date Resolved Date Ascending aortic aneurysm 07/03/2020 Encounters Date Type Department Care Team Description 04/19/2024 Results Follow-Up [facility] Cardiology [address] [place] [address] Yuliet Paige NP 04/05/2024 2:00 PM LABOR AND DELIVERY NURSE Office Visit [facility] Cardiology [address] [place] [address] Yuliet Paige NP Diastolic dysfunction without heart failure (Primary Dx); Abdominal bloating; Class 2 severe obesity with serious comorbidity and body mass index (BMI) of 38.0 to 38.9 in adult, unspecified obesity type (HCC) from Last 3 Months Immunizations Immunization Administration Dates Next Due Pneumococcal Conjugate PCV 13 09/15/2018 TD Preservative Free 10/28/2012,02/22/2012 ZOSTER Recombinant 12/14/2019,03/12/2019 Surgical History Surgery Date Site/Laterality Comments COLONOSCOPY ESOPHAGOGASTRODUODENOSCOPY REPLACEMENT TOTAL KNEE 02/21/2018 - 02/20/2019 Right CATARACT EXTRACTION 02/21/2009 - 02/20/2010 Bilateral PROSTATECTOMY 02/22/2000 - 02/20/2001 IR INJECTION ARTHROGRAM SI J OINT RIGHT INCLUDES IMAGING GUIDANCE 03/22/2023 Right IR INJECTION ARTHROGRAM SI J OINT LEFT INCLUDES IMAGING GUIDANCE 03/22/2023 Left Medical History Medical History Date Comments Chest pain Acute respiratory failure (HCC) Reyes's esophagus COPD (chronic obstructive pulmonary disease) (HC C) Heart failure (HCC) HTN (hypertension) Hiatal hernia with GERD without esophagitis PMR (polymyalgia rheumatica) Basal cell carcinoma of neck Hypercholesteremia Gastric reflux Lumbar stenosis with neurogenic claudication Lumbar spinal osteophytosis Lumbar facet arthropathy DDD (degenerative disc disease), lumbar Family History Medical History Relation Name Comments Cancer Father Diabetes Mother Heart disease Mother Relation Name Status Comments Father Mother Social History Tobacco Use Types Packs/Day Years Used Date Smoking Tobacco: Former Smokeless Tobacco: Never Tobacco Cessation:Counseling Given: Not Answered Alcohol Use Standard Drinks/Week Comments Yes 0 (1 standard drink = 0.6 oz pur e alcohol) 3-4 beers daily Sex and Gender Information Value Date Recorded Sex Assigned at Not on file Legal Sex Male 8:26 PM LABOR AND DELIVERY NURSE Gender Identity Not on file Sexual Orientation Not on file Occupation Industry Job Start Date Job End Date retired Not on file Not on file Not on file Obstetrics History Last Filed Vital Signs Vital Sign Reading Time Taken Comments Blood Pressure 102/52 04/05/2024 2:11 PM LABOR AND DELIVERY NURSE Pulse 67 04/05/2024 2:11 PM LABOR AND DELIVERY NURSE Temperature - - Respiratory Rate - - Oxygen Saturation 92% 04/05/2024 2:11 PM LABOR AND DELIVERY NURSE Inhaled Oxygen Concentration - - Weight 113.4 kg (250 lb) 04/05/2024 2:11 PM LABOR AND DELIVERY NURSE Height 172.7 cm (5' 8 ) 04/05/2024 2:11 PM LABOR AND DELIVERY NURSE Body Mass Index 38.01 04/05/2024 2:11 PM LABOR AND DELIVERY NURSE Plan of Treatment Health Maintenance Due Date Last Done Comments Depression Screening 1942 Fall Risk Assessment 1940 Hepatitis B Screening 1958 Abdominal Aortic Aneurysm (A AA) Screen 08/10/2007 Well Visit 65+ 08/10/2007 Pneumococcal vaccine 65+ (2 of 2 - PPSV23) 11/10/2018 09/15/2018, 09/15/2018 DTaP/Tdap/Td Vaccine (2 - Td or Tdap) 11/10/2031 11/09/2021, 10/28/2012, 02/22/2012 Zoster Vaccine Completed 12/14/2019, 03/12/2019 Influenza Vaccine Completed 11/28/2023, 11/14/2019 Procedures Procedure Name Priority Date/Time Associated Diagnosis Comments BASIC METABOLIC PANEL Routine 04/18/2024 3:43 PM LABOR AND DELIVERY NURSE Diastolic dysfunction without heart failure from Last 3 Months Results * (ABNORMAL) Basic metabolic panel (04/18/2024 3:43 PM LABOR AND DELIVERY NURSE) Glucose 109(H) 70 - 99 mg/dL [facility] - 01 BUN 12 8 - 27 mg/dL [facility] - 01 Creatinine, Serum 1.09 0.76 - 1.27 mg/dL [facility] - 01 eGFR 68 >59 mL/min/1.7 3 [facility] - 01 BUN/creat ratio 11 10 - 24 [facility] - 01 Sodium 138 134 - 144 mmol/L [facility] - 01 Potassium, sr 4.6 3.5 - 5.2 mmol/L [facility] - 01 Chloride 96 96 - 106 mmol/L [facility] - 01 CO2 27 20 - 29 mmol/L [facility] - 01 Calcium 9.5 8.6 - 10.2 mg/dL [facility] - 01 Blood 04/18/2024 3:43 PM LABOR AND DELIVERY NURSE 04/18/2024 Narrative [facility] - 04/19/2024 8:11 AM LABOR AND DELIVERY NURSE Performed at: 01 - [facility] [address] [id number] Supervising Fire Marshal: Nicolás Olivares PhD, Phone: [phone] us Yuliet Paige NP LAB BLOOD ORDERABLES Theodora l Result [facility] - 01 from Last 3 Months Insurance MEDICARE [employer] [facility] MEDIC[facility] Address: [address] [address] [place] [address] MEDICARE [employer] [facility] MEDIC[facility] Address: [address] [address] [place] [id number] MEDICARE [employer] Care Teams Child Welfare Director Relationship Specialty Start Date End Date Florin Mesa MD [address] [place] [address] PCP - General Family Medicine 04/09/24 Luis Tomlin MD [address] [place] [address] [place] [address] Surgeon Vascular Surgery 04/08/22
--- OUTSIDE RECORDS SUMMARY | 2024-05-01 16:17 | XMS_ITS | Referral Summary ---
Author Organization [facility] [place] [address] [place] [address] [address] [place] [address] Care Team Providers Care Humidifier Maintenance Worker Name Role Phone Luis Tomlin MD Unavailable [phone] Florin Mesa MD Primary Care Provider [phone] Encounters Date Type Department Care Team Description 04/19/2024 Results Follow-Up [facility] Cardiology [address] [place] [address] Yuliet Paige NP 04/05/2024 2:00 PM ELECTRIC TOOL REPAIRER Office Visit [facility] Medical [facility] Cardiology [address] [place] [address] Yuliet Paige NP Diastolic dysfunction without heart failure (Primary Dx); Abdominal bloating; Class 2 severe obesity with serious comorbidity and body mass index (BMI) of 38.0 to 38.9 in adult, unspecified obesity type (HCC) from Last 3 Months Allergies No known active allergies Medications ALPRAZolam [...] (10 mg total) by mouth daily 04/05/19 25 Discontinu ed(Alterna te therapy) furosemide (LASIX) 40 mg tablet Take 1 tablet (40 mg total) by mouth daily 4 04/05/19 25 Discontinu ed(Reorder ) Active Problems Problem Noted [...] Nonrheumatic aortic valve stenosis 07/15/2022 Atherosclerosis of [place] artery of extremity Assessment & Plan (04/27/2022 2:16 PM ELECTRIC TOOL REPAIRER): Patient's exercise study is normal. Lower extremity discomfort likely neurogenic and or musculoskeletal in nature. No further vascular workup needed. Follow-up on a p.r.n. basis. Assessment & Plan (04/14/2022 1:27 PM ELECTRIC TOOL REPAIRER): Patient has symptoms consistent with inflow disease [...] Lipitor. Assessment & Plan (04/27/2022 2:16 PM ELECTRIC TOOL REPAIRER): Hyperlipidemia chronic and controlled. Continue current medical therapy Assessment & Plan (04/14/2022 1:26 PM ELECTRIC TOOL REPAIRER): Hyperlipidemia chronic and controlled. Continue current therapy. 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 Continue current medical management. Assessment & Plan (04/27/2022 2:17 PM ELECTRIC TOOL REPAIRER): Hypertension chronic and controlled. Continue current medical therapy Assessment & Plan (04/14/2022 1:26 PM ELECTRIC TOOL REPAIRER): Hypertension chronic and controlled. Continue current medical therapy Resolved Problems Problem Noted Date Diagnosed Date Resolved Date Ascending aortic aneurysm 07/03/2020 Immunizations Immunization Administration Dates Next Due Pneumococcal Conjugate PCV 13 09/15/2018 TD Preservative Free 10/28/2012,02/22/2012 ZOSTER Recombinant 12/14/2019,03/12/2019 Social History Tobacco Use Types Packs/Day Years Used Date Smoking Tobacco: Former Smokeless Tobacco: Never Tobacco Cessation:Counseling Given: Not Answered Alcohol Use Standard Drinks/Week Comments Yes 0 (1 standard drink = 0.6 oz pur e alcohol) 3-4 beers daily Sex and Gender Information Value Date Recorded Sex Assigned at Not on file Legal Sex Male 8:26 PM ELECTRIC TOOL REPAIRER Gender Identity Not on file Sexual Orientation Not on file Occupation Industry Job Start Date Job End Date retired Not on file Not on file Not on file Last Filed Vital Signs Vital Sign Reading Time Taken Comments Blood Pressure 102/52 04/05/2024 2:11 PM ELECTRIC TOOL REPAIRER Pulse 67 04/05/2024 2:11 PM ELECTRIC TOOL REPAIRER Temperature - - Respiratory Rate - - Oxygen Saturation 92% 04/05/2024 2:11 PM ELECTRIC TOOL REPAIRER Inhaled Oxygen Concentration - - Weight 113.4 kg (250 lb) 04/05/2024 2:11 PM ELECTRIC TOOL REPAIRER Height 172.7 cm (5' 8 ) 04/05/2024 2:11 PM ELECTRIC TOOL REPAIRER Body Mass Index 38.01 04/05/2024 2:11 PM ELECTRIC TOOL REPAIRER Plan of Treatment Not on file Procedures Procedure Name Priority Date/Time Associated Diagnosis Comments BASIC METABOLIC PANEL Routine 04/18/2024 3:43 PM ELECTRIC TOOL REPAIRER Diastolic dysfunction without heart failure from Last 3 Months Results * (ABNORMAL) Basic metabolic panel (04/18/2024 3:43 PM ELECTRIC TOOL REPAIRER) Glucose 109(H) 70 - 99 mg/dL [facility] [...] [facility] - 01 Blood 04/18/2024 3:43 PM ELECTRIC TOOL REPAIRER 04/18/2024 Narrative [facility] - 04/19/2024 8:11 AM ELECTRIC TOOL REPAIRER Performed at: - [facility] [address] [id number] Vice President Network Development: Nicolás Olivares PhD, Phone: [phone] us Yuliet Paige NP LAB BLOOD ORDERABLES Theodora l Result [facility] - 01 from Last 3 Months Insurance MEDICARE [employer] [facility] MEDICARE Address: [address] [address] [place] [id number] [facility] MEDICARE Address: [address] [address] [place] [id number] [address] MEDICARE [employer] Care Teams Humidifier Maintenance Worker Relationship Specialty Start Date End Date Florin Mesa MD [address] [place] [address] PCP - General Family Medicine 04/09/24 Luis Tomlin MD [address] [place] [address] [place] [id number] Surgeon Vascular Surgery 04/08/22
--- OUTSIDE RECORDS SUMMARY | 2024-05-01 16:17 | XMS_ITS | Encounter Summary ---
Author Organization [facility] Address [address] [facility] [place] [address] Care Team Providers Care Zoning Assistant Name Role Phone Unavailable Primary Care Provider Unavailabl e Encounter Details Date Type Department Care Team (Late st Contact Info) Description 01/16/2019 Lab Requisition [facility] DermPath Lab [address] [facility] [place] [phone] Erasmo Ruiz MD [address] [place] [address] Social History Tobacco Use Types Packs/Day Years Used Date Smoking Tobacco: Never Assessed Sex and Gender Information Value Date Recorded Sex Assigned at Not on file Gender Identity Not on file Sexual Orientation Not on file documented as of this encounter Plan of Treatment Not on file documented as of this encounter Procedures Procedure Name Priority Date/Time Associated Diagnosis Comments DERMPATH SLIDE CONSULT Routine 01/16/2019 12:00 AM FACILITY MAINTENANCE HELPER documented in this encounter Results * DERMPATH SLIDE CONSULT (01/16/2019 12:00 AM FACILITY MAINTENANCE HELPER) Case Report Dermatopathology Report Case: [id number] Authorizing Provider: Erasmo Ruiz MD Collected: 01/16/2019 12:00 AM Ordering Location: [facility] DermPath Lab Received: 01/16/2019 03:06 PM Pathologist: La Dominique MD Specimen: Slide(s), Right nasal tip, [id number]# [id number] 9 2:26 PM FACILITY MAINTENANCE HELPER DERMATOPATHOLOGY LABORATORY Final Diagnosis Specimen A. 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 Erasmo Ruiz, a consult will be performed on 1 (H&E) slide(s) labeled [id number]. Bx Date: 01/02/2019 Darian hyper vs neoplasm. All slides returned. Any additional sections, special stains or immunohistochemical stains performed by our laboratory will be kept here on file. 2:26 PM [facility] DERMATOPATHOLOGY LABORATORY Microscopic Description Specimen A. Slide(s), Right nasal tip, OSC# [id number]: There are prominent sebaceous gland lobules surrounding a dilated hair follicle. This dome-shaped lesion contains dilated blood vessels, coarse collagen bundles, and stellate fibroblasts. 2:26 PM [facility] DERMATOPATHOLOGY LABORATORY Disclaimer An external and internal positive and negative controls are appropriate for the histochemical, immunohistochemical and immunofluorescence stain(s) in this case (if any), except where stated explicitly. The performance characteristics of the stain(s) cited in this report were developed and its performance characteristic determined by the Dermatopathology Laboratory at [facility], directed by Dr. Channing Ingram. These tests need not be, and therefore are not, approved by the [place] Food and Drug Administration. The tests are used for clinical purposes. Billing Codes Specimen Charges Stain Charges 28047 1 9 2:26 PM [facility] DERMATOPATHOLOGY LABORATORY Embedded Images 9 2:26 PM [facility] DERMATOPATH[facility]ORATORY Pathology/Cytolog y SLIDE / Unknown 01/16/2019 01/16/2019 3:06 PM FACILITY MAINTENANCE HELPER Erasmo Ruiz MD LAB - PATHOLOGY/CYTO LOGY ORDERABLES DERMATOPATHOLOGY LABORATORY [facility] - Department of Dermatology [facility] [facility], 5th [place] [address], [facility] [phone] documented in this encounter Visit Diagnoses Not on filedocumented in this encounter
--- OUTSIDE RECORDS SUMMARY | 2024-05-01 16:17 | XMS_ITS | Referral Summary ---
Author Organization [facility] Address [address] [place] [address] Care Team Providers Care Life Sciences Director Name Role Phone Unavailable Primary Care Provider Unavailabl e Source Comments [facility],non-owned Affiliates and Associated Physician Practices is amultiple site organization consisting of ambulatory clinics and hospital sitesin [place], [place], [place] and [place]. This disclosure is being madepursuant to the Care Everywhere program and may not contain all information available regarding this patient. Last updated 17.[facility] Social History Tobacco Use Types Packs/Day Years Used Date Smoking Tobacco: Never Assessed Sex and Gender Information Value Date Recorded Sex Assigned at Not on file Gender Identity Not on file Sexual Orientation Not on file Plan of Treatment Not on file
--- OUTSIDE RECORDS SUMMARY | 2024-05-01 16:17 | XMS_ITS | Encounter Summary ---
Author Organization [facility] Address [address] [place] [address] Care Team Providers Care E D Tech Name Role Phone Unavailable Primary Care Provider Unavailabl e Encounter Details Date Type Department Care Team (Late st Contact Info) Description 12/20/2018 Lab Requisition [facility] DermPath Lab [address] [facility] [address] [place] [phone] Erasmo Ruiz MD [address] [place] [address] Social History Tobacco Use Types Packs/Day Years Used Date Smoking Tobacco: Never Assessed Sex and Gender Information Value Date Recorded Sex Assigned at Not on file Gender Identity Not on file Sexual Orientation Not on file documented as of this encounter Plan of Treatment Not on file documented as of this encounter Procedures Procedure Name Priority Date/Time Associated Diagnosis Comments DERMATOPATHOLOGY Routine 12/19/2018 12:0 0 AM CDT documented in this encounter Results * DERMATOPATHOLOGY (12/19/2018 12:00 AM CDT) Case Report Dermatopathology Report Case: [id number] Authorizing Provider: Erasmo Ruiz MD Collected: 12/19/2018 12:00 AM Ordering Location: [facility] DermPath Lab Received: 12/20/2018 12:33 PM Pathologist: Yanna Ingram MD Specimen: Skin, left buttock 9 12:37 PM CDT DERMATOPATHOLOGY LABORATORY Final Diagnosis Specimen A. 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 12:37 PM T DERMATOPATHOLOGY LABORATORY Gross Description Specimen A: Received is one formalin filled container labeled with the patient's name and designated left buttock. The specimen consists of a shave biopsy (2 pieces) measuring [id number] & [id number]. Jar 0. 12:37 PM T DERMATOPATHOLOGY LABORATORY Microscopic Description Specimen A. SKIN, left buttock: There is focal parakeratosis and mild spongiosis of the epidermis. In the dermis there is a mainly superficial perivascular lymphoid infiltrate. Grocott's methenamine silver (GMS) stain fails to highlight fungal elements in the available sections. COMMENT: These histological findings can be seen in an eczematous dermatitis. 12:37 PM T DERMATOPATHOLOGY LABORATORY Disclaimer An external and internal positive and negative controls are appropriate for the histochemical, immunohistochemical and immunofluorescence stain(s) in this case (if any), except where stated explicitly. The performance characteristics of the stain(s) cited in this report were developed and its performance characteristic determined by the Dermatopathology Laboratory at [facility], directed by Dr. Channing Ingram. These tests need not be, and therefore are not, approved by the [place] Food and Drug Administration. The tests are used for clinical purposes. Billing Codes Specimen Charges Stain Charges 19385 1 [address]5727 1 12:37 PM CDT DERMATOPATHOLOGY LABORATORY Embedded Images 12:37 PM T DERMATOPATHOLOGY LABORATORY Pathology/Cytolog y TISSUE SPECIMEN FROM SKIN / Unknown 12/19/2018 12/20/2018 12:33 PM CDT Erasmo Ruiz MD LAB - PATHOLOGY/CYTO LOGY ORDERABLES DERMATOPATHOLOGY LABORATORY [facility] - Department of Dermatology [address] [facility] 5th [place] [address], [facility] [phone] documented in this encounter Visit Diagnoses Not on filedocumented in this encounter
--- OUTSIDE RECORDS SUMMARY | 2024-05-01 16:17 | XMS_ITS | Clinical Summary ---
Author Organization [facility] Address [address] [place] [address] Care Team Providers Care Blind Lacer Name Role Phone Jamey Torres MD Primary Care Provider Allergies No known active allergies Medications Garlic 1000 MG capsule Take 1 capsule by mouth daily. 5 Active vitamin C 1000 MG tablet Take 1 tablet by mouth daily. 5 Active vitamin E 400 UNIT capsule Take 1 capsule by mouth daily. 5 Active simethicone 80 MG chewable tablet Chew 1 tablet by mouth. 5 Active Phoenix-3 Fatty Acids (FISH OIL) 1200 MG Cap Take 1 capsule by mouth daily. 5 Active vitamin B-12 (CYANOCOBALAMIN) 1000 mcg tablet Take 1 tablet by mouth daily. 5 Active clobetasol 0.05 % cream Apply topically 2 (two) times daily. 4 Active Cyanocobalamin (VITAMIN B-12 CR) 1000 MCG Tab CR Take 1 tablet by mouth daily. 5 Active Multiple Vitamins-Mineral s (CENTRUM SILVER) Tab Take 1 tablet by mouth daily. 5 Active ALPRAZolam 0.5 MG tablet Take 0.5 mg by mouth 2 (two) times daily as needed. 5 9 Active TRELEGY ELLIPTA 100-62.5-25 MCG/INH AEROSOL POWDER, BREATH ACTIVATED INHALE 1 PUFF BY INHALATION ROUTE EVERY DAY AT THE SAME TIME EACH DAY 3 9 Active lisinopril-hydro chlorothiazide 20-12.5 MG tablet Take 1 tablet by mouth daily. 3 9 Active XARELTO 20 MG Tab tablet TAKE 1 TABLET BY MOUTH EVERY DAY EVENING MEAL 5 9 Active traMADol 50 MG tablet Take 50 mg by mouth every 6 (six) hours as needed. 3 9 Active acetaminophen 325 MG tablet Take 650 mg by mouth every 6 (six) hours as needed for Pain. Active Nebivolol HCl (BYSTOLIC) 20 MG Tab Take 1 tablet by mouth daily. 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 30 tablet 11 0 Active Additional Information Patient taking differently: 40 mgOral Daily, Reported on 09/01/2020 Active Problems Problem Noted Date Diagnosed Date Skin lesion of right arm 10/04/2014 Closed head injury with concussion 08/06/2014 Atypical chest pain 06/26/2014 Diverticulosis of colon 02/23/2013 Nicotine dependence 02/23/2013 Fatty liver 06/01/2012 Hyperlipidemia 05/09/2012 Adenocarcinoma of prostate ([facility]) Hypertension 12/07/2011 Immunizations Name Administration Dates Next Due Pneumococcal (Prevnar 13) 09/15/2018 Shingrix 12/14/2019 Td (Tenivac) preservative free 10/28/2012,2012 Social History Tobacco Use Types Packs/Day Years Used Date Smoking Tobacco: Former Cigarettes 1 60 1 03/15/1955 - 01/13/2018 Smokeless Tobacco: Never Alcohol Use Standard Drinks/Week Comments Yes 0 (1 standard drink = 0.6 oz pur e alcohol) 7 drinks daily PHQ-2 Answer Date Recorded PHQ-2 Score - If the patient scores above 3, please move on to questions 3-9 0 08/29/2020 Sex and Gender Information Value Date Recorded Sex Assigned at Not on file Legal Sex Male 1:06 AM CDT Gender Identity Not on file Sexual Orientation Not on file Last Filed Vital Signs Vital Sign Reading Time Taken Comments Blood Pressure 138/76 08/29/2020 3:54 PM CDT Pulse 68 08/29/2020 3:54 PM CDT Temperature 36.3 C (97.4 F) 09/27/2018 12:45 PM CDT Respiratory Rate 18 08/29/2020 3:54 PM CDT Oxygen Saturation 97% 08/29/2020 3:54 PM CDT Inhaled Oxygen Concentration - - Weight 108 kg (238 lb) 08/29/2020 3:54 PM CDT Height 172.7 cm (5' 8 ) 08/29/2020 3:54 PM CDT Body Mass Index 36.19 08/29/2020 3:54 PM CDT Plan of Treatment Health Maintenance Due Date Last Done Comments Annual Medicare Wellness Visit 08/10/2007 DTaP, Tdap and Td Vaccines ( 1 - Tdap) 10/29/2012 10/28/2012, 02/22/2012 RSV Immunization or 60+ Years (1 - 1-dose 75+ series) 2017 Pneumococcal Vaccine: 65+ Years (2 of 2 - PPSV23 or PCV20) 09/16/2019 09/15/2018 Zoster Vaccines (2 of 2) 02/08/2020 12/14/2019 COVID-19 Vaccine (3 - 2023-2 5 season) 2023 04/25/2020, 04/04/2020 Influenza Adult (#1) 2023 EGD-Reyes's Surveillance Discontinued 09/27/2018 Meningococcal B Vaccine Aged Out No l onger eligible based on patient's age to complete this topic Meningococcal Vaccine Aged Out No josefina maria luisa eligible based on patient's age to complete this topic RSV Immunizations Under 20 Months Aged Out No longer eligible based on patient's age to complete this topic Procedures Procedure Name Priority Date/Time Associated Diagnosis Comments COLONOSCOPY/EGD GENERIC (SCA N ORDER) Routine 09/27/2018 from Last 3 Months or Most Recently Relevant to Health Maintenance Results * COLONOSCOPY/EGD (09/27/2018) us Documents Scanned SCANNING Final Result from Last 3 Months or Most Recently Relevant to Health Maintenance Insurance [facility] Care Teams Blind Lacer Relationship Specialty Start Date End Date Jamey Torres MD [address] [place] [address] PCP - General FAMILY PRACTICE 09/20/18
--- OUTSIDE RECORDS SUMMARY | 2024-05-01 16:17 | XMS_ITS | Encounter Summary ---
Author Organization [facility] Address [address] [place] [address] Care Team Providers Care Assembler Musical Equipment Name Role Phone Unavailable Primary Care Provider Unavailabl e Encounter Details Date Type Department Care Team (Late st Contact Info) Description 11/13/2021 Lab Requisition [facility] DermPath Lab [address] [facility] [place] [phone] Florin eMsa MD [address] [place] [address] Social History Tobacco Use Types Packs/Day Years Used Date Smoking Tobacco: Never Assessed Sex and Gender Information Value Date Recorded Sex Assigned at Not on file Gender Identity Not on file Sexual Orientation Not on file documented as of this encounter Plan of Treatment Not on file documented as of this encounter Procedures Procedure Name Priority Date/Time Associated Diagnosis Comments DERMATOPATHOLOGY Routine 11/10/2021 12:0 0 AM CDT documented in this encounter Results * DERMATOPATHOLOGY (11/10/2021 12:00 AM CDT) Case Report Dermatopathology Report Case: [id number] Authorizing Provider: Florin Mesa MD Collected: 11/10/2021 12:00 AM Ordering Location: [facility] DermPath Lab Received: 11/13/2021 01:43 PM Pathologist: Dianelys Nguyen MD Specimen: Skin, left neck 4:14 PM CDT DERMATOPATHOLOGY LABORATORY Final Diagnosis Specimen A. SKIN, left neck: BASAL CELL CARCINOMA, NODULAR TYPE (C44.41) PRESENT AT MARGIN 2 4:14 PM CDT DERMATOPATHOLOGY LABORATORY Clinical History Changing lesion. Check margins. 2 4:14 PM CDT DERMATOPATHOLOGY LABORATORY Gross Description Specimen A: Received is one formalin filled container labeled with the patient's name and designated left neck. The specimen consists of a non-oriented ellipse of skin measuring 99t88f4 mm, inked and bisected. 2 4:14 PM CDT DERMATOPATHOLOGY LABORATORY Microscopic Description Specimen A. SKIN, left neck: Within the dermis there are aggregates of basaloid cells with a high nuclear to cytoplasmic ratio and peripheral palisading. This lesion is present at the margin of the specimen. 2 4:14 PM CDT DERMATOPATHOLOGY LABORATORY Disclaimer An external and internal positive and negative controls are appropriate for the histochemical, immunohistochemical and immunofluorescence stain(s) in this case (if any), except where stated explicitly. The performance characteristics of the stain(s) cited in this report were developed and its performance characteristic determined by the Dermatopathology Laboratory at [facility], directed by Dr. Channing Ingram. These tests need not be, and therefore are not, approved by the [place] Food and Drug Administration. The tests are used for clinical purposes. Billing Codes Specimen Charges Stain Charges 76138 1 2 4:14 PM CDT DERMATOPATHOLOGY LABORATORY Embedded Images 2 4:14 PM CDT DERMATOPATHOLOGY LABORATORY Pathology/Cytolog y TISSUE SPECIMEN FROM SKIN / Unknown 11/10/2021 11/13/2021 1:43 PM CDT Florin Mesa MD LAB - PATHOLOGY/CYTO LOGY ORDERABLES DERMATOPATHOLOGY LABORATORY [facility] - Department of Dermatology [address], [address] [phone] documented in this encounter Visit Diagnoses Not on filedocumented in this encounter
--- OUTSIDE RECORDS SUMMARY | 2024-05-01 16:17 | XMS_ITS | Patient Health Summary ---
Author Organization [facility] Address [address] [place] [address] Care Team Providers Care Small Business Representative Name Role Phone Unavailable Primary Care Provider Unavailabl e Note from [facility],non-owned Affiliates and Associated Physician Practices is amultiple site organization consisting of ambulatory clinics and hospital sitesin [place], [place], [place] and [place]. This disclosure is being madepursuant to the Care Everywhere program and may not contain all information available regarding this patient. Last updated 17.[facility] [employer] Social History Tobacco Use Types Packs/Day Years Used Date Smoking Tobacco: Never Assessed Sex and Gender Information Value Date Recorded Sex Assigned at Not on file Gender Identity Not on file Sexual Orientation Not on file Procedures * DERMATOPATHOLOGY(Performed 11/10/2021) * DERMPATH SLIDE CONSULT(Performed 01/16/2019) * DERMATOPATHOLOGY(Performed 12/19/2018) Results * DERMATOPATHOLOGY (11/10/2021 12:00 AM CDT) Only the most recent of2 resultswithin the time period is included. Case Report Dermatopathology Report Case: [id number] Authorizing Provider: Florin Mesa MD Collected: 11/10/2021 12:00 AM Ordering Location: [facility] DermPath Lab Received: 11/13/2021 01:43 PM Pathologist: Dianelys Nguyen MD Specimen: Skin, left neck 2 4:14 PM CDT DERMATOPATHOLOGY LABORATORY Final Diagnosis [...] of a non-oriented ellipse of skin measuring [id number] mm, inked and bisected. 2 4:14 PM T DERMATOPATHOLOGY LABORATORY Microscopic Description Specimen A. SKIN, left neck: Within the dermis there are aggregates of basaloid cells with a high nuclear to cytoplasmic ratio and peripheral palisading. This lesion is present at the margin of the specimen. 2 4:14 PM T DERMATOPATHOLOGY LABORATORY Disclaimer An external and internal positive and negative controls are appropriate for the histochemical, immunohistochemical and immunofluorescence stain(s) in this case (if any), except where stated explicitly. The performance characteristics of the stain(s) cited in this report were developed and its performance characteristic determined by the Dermatopathology Laboratory at [facility], directed by Dr. Channing Ingram. These tests need not be, and therefore are not, approved by the [place] Food and Drug Administration. The tests are used for clinical purposes. Billing Codes Specimen Charges Stain Charges 19731 1 2 4:14 PM CDT DERMATOPATHOLOGY LABORATORY Embedded Images 2 4:14 PM CDT DERMATOPATHOLOGY LABORATORY Pathology/Cytolog y TISSUE SPECIMEN FROM SKIN / Unknown 11/10/2021 11/13/2021 1:43 PM CDT Florin Mesa MD LAB - PATHOLOGY/CYTO LOGY ORDERABLES DERMATOPATHOLOGY LABORATORY [facility] - Department of Dermatology [facility] Medicine [address] [place] [address], [address] [phone] * DERMPATH SLIDE CONSULT (01/16/2019 12:00 AM PRIVACY ATTORNEY) Case Report Dermatopathology Report [id number]: [id number] Authorizing Provider: Erasmo Ruiz MD Collected: 01/16/2019 12:00 AM Ordering Location: [facility] DermPath Lab Received: 01/16/2019 03:06 PM Pathologist: La Dominique MD Specimen: Slide(s), Right nasal tip, [id number]# [id number] 2:26 PM PRIVACY ATTORNEY DERMATOPATHOLOGY LABORATORY Final Diagnosis Specimen A. 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 Erasmo Ruiz, a consult will be performed on 1 (H&E) slide(s) labeled [id number]. Bx Date: 01/02/2019 Darian hyper vs neoplasm. All slides returned. Any additional sections, special stains or immunohistochemical stains performed by our laboratory will be kept here on file. 2:26 PM [facility] DERMATOPATHOLOGY LABORATORY Microscopic Description Specimen A. Slide(s), Right nasal tip, OSC# [id number]: There are prominent sebaceous gland lobules surrounding a dilated hair follicle. This dome-shaped lesion contains dilated blood vessels, coarse collagen bundles, and stellate fibroblasts. 2:26 PM PRIVACY ATTORNEY DERMATOPATHOLOGY LABORATORY Disclaimer An external and internal positive and negative controls are appropriate for the histochemical, immunohistochemical and immunofluorescence stain(s) in this case (if any), except where stated explicitly. The performance characteristics of the stain(s) cited in this report were developed and its performance characteristic determined by the Dermatopathology Laboratory at [facility], directed by Dr. Channing Ingram. These tests need not be, and therefore are not, approved by the [place] Food and Drug Administration. The tests are used for clinical purposes. Billing Codes Specimen Charges Stain Charges 16391 1 9 2:26 PM PRIVACY ATTORNEY DERMATOPATHOLOGY LABORATORY Embedded Images 2:26 PM PRIVACY ATTORNEY DERMATOPATHOLOGY LABORATORY Pathology/Cytolog y SLIDE / Unknown 01/16/2019 01/16/2019 3:06 PM PRIVACY ATTORNEY Erasmo Ruiz MD LAB - PATHOLOGY/CYTO LOGY ORDERABLES DERMATOPATHOLOGY LABORATORY [facility] - Department of Dermatology [address] [facility], 5th [place] [address], [facility] [phone]
== END 2024-05-01 14:21 | disposition home or self-care (01) ==
PROVIDERS: PCP Nurse Practitioner Adult Health; Visit Provider Nurse Practitioner Adult Health
DX: R10.12 Left upper quadrant pain (principal); R14.0 Abdominal distension (gaseous); N28.1 Cyst of kidney, acquired
CPT/HCPCS: 36415; 74176; 80053; 82150; 83690; 85025; 86140

== ENCOUNTER 2024-05-08 09:57 | Day surgery (SDC) | payer MEDICARE, SELFPAY ==
--- NOTE | 2024-04-26 14:31 | PC.NURSE ---
Anticoagulation clearance received from pt's provider. Pt OK to hold Xarelto for 2 days prior to procedure and last dose should be 05/05/2024. Pt notified via telephone and verbalized understanding of last dose.
--- NOTE | ~2024-05-08 | XR_ITS ---
INTRAOPERATIVE FLUOROSCOPY: CLINICAL HISTORY: 83 years old Male; GEORGE L3-4 TRANSFORAMINAL EPI STEROID INJ PROCEDURE COMMENTS: Limited intraoperative fluoroscopy of the lumbar spine was performed. CUMULATIVE DOSE: 14.1 mGy FLUOROSCOPY TIME: 20.1 seconds FINDINGS/IMPRESSION: Please refer to operative note for further details. Reviewed, dictated and finalized at location A.
--- NOTE | 2024-05-08 10:44 | P.HP_ITS ---
History of Present Illness History of Present Illness Consent: Risks, benefits, and alternatives have been discussed and questions answered. Patient agrees to proceed with procedure. Chief complaint: Lumbar radiculopathy, lumbar spinal stenosis Narrative: Jarrod Padron is a 83 year old male with chronic, recalcitrant and disabling low back and lower extremity pain secondary to lumbar radiculopathy with failure to respond to aggressive conservative measures including PT, oral and topical analgesics, opioid and nonopioid analgesics, rest, time and activity/behavioral modification over the past 6-12 months who presents for bilateral L3-4 transforaminal epidural steroid injection under fluoroscopic guidance and with contrast control. Review of Systems Review of Systems: Patient denies any new infectious, allergic, cardiopulmonary, neurologic or constitutional symptoms or changes in activity tolerance or exercise capacity including new or progressive SOB/TIRADO, peripheral edema, productive cough, dysuria, nausea/vomiting, diarrhea, weight change, fevers/chills/night sweats, new or progressive neurologic deficit, cognitive or mood changes since last seen , except as documented in the HPI. All systems reviewed & are unremarkable except as noted in HPI and below PMFSH Past Medical History Medical History (Updated 05/01/24 @ 13:36 by Chely Wilson APRN) Abdominal distention LUQ abdominal pain Snoring GEETHA (obstructive sleep apnea) Vitamin B12 deficiency Subclinical hyperthyroidism Anxiety Anemia Diastolic dysfunction Psoriasis Chronic obstructive pulmonary disease Chronic anticoagulation COVID-19 Lumbar spondylosis ANDRES positive Cervical spondylosis with radiculopathy Arterial disease Basal cell carcinoma of neck Polymyalgia rheumatica Pulmonary embolism Essential hypertension Pneumonia due to 2019 novel coronavirus Hypertension Generalized anxiety disorder 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 Resendez Status post prostatectomy (2000) Dr. Victor Status post cataract extraction of both eyes with insertion of intraocular lens (2009) Family History Family History Mother CHF (congestive heart failure) Hypoglycemia Father , At 58 years old Hodgkins lymphoma Sibling No problems noted. Social History Social History Social History: Surrogate decision maker: Josefina Payne (daughter). Code status: Full code. Smoking packs per day: 2 Smoking cigarettes per day: 40.0 Years smoked: 60 Smoking pack-years: 120.00 Smoking status: Former smoker Second hand tobacco smoke exposure: Yes Smoking end date: 01/16/17 Alcohol intake: current Drinks per week: 21 Alcohol use details: Three beers most days of the week. Substance use: never Substance use type: does not use Do You Feel Safe in your Home?: Yes Lack of Transportation: No Lack of Food: Never True Current Housing: I Have Housing Concerned About Future Housing: No Difficulty Paying Gas/Electric Bills: No Difficulty Paying for Meds: No Currently Unemployed: No Education: Trade/Vocational Certificate Difficulty w/ Childcare or Family Care: No Living arrangements: alone Additional living arrangements comments: Lives alone. He has been since 2013. Independent of activities of daily living. Occupation/Education: retired Additional occupation/education comments: [place]. Spiritual care concerns: No Meds Home Medications and Allergies Home Medications ?Medication ?Instructions ?Recorded ?Confirmed ?Type ascorbic acid (vitamin C) 1,000 mg 1 gm PO DAILY 05/08/19 05/01/24 History tablet rivaroxaban 20 mg tablet (Xarelto) 20 mg PO DAILY 10/05/20 05/01/24 History cholecalciferol (vitamin D3) 25 25 mcg PO DAILY 06/09/21 05/01/24 History mcg (1,000 unit) capsule guijmhqx-uye-hrazj acid 0.4 1 tablet PO DAILY 06/09/21 05/01/24 History mg-lycopene 300 mcg-lutein 250 mcg tablet (Centrum Silver) vitamin E (dl, acetate) 180 mg 180 mg PO DAILY 06/09/21 05/01/24 History (400 unit) capsule cyanocobalamin (vitamin B-12) 1,000 mcg PO DAILY 12/10/21 05/01/24 History 1,000 mcg tablet acetaminophen 650 mg 1,300 mg PO Q12H PRN Pain 03/30/23 05/01/24 History tablet,extended release (Tylenol Arthritis Pain) metoprolol succinate 100 mg 100 mg PO DAILY 08/20/23 05/01/24 History tablet,extended release 24 hr ondansetron 4 mg disintegrating 4 mg PO Q8H PRN nausea and 09/05/23 05/01/24 Rx tablet vomiting #20 tabs fluticasone fur. 100 mcg-umeclid See Rx Instructions .Route 01/01/24 05/01/24 Rx 62.5 mcg-vilant 25 mcg .COMPLEX #180 ea inhalat.powder (Trelegy Ellipta) alprazolam 0.5 mg tablet (Xanax) 0.5 mg PO BID PRN Anxiety #60 tabs 03/06/24 05/01/24 Rx ferrous sulfate 325 mg (65 mg See Rx Instructions .Route 04/03/24 05/01/24 Rx iron) tablet .COMPLEX #90 tabs atorvastatin 20 mg tablet (Lipitor) 20 mg PO DAILY #90 tabs 04/04/24 05/01/24 Rx gabapentin 300 mg capsule See Rx Instructions .Route 04/08/24 05/01/24 Rx .COMPLEX #360 caps losartan 50 mg tablet (Cozaar) 50 mg PO DAILY #90 tabs 04/08/24 05/01/24 Rx cyclobenzaprine 10 mg tablet 10 mg PO TID PRN muscle pain 04/18/24 05/01/24 History furosemide 40 mg tablet (Lasix) 60 mg PO DAILY 04/18/24 05/01/24 History pantoprazole 40 mg tablet,delayed 40 mg PO DAILY #90 tabs 04/19/24 05/01/24 Rx release Allergies Allergy/AdvReac Type Severity Reaction Status Date / Time azithromycin AdvReac Severe Diarrhea Verified 05/01/24 13:21 hydrochlorothiazide AdvReac Intermediate throat Verified 05/01/24 13:21 irritation Exam Narrative: The patient's physical exam is essentially unchanged from prior examination on 03/27/2024. Specifically, patient demonstrates normal lung capacity, tidal volume and respiratory rate without wheezes, crackles, rales or rubs. Heart rate and rhythm are regular without murmurs, gallops or rubs. No JVD. Pulses 2+ globally without increasing peripheral edema. AAOx3 with no evidence of confusion, intoxication or altered mental state, NC/AT without acute distress or altered consciousness. Speech, cognition, mood, insight and judgment at baseline and within normal limits. Assessment and Plan Assessment and plan (1) Neuroforaminal stenosis of lumbosacral spine: Code(s): M48.07 - Spinal stenosis, lumbosacral region Status: Acute (2) Lumbosacral radiculopathy: Code(s): M54.17 - Radiculopathy, lumbosacral region Status: Acute Plan Proceed as planned bilateral L3-4 transforaminal epidural steroid injection under fluoroscopic guidance and with contrast control.
--- NOTE | 2024-05-08 10:47 | P.OP_ITS ---
Procedure Note - Detailed Date of Procedure 05/08/24 Pre-op Diagnosis Lumbar radiculopathy, lumbar spinal stenosis Post-op Diagnosis Same Procedure Performed Bilateral Lumbar Transforaminal Epidural Steroid Injection under Fluoroscopic Gu idance and with Contrast Control at L3-4. Surgeon Armaan Del Real MD Anesthesia Local Description of Procedure INFORMED CONSENT: Risks, benefits and alternatives to the procedure were discussed in detail with the patient who expressed explicit understanding and consent to proceed. Patient was informed verbally and in written form regarding the risks associated with the procedure including the low risk of serious infection, bleeding/bruising, allergic reaction, nerve or organ injury, paralysis, procedural site pain or discomfort, worsening pain and/or mobility, failure to treat and/or disfigurement. The patient expressed explicit understanding and consent to proceed. All materials required for the procedure were available prior to procedure start. Site and side was marked prior to procedure and confirmed in the presence of the patient. PROCEDURE IN DETAIL: The patient was brought to the procedural suite and placed in the prone position. Patient was made comfortable with use of pillows under the head/chest, hips and ankles. Skin overlying the injection site was prepared broadly with ChloraPrep applicator and draped in a sterile manner. Aseptic technique was employed throughout. The endplates of the vertebral body at the site of interest were aligned in the AP view. Ipsilateral oblique angulation was utilized to better visualize the neuroforamen of interest. Local anesthesia was established by infiltration with approximately 5 mL of 0.5% PF lidocaine via a 1-1/2 inch 27-gauge needle. A 22-gauge 5.0 inch Susana (pencil point) spinal needle was advanced until the needle approached the 6 o'clock position on the pedicle just superior to the exiting nerve root. on the right at L3-4. Lateral view was utilized to confirm appropriate position of the needle tip within the superior and posterior portion of the respective foramen. In an AP view, 1 mL of Omnipaque 300 contrast medium was injected after negative aspiration for CSF, blood or other bodily fluid, showing appropriate neurogram without evidence of intravascular or intrathecal spread of contrast. Digital subtraction imaging was used with an additional 1ml of the same contrast medium to confirm absence of intravascular contrast spread. A 1mL solution containing 3 mg of betamethasone was injected after negative repeat aspiration. Appropriate spread of the injectate was confirmed with washout of previously injected contrast. No parasthesias were elicited. Needle was removed completely intact without difficulty. The same exact procedure was repeated for all remaining levels on the contralateral side, left L3-4 neuroforamen, modified as necessary to accommodate for the new target location with identical findings and results and no evidence of complication. Images were saved and documented in the patient chart. Patient's skin was cleaned and sterile bandage applied. The patient tolerated the procedure well. The patient was transported to the recovery area in stable condition where they were observed for an appropriate amount of time prior to discharge, without evidence of complication. The patient was instructed to avoid excessive activity for the next 48 hours, including climbing and frequent use of stairs. Showers only for 48 hours. They were instructed not to drive or operate heavy machinery for 24 hours. They are to monitor for severe headaches, fevers, chills, night sweats, erythema/swelling at the site or any other signs of infection, bleeding/bruising, bowel or bladder changes as well as new pain, weakness or numbness in the upper or lower extremity. Should they notice these changes, they are instructed to call our of fice immediately or report directly to the nearest Emergency Department if no answer or if after posted office hours. COMPLICATIONS: None COMMENTS: None CONTRAST WASTED: 26 mL Omnipaque 300. STEROID WASTED: 0 mg of betamethasone. Complications No immediate complications Condition Stable Disposition Same day [facility] Billing Surgery - Charge Forward: Surgery Billing
--- NOTE | 2024-05-08 10:47 | WPDHPUPDATE1 ---
History and Physical Update Update Date/Time: 05/08/24 10:47 History and Physical has been reviewed, including an updated exam of the patient. There are NO changes in the patient's condition. Risks, benefits, and alternatives have been discussed and questions answered. Patient agrees to proceed with procedure.
[2024-05-08 11:10] VITALS: BP 126/64; PULSE 65; RESP 20; TEMP 37.3; O2SAT 93; BMI 38.5
[2024-05-08 11:19] VITALS: BP 131/65; PULSE 66; RESP 14; O2SAT 96
[2024-05-08 11:24] VITALS: BP 132/66; PULSE 66; RESP 16; O2SAT 95
[2024-05-08] MEDS: BETAMETHASONE SODIUM PHOSPHATE PF INJ 6 MG/ML VIAL INFILTRATE (11:24)
[2024-05-08] MEDS: LIDOCAINE 2% PF LOCAL INJ 5 ML VIAL 1 ML INFILTRATE (11:24)
[2024-05-08] MEDS: LIDOCAINE 1% PF INJ 5 ML VIAL 3.5 ML INFILTRATE (11:25)
[2024-05-08 11:28] VITALS: BP 111/70; PULSE 69; RESP 16; O2SAT 93
--- OUTSIDE RECORDS SUMMARY | 2024-05-08 12:10 | XMS_ITS | Clinical Summary ---
Author Organization [facility] [address] Address [address] [place] [address] Care Team Providers Care Mold Washer Name Role Phone Luis Tomlin MD Unavailable [phone] Florin Mesa MD Primary Care Provider + [phone] Allergies No known active allergies Medications ALPRAZolam (XANAX) 0.5 mg tablet Take 1 tablet (0.5 mg total) by mouth 2 (two) times a day 5 09/29/2017 Active XARELTO 20 mg tablet Take 1 tablet (20 mg total) by mouth daily 10/11/2017 Active metoprolol XL (TOPROL-XL) 100 mg 24 [...] tablet (325 mg total) by mouth daily 08/23/2023 Active losartan (COZAAR) 50 mg tablet Take 1 tablet (50 mg total) by mouth daily 08/23/2023 Active atorvastatin (LIPITOR) 20 mg tablet Take 1 tablet (20 mg total) by mouth daily 03/29/2024 Active furosemide (LASIX) 40 mg tabletIndication s:Diastolic dysfunction without heart failure Take 1.5 tablets (60 mg total) by mouth daily 135 tablet 3 04/05/2024 Active Active Problems Problem Noted Date Diagnosed Date 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 Exam and noninvasive studies are normal. Recommend further workup in regards to his known lumbar disc disease. Follow up with me on a p.r.n. basis. Nonrheumatic aortic valve stenosis 07/15/2022 Atherosclerosis of [place] artery of extremity Assessment & Plan (04/27/2022 2:16 PM DOUBLE SURFACE OPERATOR): Patient's exercise study is normal. Lower extremity discomfort likely neurogenic and or musculoskeletal in nature. No further vascular workup needed. Follow-up on a p.r.n. basis. Assessment & Plan (04/14/2022 1:27 PM DOUBLE SURFACE OPERATOR): Patient has symptoms consistent with inflow disease [...] Lipitor. Assessment & Plan (04/27/2022 2:16 PM DOUBLE SURFACE OPERATOR): Hyperlipidemia chronic and controlled. Continue current medical therapy Assessment & Plan (04/14/2022 1:26 PM DOUBLE SURFACE OPERATOR): Hyperlipidemia chronic and controlled. Continue current therapy. 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 Continue current medical management. Assessment & Plan (04/27/2022 2:17 PM DOUBLE SURFACE OPERATOR): Hypertension chronic and controlled. Continue current medical therapy Assessment & Plan (04/14/2022 1:26 PM DOUBLE SURFACE OPERATOR): Hypertension chronic and controlled. Continue current medical therapy Resolved Problems Problem Noted Date Diagnosed Date Resolved Date Ascending aortic aneurysm 07/03/2020 Encounters Date Type Department Care Team Description 04/19/2024 Results Follow-Up [facility] [address] [place] [phone] Yuliet Paige NP 04/05/2024 2:00 PM DOUBLE SURFACE OPERATOR Office Visit [facility] [address] [place] [phone] Yuliet Paige NP Diastolic dysfunction without heart [...] on file Legal Sex Male 8:26 PM DOUBLE SURFACE OPERATOR Gender Identity Not on file Sexual Orientation Not on file Occupation Industry Job Start Date Job End Date retired Not on file Not on file Not on file Obstetrics History Last Filed Vital Signs Vital Sign Reading Time Taken Comments Blood Pressure 102/52 04/05/2024 2:11 PM DOUBLE SURFACE OPERATOR Pulse 67 04/05/2024 2:11 PM DOUBLE SURFACE OPERATOR Temperature - - Respiratory Rate - - Oxygen Saturation 92% 04/05/2024 2:11 PM DOUBLE SURFACE OPERATOR Inhaled Oxygen Concentration - - Weight 113.4 kg (250 lb) 04/05/2024 2:11 PM DOUBLE SURFACE OPERATOR Height 172.7 cm (5' 8 ) 04/05/2024 2:11 PM DOUBLE SURFACE OPERATOR Body Mass Index 38.01 04/05/2024 2:11 PM DOUBLE SURFACE OPERATOR Plan of Treatment Health Maintenance Due Date [...] BASIC METABOLIC PANEL Routine 04/18/2024 3:43 PM DOUBLE SURFACE OPERATOR Diastolic dysfunction without heart failure from Last 3 Months Results * (ABNORMAL) Basic metabolic panel (04/18/2024 3:43 PM DOUBLE SURFACE OPERATOR) Pathologist [facility] Glucose 109(H) 70 - 99 mg/dL [facility] [...] [facility] - 01 Blood 04/18/2024 3:43 PM DOUBLE SURFACE OPERATOR 04/18/2024 Narrative [facility] - 04/19/2024 8:11 AM DOUBLE SURFACE OPERATOR Performed at: 01 - [facility] [place] [address] [id number] Straightedge Worker: Nicolás Olivares PhD, Phone: [phone] us Yuliet Paige NP LAB BLOOD ORDERABLES Theodora l Result [facility] - 01 from Last 3 Months Insurance MEDICARE SOLUTIONS MEDICARE [employer]UTIONS MEDICARE [employer] Care Teams Mold Washer Relationship Specialty Start Date End Date Florin Mesa MD [address] [place] [address] PCP - General Family Medicine 04/09/24 Luis Tomlin MD [address] [address] [place] [address] [place] [id number] Surgeon Vascular Surgery 04/08/22
--- OUTSIDE RECORDS SUMMARY | 2024-05-08 12:10 | XMS_ITS | Encounter Summary ---
Author Organization [facility] Healthcare Address [address] [place] [address] Care Team Providers Care Police Justice Name Role Phone Luis Tomlin MD Unavailable [phone] Florin Mesa MD Primary Care Provider + [phone] Encounter Details Date Type Department Care Team (Late st Contact Info) Description 08/21/[address] [facility] Health Information Management [address] [place] [address] Scanning, Provider Social History Tobacco Use Types Packs/Day Years Used Date Smoking Tobacco: Former Smokeless Tobacco: Never Alcohol Use Standard Drinks/Week Comments Yes 0 (1 standard drink = 0.6 oz pur e alcohol) 3-4 beers daily Sex and Gender Information Value Date Recorded Sex Assigned at Not on file Legal Sex Male 8:26 PM MARKING ROOM SUPERVISOR Gender Identity Not on file Sexual [...] on filedocumented in this encounter Care Teams Police Justice Relationship Specialty Start Date End Date Florin Mesa MD [address] [place] [address] PCP - General Family Medicine 04/09/24 Luis Tomlin MD [facility] [facility] [address] [place] [address] [address] Surgeon Vascular Surgery 04/08/22 documented as of this encounter
--- OUTSIDE RECORDS SUMMARY | 2024-05-08 12:10 | XMS_ITS | Encounter Summary ---
Author Organization [facility] Address [address] [facility] [place] [address] Care Team Providers Care Research Administrator Name Role Phone Unavailable Primary Care Provider Unavailabl e Encounter Details Date Type Department Care Team (Late st Contact Info) Description 12/20/2018 Lab Requisition [facility] Derm[facility] Lab [address] [facility] [place] [id number] Erasmo Ruiz MD [address] [place] [address] Social History Tobacco Use [...] AM CDT) Case Report Dermatopathology Report Case: [id number] Authorizing Provider: Erasmo Ruiz MD Collected: 12/19/2018 12:00 AM Ordering Location: [facility] Received: 12/20/2018 12:33 PM Pathologist: [...] of a shave biopsy (2 pieces) measuring [id number] & [id number]. Jar 0. 12:37 PM T DERMATOPATHOLOGY LABORATORY [...] purposes. Billing Codes Specimen Charges Stain Charges 00158 1 [id number] 1 12:37 PM CDT DERMATOPATHOLOGY LABORATORY Embedded Images 12:37 PM T DERMATOPATHOLOGY LABORATORY Pathology/Cytolog y TISSUE SPECIMEN FROM SKIN / Unknown 12/19/2018 12/20/2018 12:33 PM CDT Erasmo Ruiz MD LAB - PATHOLOGY/CYTO LOGY ORDERABLES DERMATOPATHOLOGY LABORATORY [facility] - Department of Dermatology [address] [facility] 5th [place] [address], [facility] [phone] documented in this encounter Visit Diagnoses Not on filedocumented in this encounter
--- OUTSIDE RECORDS SUMMARY | 2024-05-08 12:10 | XMS_ITS | Encounter Summary ---
Author Organization [facility] Address [address] [facility] [place] [address] Care Team Providers Care Valve Maker Name Role Phone Unavailable Primary Care Provider Unavailabl e Encounter Details Date Type Department Care Team (Late st Contact Info) Description 01/16/2019 Lab Requisition [facility] DermPath Lab [address] [facility] [place] [phone] Erasmo Ruiz MD [address] [place] [address] Social History Tobacco Use Types [...] DERMPATH SLIDE CONSULT Routine 01/16/2019 12:00 AM WAITER/WAITRESS CLUB documented in this encounter Results * DERMPATH SLIDE CONSULT (01/16/2019 12:00 AM WAITER/WAITRESS CLUB) Case Report Dermatopathology Report Case: [id number] Authorizing Provider: Erasmo Ruiz MD Collected: 01/16/2019 12:00 AM Ordering Location: [facility] DermPath Lab Received: 01/16/2019 03:06 PM Pathologist: La Dominique MD Specimen: Slide(s), Right nasal tip, OSC# [id number] 9 2:26 PM WAITER/WAITRESS CLUB DERMATOPATHOLOGY LABORATORY Final Diagnosis Specimen A. 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 Erasmo Ruiz, a consult will be performed on 1 (H&E) slide(s) labeled [id number]. Bx Date: 01/02/2019 Darian hyper vs neoplasm. All slides returned. Any additional sections, special stains or immunohistochemical stains performed by our laboratory will be kept here on file. 2:26 PM [facility] DERMATOPATHOLOGY LABORATORY Microscopic Description Specimen A. Slide(s), Right nasal tip, OSC# [id number]: There are prominent sebaceous gland lobules surrounding a dilated hair follicle. This dome-shaped lesion contains dilated blood vessels, coarse collagen bundles, and stellate fibroblasts. 2:26 PM [facility] DERMATOPATHOLOGY LABORATORY Disclaimer An external and internal positive and negative controls are appropriate for the histochemical, immunohistochemical and immunofluorescence stain(s) in this case (if any), except where stated explicitly. The performance characteristics of the stain(s) cited in this report were developed and its performance characteristic determined by the Dermatopathology Laboratory at [facility], directed by Dr. Channing Ingram. These tests need not be, and therefore are not, approved by the [place] Food and Drug Administration. The tests are used for clinical purposes. Billing Codes Specimen Charges Stain Charges 88299 1 9 2:26 PM [facility] DERMATOPATHOLOGY LABORATORY Embedded Images 9 2:26 PM [facility] DERMATOPATHOLOGY LABORATORY Pathology/Cytolog y SLIDE / Unknown 01/16/2019 01/16/2019 3:06 PM WAITER/WAITRESS CLUB Erasmo Ruiz MD LAB - PATHOLOGY/CYTO LOGY ORDERABLES DERMATOPATHOLOGY LABORATORY [facility] - Department of Dermatology [facility] [facility] [place] [address], [facility] [phone] documented in this encounter Visit Diagnoses Not on filedocumented in this encounter
--- OUTSIDE RECORDS SUMMARY | 2024-05-08 12:10 | XMS_ITS | Encounter Summary ---
Author Organization [facility] Address [facility] [place] [address] Care Team Providers Care Rn Obgyn Name Role Phone Jamey Torres MD Primary Care Provider [phone] Encounter Details Date Type Department Care Team (Late st Contact Info) Description 08/27/2014 Abstract [facility] CONVERSION [address] [place] [address] , Generic Conversion, Social History Tobacco Use [...] on filedocumented in this encounter Care Teams Rn Obgyn Relationship Specialty Start Date End Date Jamey Torres MD [address] [place] [address] PCP - General FAMILY PRACTICE 09/20/18 documented as of this encounter
--- OUTSIDE RECORDS SUMMARY | 2024-05-08 12:10 | XMS_ITS | Clinical Summary ---
Author Organization [facility] Address [address] [place] [address] Care Team Providers Care Pediatrics Physician Name Role Phone Unavailable Primary Care Provider Unavailabl e Source Comments [facility],non-owned Affiliates and Associated Physician Practices is amultiple site organization consisting of ambulatory clinics and hospital sitesin [place], [place], [place] and [place]. This disclosure is being madepursuant to the Care Everywhere program and may not contain all information available regarding this patient. Last updated 17.[facility] Apos Therapy Social History Tobacco Use Types Packs/Day Years [...] to complete this topic MENINGOCOCCAL (Group B) VACC INE SHARED DECISION-MAKING Aged Out No longer eligibl e based on patient's age to complete this topic MENINGOCOCCAL GROUPS A/C/Y/W VACCINE Aged Out No longer eligible b ased on patient's age to complete this topic
--- OUTSIDE RECORDS SUMMARY | 2024-05-08 12:10 | XMS_ITS | Clinical Summary ---
Author Organization [facility] Address [address] [place] [address] Care Team Providers Care Interactive Media Marketing Director Name Role Phone Jamey Torres MD Primary Care Provider [phone] Allergies No known active allergies Medications Garlic 1000 MG capsule Take 1 capsule by mouth daily. 5 Active vitamin C 1000 MG tablet Take 1 tablet by mouth daily. 5 Active vitamin E 400 UNIT capsule Take 1 capsule by mouth daily. 5 Active simethicone 80 MG chewable tablet Chew 1 tablet by mouth. 5 Active [place]-3 Fatty Acids (FISH OIL) 1200 MG Cap [...] liver 06/01/2012 Hyperlipidemia 05/09/2012 Adenocarcinoma of prostate ([facility]) Hypertension 12/07/2011 Immunizations Name Administration [...] Most Recently Relevant to Health Maintenance Insurance [facility] Care Teams Interactive Media Marketing Director Relationship Specialty Start Date End Date Jamey Torres MD [address] [place] [address] PCP - General FAMILY PRACTICE 09/20/18
--- OUTSIDE RECORDS SUMMARY | 2024-05-08 12:10 | XMS_ITS | Referral Summary ---
Author Organization [facility] [address] [place] [address] [address] [place] [address] Care Team Providers Care Superintendent Construction Name Role Phone Luis Tomlin MD Unavailable [phone] Florin Mesa MD Primary Care Provider [phone] Encounters Date Type Department Care Team Description 04/19/2024 Results Follow-Up [facility] Cardiology [address] [place] [address] Yuliet Paige NP 04/05/2024 2:00 PM MODERN AND CONTEMPORARY ART CURATOR Office Visit [facility] Cardiology [address] [place] [address] Yuliet Paige NP Diastolic dysfunction [...] 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 Lower extremity discomfort likely neurogenic and or musculoskeletal in nature. No further vascular workup needed. Follow-up on a p.r.n. basis. Assessment & Plan (04/14/2022 1:27 PM MODERN AND CONTEMPORARY ART CURATOR): Patient has symptoms consistent with inflow disease [...] Lipitor. Assessment & Plan (04/27/2022 2:16 PM MODERN AND CONTEMPORARY ART CURATOR): Hyperlipidemia chronic and controlled. Continue current medical therapy Assessment & Plan (04/14/2022 1:26 PM MODERN AND CONTEMPORARY ART CURATOR): Hyperlipidemia chronic and controlled. Continue current therapy. 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 Continue current medical management. Assessment & Plan (04/27/2022 2:17 PM MODERN AND CONTEMPORARY ART CURATOR): Hypertension chronic and controlled. Continue current medical therapy Assessment & Plan (04/14/2022 1:26 PM MODERN AND CONTEMPORARY ART CURATOR): Hypertension chronic and controlled. Continue current medical [...] on file Legal Sex Male 8:26 PM MODERN AND CONTEMPORARY ART CURATOR Gender Identity Not on file Sexual Orientation Not on file Occupation Industry Job Start Date Job End Date retired Not on file Not on file Not on file Last Filed Vital Signs Vital Sign Reading Time Taken Comments Blood Pressure 102/52 04/05/2024 2:11 PM MODERN AND CONTEMPORARY ART CURATOR Pulse 67 04/05/2024 2:11 PM MODERN AND CONTEMPORARY ART CURATOR Temperature - - Respiratory Rate - - Oxygen Saturation 92% 04/05/2024 2:11 PM MODERN AND CONTEMPORARY ART CURATOR Inhaled Oxygen Concentration - - Weight 113.4 kg (250 lb) 04/05/2024 2:11 PM MODERN AND CONTEMPORARY ART CURATOR Height 172.7 cm (5' 8 ) 04/05/2024 2:11 PM MODERN AND CONTEMPORARY ART CURATOR Body Mass Index 38.01 04/05/2024 2:11 PM MODERN AND CONTEMPORARY ART CURATOR Plan of Treatment Not on file Procedures Procedure Name Priority Date/Time Associated Diagnosis Comments BASIC METABOLIC PANEL Routine 04/18/2024 3:43 PM MODERN AND CONTEMPORARY ART CURATOR Diastolic dysfunction without heart failure from Last 3 Months Results * (ABNORMAL) Basic metabolic panel (04/18/2024 3:43 PM MODERN AND CONTEMPORARY ART CURATOR) Pathologist [facility] Glucose 109(H) 70 - 99 mg/dL [facility] [...] [facility] - 01 Blood 04/18/2024 3:43 PM MODERN AND CONTEMPORARY ART CURATOR 04/18/2024 Narrative [facility] - 04/19/2024 8:11 AM MODERN AND CONTEMPORARY ART CURATOR Performed at: [address] [place] [id number] [employer]: Nicolás Olivares PhD, Phone: [phone] us Yuliet Paige NP LAB BLOOD ORDERABLES Theodora l Result [facility] - 01 from Last 3 Months Insurance [employer] [facility] MEDIC[facility] Address: [address] [address] [place] [id number] [employer] [facility] MEDIC[facility] Address: [address] [address] [employer] [facility] MED[facility] Address: [address] [address] [place] [address] Care Teams Superintendent Construction Relationship Specialty Start Date End Date Florin Mesa MD [address] [place] [address] PCP - General Family Medicine 04/09/24 Luis Tomlin MD [address] [place] [address] Surgeon Vascular Surgery 04/08/22
--- OUTSIDE RECORDS SUMMARY | 2024-05-08 12:10 | XMS_ITS | Encounter Summary ---
Author Organization [facility] Address [address] [place] [address] Care Team Providers Care Form Builder Name Role Phone Unavailable Primary Care Provider Unavailabl e Encounter Details Date Type Department Care Team (Late st Contact Info) Description 11/13/2021 Lab Requisition [facility] DermPath Lab [address] [place] [id number] Florin Mesa MD [address] [place] [address] Social History Tobacco Use Types [...] AM CDT) Case Report Dermatopathology Report Case: [id number] Authorizing Provider: Florin Mesa MD Collected: 11/10/2021 12:00 AM Ordering Location: [facility] Received: 11/13/2021 01:43 PM Pathologist: [...] of a non-oriented ellipse of skin measuring 52a15s2 mm, inked and bisected. 2 4:14 PM [...] characteristic determined by the Dermatopathology Laboratory at [facility], directed by Dr. Channing Ingram. These tests need not be, and therefore are not, approved by the [place] Food and Drug Administration. The tests are used for clinical purposes. Billing Codes Specimen Charges Stain Charges 40842 1 2 4:14 PM CDT DERMATOPATHOLOGY LABORATORY Embedded Images 2 4:14 PM CDT DERMATOPATHOLOGY LABORATORY Pathology/Cytolog y TISSUE SPECIMEN FROM SKIN / Unknown 11/10/2021 11/13/2021 1:43 PM CDT Florin Mesa MD LAB - PATHOLOGY/CYTO LOGY ORDERABLES DERMATOPATHOLOGY LABORATORY [facility] - Department of Dermatology [address], [address] [phone] documented in this encounter Visit Diagnoses Not on filedocumented in this encounter
== END 2024-05-08 11:45 | disposition home or self-care (01) ==
PROVIDERS: PCP Nurse Practitioner Adult Health; Visit Provider Anesthesiology Pain Medicine
PROC: (CPT 64483; principal; 2024-05-08 12:00)
DX: M48.061 Spinal stenosis, lumbar region without neurogenic claudication (principal); M54.16 Radiculopathy, lumbar region
CPT/HCPCS: 64483; 99199

== ENCOUNTER 2024-06-12 16:02 | Outpatient (CLI) | payer MEDICARE, SELFPAY ==
--- NOTE | ~2024-06-12 | XR_ITS ---
CHEST RADIOGRAPH, PA AND LATERAL CLINICAL HISTORY: R09.3 - Abnormal sputum . COMPARISON: 01/30/2024 TECHNIQUE: PA and lateral views of the chest. FINDINGS The cardiomediastinal silhouette is enlarged, unchanged. Elevation of the left hemidiaphragm with adjacent compressive atelectasis. The remainder of the lungs are clear. IMPRESSION: No focal infiltrate or effusion. Reviewed, dictated and finalized at location A.
--- NOTE | ~2024-06-12 | XR_ITS ---
Left foot Technique: AP, oblique, and lateral views were obtained. Clinical History: Pain Findings: No acute fracture or dislocation is seen. Osseous alignment is anatomic. There is moderate to advanced degenerative change of the first MTP joint. Plantar calcaneal spur noted. Soft tissues ar e unremarkable. 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 Reviewed, dictated and finalized at location . 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
== END 2024-06-12 16:03 | disposition home or self-care (01) ==
LOC: MICIMG 16:04
PROVIDERS: PCP Family Medicine; Visit Provider Family Medicine
DX: R09.3 Abnormal sputum (principal); M19.072 Primary osteoarthritis, left ankle and foot
CPT/HCPCS: 71046; 73630

== ENCOUNTER 2024-12-19 13:51 | Outpatient (CLI) | payer MEDICARE, SELFPAY ==
--- NOTE | ~2024-12-19 | XR_ITS ---
EXAMINATION: XR shoulder LT min 2V, 12/19/2024 14:04 CDT HISTORY: LT SHOULDER PAIN GOES DOWN LT ARM INTO 4TH 5TH DIGIT COMPARISON: No comparisons available. Findings: No acute fracture or malalignment. No significant degenerative changes. Soft tissues unremarkable. Impression: No acute fracture or malalignment. Reviewed, dictated and finalized at location P. Impression: No acute fracture or malalignment.
--- NOTE | ~2024-12-19 | XR_ITS ---
XR_[id number]_CR Indication: LT SHOULDER PAIN THAT RADIATES INTO LT SIDE OF NECK Comparison: None Findings: The vertebral heights are intact. No fracture or subluxation. Moderate to severe loss of disc height at C3-4 C5-6 and C6-7. Soft tissues unremarkable Impression: No acute abnormality. Reviewed, dictated and finalized at location P. Impression: No acute abnormality.
== END 2024-12-19 13:52 | disposition home or self-care (01) ==
PROVIDERS: PCP Family Medicine; Visit Provider Nurse Practitioner Adult Health
DX: M62.838 Other muscle spasm (principal); M47.22 Other spondylosis with radiculopathy, cervical region
CPT/HCPCS: 72040; 73030